=== PATIENT | male | born 1970 | race African-American/Black ===

== ENCOUNTER 2020-07-05 13:33 | Inpatient (IN) | payer OTHER ==
--- NOTE | 2020-07-05 13:57 | BHS.RME ---
Substance Use & Tx History - Substance Use History Alcohol Substance amount: 10 beers 24 oz + 1 pint liquor Frequency of use: Daily Substance route: Oral Date of Last Use: 07/04/20 (started age 16) Cocaine- Powder Substance amount: 3 grams Frequency of use: Less than 3 times per week Substance route: Inhalation (ex: sniffing or snorting), Smoking Date of Last Use: 07/04/20 (started age 18) Marijuana/Hashish Substance amount: 1 ounce Frequency of use: Daily Substance route: Smoking Date of Last Use: 07/05/20 (started age 14) Nicotine Substance amount: 1 pack Frequency of use: Daily Substance route: Smoking Date of Last Use: 07/05/20 (started age 16) Physical/Psych/Mental Status - Behavior General Behavior: Increased activity (restlessness, agitation) Eye Contact: Normal - Cooperativeness Cooperativeness: Cooperative - Thinking Thought Processes: Tight, Logical, Goal Directed - Physical Health Problems Is patient presently having any pain?: No Does patient presently have any injuries (include location): No Does patient currently have a fever: No Is patient : No CIWA Nausea/Vomitin-Int. Nausea w/Dry Heave Muscle Tremors: 2 Anxiety: 3 Agitation: 4-Moderately Restless Paroxysmal Sweats: 1-Minimal Palms Moist Orientation: 0-Oriented Tacttile Disturbances: 1-Very Mild Itch/Numbness Auditory Disturbances: 0-None Visual Disturbances: 0-None Headache: 0-None Present CIWA-Ar Total Score: 15
--- NOTE | 2020-07-05 15:39 | HP ---
CIWA Score Nausea/Vomitin-Int. Nausea w/Dry Heave Muscle Tremors: 2 Anxiety: 3 Agitation: 4-Moderately Restless Paroxysmal Sweats: 1-Minimal Palms Moist Orientation: 0-Oriented Tacttile Disturbances: 1-Very Mild Itch/Numbness Auditory Disturbances: 0-None Visual Disturbances: 0-None Headache: 0-None Present CIWA-Ar Total Score: 15 - Admission Criteria OASAS Guidelines: Admission for Medically Managed Detox: Requires at least one of the followin. CIWA greater than 12 2. Seizures within the past 24 hours 3. Delirium tremens within the past 24 hours 4. Hallucinations within the past 24 hours 5. Acute intervention needed for co occurring medical disorder 6. Acute intervention needed for co occurring psychiatric disorder 7. Severe withdrawal that cannot be handled at a lower level of care (continued vomiting, continued diarrhea, abnormal vital signs) requiring intravenous medication and/or fluids 8. Patient presents the following: CIWA greater than 12 Admission Criteria Met: Admission criteria met Admitting History and Physical - Admission Chief Complaint: 50 yo M presenting alcohol detox; "so I can get clean." History of Present Illness: 50 yo M presenting alcohol detox; "so I can get clean." Pt is new to [facility]. Pt reports going to detox in the [place] 2 weeks ago. Reports intermittent periods of sobriety. Pt reports certain interpersonal relationships and "talking about it all the time" triggers him to start using more. Pt reports blacking out 2.5 weeks ago. No seizures. Pt started to feel withdrawal symptoms. PMH - asthma (albuterol inhaler prn) PSH - none Pcyh - schizophrenia - depakot 500 mg bid (last taken 2 days ago), abilify consta shot (1/month) Soc/Dom - homeless - Substance Use History Alcohol Substance amount: 10 beers 24 oz + 1 pint liquor Frequency of use: Daily Substance route: Oral Date of Last Use: 07/04/20 (started age 16) Cocaine- Powder Substance amount: 3 grams Frequency of use: Less than 3 times per week Substance route: Inhalation (ex: sniffing or snorting), Smoking Date of Last Use: 07/04/20 (started age 18) Marijuana/Hashish Substance amount: 1 ounce Frequency of use: Daily Substance route: Smoking Date of Last Use: 07/05/20 (started age 14) Nicotine Substance amount: 1 pack Frequency of use: Daily Substance route: Smoking Date of Last Use: 07/05/20 (started age 16) History Source: Patient Limitations to Obtaining History: No Limitations Admission ROS [facility] - [facility] Allergies/Adverse Reactions: Allergies Allergy/AdvReac Type Severity Reaction Status Date / Time banana Allergy Intermediate Vomiting Verified 07/05/20 15:42 cantaloupe Allergy Intermediate Vomiting Verified 07/05/20 15:42 watermelon Allergy Intermediate Vomiting Verified 07/05/20 15:42 peanut butter Allergy Intermediate Vomiting Uncoded 07/05/20 15:42 - Ebola screening Have you traveled outside of the country in the last 21 days: No Have you been sick,other than usual withdrawal symptoms: No Do you have a fever: No - Review of Systems Constitutional: Chills, Diaphoresis (mild perspiration), Changes in sleep (insomnia) EENT: reports: No Symptoms Reported Respiratory: reports: No Symptoms reported Cardiac: reports: No Symptoms Reported GI: reports: Nausea, Abdominal cramping (mild) : reports: No Symptoms Reported Musculoskeletal: reports: No Symptoms Reported Integumentary: reports: Other (healing wound with scab on R elbow) Neuro: reports: Headache, Numbness (in hands and feet that has been going on for years, per pt), Tingling (in hands and feet that has been going on for years, per pt), Tremors (mild tremor - felt not seen) Endocrine: reports: No Symptoms Reported Hematology: reports: Anemia (hx of anemia) Psychiatric: reports: Mood/Affect Appropiate, Orientated x3, Agitated (moderately restless), Anxious (mildly anxious) Patient History - Smoking Cessation Smoking history: Current every day smoker Have you smoked in the past 12 months: Yes Aproximately how many cigarettes per day: 20 Hx Chewing Tobacco Use: Yes Initiated information on smoking cessation: Yes 'Breaking Loose' booklet given: 07/05/20 Admission Physical Exam [facility] Physical General Appearance: Yes: No Apparent Distress, Nourished, Appropriately Dressed HEENTM: Yes: EOMI, Hearing grossly Normal, Normocephalic, Normal Voice Respiratory: Yes: Lungs Clear, Normal Breath Sounds, No Respiratory Distress, No Accessory Muscle Use Neck: Yes: Supple, Trachea in good position Breast: Yes: Breast Exam Deferred Cardiology: Yes: Regular Rhythm, Regular Rate Abdominal: Yes: Normal Bowel Sounds, Non Tender (but will mild discomfort), Soft Genitourinary: Yes: Other (deferred) Musculoskeletal: Yes: full range of Motion, Gait Steady Extremities: Yes: Normal Inspection, Normal Range of Motion, Non-Tender, Tremors (mild, felt not seen) Neurological: Yes: Fully Oriented, Alert, Motor Strength 5/5 Integumentary: Yes: Normal Color, Dry, Warm - Diagnostic (1) Schizophrenia Current Visit: No Status: Chronic Qualifiers: Schizophrenia type: unspecified Qualified Code(s): F20.9 - Schizophrenia, unspecified (2) Asthma Current Visit: No Status: Chronic Qualifiers: Asthma severity: mild Asthma persistence: intermittent Asthma complication type: uncomplicated Qualified Code(s): J45.20 - Mild intermittent asthma, uncomplicated (3) Alcohol dependence Current Visit: Yes Status: Acute Qualifiers: Substance use status: in withdrawal Complication of substance-induced condition: uncomplicated Qualified Code(s): F10.230 - Alcohol dependence with withdrawal, uncomplicated (4) Cocaine dependence Current Visit: Yes Status: Acute Qualifiers: Substance use status: uncomplicated Qualified Code(s): F14.20 - Cocaine dependence, uncomplicated (5) Marijuana dependence Current Visit: Yes Status: Acute (6) Nicotine dependence Current Visit: Yes Status: Acute Qualifiers: Nicotine product type: cigarettes Substance use status: uncomplicated Qualified Code(s): F17.210 - Nicotine dependence, cigarettes, uncomplicated Cleared for Admission S - Detox or Rehab [facility] Level of Care: Medically Managed Detox Regimen/Protocol: Librium Breathalyzer - Breathalyzer Breathalyzer: 0 Urine Drug Screen - Control Is test valid?: Yes - Results Urine drug screen results: THC-Marijuana, LEONARD-Cocaine Inpatient Rehab Admission - Rehab Decision to Admit Inpatient rehab admission?: No
[2020-07-05] MEDS ORDERED: BISMUTH SUBSALICYLATE 524 MG/30 ML UD PO PRN (15:53)
[2020-07-05] MEDS ORDERED: MENTHOL/PHENOL 1 EACH UD MM PRN (15:53)
[2020-07-05] MEDS ORDERED: METHOCARBAMOL 500 MG TABLET PO PRN (15:53)
[2020-07-05] MEDS ORDERED: MAGNESIUM CITRATE 300 ML BOTTLE PO PRN (15:53)
[2020-07-05] MEDS ORDERED: NICOTINE POLACRILEX 2 MG GUM BUC PRN (15:53)
[2020-07-05] MEDS ORDERED: MAG HYDROX/AL HYDROX/SIMETH 30 ML UNIT-DOSE CUP PO PRN (15:53)
[2020-07-05] MEDS ORDERED: ONDANSETRON *ODT* 4 MG TABLET SL PRN (15:53)
[2020-07-05] MEDS ORDERED: chlordiazePOXIDE HCL 25 MG CAPSULE PO PRN (15:53)
[2020-07-05] MEDS ORDERED: IBUPROFEN 400 MG TABLET (FP) PO PRN (15:53)
[2020-07-05] MEDS ORDERED: ACETAMINOPHEN 325 MG TABLET (FP) PO PRN ×2 (15:53)
[2020-07-05] MEDS ORDERED: MAGNESIUM HYDROX 2400MG/30ML ORAL SUSPENSION 30 ML CUP PO PRN (15:53)
[2020-07-05 15:59] VITALS: BP 114/73; PULSE 59; TEMP 97.3; BMI 28.0
[2020-07-05] MEDS ORDERED: NICOTINE 21 MG/24 HOURS TOPICAL PATCH TD SCH (16:00)
[2020-07-05] MEDS ORDERED: ALBUTEROL SO4 HFA INHALER IH PRN (16:06)
--- NOTE | 2020-07-05 16:57 | PN ---
[facility] Progress Note Note: Patient presents w/ alcohol, cocaine and cannabis use disorder for admission to detox. States eye injury 3 weeks ago r/t fall. Patient admission EKG shows Bradycardia @42 w/ Marked voltage criteria for LVH, T-wave abnormality. Assess: Alert. Denies chest pain States intermittent SOB. (L) eye outer lateral sclera bright red. HR: 46, possible murmur heard. + Tremors. Intermittent retching. Plan: COVID test sent to lab earlier. Stat dose Ativan 2 mg PO for alcohol withdrawal. Send to [facility] ED for clearance via ambulance. Report given to Dr. Salcedo. Patient to return to [facility] when cleared.
[2020-07-05] MEDS ORDERED: LORazepam 2 MG TABLET PO STA (16:58)
--- OUTSIDE RECORDS SUMMARY | 2020-07-05 18:43 | XMS ---
:1970 Author Organization [facility] Care Team Providers Name Role Phone MD Vida Unavailable Unavailable MD KADI Unavailable Unavailable ED STAFF PHYSICIAN Unavailable Unavailable MD Rachna Unavailable Unavailable Premium, C Unavailable Unavailable Thomas, C Unavailable Unavailable Premium, C Unavailable Unavailable Premium C Unavailable Unavailable LUNA Charles Unavailable Unavailable MD Deondre Unavailable Unavailable Jas HURTADO Unavailable Unavailable [id number] Unavailable Unavailable MD Soniya Unavailable Unavailable WILLA DIXON Unavailable Unavailable MD BALDEMAR Unavailable Unavailable Joseph Unavailable Unavailable ED STAFF PHYSICIAN Unavailable Unavailable ED STAFF PHYSICIAN Unavailable Unavailable Re-disclosure Warning The records that you are about to access may contain information from federally- assisted alcohol or drug abuse programs. If such information is present, then the following federally mandated warning applies: This information has been disclosed to you from records protected by federal confidentiality rules (42 CFR part 2). The federal rules prohibit you from making any further disclosure of this information unless further disclosure is expressly permitted by the written consent of the person to whom it pertains or as otherwise permitted by 42 CFR part 2. A general authorization for the release of medical or other information is NOT sufficient for this purpose. The Federal rules restrict any use of the information to criminally investigate or prosecute any alcohol or drug abuse patient.The records that you are about to access may contain highly sensitive health information, the redisclosure of which is protected by Article 27-F of the [facility] Public Health law. If you continue you may haveaccess to information: Regarding HIV / AIDS; Provided by facilities licensed or operated by the [facility] Office of Mental Health; or Provided by the [facility] Office for People With Developmental Disabilities. If such information is present, then the following [facility] mandated warning applies: This information has been disclosed to you from confidential records which are protected by state law. State law prohibits you from making any further disclosure of this information without the specific written consent of the person to whom it pertains, or as otherwise permitted by law. Any unauthorized further disclosure in violation of state law may result in a fine or prison sentence or both. A general authorization for the release of medical or other information is NOT sufficient authorization for further disclosure. 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 Encounters Encounter Providers Location Date Indications Data Source(s ) Emergency Attender: Harsh 06/02/2020 POST FALL, ARM PAIN W shalini Ruiz 07:27:00 AM [facility] EDT - 06/02/2020 08:51:00 AM EDT POST FALL, ARM PAIN [facility] Patient discharged. Emergency Attender: ED STAFF H 05/22/2020 08:49:00 AM [facility] PHYSICIANAttender: CAIO ED EDT - 05/22/2020 [facility] STAFF PHYSICIANAttender: STAFF 05:46:00 PM EDT ED STAFF PHYSICIANAdmitter: ED STAFF PHYSICIAN Patient discharged. Inpatient Attender: ROMIE HARVEY 02/14/2020 [facility] PM EDT - 02/20/2020 [facility] 10:07:00 PM EDT Patient discharged. Outpatient ST 02/14/2020 04:11:00 PM EDT - [address] [place] [address] 10:36:00 PM EDT Patient discharged. Inpatient Attender: NAN H-HAL6 02/09/2020 04:21:00 [facility] ANGELESCLARISAGuillermo ADHAttender: PM EDT - 02/14/20 Medical Center STAFF ED STAFF 04:51:00 PM EDT PHYSICIANAdmitter: NAN DUONGHReferrer: NAN REYNOSONICK DESTINY Patient discharged. Emergency Attender: Maritzaent 12/15/2019 04:01:00 FLU LIKE SYMPTOMS-[place] Desha Battiato AM EDT - 12/15/2019 [facility] 11:10:00 AM EDT FLU LIKE SYMPTOMS-[place]I Patient discharged. Unlisted evaluation 11/23/2019 10:00:00 NETSMART (The and management PM EST Guidance C enter of service [place]) Unlisted evaluation 11/09/2019 02:00:00 NETSMART (The and management PM EST Guidance C enter of [facility]) Inpatient Attender: ROMIE STEARNS-1D 10/17/2019 05:03:00 [facility] ANDREWANYANAdmi PM EST - 10/25/2019 Hospital tter: Kacey 10:29:00 PM EST Premium Patient discharged. Attender: 10/17/2019 [facility] [id number] 05:03:00 PM [id number] 10/17/2019 [facility] 02:13:00 PM EST - Hospita l 10/17/2019 05:16:00 PM EST Patient discharged. Attender: 10/17/2019 [facility] [id number] 02:13:00 PM [facility]_[id number] Unlisted 10/11/2019 NETSMART (Ment al evaluation and 08:00:00 PM EST Healt h management - 10/20/2019 Association of service 04:00:00 PM EST [facility] er) Emergency H 07/22/2019 [facility] 11:50:00 PM EDT Medical C enter - 07/23/2019 01:40:00 AM EDT Patient discharged. Emergency Attender: Sean Mendosa 06/05/2019 05:06:00 MED EVAL Desha MDConsultant: Sean AM EDT - 06/05/2019 [facility] Deondre LUCIANO 06:56:00 AM EDT MED EVAL WALK Patient discharged. Emergency Attender: Piper 06/04/2019 10:40:00 STOMACH PAIN ([place]) Melinda Byrnes MD PM EDT - 06/05/2019 [facility] 02:33:00 AM EDT STOMACH PAIN ([place]) Patient discharged. Emergency Attender: Niles Mcpherson 05/29/2019 02:18:00 FINGER INJURY Melinda Sharma MD AM EDT - 05/29/2019 [place] [facility] 07:35:00 AM EDT FINGER INJURY [place] Patient discharged. Unlisted 05/03/2019 NETSMART (Ment al evaluation and 07:10:00 PM EDT [facility] management service 05/12/2019 of [facility]) 06:30:00 PM EDT Unlisted 04/26/2019 NETSMART (Ment al evaluation and 04:50:00 PM EDT [facility] management service 05/02/2019 of [facility]) 02:30:00 PM EDT Unlisted 04/04/2019 NETSMART (Ment al evaluation and 12:45:00 PM EDT [facility] management service 04/05/2019 of [facility]) 02:50:00 PM EDT Emergency Attender: 04/03/2019 COUGHING UP Melinda Briscoe 11:21:00 PM EDT - BLOOD W/I [facility] 04/04/2019 06:07:00 AM EDT COUGHING UP BLOOD W/I Unlisted evaluation 03/27/2019 01:00:00 NETSMART (The and management PM EDT Guidance C jacquelyn [facility]) Attender: 08/10/2005 09:00:00 [facility] [id number] PM EST [facility]pi [facility] [id number] Attender: 08/10/2005 11:00:00 [facility] [id number] AM EST [facility] [id number] Outpatient Attender: RYAN STEARNS 08/10/2005 10:00:00 [facility] MCQUEENdmitter: AM EST Hospit al RYAN WALLIS Attender: 08/10/2005 10:00:00 [facility] [id number] AM EST [facility]pi sherly [id number] Attender: 08/10/2005 10:00:00 [facility] [id number] AM EST [facility]pi [facility] [id number] Medications Medication Brand Start Product Dose Route Administrative Pharmacy [facility] Indications Reaction Description Data Name Date Form Instructions Instructions Source(s) 2 ML Abilif 05/06/ 400.0 Intram active NETSMA RT aripiprazol y 2020 [place] uscula (The e 200 MG/ML Mainte 04:00: gram r Guid ance Prefilled na 00 AM Center of Syringe Dual-C EDT [place] [Abilify] hamber r) ed Syring e 24 HR Depako 2.0 Oral active NETSMART Divalproex te ER 2020 Table (The Sodium 500 04:00: t Guidanc e MG Extended 00 AM Center of Release EDT [place] Oral Tablet r) [Depakote] 2 ML Abilif 03/01/ INTRAM active NETSMAR T aripiprazol y 2020 [facility]ULA (The e 200 MG/ML Mainte 04:00: R Guid ance Prefilled na 00 AM Center of Syringe Dual-C EDT [place] [Abilify] hamber r) ed Syring e 400 MG Intram uscula r Powder for Suspen nura, Extend ed Releas e 24 HR Depako 03/01/ 2.0 Oral active NETSMART Divalproex te ER 2020 Table (The Sodium 500 04:00: t Guidanc e MG Extended 00 AM Center of Release EDT [place] Oral Tablet r) [Depakote] 24 HR Depako 03/01/ ORAL active NETSMART Divalproex te ER 2020 (The Sodium 500 500 MG 04:00: Yo nce MG Extended Oral 00 AM Center of Release Tablet EDT [place] Oral Tablet , r) [Depakote] Extend ed Releas e 2 ML Abilif 03/01/ 400.0 Intram active NETSMA RT aripiprazol y 2020 [place] us[facility]a (The e 200 MG/ML Mainte 04:00: gram r Guid ance Prefilled na 00 AM [facility] ed Syring e 2 ML Abilif 01/31/ INTRAM active NETSMAR T aripiprazol y 2020 [facility]ULA (The e 200 MG/ML Mainte 04:00: R Guid ance Prefilled na 00 AM [facility] hamber r) ed [place] e 400 MG Intram uscula r Powder for Suspen nura, Extend ed Releas e 24 HR Depako 01/31/ ORAL active NETSMART Divalproex te ER 2020 (The Sodium 500 500 MG 04:00: Yo nce MG Extended Oral 00 AM Center [facility] Release Tablet EDT [facility] , r) [Depakote] Extend ed Releas e 24 HR Depako 12/20/ ORAL active NETSMART Divalproex te ER 2020 (The Sodium 500 500 MG 04:00: Yo nce MG Extended Oral 00 AM Center of Release Tablet EDT [place] Oral Tablet , r) [Depakote] Extend ed Releas e 2 ML Abilif 12/20/ INTRAM active NETSMAR T aripiprazol y 2020 [facility] (The e 200 MG/ML Mainte 04:00: R Guid ance Prefilled na 00 AM Center of Syringe Dual-C EDT [facility] [Abilify] dukeer r) ed [place]ring e 400 MG Intram uscula r Powder for Suspen nura, Extend ed Releas e Prednisone Predni 12/14/ TABLET 40 mg ORAL complet [facility] 20 MG Oral sone 2019 ed [place] Tablet 09:58: Hospital 00 AM EDT 200 ACTUAT [place] 12/14/ AEROSOL, 2 ORAL complet [place] Albuterol rol 2020 SPRAY ed [place] 0.09 Sulfat 09:58: Hospital MG/ACTUAT e Hfa 00 AM Metered 90MCG/ EDT Dose Inh* Inhaler [ProAir] Albuterol Sulfate Hfa 90MCG/Inh* 200 ACTUAT [place] 12/14/ AEROSOL, 2 ORAL active [place] Albuterol rol 2019 SPRAY [place] 0.09 Sulfat 09:58: Hospital MG/ACTUAT e Hfa 00 AM Metered 90MCG/ EDT Dose Inh* Inhaler [ProAir] Albuterol Sulfate Hfa 90MCG/Inh* Azithromyci Azithr 12/14/ TABLET 250 ORAL complet [place] n 250 MG omycin 2020 mg ed [place] Oral Tablet 09:58: Hospit al [Zithromax] 00 AM EDT Azithromyci Azithr 12/14/ TABLET 250 ORAL active [place] n 250 MG omycin 2020 mg [place] Oral Tablet 09:58: Hospit al [Zithromax] 00 AM EDT Prednisone Predni 12/14/ TABLET 40 mg ORAL active [place] 20 MG Oral sone 2020 [place] Tablet 09:58: Hospital 00 AM EDT aripiprazol Abilif 10/25/ INTRAM complet [facility] e 400 MG y 2020 [facility] Injection Mainte 12:00: R Hospit al [Abilify] na 00 AM Vial - EST 400 MG/1 Vial INTRAM [facility]ULA R Powder for Suspen nura, Extend ed Releas e 2 ML Abilif 09/08/ INTRAM active NETSMAR T aripiprazol y 2019 [facility]ULA (The e 200 MG/ML Mainte 05:00: R Guid ance Prefilled na 00 AM Center of Syringe Dual-C EST [place] [Abilify] connie r) ed [place] e 400 MG Intram uscula r Powder for Suspen nura, Extend ed Releas e 24 HR Depako 09/08/ ORAL active NETSMART Divalproex te ER 2019 (The Sodium 500 500 MG 05:00: Yo nce MG Extended Oral 00 AM Center of Release Tablet EST [place] Oral Tablet , r) [Depakote] Extend ed Releas e 24 HR [place]ako 08/13/ ORAL active NETSMART Divalproex te ER 2019 (The Sodium 500 500 MG 05:00: Yo nce MG Extended Oral 00 AM Center of Release Tablet EST [place] Oral Tablet , r) [Depakote] Extend ed Releas e 2 ML Abilif 08/13/ INTRAM active NETSMAR T aripiprazol y 2019 [facility]A (The e 200 MG/ML Mainte 05:00: R Guid ance Prefilled na 00 AM Center of Syringe Dual-C EST [place] [Abilify] dukeer r) ed [place] e 400 MG Intram uscula r Powder for Suspen nura, Extend ed Releas e 24 HR Depako 06/29/ ORAL complet NETSMAR T Divalproex te ER 2019 ed (The Sodium 500 500 MG 04:00: Yo nce MG Extended Oral 00 AM Center of Release Tablet EDT [place] Oral Tablet , r) [Depakote] Extend ed Releas e 2 ML Abilif 06/22/ INTRAM complet NETSMA RT aripiprazol y 2019 [facility]ULA ed (The e 200 MG/ML Mainte 04:00: R Guid ance Prefilled na 00 AM Center of Syringe Dual-C EDT [place] [Abilify] connie r) ed [place] e 400 MG Intram uscula r Powder for Suspen nura, Extend ed Releas e 24 HR Depako 06/06/ ORAL complet NETSMAR T Divalproex te ER 2019 ed (The Sodium 500 500 MG 04:00: Yo nce MG Extended Oral 00 AM Center of Release Tablet EDT [place] Oral Tablet , r) [Depakote] Extend ed Releas e Famotidine Famoti 06/05/ TABLET 20 mg ORAL active [facility] 20 MG Oral dine 2019 [place] Tablet 06:10: Hospital [Pepcid] 00 AM EDT Famotidine Famoti 06/05/ TABLET 20 mg ORAL active [place] 20 MG Oral dine 2019 [place] Tablet 06:10: Hospital [Pepcid] 00 AM EDT Famotidine Famoti 06/05/ TABLET 20 mg ORAL complet [place] 20 MG Oral dine 2019 ed [place] Tablet 06:10: Hospital [Pepcid] 00 AM EDT Ondansetron Ondans 06/05/ TABLET 4 mg ORAL active [place] 4 MG etron 2019 [place] Disintegrat Hcl 12:09: Hospit al ing Oral 00 AM Tablet EDT Ondansetron Hcl Ondansetron Ondans 06/05/ TABLET 4 mg ORAL complet [place] 4 MG etron 2018 ed [place] Disintegrat Hcl 12:09: Hospit al ing Oral 00 AM Tablet EDT Ondansetron Hcl Ondansetron Ondans 06/05/ TABLET 4 mg ORAL complet [place] 4 MG etron 2018 ed [place] Disintegrat Hcl 12:09: Hospit al ing Oral 00 AM Tablet EDT Ondansetron Hcl Ondansetron Ondans 06/05/ TABLET 4 mg ORAL complet [facility] 4 MG etron 2019 ed [place] Disintegrat Hcl 12:09: Hospit al ing Oral 00 AM Tablet EDT Ondansetron Hcl 24 HR Depako 05/29/ ORAL complet NETSMAR T Divalproex te ER 2019 ed (The Sodium 500 500 MG 04:00: Yo nce MG Extended Oral 00 AM Center of Release Tablet EDT [place] Oral Tablet , r) [Depakote] Extend ed Releas e Prednisone Predni 07/02/ TABLET 2 ORAL complet [place] sone 2018 {Caps ed [place] 05:10: ule} Hospital 00 AM EDT Prednisone Predni 07/02/ TABLET 2 ORAL active W shalini 10 MG Oral sone 2018 {Caps [place] Tablet 05:10: ule} Hospital 00 AM EDT Amoxicillin Amoxic 07/02/ TABLET 1 ORAL active [facility] 875 MG / illin/ 2018 {Caps [place] Clavulanate Clavun 05:10: ule} Hosp ital 125 MG Oral ate 00 AM Tablet 875-12 EDT [Augmentin] 5 Amoxicillin Tablet /Clavunate * 875-125 Tablet* Albuterol 07/02/ AEROSOL, 2 RESPIR complet [facility] 2019 SPRAY ATORY ed [place] 05:10: (INHAL Hospital 00 AM ATION) EDT Prednisone Predni 07/02/ TABLET 2 ORAL complet [place] sone 2018 {Caps ed [place] 05:10: ule} Hospital 00 AM EDT Amoxicillin Amoxic 07/02/ TABLET 1 ORAL complet [facility] 875 MG / illin/ 2018 {Caps ed [place] Clavulanate Clavun 05:10: ule} Hosp ital 125 MG Oral ate 00 AM Tablet 875-12 EDT [Augmentin] 5 Amoxicillin Tablet /Clavunate * 875-125 Tablet* Albuterol 07/02/ AEROSOL, 2 RESPIR active [facility] 2019 SPRAY ATORY [place] 05:10: (INHAL Hospital 00 AM ATION) EDT Albuterol 07/02/ AEROSOL, 2 RESPIR active [facility] 2019 SPRAY ATORY [place] 05:10: ([facility] Hospital 00 AM ATION) EDT Prednisone Predni 07/02/ TABLET 2 ORAL complet [place] sone 2018 {Caps ed [place] 05:10: ule} Hospital 00 AM EDT Amoxicillin Amoxic 07/02/ TABLET 1 ORAL complet [place] 875 MG / illin/ 2018 {Caps ed [place] Clavulanate Clavun 05:10: ule} Hosp ital 125 MG Oral ate 00 AM Tablet 875-12 EDT [Augmentin] 5 Amoxicillin Tablet /Clavunate * 875-125 Tablet* Amoxicillin Amoxic 07/02/ TABLET 1 ORAL complet [place] 875 MG / illin/ 2018 {Caps ed [place] Clavulanate Clavun 05:10: ule} Hosp ital 125 MG Oral ate 00 AM Tablet 875-12 EDT [Augmentin] 5 Amoxicillin Tablet /Clavunate * 875-125 Tablet* Albuterol 07/02/ AEROSOL, 2 RESPIR complet [facility] 2019 SPRAY ATORY ed [place] 05:10: ([facility] Hospital 00 AM ATION) EDT Albuterol 07/02/ AEROSOL, 2 RESPIR complet [place] 2019 SPRAY ATORY ed [place] 05:10: ([facility] Hospital 00 AM ATION) EDT Amoxicillin Amoxic 07/02/ TABLET 1 ORAL complet [place] 875 MG / illin2018 {[facility] ed [place] Clavulanate Clavun 05:10: ule} Hosp ital 125 MG Oral ate 00 AM Tablet 5-12 EDT [Augmentin] 5 Amoxicillin Tablet /Clavunate * 875-125 Tablet* Prednisone Predni 07/02/ TABLET 2 ORAL complet [place] 10 MG Oral sone 2019 {[facility] ed [place] Tablet 05:10: ule} Hospital 00 AM EDT Prednisone Predni TABLET 2 ORAL complet Wh ite sone {[facility] ed [place] ule} Hospital 24 HR Divalp TABLET active [place] Divalproex roex 24 HR [place] Sodium 500 Sodium [facility] MG Extended D Release RELEASE Oral Tablet Amoxicillin Amoxic TABLET 1 ORAL complet W shalini 875 MG / illin/ {Caps ed [place] Clavulanate Clavun ule} Hospit al 125 MG Oral ate Tablet 5-12 [Augmentin] 5 Amoxicillin Tablet /Clavunate * 875-125 Tablet* Albuterol [place] AEROSOL, 2 RESPIR complet [place] rol SPRAY ATORY ed [place] ([facility] Hospital ATION) Thiamine thiami 1 complet [facility] 100 MG Oral ne ed [place] Tablet [facility] thiamine trate Center mononitrate (vit (vit B1) B1) 100 mg 100 mg TabletDirec Tablet tions: 1 Direct tablet oral ions: daily 1 tablet oral daily Folic Acid foLIC 1 complet [facility] 1 MG Oral Acid 1 ed [place] Tablet mg Medical foLIC Acid Tablet Center 1 mg Direct TabletDirec ions: tions: 1 1 tablet oral tablet twice a day oral twice a day 24 HR divalp 2 complet Depakote ER Sa int Divalproex roex ed [place] Sodium 500 ([facility] Medical MG Extended ote Center Release ER) Oral Tablet 500 mg [Depakote] Tablet divalproex Extend (Depakote ed ER) 500 mg Releas Tablet e 24 Extended hrDire Release 24 ctions hrDirection : 2 s: 2 tablet tablet oral daily oral at bedtime daily at bedtim e 2 ML Aripip active [place] aripiprazol razole [place] e 200 MG/ML Hospital Prefilled Syringe [Abilify] Aripiprazol e complet No data [facility] ed available Health - for this [facility] Azithromyci AZITHr 1 complet Rg nt n 250 MG omycin ed [place] Oral Tablet 250 mg Medica l AZITHromyci Tablet Center n 250 mg , Tablet, Ordere Ordered By: d By: Paulie Heard, MDDirection MDDire s: 1 tablet ctions oral daily : 1 tablet oral daily Thiamine thiami 1 complet [facility] 100 MG Oral ne ed [place] Tablet [facility] thiamine trate Center mononitrate (vit (vit B1) B1) 100 mg 100 mg Tablet, Tablet Ordered By: Nate d By: MDDirection Nate s: 1 tablet [place] oral daily , MDDire ctions : 1 tablet oral daily Folic Acid foLIC 1 complet [facility] 1 MG Oral Acid 1 ed [place] Tablet mg Medical foLIC Acid Tablet Center 1 mg , Tablet, Ordere Ordered By: d By: Addie Goodman MDDirection , s: 1 tablet MDDire oral twice ctions a day : 1 tablet oral twice a day 24 HR divalp 2 complet Depakote ER Sa int Divalproex roex ed [place] Sodium 500 ([facility]ak Medical MG Extended ote Center Release ER) Oral Tablet 500 mg [Depakote] Tablet divalproex Extend (Depakote ed ER) 500 mg Releas Tablet e 24 Extended hr, Release 24 Ordere hr, Ordered d By: By: Addie Goodman MDDirection , s: 2 tablet MDDire oral daily ctions at bedtime : 2 tablet oral daily at bedtim e Insurance Providers Payer name Policy type Policy ID Covered Covered democrat's Policy P solitario / Coverage democrat ID relationship to [employer] Inf ormation type roberts LUCIA [id number] SP [id number] HEALTH NON CAP BETTER [id number] PT [id number] HEALTH/FIDELI S LUCIA CARE W [id number] 01 [id number] MT W [id number] SELF PAY [id number] Self [id number] MEDICAID INP [id number] Self [id number] U REHAB [id number] 01 [id number] LUCIA CARE W [id number] 01 [id number] [place] S[place] 0 Self 0 MEDICAID INP [id number] Self [id number] U REHAB [facility] LUCIA [id number] Self [id number] CARE MEDICAID OP [id number] Self [id number] BETTER [id number] PT [id number] HEALTH/FIDELI S MEDICAID [id number] PT [id number] EMERGENCY [id number] PT [id number] MCAID Medicaid [id number] Regular Clinic Visit Problems, Conditions, and Diagnoses Code Display Name Description Problem Type Effective Data Sour ce(s) Dates Complaint 11/09/2019 NETSMART (The 05:00:00 AM Guidance [facility] ) [id number] Schizoaffective Schizoaffective Complaint 10/12/2019 NETS MART disorder, bipolar disorder, bipolar 02:40:00 PM (Mental Health type type EST [facility]) [id number] Schizoaffective Schizoaffective Complaint 01/11/2019 NETS MART (The schizophrenia schizophrenia 01:00:00 PM [facility] [place] EDT [facility] ) [id number] Chronic paranoid Chronic paranoid Complaint 02/14/2000 [facility] 12:00:00 PM [facility]ospita [facility] (disorder) EDT [id number] Cocaine dependence Cocaine dependence Complaint 0 [facility] (disorder) 12:00:00 PM Hospital EDT [id number] Chronic paranoid Chronic paranoid Complaint 02/14/2000 [facility] schizophrenia schizophrenia 12:00:00 PM Hospita l (disorder) EDT 20827710 Cocaine dependence Cocaine dependence Complaint 0 [facility] (disorder) 12:00:00 PM Hospital EDT Y99.9 Unspecified Y99.9 Diagnosis 06/02/2020 [facility] external cause 07:45:00 AM Hospital status EDT Y92.[address] Y92.9 Diagnosis 06/02/2020 [place] or not applicable 07:45:00 AM Hospit al EDT Y93.9 Activity, Y93.9 Diagnosis 06/02/2020 [facility] unspecified 07:45:00 AM Hospital EDT W19.XXXA Unspecified fall, W19.XXXA Diagnosis 06/02/2020 [place] initial encounter 07:45:00 AM Hospit al EDT F17.200 Nicotine F17.200 Diagnosis 06/02/2020 [facility] dependence, 07:45:00 AM Hospital unspecified, EDT uncomplicated J45.909 Unspecified J45.909 Diagnosis 06/02/2020 [facility] asthma, 07:45:00 AM Hospital uncomplicated EDT S40.811A Abrasion of right S40.811A Diagnosis 06/02/2020 [place] upper arm, initial 07:45:00 AM Hospi sherly encounter EDT R55 Syncope and R55 Diagnosis 06/02/2020 [facility] collapse 07:45:00 AM Hospital EDT F17.210 Nicotine NICOTINE Diagnosis 05/22/2020 [facility] dependence, DEPENDENCE, 08:49:[address] cigarettes, CIGARETTES, EDT uncomplicated UNCOMPLICATED I10 Essential ESSENTIAL Diagnosis 05/22/2020 [facility] (primary) (PRIMARY) 08:49:00 AM Medical Cente r hypertension HYPERTENSION EDT J40 Bronchitis, not BRONCHITIS, NOT Diagnosis 05/22/2020 [facility] specified as acute SPECIFIED ACUTE 08:49:00 AM Medical Center or chronic OR CHRONIC EDT R68.89 Other general OTHER GENERAL Diagnosis 05/22/2020 [facility] sephs symptoms and signs SYMPTOMS AND SIGNS 08:49:00 AM Medical Center EDT G43.909 Migraine, MIGRAINE, UNSP, Diagnosis 02/14/2020 [facility] ephs unspecified, not NOT INTRACTABLE, 04:51:00 PM edical Center intractable, WITHOUT STATUS EDT without status MIGRAINOSUS migrainosus Y90.0 Blood alcohol BLOOD ALCOHOL Diagnosis 02/14/2020 [facility]phs level of less than LEVEL OF LESS THAN 04:51:00 PM Medical Center 20 mg/100 ml 20 MG/100 ML EDT F14.10 Cocaine abuse, COCAINE ABUSE, Diagnosis 02/14/2020 [facility] uncomplicated UNCOMPLICATED 04:51:00 PM Medical Center EDT J18.9 Pneumonia, PNEUMONIA, Diagnosis 02/14/2020 [facility] unspecified UNSPECIFIED 04:51:[address] organism ORGANISM EDT F10.239 Alcohol dependence ALCOHOL DEPENDENCE Diagnosis 0 [facility] with withdrawal, WITH WITHDRAWAL, 04:51:00 PM edical Center unspecified UNSPECIFIED EDT Z59.0 Homelessness HOMELESSNESS Diagnosis 02/14/2020 [facility] phs 04:51:00 PM Medical Cente r EDT F10.20 Alcohol ALCOHOL Diagnosis 02/09/2020 [facility] dependence, DEPENDENCE, 04:21:[address] uncomplicated UNCOMPLICATED EDT L03.011 Cellulitis of CELLULITIS OF Diagnosis 07/22/2019 [facility] [place] right finger RIGHT FINGER 11:50:00 PM Medical C enter EDT M79.646 Pain in PAIN IN Diagnosis 07/22/2019 [facility] unspecified UNSPECIFIED 11:50:[address] finger(s) FINGER(S) EDT F14.10 Cocaine abuse, F14.10 Diagnosis 06/05/2019 [place] uncomplicated 05:31:00 AM Hospital EDT F12.10 Cannabis abuse, F12.10 Diagnosis 06/05/2019 [place] uncomplicated 05:31:00 AM Hospital EDT R10.9 Unspecified R10.9 Diagnosis 06/05/2019 [facility] abdominal pain 05:31:00 AM Hospital EDT R00.1 Bradycardia, R00.1 Diagnosis 06/04/2019 [place] unspecified 11:04:00 PM Hospital EDT J43.9 Emphysema, J43.9 Diagnosis 06/04/2019 [facility] unspecified 11:04:00 PM Hospital EDT J84.89 Other specified J84.89 Diagnosis 06/04/2019 [place] [facility] interstitial 11:04:00 PM Hospital pulmonary diseases EDT R11.2 Nausea with R11.2 Diagnosis 06/04/2019 [facility] vomiting, 11:04:00 PM Hospital unspecified EDT R10.84 Generalized R10.84 Diagnosis 06/04/2019 [facility] abdominal pain 11:04:00 PM Hospital EDT X58.XXXA Exposure to other X58.XXXA Diagnosis 05/29/2019 [place] specified factors, 03:04:00 AM Hospi sherly initial encounter EDT S69.92XA Unspecified injury S69.92XA Diagnosis 05/29/2019 [facility] of left wrist, 03:04:00 AM Hospital hand and EDT finger(s), initial encounter J40 Bronchitis, not J40 Diagnosis 04/03/2019 [place] [facility] specified as acute 11:59:00 PM Hospi sherly or chronic EDT D64.9 Anemia, Anemia, Diagnosis 12/06/2018 [facility] (M[facility] t unspecified unspecified 06:36:32 PM [facility]) 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 08/24/2005 [facility] SCHIZOPHRENIA SCHIZO-UNSPEC 12:00:00 AM Hospita l UNSPECIFIED STATE EST Surgeries/Procedures Procedure Description Date Indications Data Source(s) XR elbow right 06/02/2020 [facility] 12:00:00 AM Hospital EDT Electrocardiographic procedure 06/02/2020 [facility] (procedure) 12:00:00 AM Hospital EDT Computed tomography of chest 12/15/2019 [facility] without contrast 12:00:00 AM Hospital EDT Electrocardiographic procedure 12/15/2019 [facility] (procedure) 12:00:00 AM Hospital EDT Plain chest X-ray (procedure) 12/15/2019 [facility] 12:00:00 AM Hospital EDT Computed tomography of abdomen 06/05/2019 [facility] and pelvis without contrast 12:00:00 AM Hospital EDT Computed tomography of abdomen 06/05/2019 [facility] and pelvis without contrast 12:00:00 AM Hospital EDT Electrocardiographic procedure 06/04/2019 [facility] (procedure) 12:00:00 AM Hospital EDT Electrocardiographic procedure 06/04/2019 [facility] (procedure) 12:00:00 AM Hospital EDT Emergency dept visit 05/29/2019 [place] 12:00:00 AM Hospital EDT Emergency dept visit 05/29/2019 [place] 12:00:00 AM Hospital EDT Results ID Date Data Source [id number] 06/02/2020 07:55:00 AM EDT [facility] Durability Engineer:TAM MORAN Name Value Range Interpretation Description Data Sup porting Code Source(s) Document(s ) Glucose 79 mg/dL [facility] [Mass/volume] [facility] in Capillary blood by Glucometer ID Date Data Source Microbiology.[id number] 05/22/2020 01:53:00 PM EDT [facility] 400 Name Value Range Interpretation Code Description Data Liya rce(s) Supporting Document(s ) UNK <item><content [facility] styleCode="Bold"> Medical [facility] er Culture Report </content>
<t able><tbody><tr>< td>Specimen Number:</td><td>[id number]</td></tr ><tr><td>Sample Collection Date/Time: </td><td> 0 1:53 PM</td></tr><tr>< td>Specimen Source:</td><td>B LOOD</td></tr><tr ><td>Blood Culture:</td><td> Collection Plate Date: 05/22/2020 13:57 </td></tr><tr><td >Culture Status:</td><td>P reliminary </td></tr><tr><td >Culture Report:</td><td>C ulture in progress </td></tr></tbody ></table></item> UNK <item><content [facility] styleCode="Bold"> Medical [facility] er Culture Status </content>
<t able><tbody><tr>< td>Specimen Number:</td><td>[id number]</td></tr ><tr><td>Sample Collection Date/Time: </td><td> 0 1:53 PM</td></tr><tr>< td>Specimen Source:</td><td>B LOOD</td></tr><tr ><td>Blood Culture:</td><td> Collection Plate Date: 05/22/2020 13:57 </td></tr><tr><td >Culture Report:</td><td>C ulture in progress </td></tr><tr><td >Culture Status:</td><td>P reliminary </td></tr></tbody ></table></item> ID Date Data Source [facility].[id number] 05/22/2020 01:53:00 PM EDT [facility] -0400 Name Value Range Interpretation Description Data Sup porting Code Source(s) Document(s ) Valproate 50-120 Below low normal <content [facility] [Mass/volume] styleCode="Bold Seth in Serum or ">Valproic Acid Medical Plasma </content>< Center 10.0 UG/ML L<content styleCode="Ital ics"> (50-120 UG/ML)</content > ID Date Data Source MROUTINECC.[id number] 05/22/2020 01:36:00 PM EDT [facility] -0400 Name Value Range Interpretation Description Data Sup porting Code Source(s) Document(s ) Lactate 0.7-2.0 Below low normal <content [facility] [Mass/volum styleCode="Bold Medical e] in Serum ">Lactic Acid Center or Plasma </content>0.6 MMOLL L<content styleCode="Ital ics"> (0.7-2.0 MMOLL)</content > ID Date Data Source Microbiology.[id number] 05/22/2020 01:30:00 PM EDT [facility] 400 Name Value Range Interpretation Code Description Data Liya rce(s) Supporting Document(s ) UNK <item><content [facility] styleCode="Bold"> Medical Cent er Culture Status </content>
<t able><tbody><tr>< td>Specimen Number:</td><td>[id number]</td></tr ><tr><td>Sample Collection Date/Time: </td><td>8/19/202 0 1:30 PM</td></tr><tr>< td>Specimen Source:</td><td>B LOOD</td></tr><tr ><td>Culture Report:</td><td>C ulture in progress </td></tr><tr><td >Culture Status:</td><td>P reliminary </td></tr><tr><td >Blood Culture:</td><td> Collection Plate Date: 05/22/2020 13:45 </td></tr></tbody ></table></item> UNK <item><content [facility] styleCode="Bold"> Medical [facility] Culture Report </content>
<t able><tbody><tr>< td>Specimen Number:</td><td>[id number]</td></tr ><tr><td>Sample Collection Date/Time: </td><td> 0 1:30 PM</td></tr><tr>< td>Specimen Source:</td><td>B LOOD</td></tr><tr ><td>Blood Culture:</td><td> Collection Plate Date: 05/22/2020 13:45 </td></tr><tr><td >Culture Status:</td><td>P reliminary </td></tr><tr><td >Culture Report:</td><td>C ulture in progress </td></tr></tbody ></table></item> ID Date Data Source Liver 05/22/2020 01:30:00 PM EDT [facility] Profile.[id number] Name Value Range Interpretation Description Data Sup porting Code Source(s) Document(s ) Aspartate 17-59 <content [facility] aminotransferase styleCode="Bold"> [facility] [Enzymatic Aspartate Medical activity/volume] Aminotransferase Center in Serum or Plasma (AST) </content>41 IU/L<content styleCode="Italic s"> (17-59 IU/L)</content> Alkaline 38-126 <content [facility] phosphatase styleCode="Bold"> [facility] [Enzymatic Alkaline Medical activity/volume] Phosphatase (ALP) Cente r in Serum or Plasma </content>90 IU/L<content styleCode="Italic s"> (38-126 IU/L)</content> Alanine 7-50 <content [facility] aminotransferase styleCode="Bold"> [facility] [Enzymatic Alanine Medical activity/volume] Aminotransferase Center in Serum or Plasma (ALT) </content>23 IU/L<content styleCode="Italic s"> (7-50 IU/L)</content> Bilirubin.total 0.2-1.3 <content [facility] [Mass/volume] in styleCode="Bold"> [facility] Serum or Plasma Bilirubin Total Medical </content>0.4 Center MG/DL<content styleCode="Italic s"> (0.2-1.3 MG/DL)</content> Albumin 3.5-5.0 <content [facility] [Mass/volume] in styleCode="Bold"> [facility] Serum or Plasma Albumin Medical </content>4.0 Center G/DL<content styleCode="Italic s"> (3.5-5.0 G/DL)</content> ID Date Data Source HematologySpeci.[id number] 05/22/2020 01:30:00 PM EDT [facility] 0-0400 Name Value Range Interpretation Description Data Sup porting Code Source(s) Document(s ) C reactive < 3.0 Above high normal <content [facility] hs protein styleCode="Bold Medical [Mass/volume ">C-Reactive Center ] in Serum Protein or Plasma </content>3.18 MG/L H<content styleCode="Ital ics"> (< 3.0 MG/L)</content> ID Date Data Source HematologyRou.[id number] 05/22/2020 01:30:00 PM EDT [facility] 0400 Name Value Range Interpretation Description Data Sup porting Code Source(s) Document(s ) Leukocytes 4.4-11.0 <content [facility] [#/volume] in styleCode="Bold Seth Blood by ">White Blood Medical Automated count Cell Count Center </content>7.45 KCUMM<content styleCode="Ital ics"> (4.4-11.0 KCUMM)</content > Hemoglobin 13.5-17. Below low normal <content [facility] [Mass/volume] in 5 styleCode="Bold Seth Blood ">Hemoglobin Medical </content>12.5 Center G/DL L<content styleCode="Ital ics"> (13.5-17.5 G/DL)</content> Erythrocytes 4.4-5.9 <content [facility] [#/volume] in styleCode="Bold Seth Blood by ">Red Blood Medical Automated count Cell Count Center </content>5.45 MCUMM<content styleCode="Ital ics"> (4.4-5.9 MCUMM)</content > Hematocrit 41.0-53. <content [facility] [Volume 0 styleCode="Bold Seth Fraction] of ">Hematocrit Medical Blood by </content>41.2 Center Automated count %<content styleCode="Ital ics"> (41.0-53.0 %)</content> Erythrocyte mean 80.0-100 <content [facility] corpuscular .0 styleCode="Bold Seth volume [Entitic ">Mean Medical volume] by Corpuscular Center Automated count Volume </content>75.6 FL<content styleCode="Ital ics"> (80.0-100.0 FL)</content> Erythrocyte mean 26.0-34. Below low normal <content [facility] corpuscular 0 styleCode="Bold Seth hemoglobin ">Mean Medical [Entitic mass] Corposcular Center by Automated Hemoglobin count </content>22.9 PG L<content styleCode="Ital ics"> (26.0-34.0 PG)</content> Erythrocyte mean 32.0-37. Below low normal <content [facility] corpuscular 0 styleCode="Bold Seth hemoglobin ">Mean Corpus. Medical concentration Hgb Center [Mass/volume] by Concentration Automated count (MCHC) </content>30.3 G/DL L<content styleCode="Ital ics"> (32.0-37.0 G/DL)</content> Erythrocyte 11.5-14. Above high <content [facility] distribution 5 normal styleCode="Bold Seth width [Ratio] by ">Red Cell Medical Automated count Distribution Center Width </content>16.3 % H<content styleCode="Ital ics"> (11.5-14.5 %)</content> Platelets 130-400 <content [facility] [#/volume] in styleCode="Bold Seth Blood by ">Platelet Medical Automated count Count Center </content>322 KCUMM<content styleCode="Ital ics"> (130-400 KCUMM)</content > Platelet mean 8.0-11.0 <content [facility] volume [Entitic styleCode="Bold Seth volume] in Blood ">Mean Platelet Medical by Automated Volume Center count </content>9.3 FL<content styleCode="Ital ics"> (8.0-11.0 FL)</content> UNK 1.6-7.3 <content [facility] styleCode="Bold Seth ">Neutrophil Medical Count Center </content>4.05 KCUMM<content styleCode="Ital ics"> (1.6-7.3 KCUMM)</content > Neutrophils 36-66 <content [facility] [#/volume] in styleCode="Bold Seth Blood by ">Neutrophil Medical Automated count </content>54.4 Center %<content styleCode="Ital ics"> (36-66 %)</content> UNK 1.0-4.8 <content [facility] styleCode="Bold Seth ">Lymphocyte Medical Count Center </content>2.20 KCUMM<content styleCode="Ital ics"> (1.0-4.8 KCUMM)</content > Monocytes 3.0-10.0 <content [facility] [#/volume] in styleCode="Bold Seth Blood by ">Monocyte Medical Automated count </content>8.1 Center %<content styleCode="Ital ics"> (3.0-10.0 %)</content> UNK 0.2-0.9 <content [facility] styleCode="Bold Seth ">Monocyte Medical Count Center </content>0.60 KCUMM<content styleCode="Ital ics"> (0.2-0.9 KCUMM)</content > Lymphocytes 24.0-44. <content [facility] [#/volume] in 0 styleCode="Bold Seth Blood by ">Lymphocyte Medical Automated count </content>29.5 Center %<content styleCode="Ital ics"> (24.0-44.0 %)</content> UNK 0.0-0.3 <content [facility] styleCode="Bold Seth ">Basophil Medical Count Center </content>0.06 KCUMM<content styleCode="Ital ics"> (0.0-0.3 KCUMM)</content > UNK 0.0-0.6 <content [facility] styleCode="Bold Seth ">Eosinophil Medical Count Center </content>0.51 KCUMM<content styleCode="Ital ics"> (0.0-0.6 KCUMM)</content > Eosinophils 0-5.0 Above high <content [facility] [#/volume] in normal styleCode="Bold Seth Blood by ">Eosinophil Medical Automated count </content>6.8 % Center H<content styleCode="Ital ics"> (0-5.0 %)</content> Basophils 0.0-1.0 <content [facility] [#/volume] in styleCode="Bold Seth Blood by ">Basophil Medical Automated count </content>0.8 Center %<content styleCode="Ital ics"> (0.0-1.0 %)</content> UNK < 1 <content [facility] styleCode="Bold Seth ">Immature Medical Granulocyte Center Ratio </content>0.4 %<content styleCode="Ital ics"> (< 1 %)</content> UNK 0-0.1 <content [facility] styleCode="Bold Seth ">Immature Medical Granulocyte Center Count </content>0.03 KCUMM<content styleCode="Ital ics"> (0-0.1 KCUMM)</content > UNK 0 <content [facility] styleCode="Bold Seth ">Nucleated Red Medical Blood Cell Center </content>0.0 /100<content styleCode="Ital ics"> (0 /100)</content> UNK 0.0 <content styleCode="Bold Seth ">Nucleated Red Medical Blood Cell Center Count </content>0.00 KCUMM<content styleCode="Ital ics"> (0.0 KCUMM)</content > ID Date Data Source GFR(Creatinine).[id number] 05/22/2020 01:30:00 PM EDT [facility]g nt [facility] 0-0400 Name Value Range Interpretation Code Description Data Liya rce(s) Supporting Document(s ) UNK > 60 <content [facility] styleCode="Bold"> Medical Cent er EGFR </content>76 GFR<content styleCode="Italic s"> (> 60 GFR)</content> ID Date Data Source Coagulation 05/22/2020 01:30:00 PM [facility] Rout.[id number] EDT Name Value Range Interpretation Description Data Sup porting Code Source(s) Document(s ) UNK < 500 <content styleCode="Bold" Seth >D-Dimer Medical </content>400 Center ngFEU<content styleCode="Itali cs"> (< 500 ngFEU)</content> INR in 0.80-1.2 <content [facility] Platelet poor 0 styleCode="Bold" Seth plasma by >INR Medical Coagulation </content>1.01 Center assay #<content styleCode="Itali cs"> (0.80-1.20 #)</content> UNK 9.0-13.0 <content styleCode="Bold" Seth >Protime Medical </content>11.2 Center SEC<content styleCode="Itali cs"> (9.0-13.0 SEC)</content> aPTT in 25.1-36. <content [facility] Platelet poor 5 styleCode="Bold" Seth plasma by >Partial Medical Coagulation Thromboplastin Center assay Time </content>28.9 SEC<content styleCode="Itali cs"> (25.1-36.5 SEC)</content> ID Date Data Source CHMROUTINECCDA.[id number] 05/22/2020 01:30:00 PM EDT [facility] -0400 Name Value Range Interpretation Description Data Sup porting Code Source(s) Document(s ) UNK >= 1.0 <content [facility] styleCode="[facility] d">AG Ratio Medical </content>1.2 Center <content styleCode="Cynthia lics"> (>= 1.0 )</content> Ferritin 18-464 <content [facility] [Mass/volume] styleCode="Brian Seth in Serum or d">Ferritin Medical Plasma </content>26.1 Center NG/ML<content styleCode="Cynthia lics"> (18-464 NG/ML)</conten t> Magnesium 1.6-2.3 <content [facility] [Mass/volume] styleCode="Brian Seth in Serum or d">Magnesium Medical Plasma </content>2.2 Center MG/DL<content styleCode="Cynthia lics"> (1.6-2.3 MG/DL)</conten t> Protein 6.3-8.2 <content [facility] [Mass/volume] styleCode="Brian Seth in Serum or d">Total Medical Plasma Protein Center </content>7.4 G/DL<content styleCode="Cynthia lics"> (6.3-8.2 G/DL)</content > UNK 2.3-3.5 <content [facility] styleCode="Brian Seth d">Globulin Medical </content>3.4 Center G/DL<content styleCode="Cynthia lics"> (2.3-3.5 G/DL)</content > ID Date Data Source [employer].[id number] 05/22/2020 01:30:00 PM EDT [facility] -0400 Name Value Range Interpretation Description Data Sup porting Code Source(s) Document(s ) Troponin < 0.034 <content [facility] I.cardiac styleCode="Bold Seth [Mass/volume ">Troponin I Medical ] in Serum </content>< Center or Plasma 0.012 NG/ML<content styleCode="Ital ics"> (< 0.034 NG/ML)</content > ID Date Data Source [facility].[id number] 05/22/2020 01:30:00 PM EDT [facility] Name Value Range Interpretation Description Data Sup porting Code Source(s) Document(s ) Potassium 3.5-5.3 <content [facility] [Moles/volume] in styleCode="Bold"> [place] phs Serum or Plasma Potassium Medical </content>4.6 Center MEQ/L<content styleCode="Italic s"> (3.5-5.3 MEQ/L)</content> Sodium 137-145 <content [facility] [Moles/volume] in styleCode="Bold"> [facility] Serum or Plasma Sodium Medical </content>141 Center MEQ/L<content styleCode="Italic s"> (137-145 MEQ/L)</content> Chloride 98-107 Above high <content [facility] [Moles/volume] in normal styleCode="Bold"> [facility] Serum or Plasma Chloride Medical </content>109 Center MEQ/L H<content styleCode="Italic s"> (98-107 MEQ/L)</content> Carbon dioxide, 22-30 <content [facility] total styleCode="Bold"> Seth [Moles/volume] in Carbon Dioxide Medical Serum or Plasma </content>26 Center MEQ/L<content styleCode="Italic s"> (22-30 MEQ/L)</content> Creatinine 0.5-1.3 <content [facility] [Mass/volume] in styleCode="Bold"> [facility] hs Serum or Plasma Creatinine Medical </content>1.3 Center MG/DL<content styleCode="Italic s"> (0.5-1.3 MG/DL)</content> UNK 9-20 Above high <content [facility] normal styleCode="Bold"> Seth BUN </content>37 Medical MG/DL H<content Center styleCode="Italic s"> (9-20 MG/DL)</content> UNK > 60 <content [facility] styleCode="Bold"> Seth EGFR </content>76 Medical GFR<content Center styleCode="Italic s"> (> 60 GFR)</content> Aspartate 17-59 <content [facility] aminotransferase styleCode="Bold"> [facility] hs [Enzymatic Aspartate Medical activity/volume] Aminotransferase Center in Serum or Plasma (AST) </content>41 IU/L<content styleCode="Italic s"> (17-59 IU/L)</content> Calcium 8.4-10. <content [facility] [Mass/volume] in 2 styleCode="Bold"> [facility] hs Serum or Plasma Calcium Medical </content>9.7 Center MG/DL<content styleCode="Italic s"> (8.4-10.2 MG/DL)</content> Glucose 74-106 <content [facility] [Mass/volume] in styleCode="Bold"> [facility] Serum or Plasma Glucose Medical </content>91 Center MG/DL<content styleCode="Italic s"> (74-106 MG/DL)</content> Albumin 3.5-5.0 <content [facility] [Mass/volume] in styleCode="Bold"> [facility] hs Serum or Plasma Albumin Medical </content>4.0 Center G/DL<content styleCode="Italic s"> (3.5-5.0 G/DL)</content> Alanine 7-50 <content [facility] aminotransferase styleCode="Bold"> [facility] [Enzymatic Alanine Medical activity/volume] Aminotransferase Center in Serum or Plasma (ALT) </content>23 IU/L<content styleCode="Italic s"> (7-50 IU/L)</content> Alkaline 38-126 <content [facility] phosphatase styleCode="Bold"> Seth [Enzymatic Alkaline Medical activity/volume] Phosphatase (ALP) Cente r in Serum or Plasma </content>90 IU/L<content styleCode="Italic s"> (38-126 IU/L)</content> Bilirubin.total 0.2-1.3 <content [facility] [Mass/volume] in styleCode="Bold"> [facility] hs Serum or Plasma Bilirubin Total Medical </content>0.4 Center MG/DL<content styleCode="Italic s"> (0.2-1.3 MG/DL)</content> ID Date Data Source [id number] 05/22/2020 12:00:00 AM EDT [facility] Name Value Range Interpretation Code Description Data Liya rce(s) Supporting Document(s ) 2019-nCoV [facility] RNA XXX ZANA+probe- Imp This lab was ordered by [facility] and reported by [email or web address] NTD. ID Date Data Source HematologyRou.[id number] 02/14/2020 05:30:00 AM EDT [facility] 0400 Name Value Range Interpretation Description Data Sup porting Code Source(s) Document(s ) Leukocytes 4.4-11.0 <content [facility] [#/volume] in styleCode="Bold Seth Blood by ">White Blood Medical Automated count Cell Count Center </content>4.78 KCUMM<content styleCode="Ital ics"> (4.4-11.0 KCUMM)</content > Hemoglobin 13.5-17. Below low normal <content [facility] [Mass/volume] in 5 styleCode="Bold Seth Blood ">Hemoglobin Medical </content>12.2 Center G/DL L<content styleCode="Ital ics"> (13.5-17.5 G/DL)</content> Erythrocytes 4.4-5.9 <content [facility] [#/volume] in styleCode="Bold Seth Blood by ">Red Blood Medical Automated count Cell Count Center </content>5.42 MCUMM<content styleCode="Ital ics"> (4.4-5.9 MCUMM)</content > Erythrocyte mean 32.0-37. Below low normal <content [facility] corpuscular 0 styleCode="Bold Seth hemoglobin ">Mean Corpus. Medical concentration Hgb Center [Mass/volume] by Concentration Automated count (MCHC) </content>30.3 G/DL L<content styleCode="Ital ics"> (32.0-37.0 G/DL)</content> Erythrocyte mean 26.0-34. Below low normal <content [facility] corpuscular 0 styleCode="Bold Seth hemoglobin ">Mean Medical [Entitic mass] Corposcular Center by Automated Hemoglobin count </content>22.5 PG L<content styleCode="Ital ics"> (26.0-34.0 PG)</content> Hematocrit 41.0-53. Below low normal <content [facility] [Volume 0 styleCode="Bold Seth Fraction] of ">Hematocrit Medical Blood by </content>40.3 Center Automated count % L<content styleCode="Ital ics"> (41.0-53.0 %)</content> Erythrocyte mean 80.0-100 <content [facility] corpuscular .0 styleCode="Bold Seth volume [Entitic ">Mean Medical volume] by Corpuscular Center Automated count Volume </content>74.4 FL<content styleCode="Ital ics"> (80.0-100.0 FL)</content> Platelets 130-400 <content [facility] [#/volume] in styleCode="Bold Seth Blood by ">Platelet Medical Automated count Count Center </content>303 KCUMM<content styleCode="Ital ics"> (130-400 KCUMM)</content > Platelet mean 8.0-11.0 <content [facility] volume [Entitic styleCode="Bold Seth volume] in Blood ">Mean Platelet Medical by Automated Volume Center count </content>9.5 FL<content styleCode="Ital ics"> (8.0-11.0 FL)</content> Erythrocyte 11.5-14. Above high <content [facility] distribution 5 normal styleCode="Bold Seth width [Ratio] by ">Red Cell Medical Automated count Distribution Center Width </content>16.3 % H<content styleCode="Ital ics"> (11.5-14.5 %)</content> UNK 0 <content [facility] styleCode="Bold Seth ">Nucleated Red Medical Blood Cell Center </content>0.0 /100<content styleCode="Ital ics"> (0 /100)</content> UNK 0.0 <content [facility] styleCode="Bold Seth ">Nucleated Red Medical Blood Cell Center Count </content>0.00 KCUMM<content styleCode="Ital ics"> (0.0 KCUMM)</content > ID Date Data Source GFR(Creatinine).[id number] 02/14/2020 05:30:00 AM EDT [facility] 0-0400 Name Value Range Interpretation Code Description Data Liya rce(s) Supporting Document(s ) UNK > 60 <content [facility] styleCode="Bold"> Medical Cent er EGFR </content>83 GFR<content styleCode="Italic s"> (> 60 GFR)</content> ID Date Data Source [facility].[id number] 02/14/2020 05:30:00 AM EDT [facility] Name Value Range Interpretation Description Data Sup porting Code Source(s) Document(s ) Sodium 137-145 <content [facility] [Moles/volume] styleCode="Brian Seth in Serum or d">Sodium Medical Plasma </content>139 Center MEQ/L<content styleCode="Cynthia lics"> (137-145 MEQ/L)</conten t> Chloride 98-107 <content [facility] [Moles/volume] styleCode="Brian Seth in Serum or d">Chloride Medical Plasma </content>104 Center MEQ/L<content styleCode="Cynthia lics"> (98-107 MEQ/L)</conten t> Carbon 22-30 Above high normal <content [facility] dioxide, total styleCode="Brian Seth [Moles/volume] d">Carbon Medical in Serum or Dioxide Center Plasma </content>31 MEQ/L H<content styleCode="Cynthia lics"> (22-30 MEQ/L)</conten t> Creatinine 0.5-1.3 <content [facility] [Mass/volume] styleCode="Brian Seth in Serum or d">Creatinine Medical Plasma </content>1.2 Center MG/DL<content styleCode="Cynthia lics"> (0.5-1.3 MG/DL)</conten t> Potassium 3.5-5.3 <content [facility] [Moles/volume] styleCode="Brian Seth in Serum or d">Potassium Medical Plasma </content>4.5 Center MEQ/L<content styleCode="Cynthia lics"> (3.5-5.3 MEQ/L)</conten t> UNK 9-20 <content [facility] styleCode="Brian Seth d">BUN Medical </content>18 Center MG/DL<content styleCode="Cynthia lics"> (9-20 MG/DL)</conten t> Glucose 74-106 <content [facility] [Mass/volume] styleCode="Brian Ann in Serum or d">Glucose Medical Plasma </content>88 Center MG/DL<content styleCode="Cynthia lics"> (74-106 MG/DL)</conten t> UNK > 60 <content [facility] styleCode="Brian Johnsons d">EGFR Medical </content>83 Center GFR<content styleCode="Cynthia lics"> (> 60 GFR)</content> Calcium 8.4-10.2 <content Saint [Mass/volume] styleCode="Brian Ann in Serum or d">Calcium Medical Plasma </content>9.2 Center MG/DL<content styleCode="Cynthia lics"> (8.4-10.2 MG/DL)</conten t> ID Date Data Source Liver 02/13/2020 06:30:00 AM EDT [facility] Profile.[id number] Name Value Range Interpretation Description Data Sup porting Code Source(s) Document(s ) Aspartate 17-59 <content aminotransferase styleCode="Bold"> [facility] [Enzymatic Aspartate Medical activity/volume] Aminotransferase Center in Serum or Plasma (AST) </content>22 IU/L<content styleCode="Italic s"> (17-59 IU/L)</content> Alkaline 38-126 <content phosphatase styleCode="Bold"> [facility] [Enzymatic Alkaline Medical activity/volume] Phosphatase (ALP) Cente r in Serum or Plasma </content>59 IU/L<content styleCode="Italic s"> (38-126 IU/L)</content> Alanine 7-50 <content aminotransferase styleCode="Bold"> [facility] [Enzymatic Alanine Medical activity/volume] Aminotransferase Center in Serum or Plasma (ALT) </content>11 IU/L<content styleCode="Italic s"> (7-50 IU/L)</content> Albumin 3.5-5.0 Below low <content [facility] [Mass/volume] in normal styleCode="Bold"> [facility] Serum or Plasma Albumin Medical </content>3.2 Center G/DL L<content styleCode="Italic s"> (3.5-5.0 G/DL)</content> Bilirubin.total 0.2-1.3 Below low <content [facility] [Mass/volume] in normal styleCode="Bold"> [facility] Serum or Plasma Bilirubin Total Medical </content>< 0.2 Center MG/DL L<content styleCode="Italic s"> (0.2-1.3 MG/DL)</content> ID Date Data Source HematologyRou.[id number] 02/13/2020 06:30:00 AM EDT [facility] 0400 Name Value Range Interpretation Description Data Sup porting Code Source(s) Document(s ) Leukocytes 4.4-11.0 <content [facility] [#/volume] in styleCode="Bold Seth Blood by ">White Blood Medical Automated count Cell Count Center </content>5.25 KCUMM<content styleCode="Ital ics"> (4.4-11.0 KCUMM)</content > Erythrocytes 4.4-5.9 <content [facility] [#/volume] in styleCode="Bold Seth Blood by ">Red Blood Medical Automated count Cell Count Center </content>5.20 MCUMM<content styleCode="Ital ics"> (4.4-5.9 MCUMM)</content > Hematocrit 41.0-53. Below low normal <content [facility] [Volume 0 styleCode="Bold Seth Fraction] of ">Hematocrit Medical Blood by </content>38.8 Center Automated count % L<content styleCode="Ital ics"> (41.0-53.0 %)</content> Hemoglobin 13.5-17. Below low normal <content [facility] [Mass/volume] in 5 styleCode="Bold Seth Blood ">Hemoglobin Medical </content>11.7 Center G/DL L<content styleCode="Ital ics"> (13.5-17.5 G/DL)</content> Erythrocyte mean 80.0-100 <content [facility] corpuscular .0 styleCode="Bold Seth volume [Entitic ">Mean Medical volume] by Corpuscular Center Automated count Volume </content>74.6 FL<content styleCode="Ital ics"> (80.0-100.0 FL)</content> Erythrocyte mean 26.0-34. Below low normal <content [facility] corpuscular 0 styleCode="Bold Seth hemoglobin ">Mean Medical [Entitic mass] Corposcular Center by Automated Hemoglobin count </content>22.5 PG L<content styleCode="Ital ics"> (26.0-34.0 PG)</content> Platelet mean 8.0-11.0 <content [facility] volume [Entitic styleCode="Bold Seth volume] in Blood ">Mean Platelet Medical by Automated Volume Center count </content>9.6 FL<content styleCode="Ital ics"> (8.0-11.0 FL)</content> Erythrocyte mean 32.0-37. Below low normal <content [facility] corpuscular 0 styleCode="Bold Seth hemoglobin ">Mean Corpus. Medical concentration Hgb Center [Mass/volume] by Concentration Automated count (MCHC) </content>30.2 G/DL L<content styleCode="Ital ics"> (32.0-37.0 G/DL)</content> Erythrocyte 11.5-14. Above high <content [facility] distribution 5 normal styleCode="Bold Seth width [Ratio] by ">Red Cell Medical Automated count Distribution Center Width </content>16.2 % H<content styleCode="Ital ics"> (11.5-14.5 %)</content> Platelets 130-400 <content [facility] [#/volume] in styleCode="Bold Seth Blood by ">Platelet Medical Automated count Count Center </content>320 KCUMM<content styleCode="Ital ics"> (130-400 KCUMM)</content > UNK 0.0 <content [facility] styleCode="Bold Seth ">Nucleated Red Medical Blood Cell Center Count </content>0.00 KCUMM<content styleCode="Ital ics"> (0.0 KCUMM)</content > UNK 0 <content [facility] styleCode="Bold Seth ">Nucleated Red Medical Blood Cell Center </content>0.0 /100<content styleCode="Ital ics"> (0 /100)</content> ID Date Data Source GFR(Creatinine).[id number] 02/13/2020 06:30:00 AM EDT [facility] 0-0400 Name Value Range Interpretation Code Description Data Liya rce(s) Supporting Document(s ) UNK > 60 <content [facility] styleCode="Bold"> Medical Cent er EGFR </content>83 GFR<content styleCode="Italic s"> (> 60 GFR)</content> ID Date Data Source CHMROUTINECCDA.[id number] 02/13/2020 06:30:00 AM EDT [facility] -0400 Name Value Range Interpretation Description Data Sup porting Code Source(s) Document(s ) UNK >= 1.0 <content [facility] styleCode="Bold Medical ">AG Ratio Center </content>1.0 <content styleCode="Ital ics"> (>= 1.0 )</content> Protein 6.3-8.2 <content [facility] [Mass/volum styleCode="Bold Medical e] in Serum ">Total Protein Center or Plasma </content>6.5 G/DL<content styleCode="Ital ics"> (6.3-8.2 G/DL)</content> UNK 2.3-3.5 <content [facility] styleCode="Bold Medical ">Globulin Center </content>3.3 G/DL<content styleCode="Ital ics"> (2.3-3.5 G/DL)</content> ID Date Data Source [facility].[id number] 02/13/2020 06:30:00 AM EDT [facility] Name Value Range Interpretation Description Data Sup porting Code Source(s) Document(s ) Chloride 98-107 <content [facility] [Moles/volume] in styleCode="Bold"> [facility] Serum or Plasma Chloride Medical </content>105 Center MEQ/L<content styleCode="Italic s"> (98-107 MEQ/L)</content> Sodium 137-145 <content [facility] [Moles/volume] in styleCode="Bold"> [facility] Serum or Plasma Sodium Medical </content>140 Center MEQ/L<content styleCode="Italic s"> (137-145 MEQ/L)</content> Carbon dioxide, 22-30 <content [facility] total styleCode="Bold"> [facility] [Moles/volume] in Carbon Dioxide Medical Serum or Plasma </content>30 Center MEQ/L<content styleCode="Italic s"> (22-30 MEQ/L)</content> Potassium 3.5-5.3 <content [facility] [Moles/volume] in styleCode="Bold"> [facility] Serum or Plasma Potassium Medical </content>4.2 Center MEQ/L<content styleCode="Italic s"> (3.5-5.3 MEQ/L)</content> Calcium 8.4-10. <content [facility] [Mass/volume] in 2 styleCode="Bold"> [facility] Serum or Plasma Calcium Medical </content>9.2 Center MG/DL<content styleCode="Italic s"> (8.4-10.2 MG/DL)</content> Glucose 74-106 <content [facility] [Mass/volume] in styleCode="Bold"> [facility] Serum or Plasma Glucose Medical </content>92 Center MG/DL<content styleCode="Italic s"> (74-106 MG/DL)</content> Creatinine 0.5-1.3 <content [facility] [Mass/volume] in styleCode="Bold"> [facility] Serum or Plasma Creatinine Medical </content>1.2 Center MG/DL<content styleCode="Italic s"> (0.5-1.3 MG/DL)</content> UNK > 60 <content [facility] styleCode="Bold"> [facility] EGFR </content>83 Medical GFR<content Center styleCode="Italic s"> (> 60 GFR)</content> UNK 9-20 Above high <content [facility] normal styleCode="Bold"> [facility] BUN </content>22 Medical MG/DL H<content Center styleCode="Italic s"> (9-20 MG/DL)</content> Bilirubin.total 0.2-1.3 Below low <content [facility] [Mass/volume] in normal styleCode="Bold"> [facility] Serum or Plasma Bilirubin Total Medical </content>< 0.2 Center MG/DL L<content styleCode="Italic s"> (0.2-1.3 MG/DL)</content> Alkaline 38-126 <content [facility] phosphatase styleCode="Bold"> [facility] [Enzymatic Alkaline Medical activity/volume] Phosphatase (ALP) Cente r in Serum or Plasma </content>59 IU/L<content styleCode="Italic s"> (38-126 IU/L)</content> Aspartate 17-59 <content [facility] aminotransferase styleCode="Bold"> [facility] [Enzymatic Aspartate Medical activity/volume] Aminotransferase Center in Serum or Plasma (AST) </content>22 IU/L<content styleCode="Italic s"> (17-59 IU/L)</content> Alanine 7-50 <content [facility] aminotransferase styleCode="Bold"> [facility] [Enzymatic Alanine Medical activity/volume] Aminotransferase Center in Serum or Plasma (ALT) </content>11 IU/L<content styleCode="Italic s"> (7-50 IU/L)</content> Albumin 3.5-5.0 Below low <content [facility] [Mass/volume] in normal styleCode="Bold"> [facility] Serum or Plasma Albumin Medical </content>3.2 Center G/DL L<content styleCode="Italic s"> (3.5-5.0 G/DL)</content> ID Date Data Source [id number] 02/12/2020 10:35:00 AM EDT [facility] Name Value Range Interpretation Code Description Data Liya rce(s) Supporting Document(s ) COV2 [facility] This lab [facility] and reported by [facility] Angelina. ID Date Data Source [id number] 02/12/2020 10:35:00 AM EDT [facility] Name Value Range Interpretation Description Data Sup porting Code Source(s) Document(s ) UNK Not Detected <content [facility] styleCode="Bold Medical ">SARS-COV-2 Center RNA </content>Not Detected <content styleCode="Ital ics"> (Not Detected )</content> ID Date Data Source Liver 02/11/2020 05:20:00 AM EDT [facility] Profile.[id number] Name Value Range Interpretation Description Data Sup porting Code Source(s) Document(s ) Aspartate 17-59 <content [facility] aminotransferase styleCode="Bold"> [facility] [Enzymatic Aspartate Medical activity/volume] Aminotransferase Center in Serum or Plasma (AST) </content>22 IU/L<content styleCode="Italic s"> (17-59 IU/L)</content> Alanine 7-50 <content [facility] aminotransferase styleCode="Bold"> [facility] [Enzymatic Alanine Medical activity/volume] Aminotransferase Center in Serum or Plasma (ALT) </content>10 IU/L<content styleCode="Italic s"> (7-50 IU/L)</content> Bilirubin.total 0.2-1.3 Below low <content [facility] [Mass/volume] in normal styleCode="Bold"> [facility] Serum or Plasma Bilirubin Total Medical </content>< 0.2 Center MG/DL L<content styleCode="Italic s"> (0.2-1.3 MG/DL)</content> Alkaline 38-126 <content [facility] phosphatase styleCode="Bold"> [facility] [Enzymatic Alkaline Medical activity/volume] Phosphatase (ALP) Cente r in Serum or Plasma </content>68 IU/L<content styleCode="Italic s"> (38-126 IU/L)</content> Albumin 3.5-5.0 Below low <content [facility] [Mass/volume] in normal styleCode="Bold"> [facility] Serum or Plasma Albumin Medical </content>3.3 Center G/DL L<content styleCode="Italic s"> (3.5-5.0 G/DL)</content> ID Date Data Source HematologyRou.[id number] 02/11/2020 05:20:00 AM EDT [facility] 0400 Name Value Range Interpretation Description Data Sup porting Code Source(s) Document(s ) Leukocytes 4.4-11.0 <content [facility] [#/volume] in styleCode="Bold Seth Blood by ">White Blood Medical Automated count Cell Count Center </content>4.64 KCUMM<content styleCode="Ital ics"> (4.4-11.0 KCUMM)</content > Erythrocytes 4.4-5.9 <content [facility] [#/volume] in styleCode="Bold Seth Blood by ">Red Blood Medical Automated count Cell Count Center </content>5.44 MCUMM<content styleCode="Ital ics"> (4.4-5.9 MCUMM)</content > Hematocrit 41.0-53. Below low normal <content [facility] [Volume 0 styleCode="Bold Seth Fraction] of ">Hematocrit Medical Blood by </content>40.3 Center Automated count % L<content styleCode="Ital ics"> (41.0-53.0 %)</content> Hemoglobin 13.5-17. Below low normal <content [facility] [Mass/volume] in 5 styleCode="Bold Seth Blood ">Hemoglobin Medical </content>12.0 Center G/DL L<content styleCode="Ital ics"> (13.5-17.5 G/DL)</content> Erythrocyte mean 80.0-100 <content [facility] corpuscular .0 styleCode="Bold Seth volume [Entitic ">Mean Medical volume] by Corpuscular Center Automated count Volume </content>74.1 FL<content styleCode="Ital ics"> (80.0-100.0 FL)</content> Platelets 130-400 <content [facility] [#/volume] in styleCode="Bold Seth Blood by ">Platelet Medical Automated count Count Center </content>328 KCUMM<content styleCode="Ital ics"> (130-400 KCUMM)</content > Erythrocyte 11.5-14. Above high <content [facility] distribution 5 normal styleCode="Bold Seth width [Ratio] by ">Red Cell Medical Automated count Distribution Center Width </content>16.9 % H<content styleCode="Ital ics"> (11.5-14.5 %)</content> Erythrocyte mean 32.0-37. Below low normal <content [facility] corpuscular 0 styleCode="Bold Seth hemoglobin ">Mean Corpus. Medical concentration Hgb Center [Mass/volume] by Concentration Automated count (MCHC) </content>29.8 G/DL L<content styleCode="Ital ics"> (32.0-37.0 G/DL)</content> Erythrocyte mean 26.0-34. Below low normal <content [facility] corpuscular 0 styleCode="Bold Seth hemoglobin ">Mean Medical [Entitic mass] Corposcular Center by Automated Hemoglobin count </content>22.1 PG L<content styleCode="Ital ics"> (26.0-34.0 PG)</content> Platelet mean 8.0-11.0 <content [facility] volume [Entitic styleCode="Bold Seth volume] in Blood ">Mean Platelet Medical by Automated Volume Center count </content>9.8 FL<content styleCode="Ital ics"> (8.0-11.0 FL)</content> UNK 0.0 <content [facility] styleCode="Bold Seth ">Nucleated Red Medical Blood Cell Center Count </content>0.00 KCUMM<content styleCode="Ital ics"> (0.0 KCUMM)</content > UNK 0 <content [facility] styleCode="Bold Seth ">Nucleated Red Medical Blood Cell Center </content>0.0 /100<content styleCode="Ital ics"> (0 /100)</content> ID Date Data Source GFR(Creatinine).[id number] 02/11/2020 05:20:00 AM EDT [facility] 0-0400 Name Value Range Interpretation Code Description Data Liya rce(s) Supporting Document(s ) UNK > 60 <content [facility] styleCode="Bold"> Medical Cent er EGFR </content>76 GFR<content styleCode="Italic s"> (> 60 GFR)</content> ID Date Data Source CHMROUTINECCDA.[id number] 02/11/2020 05:20:00 AM EDT [facility] -0400 Name Value Range Interpretation Description Data Sup porting Code Source(s) Document(s ) UNK 2.3-3.5 <content [facility] styleCode="Brian Seth d">Globulin Medical </content>3.3 Center G/DL<content styleCode="Cynthia lics"> (2.3-3.5 G/DL)</content > UNK >= 1.0 <content [facility] styleCode="Brian Seth d">AG Ratio Medical </content>1.0 Center <content styleCode="Cynthia lics"> (>= 1.0 )</content> Protein 6.3-8.2 <content [facility] [Mass/volume] styleCode="Brian Seth in Serum or d">Total Medical Plasma Protein Center </content>6.6 G/DL<content styleCode="Cynthia lics"> (6.3-8.2 G/DL)</content > Magnesium 1.6-2.3 <content [facility] [Mass/volume] styleCode="Brian Seth in Serum or d">Magnesium Medical Plasma </content>2.1 Center MG/DL<content styleCode="Cynthia lics"> (1.6-2.3 MG/DL)</conten t> ID Date Data Source [facility].[id number] 02/11/2020 05:20:00 AM EDT [facility] Name Value Range Interpretation Description Data Sup porting Code Source(s) Document(s ) Potassium 3.5-5.3 <content [facility] [Moles/volume] in styleCode="Bold"> [facility] Serum or Plasma Potassium Medical </content>4.1 Center MEQ/L<content styleCode="Italic s"> (3.5-5.3 MEQ/L)</content> Sodium 137-145 <content [facility] [Moles/volume] in styleCode="Bold"> [facility] Serum or Plasma Sodium Medical </content>138 Center MEQ/L<content styleCode="Italic s"> (137-145 MEQ/L)</content> Chloride 98-107 <content [facility] [Moles/volume] in styleCode="Bold"> [facility] Serum or Plasma Chloride Medical </content>103 Center MEQ/L<content styleCode="Italic s"> (98-107 MEQ/L)</content> Glucose 74-106 <content [facility] [Mass/volume] in styleCode="Bold"> [facility] Serum or Plasma Glucose Medical </content>92 Center MG/DL<content styleCode="Italic s"> (74-106 MG/DL)</content> Carbon dioxide, 22-30 Above high <content [facility] total normal styleCode="Bold"> [facility] [Moles/volume] in Carbon Dioxide Medical Serum or Plasma </content>31 Center MEQ/L H<content styleCode="Italic s"> (22-30 MEQ/L)</content> UNK 9-20 <content [facility] styleCode="Bold"> [facility] BUN </content>18 Medical MG/DL<content Center styleCode="Italic s"> (9-20 MG/DL)</content> Calcium 8.4-10. <content [facility] [Mass/volume] in 2 styleCode="Bold"> [facility] Serum or Plasma Calcium Medical </content>9.3 Center MG/DL<content styleCode="Italic s"> (8.4-10.2 MG/DL)</content> Creatinine 0.5-1.3 <content [facility] [Mass/volume] in styleCode="Bold"> [facility] Serum or Plasma Creatinine Medical </content>1.3 Center MG/DL<content styleCode="Italic s"> (0.5-1.3 MG/DL)</content> Bilirubin.total 0.2-1.3 Below low <content [facility] [Mass/volume] in normal styleCode="Bold"> [facility] Serum or Plasma Bilirubin Total Medical </content>< 0.2 Center MG/DL L<content styleCode="Italic s"> (0.2-1.3 MG/DL)</content> UNK > 60 <content [facility] styleCode="Bold"> [facility] EGFR </content>76 Medical GFR<content Center styleCode="Italic s"> (> 60 GFR)</content> Aspartate 17-59 <content [facility] aminotransferase styleCode="Bold"> [facility] [Enzymatic Aspartate Medical activity/volume] Aminotransferase Center in Serum or Plasma (AST) </content>22 IU/L<content styleCode="Italic s"> (17-59 IU/L)</content> Alkaline 38-126 <content [facility] phosphatase styleCode="Bold"> [facility] [Enzymatic Alkaline Medical activity/volume] Phosphatase (ALP) Cente r in Serum or Plasma </content>68 IU/L<content styleCode="Italic s"> (38-126 IU/L)</content> Alanine 7-50 <content [facility] aminotransferase styleCode="Bold"> [facility] [Enzymatic Alanine Medical activity/volume] Aminotransferase Center in Serum or Plasma (ALT) </content>10 IU/L<content styleCode="Italic s"> (7-50 IU/L)</content> Albumin 3.5-5.0 Below low <content [facility] [Mass/volume] in normal styleCode="Bold"> [facility] Serum or Plasma Albumin Medical </content>3.3 Center G/DL L<content styleCode="Italic s"> (3.5-5.0 G/DL)</content> ID Date Data Source Liver 02/09/2020 09:46:00 PM EDT [facility] Profile.[id number] Name Value Range Interpretation Description Data Sup porting Code Source(s) Document(s ) Alanine 7-50 <content [facility] aminotransferase styleCode="Bold"> [facility] [Enzymatic Alanine Medical activity/volume] Aminotransferase Center in Serum or Plasma (ALT) </content>15 IU/L<content styleCode="Italic s"> (7-50 IU/L)</content> Aspartate 17-59 <content [facility] aminotransferase styleCode="Bold"> [facility] [Enzymatic Aspartate Medical activity/volume] Aminotransferase Center in Serum or Plasma (AST) </content>57 IU/L<content styleCode="Italic s"> (17-59 IU/L)</content> Bilirubin.total 0.2-1.3 Above high <content [facility] [Mass/volume] in normal styleCode="Bold"> [facility] Serum or Plasma Bilirubin Total Medical </content>1.5 Center MG/DL H<content styleCode="Italic s"> (0.2-1.3 MG/DL)</content> Albumin 3.5-5.0 <content [facility] [Mass/volume] in styleCode="Bold"> [facility] Serum or Plasma Albumin Medical </content>3.8 Center G/DL<content styleCode="Italic s"> (3.5-5.0 G/DL)</content> Alkaline 38-126 <content [facility] phosphatase styleCode="Bold"> [facility] [Enzymatic Alkaline Medical activity/volume] Phosphatase (ALP) Cente r in Serum or Plasma </content>60 IU/L<content styleCode="Italic s"> (38-126 IU/L)</content> ID Date Data Source HematologyRou.[id number] 02/09/2020 09:46:00 PM EDT [facility] 0400 Name Value Range Interpretation Description Data Sup porting Code Source(s) Document(s ) Erythrocytes 4.4-5.9 <content [facility] [#/volume] in styleCode="Bold Seth Blood by ">Red Blood Medical Automated count Cell Count Center </content>4.85 MCUMM<content styleCode="Ital ics"> (4.4-5.9 MCUMM)</content > Hemoglobin 13.5-17. Below low normal <content [facility] [Mass/volume] in 5 styleCode="Bold Seth Blood ">Hemoglobin Medical </content>10.9 Center G/DL L<content styleCode="Ital ics"> (13.5-17.5 G/DL)</content> Hematocrit 41.0-53. Below low normal <content [facility] [Volume 0 styleCode="Bold Seth Fraction] of ">Hematocrit Medical Blood by </content>36.0 Center Automated count % L<content styleCode="Ital ics"> (41.0-53.0 %)</content> Leukocytes 4.4-11.0 <content [facility] [#/volume] in styleCode="Bold Seth Blood by ">White Blood Medical Automated count Cell Count Center </content>4.89 KCUMM<content styleCode="Ital ics"> (4.4-11.0 KCUMM)</content > Erythrocyte mean 26.0-34. Below low normal <content [facility] corpuscular 0 styleCode="Bold Seth hemoglobin ">Mean Medical [Entitic mass] Corposcular Center by Automated Hemoglobin count </content>22.5 PG L<content styleCode="Ital ics"> (26.0-34.0 PG)</content> Erythrocyte mean 80.0-100 <content [facility] corpuscular .0 styleCode="Bold Seth volume [Entitic ">Mean Medical volume] by Corpuscular Center Automated count Volume </content>74.2 FL<content styleCode="Ital ics"> (80.0-100.0 FL)</content> Erythrocyte mean 32.0-37. Below low normal <content [facility] corpuscular 0 styleCode="Bold Seth hemoglobin ">Mean Corpus. Medical concentration Hgb Center [Mass/volume] by Concentration Automated count (MCHC) </content>30.3 G/DL L<content styleCode="Ital ics"> (32.0-37.0 G/DL)</content> Erythrocyte 11.5-14. Above high <content [facility] distribution 5 normal styleCode="Bold Seth width [Ratio] by ">Red Cell Medical Automated count Distribution Center Width </content>16.5 % H<content styleCode="Ital ics"> (11.5-14.5 %)</content> UNK 0.0 <content [facility] styleCode="Bold Seth ">Nucleated Red Medical Blood Cell Center Count </content>0.00 KCUMM<content styleCode="Ital ics"> (0.0 KCUMM)</content > UNK 0 <content [facility] styleCode="Bold Seth ">Nucleated Red Medical Blood Cell Center </content>0.0 /100<content styleCode="Ital ics"> (0 /100)</content> Platelets 130-400 <content [facility] [#/volume] in styleCode="Bold Seth Blood by ">Platelet Medical Automated count Count Center </content>310 KCUMM<content styleCode="Ital ics"> (130-400 KCUMM)</content > Platelet mean 8.0-11.0 <content [facility] volume [Entitic styleCode="Bold Seth volume] in Blood ">Mean Platelet Medical by Automated Volume Center count </content>9.2 FL<content styleCode="Ital ics"> (8.0-11.0 FL)</content> ID Date Data Source GFR(Creatinine).[id number] 02/09/2020 09:46:00 PM EDT [facility] 0-0400 Name Value Range Interpretation Code Description Data Liya rce(s) Supporting Document(s ) UNK > 60 <content [facility] styleCode="Bold"> Medical Cent er EGFR </content>116 GFR<content styleCode="Italic s"> (> 60 GFR)</content> ID Date Data Source CHMROUTINECCDA.[id number] 02/09/2020 09:46:00 PM EDT [facility] -0400 Name Value Range Interpretation Description Data Sup porting Code Source(s) Document(s ) UNK 2.3-3.5 Above high normal <content [facility] styleCode="Brian Seth d">Globulin Medical </content>3.6 Center G/DL H<content styleCode="Cynthia lics"> (2.3-3.5 G/DL)</content > UNK >= 1.0 <content [facility] styleCode="Brian Seth d">AG Ratio Medical </content>1.1 Center <content styleCode="Cynthia lics"> (>= 1.0 )</content> Magnesium 1.6-2.3 <content [facility] [Mass/volume] styleCode="Brian Seth in Serum or d">Magnesium Medical Plasma </content>2.2 Center MG/DL<content styleCode="Cynthia lics"> (1.6-2.3 MG/DL)</conten t> Protein 6.3-8.2 <content [facility] [Mass/volume] styleCode="Brian Seth in Serum or d">Total Medical Plasma Protein Center </content>7.4 G/DL<content styleCode="Cynthia lics"> (6.3-8.2 G/DL)</content > ID Date Data Source [facility].[id number] 02/09/2020 09:46:00 PM EDT [facility] Name Value Range Interpretation Description Data Sup porting Code Source(s) Document(s ) Sodium 137-145 Below low <content [facility] [Moles/volume] in normal styleCode="Bold"> [facility] Serum or Plasma Sodium Medical </content>136 Center MEQ/L L<content styleCode="Italic s"> (137-145 MEQ/L)</content> Potassium <content [facility] [Moles/volume] in styleCode="Bold"> [facility] Serum or Plasma Potassium Medical </content>Test Center not performed. MEQ/L (Reference Range: not available)
Creatinine 0.5-1.3 <content [facility] [Mass/volume] in styleCode="Bold"> [facility] Serum or Plasma Creatinine Medical </content>0.9 Center MG/DL<content styleCode="Italic s"> (0.5-1.3 MG/DL)</content> Chloride 98-107 <content [facility] [Moles/volume] in styleCode="Bold"> [facility] [facility] Serum or Plasma Chloride Medical </content>105 Center MEQ/L<content styleCode="Italic s"> (98-107 MEQ/L)</content> Carbon dioxide, 22-30 <content [facility] total styleCode="Bold"> Seth [Moles/volume] in Carbon Dioxide Medical Serum or Plasma </content>28 Center MEQ/L<content styleCode="Italic s"> (22-30 MEQ/L)</content> UNK 9-20 Above high <content [facility] normal styleCode="Bold"> Seth BUN </content>21 Medical MG/DL H<content Center styleCode="Italic s"> (9-20 MG/DL)</content> Alanine 7-50 <content [facility] aminotransferase styleCode="Bold"> [facility] [Enzymatic Alanine Medical activity/volume] Aminotransferase Center in Serum or Plasma (ALT) </content>15 IU/L<content styleCode="Italic s"> (7-50 IU/L)</content> Aspartate 17-59 <content [facility] aminotransferase styleCode="Bold"> [facility] hs [Enzymatic Aspartate Medical activity/volume] Aminotransferase Center in Serum or Plasma (AST) </content>57 IU/L<content styleCode="Italic s"> (17-59 IU/L)</content> UNK > 60 <content [facility] styleCode="Bold"> Seth EGFR Medical </content>116 Center GFR<content styleCode="Italic s"> (> 60 GFR)</content> Glucose 74-106 <content [facility] [Mass/volume] in styleCode="Bold"> [facility] Serum or Plasma Glucose Medical </content>89 Center MG/DL<content styleCode="Italic s"> (74-106 MG/DL)</content> Calcium 8.4-10. <content [facility] [Mass/volume] in 2 styleCode="Bold"> [facility] Serum or Plasma Calcium Medical </content>8.6 Center MG/DL<content styleCode="Italic s"> (8.4-10.2 MG/DL)</content> Albumin 3.5-5.0 <content [facility] [Mass/volume] in styleCode="Bold"> [facility] hs Serum or Plasma Albumin Medical </content>3.8 Center G/DL<content styleCode="Italic s"> (3.5-5.0 G/DL)</content> Alkaline 38-126 <content [facility] phosphatase styleCode="Bold"> Seth [Enzymatic Alkaline Medical activity/volume] Phosphatase (ALP) Cente r in Serum or Plasma </content>60 IU/L<content styleCode="Italic s"> (38-126 IU/L)</content> Bilirubin.total 0.2-1.3 Above high <content [facility] [Mass/volume] in normal styleCode="Bold"> [facility] hs Serum or Plasma Bilirubin Total Medical </content>1.5 Center MG/DL H<content styleCode="Italic s"> (0.2-1.3 MG/DL)</content> ID Date Data Source [id number] 02/09/2020 05:25:00 PM EDT [facility] 0 Name Value Range Interpretation Description Data Sup porting Code Source(s) Document(s ) Color of Urine YELLOW <content Saint styleCode="Brian Johnsons d">Color, Medical Urine Center </content>YELL OW <content styleCode="Cynthia lics"> (YELLOW )</content> UNK CLEAR <content Saint styleCode="Brian Johnsons d">Urine Medical Clarity Center </content>YUSRA R <content styleCode="Cynthia lics"> (CLEAR )</content> Glucose NEGATIVE <content [facility] [Mass/volume] styleCode="Brian Ann in Urine by d">Urine Medical Test strip Glucose Center </content>NEGA TIVE MG/DL<content styleCode="Cynthia lics"> (NEGATIVE MG/DL)</conten t> UNK NEGATIVE <content Saint styleCode="Brian Johnsons d">Urine Medical Bilirubin Center </content>NEGA TIVE <content styleCode="Cynthia lics"> (NEGATIVE )</content> Specific 1.015-1.02 <content [facility] gravity of 5 styleCode="Brian Ann Urine by Test d">Urine Medical strip Specific Center Basom </content>1.02 5 <content styleCode="Cynthia lics"> (1.015-1.025 )</content> Ketones NEGATIVE <content [facility] [Mass/volume] styleCode="Brian Ann in Urine by d">Urine Medical Test strip Ketone Center </content>NEGA TIVE MG/DL<content styleCode="Cynthia lics"> (NEGATIVE MG/DL)</conten t> Hemoglobin NEGATIVE <content [facility] [Presence] in styleCode="Brian Ann Urine by Test d">Urine Blood Medical strip </content>NEGA Center TIVE <content styleCode="Cynthia lics"> (NEGATIVE )</content> pH of Urine by 4.5-8.0 <content [facility] Test strip styleCode="Brian Johnsons d">Urine pH Medical </content>6.0 Center <content styleCode="Cynthia lics"> (4.5-8.0 )</content> Protein NEGATIVE <content [facility] [Mass/volume] styleCode="Brian Seth in Urine by d">Urine Medical Test strip Protein Center </content>NEGA TIVE MG/DL<content styleCode="Cynthia lics"> (NEGATIVE MG/DL)</conten t> Urobilinogen 0.2-1.0 <content [facility] [Units/volume] styleCode="Brian Seth in Urine by d">Urine Medical Test strip Urobilinogen Center </content>0.2 MG/DL<content styleCode="Cynthia lics"> (0.2-1.0 MG/DL)</conten t> Leukocyte NEGATIVE <content [facility] esterase styleCode="Brian Seth [Presence] in d">Urine Medical Urine by Test Leukocyte Center strip </content>NEGA TIVE <content styleCode="Cynthia lics"> (NEGATIVE )</content> Nitrite NEGATIVE <content [facility] [Presence] in styleCode="Brian Seht Urine by Test d">Urine Medical strip Nitrite Center </content>NEGA TIVE <content styleCode="Cynthia lics"> (NEGATIVE )</content> ID Date Data Source MROUTINECCDA.[id number] 02/09/2020 05:25:00 PM EDT [facility] -0400 Name Value Range Interpretation Description Data Sup porting Code Source(s) Document(s ) Cannabinoids <content [facility] [Presence] in styleCode="Brian Johnsons Urine by Screen d">Cannabinoid Medical method >50 ng/mL s Center </content>NEGA TIVE NG/ML (Reference Range: not available)<br/ > ID Date Data Source Liver 02/09/2020 05:22:00 PM EDT [facility] Profile.[id number] Name Value Range Interpretation Description Data Sup porting Code Source(s) Document(s ) Aspartate 17-59 <content [facility] aminotransferase styleCode="Bold"> [facility] hs [Enzymatic Aspartate Medical activity/volume] Aminotransferase Center in Serum or Plasma (AST) </content>31 IU/L<content styleCode="Italic s"> (17-59 IU/L)</content> Alanine 7-50 <content [facility] aminotransferase styleCode="Bold"> [facility] hs [Enzymatic Alanine Medical activity/volume] Aminotransferase Center in Serum or Plasma (ALT) </content>14 IU/L<content styleCode="Italic s"> (7-50 IU/L)</content> UNK 0.0-0.3 <content [facility] styleCode="Bold"> Seth Bilirubin, Direct Medical </content>< 0.2 Center MG/DL<content styleCode="Italic s"> (0.0-0.3 MG/DL)</content> Bilirubin.total 0.2-1.3 <content [facility] [Mass/volume] in styleCode="Bold"> [facility] hs Serum or Plasma Bilirubin Total Medical </content>0.3 Center MG/DL<content styleCode="Italic s"> (0.2-1.3 MG/DL)</content> Alkaline 38-126 <content [facility] phosphatase styleCode="Bold"> Seth [Enzymatic Alkaline Medical activity/volume] Phosphatase (ALP) Cente r in Serum or Plasma </content>90 IU/L<content styleCode="Italic s"> (38-126 IU/L)</content> Albumin 3.5-5.0 <content [facility] [Mass/volume] in styleCode="Bold"> [facility] hs Serum or Plasma Albumin Medical </content>4.0 Center G/DL<content styleCode="Italic s"> (3.5-5.0 G/DL)</content> ID Date Data Source LIPID.[id number] 02/09/2020 05:22:00 PM EDT [facility] Center Name Value Range Interpretation Description Data Sup porting Code Source(s) Document(s ) Triglyceride < 150 <content [facility] [Mass/volume] in styleCode="Brian Seth Serum or Plasma d">Triglycerid Medical es Center </content>91 MG/DL<content styleCode="Cynthia lics"> (< 150 MG/DL)</conten t> UNK > 60 <content Saint styleCode="Brian Seth d">HDL- Medical Cholesterol Center </content>70 MG/DL<content styleCode="Cynthia lics"> (> 60 MG/DL)</conten t> Cholesterol -<200 <content [facility] [Mass/volume] in styleCode="[facility] Serum or Plasma d">Cholesterol Medical </content>153 Center MG/DL<content styleCode="Cynthia lics"> (-<200 MG/DL)</conten t> UNK < 100 <content Saint styleCode="[facility] d">LDL-Cholest Medical lidia Center </content>65 MG/DL<content styleCode="Cynthia lics"> (< 100 MG/DL)</conten t> ID Date Data Source HematologyRou.[id number] 02/09/2020 05:22:00 PM EDT [facility] 0400 Name Value Range Interpretation Description Data Sup porting Code Source(s) Document(s ) Hemoglobin 13.5-17. Below low normal <content Saint [Mass/volume] in 5 styleCode="Bold Seth Blood ">Hemoglobin Medical </content>11.7 Center G/DL L<content styleCode="Ital ics"> (13.5-17.5 G/DL)</content> Erythrocytes 4.4-5.9 <content Saint [#/volume] in styleCode="Bold Seth Blood by ">Red Blood Medical Automated count Cell Count Center </content>5.26 MCUMM<content styleCode="Ital ics"> (4.4-5.9 MCUMM)</content > Leukocytes 4.4-11.0 <content Saint [#/volume] in styleCode="Bold Seth Blood by ">White Blood Medical Automated count Cell Count Center </content>5.20 KCUMM<content styleCode="Ital ics"> (4.4-11.0 KCUMM)</content > Erythrocyte mean 80.0-100 <content Saint corpuscular .0 styleCode="Bold [facility] volume [Entitic ">Mean Medical volume] by Corpuscular Center Automated count Volume </content>75.1 FL<content styleCode="Ital ics"> (80.0-100.0 FL)</content> Erythrocyte mean 26.0-34. Below low normal <content [facility] corpuscular 0 styleCode="Bold Seth hemoglobin ">Mean Medical [Entitic mass] Corposcular Center by Automated Hemoglobin count </content>22.2 PG L<content styleCode="Ital ics"> (26.0-34.0 PG)</content> Hematocrit 41.0-53. Below low normal <content Saint [Volume 0 styleCode="Bold Seth Fraction] of ">Hematocrit Medical Blood by </content>39.5 Center Automated count % L<content styleCode="Ital ics"> (41.0-53.0 %)</content> Platelets 130-400 <content Saint [#/volume] in styleCode="Bold Seth Blood by ">Platelet Medical Automated count Count Center </content>331 KCUMM<content styleCode="Ital ics"> (130-400 KCUMM)</content > Erythrocyte 11.5-14. Above high <content [facility] distribution 5 normal styleCode="Bold Seth width [Ratio] by ">Red Cell Medical Automated count Distribution Center Width </content>16.7 % H<content styleCode="Ital ics"> (11.5-14.5 %)</content> Erythrocyte mean 32.0-37. Below low normal <content [facility] corpuscular 0 styleCode="Bold Seth hemoglobin ">Mean Corpus. Medical concentration Hgb Center [Mass/volume] by Concentration Automated count (MCHC) </content>29.6 G/DL L<content styleCode="Ital ics"> (32.0-37.0 G/DL)</content> Platelet mean 8.0-11.0 <content [facility] volume [Entitic styleCode="Bold Seth volume] in Blood ">Mean Platelet Medical by Automated Volume Center count </content>9.3 FL<content styleCode="Ital ics"> (8.0-11.0 FL)</content> UNK 0 <content Saint styleCode="Bold Seth ">Nucleated Red Medical Blood Cell Center </content>0.0 /100<content styleCode="Ital ics"> (0 /100)</content> UNK 0.0 <content Saint styleCode="Bold Seth ">Nucleated Red Medical Blood Cell Center Count </content>0.00 KCUMM<content styleCode="Ital ics"> (0.0 KCUMM)</content > ID Date Data Source GFR(Creatinine).[id number] 02/09/2020 05:22:00 PM EDT [facility] 0-0400 Name Value Range Interpretation Code Description Data Liya rce(s) Supporting Document(s ) UNK > 60 <content [facility] styleCode="Bold"> Medical Cent er EGFR </content>103 GFR<content styleCode="Italic s"> (> 60 GFR)</content> ID Date Data Source MROUTINECCDA.[id number] 02/09/2020 05:22:00 PM EDT [facility] -0400 Name Value Range Interpretation Code Description Data Liya rce(s) Supporting Document(s ) UNK 4.2-5.8 Above high normal <content [facility] styleCode="Bold" Medical Cente r >Hemoglobin A1C </content>5.9 % H<content styleCode="Itali cs"> (4.2-5.8 %)</content> ID Date Data Source [id number] 02/09/2020 05:22:00 PM EDT [facility] Name Value Range Interpretation Description Data Sup porting Code Source(s) Document(s ) Sodium 137-145 <content Saint [Moles/volume] in styleCode="Bold"> [facility] Serum or Plasma Sodium Medical </content>140 Center MEQ/L<content styleCode="Italic s"> (137-145 MEQ/L)</content> Chloride 98-107 <content [facility] [Moles/volume] in styleCode="Bold"> [facility] Serum or Plasma Chloride Medical </content>101 Center MEQ/L<content styleCode="Italic s"> (98-107 MEQ/L)</content> Potassium 3.5-5.3 <content [facility] [Moles/volume] in styleCode="Bold"> [facility] Serum or Plasma Potassium Medical </content>4.0 Center MEQ/L<content styleCode="Italic s"> (3.5-5.3 MEQ/L)</content> Carbon dioxide, 22-30 <content [facility] total styleCode="Bold"> Seth [Moles/volume] in Carbon Dioxide Medical Serum or Plasma </content>30 Center MEQ/L<content styleCode="Italic s"> (22-30 MEQ/L)</content> Creatinine 0.5-1.3 <content [facility] [Mass/volume] in styleCode="Bold"> [facility] hs Serum or Plasma Creatinine Medical </content>1.0 Center MG/DL<content styleCode="Italic s"> (0.5-1.3 MG/DL)</content> UNK 9-20 Above high <content [facility] normal styleCode="Bold"> Seth BUN </content>24 Medical MG/DL H<content Center styleCode="Italic s"> (9-20 MG/DL)</content> Calcium 8.4-10. <content [facility] [Mass/volume] in 2 styleCode="Bold"> [facility] hs Serum or Plasma Calcium Medical </content>9.6 Center MG/DL<content styleCode="Italic s"> (8.4-10.2 MG/DL)</content> Glucose 74-106 Above high <content [facility] [Mass/volume] in normal styleCode="Bold"> [facility] hs Serum or Plasma Glucose Medical </content>109 Center MG/DL H<content styleCode="Italic s"> (74-106 MG/DL)</content> UNK > 60 <content [facility] styleCode="Bold"> Seth EGFR Medical </content>103 Center GFR<content styleCode="Italic s"> (> 60 GFR)</content> Alanine 7-50 <content [facility] aminotransferase styleCode="Bold"> [facility] hs [Enzymatic Alanine Medical activity/volume] Aminotransferase Center in Serum or Plasma (ALT) </content>14 IU/L<content styleCode="Italic s"> (7-50 IU/L)</content> Aspartate 17-59 <content [facility] aminotransferase styleCode="Bold"> [facility] hs [Enzymatic Aspartate Medical activity/volume] Aminotransferase Center in Serum or Plasma (AST) </content>31 IU/L<content styleCode="Italic s"> (17-59 IU/L)</content> Albumin 3.5-5.0 <content [facility] [Mass/volume] in styleCode="Bold"> [facility] hs Serum or Plasma Albumin Medical </content>4.0 Center G/DL<content styleCode="Italic s"> (3.5-5.0 G/DL)</content> Alkaline 38-126 <content [facility] phosphatase styleCode="Bold"> Seth [Enzymatic Alkaline Medical activity/volume] Phosphatase (ALP) Cente r in Serum or Plasma </content>90 IU/L<content styleCode="Italic s"> (38-126 IU/L)</content> Bilirubin.total 0.2-1.3 <content [facility] [Mass/volume] in styleCode="Bold"> [facility] hs Serum or Plasma Bilirubin Total Medical </content>0.3 Center MG/DL<content styleCode="Italic s"> (0.2-1.3 MG/DL)</content> ID Date Data Source [id number] 12/15/2019 08:42:00 AM EDT [facility] CUT-OFF >= 25 NG/ML.THE FINDINGS OF THE URINE DRUG SCREEN ARE USED SOLELY FOR PATIENT MANAGEMENT AND GUIDANCE. THE RESULTS JASON ULD NOT BE USED FOR FORENSIC PURPOSE. ANY CLINICALLY UNSUSPECTED POSITIVE DRUG SCR EEN CAN BE CONFIRMED BY CALLING THE LABORATORY 3 DAYS WITHIN RECEIPT OF REPO RT. Name Value Range Interpretation Code Description Data Liya rce(s) Supporting Document(s ) PCP (UR) NEGATIVE [facility] ID Date Data Source [id number] 12/15/2019 08:42:00 AM EDT [facility] CUT-OFF >= 50 NG/ML. Name Value Range Interpretation Code Description Data Liya rce(s) Supporting Document(s ) THC (UR) NEGATIVE [facility] ID Date Data Source [id number] 12/15/2019 08:42:00 AM EDT [facility] CUT-OFF >= 300 NG/ML. Name Value Range Interpretation Description Data Sup porting Code Source(s) Document(s ) OPIATES (UR) NEGATIVE [facility] ID Date Data Source [id number] 12/15/2019 08:42:00 AM EDT [facility] CUT-OFF >= 300 NG/ML. Name Value Range Interpretation Description Data Sup porting Code Source(s) Document(s ) COCAINE (UR) POSITIVE [facility] ID Date Data Source [id number] 12/15/2019 08:42:00 AM EDT [facility] CUT-OFF >= 200 NG/ML. Name Value Range Interpretation Description Data Sup porting Code Source(s) Document(s ) BENZODIAZEPINES NEGATIVE [place] (UR) [place] ID Date Data Source [id number] 12/15/2019 08:42:00 AM EDT [facility] CUT-OFF >= 200 NG/ML. Name Value Range Interpretation Description Data Sup porting Code Source(s) Document(s ) BARBITURATES NEGATIVE [facility] (UR) Hospital ID Date Data Source [id number] [facility] 1000 NG/ML. Name Value Range Interpretation Description Data Sup porting Code Source(s) Document(s ) AMPHETAMINES NEGATIVE [facility] (UR) Hospital ID Date Data Source [id number] 12/15/2019 08:42:00 AM EDT [facility] Name Value Range Interpretation Description Data Sup porting Code Source(s) Document(s ) Erythrocytes 0-3 [facility] [#/area] in /[HPF] Hospital Urine sediment by Automated count ID Date Data Source [id number] 12/15/2019 08:42:00 AM EDT [facility] Name Value Range Interpretation Description Data Sup porting Code Source(s) Document(s ) Leukocytes 0-3 [facility] [#/area] in /[HPF] Hospital Urine sediment by Automated count ID Date Data Source [id number] 12/15/2019 08:42:[address] [facility] Value Range Interpretation Description Data Sup porting Code Source(s) Document(s ) Leukocyte NEGATIVE [facility] esterase Hospital [Presence] in Urine by Test strip ID Date Data Source [id number] 12/15/2019 08:42:[address] [facility] Value Range Interpretation Description Data Sup porting Code Source(s) Document(s ) URINE NEGATIVE [facility]RIT[facility] ID Date Data Source [id number] 12/15/2019 08:42:[address] [facility] Value Range Interpretation Description Data Sup porting Code Source(s) Document(s ) Erythrocytes NEGATIVE [facility] [#/volume] in Hospital Urine by Test strip ID Date Data Source [id number] 12/15/2019 08:42:[address] [facility] Value Range Interpretation Code Description Data Liya rce(s) Supporting Document(s ) Bilirubin. NEGATIVE [facility] total Hospital [Presence] in Urine by Test strip ID Date Data Source [id number] 12/15[facility] Range Interpretation Description Data Sup porting Code Source(s) Document(s ) Urobilinogen 1.0 [facility] [Units/volume] mg/dL Hospital in Urine by Test strip ID Date Data Source [id number] 12/15/2019 08:42:[address] [facility] Value Range Interpretation Code Description Data Liya rce(s) Supporting Document(s ) Ketones TRACE [facility] [Mass/volume Hospital ] in Urine by Test strip ID Date Data Source [id number] 12/15/2019 08:42:00 AM EDT [facility] Name Value Range Interpretation Description Data Sup porting Code Source(s) Document(s ) Glucose NEGATIVE [facility] [Mass/volume Hospital ] in Urine by Test strip ID Date Data Source [id number] 12/15/2019 08:42:00 AM EDT [facility] Name Value Range Interpretation Code Description Data Liya rce(s) Supporting Document(s ) Protein TRACE [facility] [Presence] Hospital in Urine by Test strip ID Date Data Source [id number] 12/15/2019 08:42[facility] Value Range Interpretation Code Description Data Liya rce(s) Supporting Document(s ) pH of Urine 6.0 [facility] by Test Hospital strip ID Date Data Source [id number] 12/15/2019 [facility] Name Value Range Interpretation Code Description Data Supporting Source(s) Document(s ) Specific 1.021 [facility] gravity of Hospital Urine by Test strip ID Date Data Source [id number] 12/15/2019 08:42[facility] Name Value Range Interpretation Description Data Sup porting Code Source(s) Document(s ) Clarity in Urine CLEAR [facility] by Refractometry [facility] automated ID Date Data Source [id number] 12/15/2019 08:42[facility] Value Range Interpretation Code Description Data Liya rce(s) Supporting Document(s ) Color of YELLOW [facility] Urine Hospital ID Date Data Source [id number] 12/15/2019 05:18:00 AM [facility] REFERENCE RANGES: NONE DETECTED <20 MG/DL NONE TO MILD EUPHORIA 20-49 MG/DL MILD EUPHORIA 50-99 MG/DL MODERATE EUPHORIA 100-149 MG/DL INTOXICATION 150-300 MG/DL Name Value Range Interpretation Description Data Sup porting Code Source(s) Document(s ) Ethanol < 20 [facility] [Mass/volume mg/dL Hospital ] in Serum or Plasma ID Date Data Source [id number] 12/15/2019 05:18:00 AM EDT [facility] Name Value Range Interpretation Description Data Sup porting Code Source(s) Document(s ) Natriuretic 14.1 [facility] peptide B pg/mL Hospital [Mass/volume] in Serum or Plasma ID Date Data Source [id number] 12/15/2019 05:18:00 AM [facility] TEST PERFORMED BY SI[facility] ULTRA SENSITIVE CENTAUR CHEMILUMINESCENCE METHOD. Name Value Range Interpretation Description Data Sup porting Code Source(s) Document(s ) Troponin 0.02 [facility] I.cardiac ng/mL Hospital [Mass/volume ] in Serum or Plasma ID Date Data Source [id number] 12/15/2019 05:18:00 AM EDT [facility] Name Value Range Interpretation Description Data Sup porting Code Source(s) Document(s ) Aspartate 24 U/L White aminotransferase [place] [Enzymatic Hospital activity/volume] in Serum or Plasma ID Date Data Source [id number] 12/15/2019 05:18:[facility] Name Value Range Interpretation Description Data Sup porting Code Source(s) Document(s ) Alanine 16 U/L White aminotransferase [place] [Enzymatic Hospital activity/volume] in Serum or Plasma ID Date Data Source [id number] 12/15/2019 05:18:[facility] Name Value Range Interpretation Description Data Sup porting Code Source(s) Document(s ) Alkaline 78 U/L [facility] phosphatase Hospital [Enzymatic activity/volume ] in Serum or Plasma ID Date Data Source [id number] 12/15/2019 05:18:00 AM EDT [facility] Name Value Range Interpretation Description Data Sup porting Code Source(s) Document(s ) Bilirubin.t 0.5 mg/dL [facility] [Mass/volum e] in Serum or Plasma ID Date Data Source [id number] 12/15/2019 05:18:00 AM EDT [facility] Name Value Range Interpretation Code Description Data Liya rce(s) Supporting Document(s ) [facility] in Serum or Plasma ID Date Data Source [id number] 12/15/2019 05:18:[address] [facility] Value Range Interpretation Description Data Sup porting Code Source(s) Document(s ) Albumin 4.0 g/dL [facility] [Mass/volume Hospital ] in Serum or Plasma ID Date Data Source [id number] 12/15/2019 05:18:00 AM EDT [facility] Name Value Range Interpretation Description Data Sup porting Code Source(s) Document(s ) Protein 6.7 g/dL [facility] [Mass/volume Hospital ] in Serum or Plasma ID Date Data Source [id number] 12/15/2019 05:18:00 AM EDT [facility] Name Value Range Interpretation Description Data Sup porting Code Source(s) Document(s ) Calcium 9.1 mg/dL [facility] [Mass/volume Hospital ] in Serum or Plasma ID Date Data Source [id number] 12/15/2019 05:18:[address] [facility] Value Range Interpretation Code Description Data Liya rce(s) Supporting Document(s ) Urea 17.5 [facility] nitrogen/Cre Hospital atinine [Mass Ratio] in Serum or Plasma ID Date Data Source [id number] 12/15/2019 05:18:00 AM EDT [facility] Name Value Range Interpretation Description Data Sup porting Code Source(s) Document(s ) Creatinine 1.2 mg/dL [facility] [Mass/volume] Hospital in Serum or Plasma ID Date Data Source [id number] 12/15/2019 05:18:[address] [facility] Value Range Interpretation Description Data Sup porting Code Source(s) Document(s ) Urea 21 mg/dL [facility] [Mass/volume ] in Serum or Plasma ID Date Data Source [id number] 12/15/2019 05:18:[address] [facility] Value Range Interpretation Code Description Data Liya rce(s) Supporting Document(s ) Anion gap in 12 [facility] Serum or Hospital Plasma ID Date Data Source [id number] 12/15/2019 05:18:[address] [facility] Value Range Interpretation Description Data Sup porting Code Source(s) Document(s ) Carbon 30 mmol/L [facility] dioxide, Hospital total [Moles/volu me] in Serum or Plasma ID Date Data Source [id number] 12/15/2019 05:18:00 AM EDT [facility] Name Value Range Interpretation Description Data Sup porting Code Source(s) Document(s ) Chloride 105 [facility] [Moles/volum mmol/L Hospital e] in Serum or Plasma ID Date Data Source [id number] 12/15/2019 05:18:[address] [facility] Value Range Interpretation Description Data Sup porting Code Source(s) Document(s ) Potassium 4.0 [facility] [Moles/volume mmol/L Hospital ] in Serum or Plasma ID Date Data Source [id number] 12/15/2019 05:18:00 AM [facility] Name Value Range Interpretation Description Data Sup porting Code Source(s) Document(s ) Sodium 143 mmol/L [facility]] in Serum or Plasma ID Date Data Source [id number] 12/15/2019 05:18:00 AM [facility] Name Value Range Interpretation Description Data Sup porting Code Source(s) Document(s ) Glucose 84 mg/dL [facility] [[facility]/volume [facility] ] in Serum or Plasma ID Date Data Source [id number] 12/15/2019 05:18:00 AM [facility] THERAPEUTIC RANGES:UNFRACTIONATED HEPARI N THERAPY: 60-90 SECONDSARGATROBAN THERAPY: 49-99 SECONDS Name Value Range Interpretation Description Data Sup porting Code Source(s) Document(s ) aPTT in 27.4 s [facility] Platelet poor [facility] plasma by Coagulation assay ID Date Data Source [id number] 12/15/2019 05:18:00 AM [facility] THERAPEUTIC RANGE FOR STANDARD ORALANTIC OAGULANT THERAPY: 2.0-3.0THERAPEUTIC RANGE FOR HIGH DOSE ORALANTICOAGULANT THERAPY (MECHANICAL HEARTVALVE REPLACEMENT): 2.5-3.5 Name Value Range Interpretation Description Data Sup porting Code Source(s) Document(s ) INR in Platelet 1.1 [facility] poor plasma by [facility] Coagulation assay ID Date Data Source [id number] 12/15/2019 05:18:00 AM [facility] Name Value Range Interpretation Description Data Sup porting Code Source(s) Document(s ) PT panel - 12.1 s [facility] Platelet poor [facility] plasma by Coagulation assay ID Date Data Source [id number] 12/15/2019 05:18:00 AM EDT [facility] Name Value Range Interpretation Description Data Sup porting Code Source(s) Document(s ) Differential AUTOMATED [facility] cell count Hospital method - Blood ID Date Data Source [id number] 12/15/2019 05:18:[address] [facility] Value Range Interpretation Description Data Sup porting Code Source(s) Document(s ) Immature 0.01 [facility] granulocytes 10*3/uL Hospital [#/volume] in Blood by Automated count ID Date Data Source [id number] 12/15/2019 05:18:[address] [facility] Value Range Interpretation Description Data Sup porting Code Source(s) Document(s ) Basophils 0.04 [facility] [#/volume] in 10*3/uL [facility] Blood by Automated count ID Date Data Source [id number] 12/15/2019 05:18:[address] [facility] Value Range Interpretation Description Data Sup porting Code Source(s) Document(s ) Eosinophils 0.18 [facility] [#/volume] in 10*3/uL Hospital Blood by Automated count ID Date Data Source [id number] 12/15/2019 05:18:[address] [facility] Value Range Interpretation Description Data Sup porting Code Source(s) Document(s ) Monocytes 0.38 [facility] [#/volume] in 10*3/uL Hospital Blood by Automated count ID Date Data Source [id number] 12/15/2019 05:18:00 AM EDT [facility] Name Value Range Interpretation Description Data Sup porting Code Source(s) Document(s ) Lymphocytes 1.96 [facility] [#/volume] in 10*3/uL [facility] Blood by Automated count ID Date Data Source [id number] 12/15/2019 05:18:[address] [facility] Value Range Interpretation Description Data Sup porting Code Source(s) Document(s ) Neutrophils 2.81 [facility] [#/volume] in 10*3/uL Hospital Blood by Automated count ID Date Data Source [id number] 12/15/2019 05:18:[address] [facility] Value Range Interpretation Description Data Sup porting Code Source(s) Document(s ) Nucleated 0.0 % [facility] erythrocytes/10 Hospital 0 leukocytes [Ratio] in Blood by Automated count ID Date Data Source [id number] 12/15/2019 05:18:[address] [facility] Value Range Interpretation Description Data Sup porting Code Source(s) Document(s ) Immature 0.2 % [facility] granulocytes/10 Hospital 0 leukocytes in Blood by Automated count ID Date Data Source [id number] 12/15/2019 05:18:[address] [facility] Value Range Interpretation Description Data Sup porting Code Source(s) Document(s ) Basophils/100 0.7 % [facility] leukocytes in Hospital Blood by Automated count ID Date Data Source [id number] 12/15/2019 05:18:[address] [facility] Value Range Interpretation Description Data Sup porting Code Source(s) Document(s ) Eosinophils/100 3.3 % [facility] leukocytes in Hospital Blood by Automated count ID Date Data Source [id number] 12/15/2019 05:18:[address] [facility] Value Range Interpretation Description Data Sup porting Code Source(s) Document(s ) Monocytes/100 7.1 % [facility] leukocytes in Hospital Blood by Automated count ID Date Data Source [id number] 12/15/2019 05:18:[address] [facility] Value Range Interpretation Description Data Sup porting Code Source(s) Document(s ) Lymphocytes/10 36.4 % [facility] 0 leukocytes Hospital in Blood by Automated count ID Date Data Source [id number] 12/15/2019 05:18:[address] [facility] Value Range Interpretation Description Data Sup porting Code Source(s) Document(s ) Neutrophils/10 52.3 % [facility] 0 leukocytes Hospital in Blood by Automated count ID Date Data Source [id number] 12/15/2019 05:18:[address] [facility] Value Range Interpretation Description Data Sup porting Code Source(s) Document(s ) Platelet mean 10.0 fL [facility] volume Hospital [Entitic volume] in Blood by Automated count ID Date Data Source [id number] 12/15/2019 05:18:[address] [facility] Value Range Interpretation Description Data Sup porting Code Source(s) Document(s ) Platelets 277 [facility] [#/volume] in 10*3/uL Hospital Blood by Automated count ID Date Data Source [id number] 12/15/2019 05:18:00 AM [facility] Value Range Interpretation Description Data Sup porting Code Source(s) Document(s ) Erythrocyte 16.5 % [facility] distribution Hospital width [Ratio] by Automated count ID Date Data Source [id number] 12/15/2019 05:18:00 AM [facility] Value Range Interpretation Description Data Sup porting Code Source(s) Document(s ) Erythrocyte mean 31.5 [facility] corpuscular g/dL Hospital hemoglobin concentration [Mass/volume] by Automated count ID Date Data Source [id number] 12/15[facility] Interpretation Description Data Sup porting Code Source(s) Document(s ) Erythrocyte 21.9 pg [facility] mean Hospital corpuscular hemoglobin [Entitic mass] by Automated count ID Date Data Source [id number] 12/[facility] Interpretation Description Data Sup porting Code Source(s) Document(s ) Erythrocyte 69.5 fL [facility] mean Hospital corpuscular volume [Entitic volume] by Automated count ID Date Data Source [id number] 12/15/2019 05:18:00 AM EDT [facility] Name Value Range Interpretation Description Data Sup porting Code Source(s) Document(s ) Hematocrit 34.9 % [facility] [Volume Hospital Fraction] of Blood by Automated count ID Date Data Source [id number] 12/15/2019 05:18:00 AM [facility] Value Range Interpretation Description Data Sup porting Code Source(s) Document(s ) Hemoglobin 11.0 g/dL [facility] [Mass/volume] Hospital in Blood ID Date Data Source [id number] 12/15/2019 05:18:00 AM [facility] Name Value Range Interpretation Description Data Sup porting Code Source(s) Document(s ) Erythrocytes 5.02 [facility] [#/volume] in 10*6/uL Hospital Blood by Automated count ID Date Data Source [id number] 12/15/2019 05:18:00 AM [facility] Name Value Range Interpretation Description Data Sup porting Code Source(s) Document(s ) Leukocytes 5.4 [facility] [#/volume] in 10*3/uL Hospital Blood by Automated count ID Date Data Source [id number] 06/05/2019 05:30:00 AM [facility] CUT-OFF >= 25 NG/ML.THE FINDINGS OF THE URINE DRUG SCREEN ARE USED SOLELY FOR PATIENT MANAGEMENT AND GUIDANCE. THE RESULTS JASON ULD NOT BE USED FOR FORENSIC PURPOSE. ANY CLINICALLY UNSUSPECTED POSITIVE DRUG SCR EEN CAN BE CONFIRMED BY CALLING THE LABORATORY 3 DAYS WITHIN RECEIPT OF REPO RT. Name Value Range Interpretation Code Description Data Liya rce(s) Supporting Document(s ) PCP (UR) NEGATIVE [facility] ID Date Data Source [id number] 06/05/2019 05:30:00 AM EDT [facility] CUT-OFF >= 50 NG/ML. Name Value Range Interpretation Code Description Data Liya rce(s) Supporting Document(s ) THC (UR) POSITIVE [facility] ID Date Data Source [id number] 06/05/2019 05:30:00 AM EDT [facility] CUT-OFF >= 300 NG/ML. Name Value Range Interpretation Description Data Sup porting Code Source(s) Document(s ) OPIATES (UR) NEGATIVE [facility] ID Date Data Source [id number] 06/05/2019 05:30:00 AM EDT [facility] CUT-OFF >= 300 NG/ML. Name Value Range Interpretation Description Data Sup porting Code Source(s) Document(s ) COCAINE (UR) POSITIVE [facility] ID Date Data Source [id number] 06/05/2019 05:30:00 AM EDT [facility] CUT-OFF >= 200 NG/ML. Name Value Range Interpretation Description Data Sup porting Code Source(s) Document(s ) BENZODIAZEPINES NEGATIVE [place] (UR) [place] ID Date Data Source [id number] 06/05/2019 05:30:00 AM EDT [facility] CUT-OFF >= 200 NG/ML. Name Value Range Interpretation Description Data Sup porting Code Source(s) Document(s ) BARBITURATES NEGATIVE [facility] (UR) Hospital ID Date Data Source [id number] 06/05/2019 05:30:00 AM EDT [facility] CUT-OFF >= 1000 NG/ML. Name Value Range Interpretation Description Data Sup porting Code Source(s) Document(s ) AMPHETAMINES NEGATIVE [facility] (UR) Hospital ID Date Data Source [id number] 06/05/2019 05:30:00 AM EDT [facility] Name Value Range Interpretation Description Data Sup porting Code Source(s) Document(s ) Mucus PRESENT [facility] [Presence] in Hospital Urine sediment by Light microscopy ID Date Data Source [id number] 06/05/2019 [facility] Value Range Interpretation Description Data Sup porting Code Source(s) Document(s ) Erythrocytes 0-3 [facility] [#/area] in /[HPF] Hospital Urine sediment by Microscopy high power field ID Date Data Source [id number] 06/05/2019 05:30:00 AM [facility] Name Value Range Interpretation Description Data Sup porting Code Source(s) Document(s ) Leukocytes 0-3 [facility] [#/area] in /[HPF] Hospital Urine sediment by Microscopy high power field ID Date Data Source [id number] 06/05/2019 05:30:00 AM [facility] Value Range Interpretation Code Description Data Supporting Source(s) Document(s ) Leukocyte TRACE [facility] esterase Hospital [Presence] in Urine by Test strip ID Date Data Source [id number] 06/05/2019 05:30:00 AM [facility] Name Value Range Interpretation Description Data Sup porting Code Source(s) Document(s ) URINE NEGATIVE [facility] NITRITES Hospital ID Date Data Source [id number] 06/05/2019 05:30:00 AM [facility] Name Value Range Interpretation Description Data Sup porting Code Source(s) Document(s ) Erythrocytes NEGATIVE [facility] [#/volume] in Hospital Urine by Test strip ID Date Data Source [id number] 06/05/2019 05:30:00 AM EDT [facility] Name Value Range Interpretation Code Description Data Liya rce(s) Supporting Document(s ) Bilirubin. NEGATIVE [facility] total Hospital [Presence] in Urine by Test strip ID Date Data Source [id number] 06/05/2019 05:30:00 AM EDT [facility] Name Value Range Interpretation Description Data Sup porting Code Source(s) Document(s ) Urobilinogen 1.0 [facility] [Units/volume] mg/dL Hospital in Urine by Test strip ID Date Data Source [id number] 06/05/2019 05:30:00 AM EDT [facility] Name Value Range Interpretation Description Data Sup porting Code Source(s) Document(s ) Ketones NEGATIVE [facility] [Mass/volume Hospital ] in Urine by Test strip ID Date Data Source [id number] 06/05/2019 05:30:00 AM EDT [facility] Name Value Range Interpretation Description Data Sup porting Code Source(s) Document(s ) Glucose NEGATIVE [facility] [Mass/volume Hospital ] in Urine by Test strip ID Date Data Source [id number] 06/05/2019 05:30:00 AM EDT [facility] Name Value Range Interpretation Code Description Data Liya rce(s) Supporting Document(s ) Protein 1+ [facility] [Presence] Hospital in Urine by Test strip ID Date Data Source [id number] 06/05/2019 05:30:00 AM EDT [facility] Name Value Range Interpretation Code Description Data Liya rce(s) Supporting Document(s ) pH of Urine 7.5 [facility] by Test Hospital strip ID Date Data Source [id number] 06/05/2019 05:30:00 AM [facility] Name Value Range Interpretation Code Description Data Supporting Source(s) Document(s ) Specific 1.031 [facility] gravity of Hospital Urine by Test strip ID Date Data Source [id number] 06/05/2019 05:30:00 AM [facility] Name Value Range Interpretation Description Data Sup porting Code Source(s) Document(s ) Clarity in Urine CLEAR [facility] by Refractometry Hospital automated ID Date Data Source [id number] 06/05/2019 05:30:00 AM [facility] Value Range Interpretation Code Description Data Liya rce(s) Supporting Document(s ) Color of YELLOW [facility] Urine Hospital ID Date Data Source [id number] 06/05/2019 05:26:00 AM [facility] REFERENCE RANGES: NONE DETECTED <20 MG/DL NONE TO MILD EUPHORIA 20-49 MG/DL MILD EUPHORIA 50-99 MG/DL MODERATE EUPHORIA 100-149 MG/DL INTOXICATION 150-300 MG/DL Name Value Range Interpretation Description Data Sup porting Code Source(s) Document(s ) Ethanol < 20 [facility] [Mass/volume mg/dL Hospital ] in Serum or Plasma ID Date Data Source [id number] 06/05/2019 05:26:00 AM [facility] Name Value Range Interpretation Description Data Sup porting Code Source(s) Document(s ) Lactate 0.8 [facility] [Moles/volum mmol/L Hospital e] in Serum or Plasma ID Date Data Source [id number] 06/05/2019 05:26:00 AM [facility] Name Value Range Interpretation Code Description Data Liya rce(s) Supporting Document(s ) Lipase 31 U/L [facility] [Enzymatic Hospital activity/vo lume] in Serum or Plasma ID Date Data Source [id number] 06/05/2019 [facility] Value Range Interpretation Description Data Sup porting Code Source(s) Document(s ) Aspartate 22 U/L White aminotransferase [place] [Enzymatic Hospital activity/volume] in Serum or Plasma ID Date Data Source [id number] 06/05/2019 05:26:00 AM [facility] Value Range Interpretation Description Data Sup porting Code Source(s) Document(s ) Alanine 13 U/L White aminotransferase [place] [Enzymatic Hospital activity/volume] in Serum or Plasma ID Date Data Source [id number] 06/05/2019 05:26:00 AM [facility] Value Range Interpretation Description Data Sup porting Code Source(s) Document(s ) Alkaline 83 U/L [facility] phosphatase Hospital [Enzymatic activity/volume ] in Serum or Plasma ID Date Data Source [id number] 06/05/2019 05:26:00 AM [facility] Value Range Interpretation Description Data Sup porting Code Source(s) Document(s ) Bilirubin.t 0.5 mg/dL [facility] [Mass/volum e] in Serum or Plasma ID Date Data Source [id number] 06/05/2019 05:26:00 AM [facility] Value Range Interpretation Code Description Data Liya rce(s) Supporting Document(s ) [facility] in Serum or Plasma ID Date Data Source [id number] 06/05/2019 05:26:00 AM [facility] Value Range Interpretation Description Data Sup porting Code Source(s) Document(s ) Albumin 4.1 g/dL [facility] [Mass/volume Hospital ] in Serum or Plasma ID Date Data Source [id number] 06/05/2019 05:26:00 AM EDT [facility] Name Value Range Interpretation Description Data Sup porting Code Source(s) Document(s ) Protein 7.2 g/dL [facility] [Mass/volume Hospital ] in Serum or Plasma ID Date Data Source [id number] 06/05/2019 05:26:00 AM EDT [facility] Name Value Range Interpretation Description Data Sup porting Code Source(s) Document(s ) Calcium 9.2 mg/dL [facility] [Mass/volume Hospital ] in Serum or Plasma ID Date Data Source [id number] 06/05/2019 05:26:00 AM EDT [facility] Name Value Range Interpretation Code Description Data Liya rce(s) Supporting Document(s ) Urea 12.5 [facility] nitrogen/Cre Hospital atinine [Mass Ratio] in Serum or Plasma ID Date Data Source [id number] 06/05/2019 05:26:00 AM EDT [facility] Name Value Range Interpretation Description Data Sup porting Code Source(s) Document(s ) Creatinine 1.2 mg/dL [facility] [Mass/volume] Hospital in Serum or Plasma ID Date Data Source [id number] 06/05/2019 05:26:00 AM EDT [facility] Name Value Range Interpretation Description Data Sup porting Code Source(s) Document(s ) Urea 15 mg/dL [facility] nitrogen [facility] [Mass/volume ] in Serum or Plasma ID Date Data Source [id number] 06/05/2019 05:26:00 AM EDT [facility] Name Value Range Interpretation Code Description Data Liya rce(s) Supporting Document(s ) Anion gap in 10 [facility] Serum or [facility] Plasma ID Date Data Source [id number] 06/05/2019 05:26:00 AM EDT [facility] Name Value Range Interpretation Description Data Sup porting Code Source(s) Document(s ) Carbon 31 mmol/L [facility] dioxide, Hospital total [Moles/volu me] in Serum or Plasma ID Date Data Source [id number] 06/05/2019 05:26:00 AM EDT [facility] Name Value Range Interpretation Description Data Sup porting Code Source(s) Document(s ) Chloride 103 [facility] [Moles/volum mmol/L Hospital e] in Serum or Plasma ID Date Data Source [id number] 06/05/2019 05:26:00 AM EDT [facility] Name Value Range Interpretation Description Data Sup porting Code Source(s) Document(s ) Potassium 4.4 [facility] [Moles/volume mmol/L Hospital ] in Serum or Plasma ID Date Data Source [id number] 06/05/2019 05:26:00 AM EDT [facility] Name Value Range Interpretation Description Data Sup porting Code Source(s) Document(s ) Sodium 140 mmol/L [facility] [Moles/volu Hospital me] in Serum or Plasma ID Date Data Source [id number] 06/05/2019 05:26:00 AM EDT [facility] Name Value Range Interpretation Description Data Sup porting Code Source(s) Document(s ) Glucose 106 mg/dL [facility] [Mass/volume Hospital ] in Serum or Plasma ID Date Data Source [id number] 06/05/2019 05:26:00 AM EDT [facility] Name Value Range Interpretation Code Description Data Supporting Source(s) Document(s ) NUCLEATED RBCS 0.0 % [facility] (AUTO Hospital DIFF%)DIS ID Date Data Source [id number] 06/05/2019 05:26:[address] [facility] Value Range Interpretation Description Data Sup porting Code Source(s) Document(s ) Differential AUTOMATED [facility] cell count Hospital method - Blood ID Date Data Source [id number] 06/05/2019 05:26:[address] [facility] Value Range Interpretation Description Data Sup porting Code Source(s) Document(s ) Immature 0.01 [facility] granulocytes 10*3/ Hospital [#/volume] in Blood by Automated count ID Date Data Source [id number] 06/05/2019 05:26:[address] [facility] Value Range Interpretation Description Data Sup porting Code Source(s) Document(s ) Basophils 0.01 [facility] [#/volume] in 10*3[facility] Blood by Automated count ID Date Data Source [id number] 06/05/2019 05:26:[address] [facility] Value Range Interpretation Description Data Sup porting Code Source(s) Document(s ) Eosinophils 0.09 [facility] [#/volume] in 10*3/uL [facility] Blood by Automated count ID Date Data Source [id number] 06/05/2019 [facility] Interpretation Description Data Sup porting Code Source(s) Document(s ) Monocytes 0.39 [facility] [#/volume] in 10*3/[facility] Blood by Automated count ID Date Data Source [id number] 06/05/2019 05:26:[address] [facility] Value Range Interpretation Description Data Sup porting Code Source(s) Document(s ) Lymphocytes 1.52 [facility] [#/volume] in 10*3/uL [facility] Blood by Automated count ID Date Data Source [id number] 06/05/2019 05:26:[address] [facility] Value Range Interpretation Description Data Sup porting Code Source(s) Document(s ) Neutrophils 3.40 [facility] [#/volume] in 10*3/uL Hospital Blood by Automated count ID Date Data Source [id number] 06/05/2019 05:26:[address] [facility] Value Range Interpretation Description Data Sup porting Code Source(s) Document(s ) Nucleated 0.0 % [facility] erythrocytes/10 Hospital 0 leukocytes [Ratio] in Blood by Automated count ID Date Data Source [id number] 06/05/2019 05:26:[address] [facility] Value Range Interpretation Description Data Sup porting Code Source(s) Document(s ) Immature 0.2 % [facility] granulocytes/10 [facility] 0 leukocytes in Blood by Automated count ID Date Data Source [id number] 06/05/2019 05:26:[address] [facility] Value Range Interpretation Description Data Sup porting Code Source(s) Document(s ) Basophils/100 0.2 % [facility] leukocytes in [facility] Blood by Automated count ID Date Data Source [id number] 06/05/2019 05:26:[address] [facility] Value Range Interpretation Description Data Sup porting Code Source(s) Document(s ) Eosinophils/100 1.7 % [facility] leukocytes in [facility] Blood by Automated count ID Date Data Source [id number] 06/05/2019 05:26:[address] [facility] Value Range Interpretation Description Data Sup porting Code Source(s) Document(s ) Monocytes/100 7.2 % [facility] leukocytes in Hospital Blood by Automated count ID Date Data Source [id number] 06/05/2019 05:26:[address] [facility] Value Range Interpretation Description Data Sup porting Code Source(s) Document(s ) Lymphocytes/10 28.0 % [facility] 0 leukocytes Hospital in Blood by Automated count ID Date Data Source [id number] 06/05/2019 05:26:00 AM [facility] Value Range Interpretation Description Data Sup porting Code Source(s) Document(s ) Neutrophils/10 62.7 % [facility] 0 leukocytes Hospital in Blood by Automated count ID Date Data Source [id number] 06/05/2019 05:26:[address] [facility] Value Range Interpretation Description Data Sup porting Code Source(s) Document(s ) Platelet mean 9.1 fL [facility] volume [facility] [Entitic volume] in Blood by Automated count ID Date Data Source [id number] 06/05/2019 05:26:00 AM [facility] Value Range Interpretation Description Data Sup porting Code Source(s) Document(s ) Platelets 294 [facility] [#/volume] in 10*3/uL Hospital Blood by Automated count ID Date Data Source [id number] 06/05/2019 05:26:00 AM [facility] Value Range Interpretation Description Data Sup porting Code Source(s) Document(s ) Erythrocyte 18.4 % [facility] width [Ratio] by Automated count ID Date Data Source [id number] 06/05/2019 05:26:00 AM [facility] Value Range Interpretation Description Data Sup porting Code Source(s) Document(s ) Erythrocyte mean 31.0 [facility] corpuscular g/dL Hospital hemoglobin concentration [Mass/volume] by Automated count ID Date Data Source [id number] 06/05/2019 05:26:00 AM [facility] Value Range Interpretation Description Data Sup porting Code Source(s) Document(s ) Erythrocyte 22.3 pg [facility] corpuscular hemoglobin [Entitic mass] by Automated count ID Date Data Source [id number] 06/05/2019 [facility] Range Interpretation Description Data Sup porting Code Source(s) Document(s ) Erythrocyte 72.[address] [facility] Hospital corpuscular volume [Entitic volume] by Automated count ID Date Data Source [id number] 06/05/2019 05:26:00 AM EDT [facility] Name Value Range Interpretation Description Data Sup porting Code Source(s) Document(s ) Hematocrit 40.6 % [facility] [Volume Hospital Fraction] of Blood by Automated count ID Date Data Source [id number] 06/05/2019 05:26:00 AM [facility] Name Value Range Interpretation Description Data Sup porting Code Source(s) Document(s ) Hemoglobin 12.6 g/dL [facility] [Mass/volume] Hospital in Blood ID Date Data Source [id number] 06/05/2019 [facility] Value Range Interpretation Description Data Sup porting Code Source(s) Document(s ) Erythrocytes 5.64 [facility] [#/volume] in 10*6/uL Hospital Blood by Automated count ID Date Data Source [id number] 06/05/2019 05[facility] Value Range Interpretation Description Data Sup porting Code Source(s) Document(s ) Leukocytes 5.4 [facility] [#/volume] in 10*3/uL Hospital Blood by Automated count ID Date Data Source [id number] 06/04/2019 11:45:[facility] Name Value Range Interpretation Code Description Data Liya rce(s) Supporting Document(s ) [facility] Date Data Source [id number] 06/04/2019 11:45:00 PM EDT [facility] Name Value Range Interpretation Description Data Sup porting Code Source(s) Document(s ) URINE OCCASIONAL [facility] EPITHELIAL [facility] CELLS ID Date Data Source [id number] 06/04/2019 11:45:00 PM EDT [facility] Name Value Range Interpretation Description Data Sup porting Code Source(s) Document(s ) Erythrocytes 0-3 [facility] [#/area] in /[HPF] Hospital Urine sediment by Automated count ID Date Data Source [id number] 06/04/2019 11:45:[address] [facility] Value Range Interpretation Description Data Sup porting Code Source(s) Document(s ) Leukocytes 0-3 [facility] [#/area] in /[HPF] Hospital Urine sediment by Automated count ID Date Data Source [id number] 06/04/2019 [facility] Interpretation Code Description Data Liya rce(s) Supporting Document(s ) URINE 0-5 [facility] CASTS ID Date Data Source [id number] 06/04/2019 [facility]:45[facility] Range Interpretation Description Data Sup porting Code Source(s) Document(s ) URINE OCCASIONAL [facility] EPITHELIAL Hospital CELLS ID Date Data Source [id number] 06/04/2019 [facility]:45[facility] Value Range Interpretation Description Data Sup porting Code Source(s) Document(s ) Erythrocytes 0-3 [facility] [#/area] in /[HPF] Hospital Urine sediment by Automated count ID Date Data Source [id number] 06/04/2019 11:45:[address] [facility] Value Range Interpretation Description Data Sup porting Code Source(s) Document(s ) Leukocytes 0-3 [facility] [#/area] in /[HPF] Hospital Urine sediment by Automated count ID Date Data Source [id number] 06/04/2019 11:45:00 PM EDT [facility] Name Value Range Interpretation Description Data Sup porting Code Source(s) Document(s ) Leukocyte NEGATIVE [facility] esterase Hospital [Presence] in Urine by Test strip ID Date Data Source [id number] 06/04/2019 11:45:00 PM EDT [facility] Name Value Range Interpretation Description Data Sup porting Code Source(s) Document(s ) URINE NEGATIVE [facility] NITRITES Hospital ID Date Data Source [id number] 06/04/2019 11:45:00 PM EDT [facility] Name Value Range Interpretation Description Data Sup porting Code Source(s) Document(s ) Erythrocytes NEGATIVE [facility] [#/volume] in Hospital Urine by Test strip ID Date Data Source [id number] 06/04/2019 [facility]45[facility] Value Range Interpretation Code Description Data Liya rce(s) Supporting Document(s ) Bilirubin. NEGATIVE [facility] total Hospital [Presence] in Urine by Test strip ID Date Data Source [id number] 06/04/2019 [facility]:45[facility] Range Interpretation Description Data Sup porting Code Source(s) Document(s ) Urobilinogen 1.0 [facility] [Units/volume] mg/dL Hospital in Urine by Test strip ID Date Data Source [id number] 06/04/2019 11:45:00 PM EDT [facility] Name Value Range Interpretation Description Data Sup porting Code Source(s) Document(s ) Ketones NEGATIVE [facility] [Mass/volume Hospital ] in Urine by Test strip ID Date Data Source [id number] 06/04/2019 11:45:00 PM EDT [facility] Name Value Range Interpretation Description Data Sup porting Code Source(s) Document(s ) Glucose NEGATIVE [facility] [Mass/volume Hospital ] in Urine by Test strip ID Date Data Source [id number] 06/04/2019 11:45:00 PM EDT [facility] Name Value Range Interpretation Code Description Data Liya rce(s) Supporting Document(s ) Protein 1+ [facility] [Presence] Hospital in Urine by Test strip ID Date Data Source [id number] 06/04/2019 11:45:00 PM EDT [facility] Name Value Range Interpretation Code Description Data Liya rce(s) Supporting Document(s ) pH of Urine 7.0 [facility] by Test Hospital strip ID Date Data Source [id number] 06/04/2019 11:45:[address] [facility] Value Range Interpretation Code Description Data Supporting Source(s) Document(s ) Specific 1.031 [facility] gravity of Hospital Urine by Test strip ID Date Data Source [id number] 06/04/2019 11:45:00 PM EDT [facility] Name Value Range Interpretation Description Data Sup porting Code Source(s) Document(s ) Clarity in Urine CLEAR [facility] by Refractometry Hospital automated ID Date Data Source [id number] 06/04/2019 11:45:00 PM EDT [facility] Name Value Range Interpretation Code Description Data Liya rce(s) Supporting Document(s ) Color of YELLOW [facility] Urine Hospital ID Date Data Source [id number] 06/04/2019 11:16:00 PM EDT [facility] Name Value Range Interpretation Description Data Sup porting Code Source(s) Document(s ) Lactate 0.9 [facility] [Moles/volum mmol/L Hospital e] in Serum or Plasma ID Date Data Source [id number] 06/04/2019 11:16:[address] [facility] Value Range Interpretation Code Description Data Liya rce(s) Supporting Document(s ) Lipase 47 U/L [facility] [Enzymatic Hospital activity/vo lume] in Serum or Plasma ID Date Data Source [id number] 06/04/2019 11:16:[address] [facility] Value Range Interpretation Description Data Sup porting Code Source(s) Document(s ) Aspartate 23 U/L White aminotransferase [place] [Enzymatic Hospital activity/volume] in Serum or Plasma ID Date Data Source [id number] 06/04/2019 [facility]:16[facility] Range Interpretation Description Data Sup porting Code Source(s) Document(s ) Alanine 13 U/L White aminotransferase [place] [Enzymatic Hospital activity/volume] in Serum or Plasma ID Date Data Source [id number] 06/04/2019 11:16[facility] Range Interpretation Description Data Sup porting Code Source(s) Document(s ) Alkaline 84 U/L [facility] phosphatase Hospital [Enzymatic activity/volume ] in Serum or Plasma ID Date Data Source [id number] 06/04/2019 11:16[facility] Range Interpretation Description Data Sup porting Code Source(s) Document(s ) Bilirubin.t 0.4 mg/dL [facility] [Mass/volum e] in Serum or Plasma ID Date Data Source [id number] 06/04/2019 11:16[facility] Value Range Interpretation Code Description Data Liya rce(s) Supporting Document(s ) Albumin/Glob 1.5 [facility] ulin [Mass Hospital Ratio] in Serum or Plasma ID Date Data Source [id number] 06/04/2019 11:16:00 PM EDT [facility] Name Value Range Interpretation Description Data Sup porting Code Source(s) Document(s ) Albumin 4.4 g/dL [facility] [Mass/volume Hospital ] in Serum or Plasma ID Date Data Source [id number] 06/04/2019 11:16:00 PM EDT [facility] Name Value Range Interpretation Description Data Sup porting Code Source(s) Document(s ) Protein 7.4 g/dL [facility] [Mass/volume Hospital ] in Serum or Plasma ID Date Data Source [id number] 06/04/2019 11:16:00 PM EDT [facility] Name Value Range Interpretation Description Data Sup porting Code Source(s) Document(s ) Calcium 9.5 mg/dL [facility] [Mass/volume Hospital ] in Serum or Plasma ID Date Data Source [id number] 06/04/2019 11:16:00 PM EDT [facility] Name Value Range Interpretation Code Description Data Liya rce(s) Supporting Document(s ) Urea 15.0 [facility] nitrogen/Cre Hospital atinine [Mass Ratio] in Serum or Plasma ID Date Data Source [id number] 06/04/2019 11:16:00 PM EDT [facility] Name Value Range Interpretation Description Data Sup porting Code Source(s) Document(s ) Creatinine 1.2 mg/dL [facility] [Mass/volume] Hospital in Serum or Plasma ID Date Data Source [id number] 06/04/2019 11:16:00 PM EDT [facility] Name Value Range Interpretation Description Data Sup porting Code Source(s) Document(s ) Urea 18 mg/dL [facility] nitrogen Hospital [Mass/volume ] in Serum or Plasma ID Date Data Source [id number] 06/04/2019 11:16:00 PM EDT [facility] Name Value Range Interpretation Code Description Data Liya rce(s) Supporting Document(s ) Anion gap in 12 [facility] Serum or [facility] Plasma ID Date Data Source [id number] 06/04/2019 11:16:00 PM EDT [facility] Name Value Range Interpretation Description Data Sup porting Code Source(s) Document(s ) Carbon 34 mmol/L [facility] dioxide, Hospital total [Moles/volu me] in Serum or Plasma ID Date Data Source [id number] 06/04/2019 11:16:00 PM EDT [facility] Name Value Range Interpretation Description Data Sup porting Code Source(s) Document(s ) Chloride 102 [facility] [Moles/volum mmol/L Hospital e] in Serum or Plasma ID Date Data Source [id number] 06/04/2019 11:16:00 PM EDT [facility] Name Value Range Interpretation Description Data Sup porting Code Source(s) Document(s ) Potassium 4.6 [facility] [Moles/volume mmol/L Hospital ] in Serum or Plasma ID Date Data Source [id number] 06/04/2019 11:16:00 PM EDT [facility] Name Value Range Interpretation Description Data Sup porting Code Source(s) Document(s ) Sodium 143 mmol/L [facility] [Moles/volu Hospital me] in Serum or Plasma ID Date Data Source [id number] 06/04/2019 11:16:00 PM EDT [facility] Name Value Range Interpretation Description Data Sup porting Code Source(s) Document(s ) Glucose 108 mg/dL [facility] [Mass/volume Hospital ] in Serum or Plasma ID Date Data Source [id number] 06/04/2019 11:16:00 PM [facility] Name Value Range Interpretation Code Description Data Supporting Source(s) Document(s ) NUCLEATED RBCS 0.0 % [facility] (AUTO Hospital DIFF%)DIS ID Date Data Source [id number] 06/04/2019 [facility] Value Range Interpretation Description Data Sup porting Code Source(s) Document(s ) Differential AUTOMATED [facility] cell count Hospital method - Blood ID Date Data Source [id number] 06/04/2019 11:16:00 PM [facility] Name Value Range Interpretation Description Data Sup porting Code Source(s) Document(s ) Immature 0.02 [facility] granulocytes 10*3/uL Hospital [#/volume] in Blood by Automated count ID Date Data Source [id number] 06/04/2019 11:16:00 PM [facility] Name Value Range Interpretation Description Data Sup porting Code Source(s) Document(s ) Basophils 0.04 [facility] [#/volume] in 10*3/uL Hospital Blood by Automated count ID Date Data Source [id number] 06/04/2019 11:16[facility] Value Range Interpretation Description Data Sup porting Code Source(s) Document(s ) Eosinophils 0.13 [facility] [#/volume] in 10*3/uL Hospital Blood by Automated count ID Date Data Source [id number] 06/04/2019 11:16:[facility] Value Range Interpretation Description Data Sup porting Code Source(s) Document(s ) Monocytes 0.41 [facility] [#/volume] in 10*3/uL Hospital Blood by Automated count ID Date Data Source [id number] 06/04/2019 11:16:[facility] Value Range Interpretation Description Data Sup porting Code Source(s) Document(s ) Lymphocytes 1.52 [facility] [#/volume] in 10*3/uL Hospital Blood by Automated count ID Date Data Source [id number] 06/04/2019 11:16:[address] [facility] Value Range Interpretation Description Data Sup porting Code Source(s) Document(s ) Neutrophils 3.47 [facility] [#/volume] in 10*3/uL Hospital Blood by Automated count ID Date Data Source [id number] 06/04/2019 11:16:[address] [facility] Value Range Interpretation Description Data Sup porting Code Source(s) Document(s ) Nucleated 0.0 % [facility] erythrocytes/10 Hospital 0 leukocytes [Ratio] in Blood by Automated count ID Date Data Source [id number] 06/04/2019 11:16:[address] [facility] Value Range Interpretation Description Data Sup porting Code Source(s) Document(s ) Immature 0.4 % [facility] granulocytes/10 Hospital 0 leukocytes in Blood by Automated count ID Date Data Source [id number] 06/04/2019 11:16:[address] [facility] Value Range Interpretation Description Data Sup porting Code Source(s) Document(s ) Basophils/100 0.7 % [facility] leukocytes in Hospital Blood by Automated count ID Date Data Source [id number] 06/04/2019 11:16:[address] [facility] Value Range Interpretation Description Data Sup porting Code Source(s) Document(s ) Eosinophils/100 2.3 % [facility] leukocytes in Hospital Blood by Automated count ID Date Data Source [id number] 06/04/2019 11:16:[address] [facility] Value Range Interpretation Description Data Sup porting Code Source(s) Document(s ) Monocytes/100 7.3 % [facility] leukocytes in Hospital Blood by Automated count ID Date Data Source [id number] 06/04/2019 11:16:00 PM EDT [facility] Name Value Range Interpretation Description Data Sup porting Code Source(s) Document(s ) Lymphocytes/10 27.2 % [facility] 0 leukocytes Hospital in Blood by Automated count ID Date Data Source [id number] 06/04/2019 11:16:00 PM EDT [facility] Name Value Range Interpretation Description Data Sup porting Code Source(s) Document(s ) Neutrophils/10 62.1 % [facility] 0 leukocytes Hospital in Blood by Automated count ID Date Data Source [id number] 06/04/2019 11:16:[address] [facility] Value Range Interpretation Description Data Sup porting Code Source(s) Document(s ) Platelet mean 9.4 fL [facility] volume Hospital [Entitic volume] in Blood by Automated count ID Date Data Source [id number] 06/04/2019 11:16:[address] [facility] Value Range Interpretation Description Data Sup porting Code Source(s) Document(s ) Platelets 315 [facility] [#/volume] in 10*3/uL Hospital Blood by Automated count ID Date Data Source [id number] 06/04/2019 11:16:[address] [facility] Value Range Interpretation Description Data Sup porting Code Source(s) Document(s ) Erythrocyte 18.8 % [facility] distribution Hospital width [Ratio] by Automated count ID Date Data Source [id number] 06/04/2019 11:16:[address] [facility] Value Range Interpretation Description Data Sup porting Code Source(s) Document(s ) Erythrocyte mean 31.3 [facility] corpuscular g/dL Hospital hemoglobin concentration [Mass/volume] by Automated count ID Date Data Source [id number] 06/04/2019 11:16:00 PM EDT [facility] Name Value Range Interpretation Description Data Sup porting Code Source(s) Document(s ) Erythrocyte 22.4 pg [facility] corpuscular hemoglobin [Entitic mass] by Automated count ID Date Data Source [id number] 06/04/2019 11:16:[address] [facility] Value Range Interpretation Description Data Sup porting Code Source(s) Document(s ) Erythrocyte 71.3 fL [facility] mean Hospital corpuscular volume [Entitic volume] by Automated count ID Date Data Source [id number] 06/04/2019 11:16:[address] [facility] Value Range Interpretation Description Data Sup porting Code Source(s) Document(s ) Hematocrit 41.8 % [facility] [Volume Hospital Fraction] of Blood by Automated count ID Date Data Source [id number] 06/04/2019 11:16:[address] [facility] Value Range Interpretation Description Data Sup porting Code Source(s) Document(s ) Hemoglobin 13.1 g/dL [facility] [Mass/volume] Hospital in Blood ID Date Data Source [id number] 06/04/2019 11:16:[address] [facility] Value Range Interpretation Description Data Sup porting Code Source(s) Document(s ) Erythrocytes 5.86 [facility] [#/volume] in 10*6/uL Hospital Blood by Automated count ID Date Data Source [id number] 06/04/2019 [facility]:16[facility] Value Range Interpretation Description Data Sup porting Code Source(s) Document(s ) Leukocytes 5.6 [facility] [#/volume] in 10*3/uL Hospital Blood by Automated count Procedure Social History Code Duration Value Status Description Data Source(s ) Smoking 05/22/2020 Daily Smoker completed Daily Smoker [facility] 01:06:00 PM EDT [facility] enter Smoking 05/22/2020 Daily Smoker completed Daily Smoker [facility] 09:21:00 AM EDT Medical C enter Smoking 05/22/2020 Daily Smoker completed Daily Smoker [facility] 08:53:00 AM EDT Medical C enter Smoking 02/09/2020 Daily Smoker completed Daily Smoker [facility] 09:59:00 PM EDT Medical C enter Smoking 02/09/2020 Daily Smoker completed Daily Smoker [facility] 04:57:00 PM EDT Medical C enter Smoking 02/09/2020 Daily Smoker completed Daily Smoker [facility] 04:44:00 PM EDT Medical C enter Smoking 02/09/2020 Daily Smoker completed Daily Smoker [facility] 04:37:00 PM EDT Medical C enter Smoking 07/23/2019 Daily Smoker completed Daily Smoker [facility] 12:36:00 AM EDT Medical C enter Smoking 07/23/2019 Daily Smoker completed Daily Smoker [facility] 12:05:00 AM EDT Medical C enter Smoking 07/22/2019 Daily Smoker completed Daily Smoker [facility] 11:52:00 PM EDT Medical C enter Smoking Unknown if ever completed Unknown if ever [facility] [place] smoked smoked Hospital Smoking Unknown if ever completed Unknown if ever [facility] [place] smoked smoked Hospital Smoking Unknown if ever completed Unknown if ever [facility] [place] smoked smoked Hospital Smoking Unknown if ever completed Unknown if ever [facility] [place] smoked smoked Hospital Smoking Unknown if ever completed Unknown if ever [facility] [place] smoked smoked Hospital Smoking Unknown if ever completed Unknown if ever [facility] [place] smoked smoked Hospital Vital Signs ID Date Data Source UNK Name Value Range Interpretation Code Description Data Source(s) Diastolic blood 78 mm[Hg] 78 mm[Hg] [facility] pressure Hospital Systolic blood 114 mm[Hg] 114 mm[Hg] [facility] ns pressure Hospital Respiratory rate 18 /min 18 /min [facility] Heart rate 56 /min 56 /min [facility] Body temperature 36.87630 Brenda 36.62159 Brenda [facility] Body temperature 97.9 [degF] 97.9 [degF] [facility] Body mass index 25.0 kg/m2 25.0 kg/m2 [facility] (BMI) [Ratio] Hospital Body weight 175.38 [lb_av] 175.38 [lb_av] [facility] Body temperature [id number] Brenda 36.113272 Brenda [facility] Respiratory rate 18 /min 18 /min [facility] Oxygen 98 % 98 % [facility] saturation in Medical Arterial blood Center by Pulse oximetry Heart rate 75 /min 75 /min [facility] Diastolic blood 80 mm[Hg] 80 mm[Hg] [facility] pressure Medical Center Systolic blood 146 mm[Hg] 146 mm[Hg] [facility] Body temperature 36.028240 Brenda 36.280459 Brenda [facility] Respiratory rate 18 /min 18 /min [facility] Oxygen 98 % 98 % [facility] saturation in Medical Arterial blood Center by Pulse oximetry Heart rate 74 /min 74 /min [facility] Diastolic blood 75 mm[Hg] 75 mm[Hg] [facility] pressure Medical Center Systolic blood 140 mm[Hg] 140 mm[Hg] [facility] Body weight 85.254553 kg 85.573853 kg [facility] Medical Center Body temperature 36.580031 Brenda 36.476350 Brenda [facility] Respiratory rate 18 /min 18 /min [facility] Oxygen 98 % 98 % [facility] saturation in Medical Arterial blood Center by Pulse oximetry Heart rate 54 /min 54 /min [facility] Body height 175.454098 cm 175.037103 cm [facility] Diastolic blood 67 mm[Hg] 67 mm[Hg] [facility] pressure Medical Center Systolic blood 130 mm[Hg] 130 mm[Hg] [facility] Body mass index 27.6 kg/m2 27.6 kg/m2 [facility] (BMI) [Ratio] Medical Center Diastolic blood 66 mmHg 66 mmHg [facility] Systolic blood 101 mmHg 101 mmHg [facility] Respiratory rate 18 bpm 18 bpm [facility] Heart rate 67 bpm 67 bpm [facility] Body temperature 97.0 [facility] 66 mmHg 66 mmHg [facility] Systolic blood 96 mmHg 96 mmHg [facility] Respiratory rate 18 bpm 18 bpm [facility] Heart rate 75 bpm 75 bpm [facility] Body temperature 97.2 Fahrenheit 97.2 Fahrenhei t [facility] Body temperature 97.0 Fahrenheit 97.0 Fahrenhei t [facility] Diastolic blood 62 mmHg 62 mmHg [facility] Systolic blood 88 mmHg 88 mmHg [facility] Respiratory rate 18 bpm 18 bpm [facility] Heart rate 63 bpm 63 bpm [facility] Body temperature 96.5 Fahrenheit 96.5 Fahrenhei t [facility] Diastolic blood 65 mmHg 65 mmHg [facility] Systolic blood 100 mmHg 100 mmHg [facility] Respiratory rate 18 bpm 18 bpm [facility] Heart rate 63 bpm 63 bpm [facility] Body temperature 96.3 Fahrenheit 96.3 Fahrenhei t [facility] Body temperature 97.2 Fahrenheit 97.2 Fahrenh t [facility] Body temperature 36.412093 Brenda 36.878379 Brenda [facility] Respiratory rate 20 /min 20 /min [facility] Heart rate 55 /min 55 /min [facility] Diastolic blood 59 mm[Hg] 59 mm[Hg] [facility] [place] Systolic blood 120 mm[Hg] 120 mm[Hg] [facility] Body temperature 36.861966 Brenda 36.226655 Brenda [facility] Respiratory rate 18 /min 18 /min [facility] Heart rate 57 /min 57 /min [facility] Diastolic blood 66 mm[Hg] 66 mm[Hg] [facility] [place] Systolic blood 103 mm[Hg] 103 mm[Hg] [facility] [place] Body temperature 36.130236 Brenda 36.657134 Brenda [facility] Respiratory rate 20 /min 20 /min [facility] Heart rate 55 /min 55 /min [facility] Diastolic blood 61 mm[Hg] 61 mm[Hg] [facility] [place] Systolic blood 108 mm[Hg] 108 mm[Hg] [facility] [place] Oxygen 98 % 98 % [facility] saturation in Medical Arterial blood Center by Pulse oximetry Body temperature 36.277015 Brenda 36.685623 Brenda [facility] Respiratory rate 20 /min 20 /min [facility] Heart rate 58 /min 58 /min [facility] Diastolic blood 61 mm[Hg] 61 mm[Hg] [facility] Systolic blood 92 mm[Hg] 92 mm[Hg] [facility] Body temperature 36.122262 Brenda 36.423042 Brenda [facility] Respiratory rate 18 /min 18 /min [facility] Heart rate 64 /min 64 /min [facility] Diastolic blood 68 mm[Hg] 68 mm[Hg] [facility] pressure Medical Center Systolic blood 111 mm[Hg] 111 mm[Hg] [facility] Oxygen 99 % 99 % [facility] saturation in Medical Arterial blood Center by Pulse oximetry Oxygen 98 % 98 % [facility] saturation in Medical Arterial blood Center by Pulse oximetry Body temperature 36.769205 Brenda 36.697078 Brenda [facility] Respiratory rate 20 /min 20 /min [facility] Heart rate 52 /min 52 /min [facility] Diastolic blood 62 mm[Hg] 62 mm[Hg] [facility] Systolic blood 100 mm[Hg] 100 mm[Hg] [facility] Oxygen 99 % 99 % [facility] saturation in Medical Arterial blood Center by Pulse oximetry Body temperature 36.996672 Brenda 36.318502 Brenda [facility] Respiratory rate 20 /min 20 /min [facility] Heart rate 62 /min 62 /min [facility] Diastolic blood 56 mm[Hg] 56 mm[Hg] [facility] Systolic blood 97 mm[Hg] 97 mm[Hg] [facility] Body weight 75.073482 kg 75.210748 kg [facility] Measured [facility] [place] Body height 175.566456 cm 175.640552 cm [facility] Body mass index 24.65 kg/m2 24.65 kg/m2 [facility] (BMI) [Ratio] Medical Center Body temperature 36.692909 Brenda 36.437708 Brenda [facility] Respiratory rate 20 /min 20 /min [facility] Heart rate 53 /min 53 /min [facility] Diastolic blood 59 mm[Hg] 59 mm[Hg] [facility] pressure Medical Center Systolic blood 107 mm[Hg] 107 mm[Hg] [facility] Body temperature 36.803749 Brenda 36.561618 Brenda [facility] Respiratory rate 20 /min 20 /min [facility] Heart rate 65 /min 65 /min [facility] Diastolic blood 63 mm[Hg] 63 mm[Hg] [facility] Systolic blood 99 mm[Hg] 99 mm[Hg] [facility] Body weight 75.387766 kg 75.335778 kg [facility] Measured Medical Center Body height 175.616508 cm 175.019829 cm [facility] Body mass index 24.65 kg/m2 24.65 kg/m2 [facility] (BMI) [Ratio] Medical Center Body temperature 36.597451 Brenda 36.627173 Brenda [facility] Respiratory rate 16 /min 16 /min [facility] Heart rate 60 /min 60 /min [facility] Diastolic blood 72 mm[Hg] 72 mm[Hg] [facility] Systolic blood 95 mm[Hg] 95 mm[Hg] [facility] Oxygen 96 % 96 % [facility] saturation in Medical Arterial blood Center by Pulse oximetry Oxygen 97 % 97 % [facility] saturation in Medical Arterial blood Center by Pulse oximetry Body weight 75.056246 kg 75.891426 kg [facility] Measured Medical Center Body height 170.792653 cm 170.446206 cm [facility] Oxygen 99 % 99 % [facility] saturation in Medical Arterial blood Center by Pulse oximetry Body mass index 25.8 kg/m2 25.8 kg/m2 [facility] (BMI) [Ratio] Medical Center Diastolic blood 77 mm[Hg] 77 mm[Hg] [facility] Systolic blood 120 mm[Hg] 120 mm[Hg] [facility] Respiratory rate 22 /min 22 /min [facility] Heart rate 80 /min 80 /min [facility] Body temperature 35.37364 Brenda 35.27296 Brenda [facility] Body temperature 96.7 [degF] 96.7 [degF] [facility] Body mass index 27.0 kg/m2 27.0 kg/m2 [facility] (BMI) [Ratio] Hospital Body weight 198.42 [lb_av] 198.42 [lb_av] [facility] Systolic blood 115 mmHg 115 mmHg [facility] Respiratory rate 18 bpm 18 bpm [facility] Heart rate 82 bpm 82 bpm [facility] Diastolic blood 64 mmHg 64 mmHg [facility] Diastolic blood 66 mmHg 66 mmHg [facility] Systolic blood 106 mmHg 106 mmHg [facility] Respiratory rate 16 bpm 16 bpm [facility] Heart rate 61 bpm 61 bpm [facility] Body temperature 96.9 Fahrenheit 96.9 Fahrenh t [facility] Body weight 174 lbs 174 lbs [facility] Diastolic blood 72 mmHg 72 mmHg [facility] Systolic blood 102 mmHg 102 mmHg [facility] Respiratory rate 18 bpm 18 bpm [facility] Heart rate 72 bpm 72 bpm [facility] Diastolic blood 65 mmHg 65 mmHg [facility] Systolic blood 101 mmHg 101 mmHg [facility] Respiratory rate 18 bpm 18 bpm [facility] Heart rate 65 bpm 65 bpm [facility] Body temperature 97.4 [facility]heit 97.4 [facility] Body temperature 36.207945 Brenda 36.553266 Brenda [facility] Respiratory rate 17 /min 17 /min [facility] Oxygen 97 % 97 % [facility] saturation in Medical Arterial blood Center by Pulse oximetry Heart rate 115 /min 115 /min [facility] Diastolic blood 109 mm[Hg] 109 mm[Hg] [facility] Systolic blood 153 mm[Hg] 153 mm[Hg] [facility] [place] Diastolic blood 88 mm[Hg] 88 mm[Hg] [facility] Systolic blood 150 mm[Hg] 150 mm[Hg] [facility] Respiratory rate 20 /min 20 /min [facility] Heart rate 53 /min 53 /min [facility] Body temperature 36.10306 Brenda 36.38728 Brenda [facility] Body temperature 98.5 [degF] 98.5 [degF] [facility] Body mass index 23.0 kg/m2 23.0 kg/m2 [facility] (BMI) [Ratio] Hospital Body weight 154.32 [lb_av] 154.32 [lb_av] [facility] Diastolic blood 53 mm[Hg] 53 mm[Hg] [facility] Systolic blood 143 mm[Hg] 143 mm[Hg] [facility] pressure Hospital Respiratory rate 20 /min 20 /min [facility] Heart rate 51 /min 51 /min [facility] Body temperature 36.83721 Brenda 36.13638 Brenda [facility] Body temperature 98.3 [degF] 98.3 [degF] [facility] Body mass index 23.0 kg/m2 23.0 kg/m2 [facility] (BMI) [Ratio] Hospital Body weight 157.32 [lb_av] 157.32 [lb_av] [facility] Diastolic blood 84 mm[Hg] 84 mm[Hg] [facility] pressure Hospital Systolic blood 124 mm[Hg] 124 mm[Hg] [facility] pressure Hospital Respiratory rate 18 /min 18 /min [facility] Heart rate 51 /min 51 /min [facility] Body temperature 36.13842 Brenda 36.73616 Brenda [facility] Body temperature 97.6 [degF] 97.6 [degF] [facility] Body mass index 23.0 kg/m2 23.0 kg/m2 [facility] (BMI) [Ratio] Hospital Body weight 158.34 [lb_av] 158.34 [lb_av] [facility] Diastolic blood 75 mm[Hg] 75 mm[Hg] [facility] pressure Hospital Systolic blood 115 mm[Hg] 115 mm[Hg] [facility] pressure Hospital Respiratory rate 18 /min 18 /min [facility] Heart rate 56 /min 56 /min [facility] Body temperature 36.11138 Brenda 36.92394 Brenda [facility] Body temperature 98.0 [degF] 98.0 [degF] [facility] Body mass index 25.0 kg/m2 25.0 kg/m2 [facility] (BMI) [Ratio] Hospital Body weight 174.36 [lb_av] 174.36 [lb_av] [facility] ID Date Data Source [id number] 02/20/2020 10:07:23 PM T [facility] Name Value Range Interpretation Code Description Data Source(s) Body weight Measured 174 lb 174 lb [facility] ID Date Data Source [id number] 02/14/2020 10:37:07 PM [facility] Name Value Range Interpretation Code Description Data Source(s) Body weight Measured 174 lb 174 lb [facility] ID Date Data Source [id number] 10/25/2019 10:29:42 PM EST [facility] Name Value Range Interpretation Code Description Data Source(s) Body weight Measured 174 lb 174 lb [facility] Patient Treatment Plan of Care Planned Activity Planned Date Details Description Data Source (s) No data available for this N [facility] Azithromycin 250 MG Oral Rg [facility] Thiamine 100 MG Oral Tablet [facility] Folic Acid 1 MG Oral Tablet [facility] 24 HR Divalproex Sodium 500 [facility] Medical MG Extended Release Oral Fouzia ter Tablet [Depakote] 24 HR Divalproex Sodium 500 [facility] Medical MG Extended Release Oral Fouzia ter Tablet [Depakote] Folic Acid 1 MG Oral Tablet [facility] Thiamine 100 MG Oral Tablet [facility]
--- OUTSIDE RECORDS SUMMARY | 2020-07-05 19:27 | XMS ---
:1970 Author Organization [facility] Care Team Providers Name Role Phone MD Vida Unavailable Unavailable MD KADI Unavailable Unavailable ED STAFF PHYSICIAN Unavailable Unavailable MD Rachna Unavailable Unavailable [place], C Unavailable Unavailable Thomas, C Unavailable Unavailable Thomas, C Unavailable Unavailable Thomas C Unavailable Unavailable LUNA Charles Unavailable Unavailable MD Deondre Unavailable Unavailable Jas HURTADO Unavailable Unavailable [id number] Unavailable Unavailable MD Soniya Unavailable Unavailable WILLA [...] is protected by Article 27-F of the [facility] Public Health law. If you continue you may haveaccess to information: Regarding HIV / AIDS; Provided by facilities licensed or operated by the [facility] Office of Mental Health; or Provided by the [facility] Office for People With Developmental Disabilities. If such information is present, then the following [facility] mandated warning applies: This information has been [...] law may result in a fine or correction sentence or both. A general authorization for the release of medical or other information is NOT sufficient authorization for further disclosure. Advance Directives Directive Description Corporate Strategy Associate Core Paster Status Observation Data S ource(s) Description Advance No completed [facility] Hospital Advance No completed [facility] directive Hospital Advance No completed [facility] Hospital Allergies and Adverse Reactions Type Description Substance Reaction Status Data Source(s ) Drug allergy haloperidol haloperidol NOT LISTED [facility] Food allergy Fruit, Fresh Fruit, Fresh VOMITING [facility] Encounters Encounter Providers Location Date Indications Data Source(s ) Emergency Attender: Harsh 06/02/2020 POST FALL, ARM PAIN W shalini Ruiz 07:27:00 AM [facility] EDT - 06/02/2020 08:51:00 AM EDT POST FALL, ARM PAIN [facility] Patient discharged. Emergency Attender: ED STAFF H 05/22/2020 08:49:00 AM [facility] PHYSICIANAttender: CAIO ED EDT - 05/22/2020 [facility] STAFF PHYSICIANAttender: STAFF 05:46:00 PM EDT ED STAFF PHYSICIANAdmitter: ED STAFF PHYSICIAN Patient discharged. Inpatient Attender: ROMIE HARVEY 02/14/2020 [facility]24[facility] PM EDT - 02/20/2020 [facility] 10:07:00 PM EDT Patient discharged. Outpatient ST 02/14/2020 04:11:00 PM EDT - [address] [place] [address] 10:36:00 PM EDT Patient discharged. Inpatient Attender: NAN H-HAL6 02/09/2020 04:21:00 [facility] CHADJESÚSLAURA ADHAttender: PM EDT - 02/14/20 Medical Center STAFF ED STAFF 04:51:00 PM EDT PHYSICIANAdmitter: NAN DUONGHReferrer: NAN REYNOSONICK DESTINY Patient discharged. Emergency Attender: Dilshad 12/15/2019 04:01:00 FLU LIKE SYMPTOMS-WI [place] Batti[place] AM EDT - 12/15/2019 [facility] 11:10:00 AM EDT FLU LIKE SYMPTOMS-WI Patient discharged. Unlisted evaluation 11/23/2019 10:00:00 NETSMART (The and management PM EST Guidance C enter of [facility]) Unlisted evaluation 11/09/2019 02:00:00 NETSMART (The and management PM EST Guidance C [facility]) Inpatient Attender: ROMIE STEARNS-1D 10/17/2019 05:03:00 [facility] ANDREWANYANAdmi EST - 10/25/2019 Hospital tter: Kacey 10:29:00 PM EST [place] Patient discharged. Attender: 10/17/2019 [facility] [id number] 05:03:00 PM [id number] 10/17/2019 [facility] 02:13:00 PM EST - Hospita l 10/17/2019 05:16:00 PM EST Patient discharged. Attender: 10/17/2019 [facility] [id number] 02:13:00 PM [id number] Unlisted 10/11/2019 NETSMART (Ment al evaluation and 08:00:00 PM EST Healt h management - 10/20/2019 [facility] of service 04:00:00 PM EST [facility] er) Emergency H 07/22/2019 [facility] 11:50:00 PM EDT Medical C enter - 07/23/2019 01:40:00 AM EDT Patient discharged. Emergency Attender: Sean Mendosa 06/05/2019 05:06:00 MED EVAL Melinda Sharma MDConsultant: Sean AM EDT - 06/05/2019 [facility] Deondre LUCIANO 06:56:00 AM EDT MED [...] (Ment al evaluation and 07:10:00 PM EDT [facility] management service 05/12/2019 of [facility]) 06:30:00 PM EDT Unlisted 04/26/2019 NETSMART (Ment al evaluation and 04:50:00 PM EDT [facility] management service 05/02/2019 of [facility]) 02:30:00 PM EDT Unlisted 04/04/2019 NETSMART (Ment al evaluation and 12:45:00 PM EDT [facility] management service 04/05/2019 of [facility]) 02:50:00 PM EDT Emergency Attender: 04/03/2019 COUGHING UP Melinda Briscoe 11:21:00 PM EDT - BLOOD W/I [facility] 04/04/2019 06:07:00 AM EDT COUGHING UP BLOOD W/I Unlisted evaluation 03/27/2019 01:00:00 NETSMART (The and management PM EDT Guidance C jacquelyn [facility]) Attender: 08/10/2005 09:00:00 [facility] [id number] PM EST Hospi sherly [id number] Attender: 08/10/2005 11:00:00 [facility] [id number] AM EST Hospi sherly [id number] Outpatient Attender: RYAN STEARNS 08/10/2005 10:00:00 [facility] JAMATAdmitter: AM EST Hospit al RYAN WALLIS Attender: 08/10/2005 10:00:00 [facility] [id number] AM EST Hospi sherly [id number] Attender: 08/10/2005 10:00:00 [facility] [id number] AM EST Hospi sherly [id number] Medications Medication Brand Start Product Dose Route Administrative Pharmacy [facility] Indications Reaction Description Data Name Date Form Instructions Instructions Source(s) 2 ML Abilif 400.0 Intram active NETSMA RT aripiprazol y [...] 00 AM Center [facility] hamber r) ed Syring e 2 ML Abilif 01/31/ INTRAM active NETSMAR T aripiprazol y 2020 USCULA (The e 200 MG/ML Mainte 04:00: R Guid ance Prefilled na 00 AM Center [facility] hamber r) ed Syring e 400 MG Intram uscula r Powder for Suspen nura, Extend ed Releas e 24 HR Depako 01/31/ ORAL active NETSMART Divalproex te ER 2020 (The Sodium 500 500 MG 04:00: Yo nce MG Extended Oral 00 AM Center of Release Tablet EDT [facility] Tablet , r) [Depakote] Extend [...] 00 AM Center of Syringe Dual-C EDT [facility] [Abilify] dukeer r) ed Syring e 400 MG Intram uscula r Powder for Suspen nura, Extend ed Releas e Prednisone Predni 12/14/ TABLET 40 mg ORAL complet [facility] 20 MG Oral sone 2019 [facility] [place] Tablet 09:58: Hospital 00 AM EDT 200 ACTUAT [place] 12/14/ AEROSOL, 2 ORAL complet [facility] Albuterol rol 2020 SPRAY ed [place] 0.09 Sulfat 09:58: Hospital MG/ACTUAT e Hfa 00 AM Metered 90MCG/ EDT Dose Inh* Inhaler [ProAir] Albuterol Sulfate Hfa 90MCG/Inh* 200 ACTUAT [place] 12/14/ AEROSOL, 2 ORAL active [facility] Albuterol rol 2019 SPRAY [place] 0.09 Sulfat 09:58: Hospital MG/ACTUAT e Hfa 00 AM Metered 90MCG/ EDT Dose Inh* Inhaler [ProAir] Albuterol Sulfate Hfa 90MCG/Inh* Azithromyci Azithr 12/14/ TABLET 250 ORAL complet White n 250 MG omycin 2020 mg ed [place] Oral Tablet 09:58: Hospit al [Zithromax] 00 AM EDT Azithromyci Azithr 12/14/ TABLET 250 ORAL active White n 250 MG omycin 2020 mg [place] Oral Tablet 09:58: Hospit al [Zithromax] 00 AM EDT Prednisone Predni 12/14/ TABLET 40 mg ORAL active [facility] 20 MG Oral sone 2020 [place] Tablet 09:58: Hospital 00 AM EDT aripiprazol [...] Center of Syringe Dual-C EDT [facility] [Abilify] dukeer r) ed Syring e [...] active White 20 MG Oral dine 2019 [place] Tablet 06:10: Hospital [Pepcid] 00 AM EDT Famotidine Famoti 06/05/ TABLET 20 mg ORAL active [facility] 20 MG Oral dine 2019 [place] Tablet 06:10: Hospital [Pepcid] 00 AM EDT Famotidine Famoti 06/05/ TABLET 20 mg ORAL complet [facility] 20 MG Oral dine 2019 ed [place] Tablet 06:10: Hospital [Pepcid] 00 AM EDT Ondansetron Ondans 06/05/ TABLET 4 mg ORAL active [facility] 4 MG etron 2019 [place] Disintegrat Hcl 12:09: Hospit al ing Oral 00 AM Tablet EDT Ondansetron Hcl Ondansetron Ondans 06/05/ TABLET 4 mg ORAL complet [facility] 4 MG etron 2019 ed [place] Disintegrat Hcl 12:09: Hospit al ing Oral 00 AM Tablet EDT Ondansetron Hcl Ondansetron Ondans 06/05/ TABLET 4 mg ORAL complet [facility] 4 MG etron 2018 ed [place] Disintegrat Hcl 12:09: Hospit al ing Oral 00 AM Tablet EDT Ondansetron Hcl Ondansetron Ondans 06/05/ TABLET 4 mg ORAL complet [facility] 4 MG etron 2019 ed [place] Disintegrat Hcl 12:09: Hospit al ing Oral [...] ORAL complet [facility] sone 2018 {Caps ed [place] 05:10: ule} Hospital 00 AM EDT Prednisone Predni 07/02/ TABLET 2 ORAL active W shalini 10 MG Oral sone 2018 {Caps [place] Tablet 05:10: ule} Hospital 00 AM EDT Amoxicillin Amoxic 07/02/ TABLET 1 ORAL active [facility] 875 MG / illin/ 2018 {Caps [place] Clavulanate Clavun 05:10: ule} Hosp ital 125 MG Oral ate 00 AM Tablet 875-12 EDT [Augmentin] 5 Amoxicillin Tablet /Clavunate * 875-125 Tablet* Albuterol 07/02/ AEROSOL, 2 RESPIR complet [facility] 2019 SPRAY ATORY ed [place] 05:10: (INHAL Hospital 00 AM ATION) EDT Prednisone Predni 07/02/ TABLET 2 ORAL complet [facility] sone 2018 {Caps ed [place] 05:10: ule} Hospital 00 AM EDT Amoxicillin Amoxic 07/02/ TABLET 1 ORAL complet [facility] 875 MG / illin/ 2018 {Caps ed [place] Clavulanate Clavun 05:10: ule} Hosp ital 125 MG Oral ate 00 AM Tablet 875-12 EDT [Augmentin] 5 Amoxicillin Tablet /Clavunate * 875-125 Tablet* Albuterol 07/02/ AEROSOL, 2 RESPIR active [facility] 2019 SPRAY ATORY [place] 05:10: (INHAL Hospital 00 AM ATION) EDT Albuterol 07/02/ AEROSOL, 2 RESPIR active [facility] 2019 SPRAY ATORY [place] 05:10: (INHAL Hospital 00 AM ATION) EDT Prednisone Predni 07/02/ TABLET 2 ORAL complet [facility] sone 2018 {Caps ed [place] 05:10: ule} Hospital 00 AM EDT Amoxicillin Amoxic 07/02/ TABLET 1 ORAL complet [facility] 875 MG / illin/ 2018 {Caps ed [place] Clavulanate Clavun 05:10: ule} Hosp ital 125 MG Oral ate 00 AM Tablet 875-12 EDT [Augmentin] 5 Amoxicillin Tablet /Clavunate * 875-125 Tablet* Amoxicillin Amoxic 07/02/ TABLET 1 ORAL complet [facility] 875 MG / illin/ 2018 {Caps ed [place] Clavulanate Clavun 05:10: ule} Hosp ital 125 MG Oral ate 00 AM Tablet 875-12 EDT [Augmentin] 5 Amoxicillin Tablet /Clavunate * 875-125 Tablet* Albuterol 07/02/ AEROSOL, 2 RESPIR complet [facility] 2019 SPRAY ATORY ed [place] 05:10: (INHAL Hospital 00 AM ATION) EDT Albuterol 07/02/ AEROSOL, 2 RESPIR complet [facility] 2019 SPRAY ATORY ed [place] 05:10: (INHAL Hospital 00 AM ATION) EDT Amoxicillin Amoxic 07/02/ TABLET 1 ORAL complet [facility] 875 MG / illin2018 {[facility] ed [place] Clavulanate Clavun 05:10: ule} Hosp ital 125 MG Oral ate 00 AM Tablet 875-12 EDT [Augmentin] 5 Amoxicillin Tablet /Clavunate * 875-125 Tablet* Prednisone Predni 07/02/ TABLET 2 ORAL complet [facility] 10 MG Oral sone 2019 {[facility] ed [place] Tablet 05:10: ule} Hospital 00 AM EDT Prednisone Predni TABLET 2 ORAL complet Wh ite sone {[facility] ed [place] ule} Hospital 24 HR Divalp TABLET active [facility] Divalproex roex 24 HR [place] Sodium 500 Sodium [facility] Hos [facility] MG Extended D Release RELEASE Oral Tablet Amoxicillin Amoxic TABLET 1 ORAL complet W shalini 875 MG / illin/ {Caps ed [place] Clavulanate Clavun ule} Hospit al 125 MG Oral ate Tablet 5-12 [Augmentin] 5 Amoxicillin Tablet /Clavunate * 875-125 Tablet* Albuterol [place] AEROSOL, 2 RESPIR complet [facility] rol SPRAY ATORY ed [place] (INHAL Hospital ATION) Thiamine thiami 1 complet [...] 2 ML Aripip active [facility] aripiprazol razole [place] e 200 MG/ML Hospital Prefilled Syringe [Abilify] Aripiprazol e complet No data [facility] ed available Health - for this [facility] Azithromyci AZITHr 1 complet Rg nt [...] Tablet, Tablet Ordered By: Nate d By: MDDsera Sullivan s: 1 tablet Ouseph oral daily , [...] name Policy type Policy ID Covered Covered alliance party's Policy P solitario / Coverage alliance party ID relationship to [facility] ormation type roberts LUCIA [id number] SP [id number] HEALTH NON CAP BETTER [id number] PT [id number] HEALTH/FIDELI S LUCIA CARE W [id number] 01 [id number] [place] W [id number] SELF PAY [id number] Self [id number] MEDICAID INP [id number] Self [id number] U REHAB [id number] 01 [id number] LUCIA CARE W [id number] 01 [id number] [place] S[place] 0 Self 0 MEDICAID INP [id number] Self [id number] U REHAB [facility] LUCIA [id number] Self [id number] CARE MEDICAID OP [id number] Self [id number] BETTER [id number] PT [id number] HEALTH/FIDELI S MEDICAID [id number] PT [id number] EMERGENCY [id number] PT [id number] MCAID Medicaid [id number] S [id number] Regular Clinic Visit Problems, Conditions, and Diagnoses Code Display Name Description Problem Type Effective Data Sour ce(s) Dates Complaint 11/09/2019 NETSMART (The 05:00:00 AM Guidance [facility] ) [id number] Schizoaffective Schizoaffective Complaint 10/12/2019 NETS MART disorder, bipolar disorder, bipolar 02:40:00 PM (Mental Health type type EST [facility]) [id number] Schizoaffective Schizoaffective Complaint 01/11/2019 NETS MART (The schizophrenia schizophrenia 01:00:00 PM [facility] [place] EDT [facility] ) [id number] Chronic paranoid Chronic paranoid Complaint [facility] schizophrenia 12:00:00 PM Hospita l (disorder) EDT [id number] Cocaine dependence Cocaine dependence Complaint [facility] (disorder) 12:00:00 PM Hospital EDT [id number] Chronic paranoid Chronic paranoid Complaint 02/14/2000 [facility] schizophrenia schizophrenia 12:00:00 PM Hospita l (disorder) EDT [id number] Cocaine dependence Cocaine dependence Complaint 0 [facility] (disorder) 12:00:00 PM Hospital EDT Y99.9 Unspecified Y99.9 Diagnosis 06/02/2020 [place] external cause 07:45:00 AM Hospital status EDT Y92.[address] Y92.9 Diagnosis 06/02/2020 [place] or not applicable 07:45:00 AM Hospit al EDT Y93.9 Activity, Y93.9 Diagnosis 06/02/2020 [place] unspecified 07:45:00 AM Hospital EDT W19.XXXA Unspecified fall, W19.XXXA Diagnosis 06/02/2020 [place] initial encounter 07:45:00 AM Hospit al EDT F17.200 Nicotine F17.200 Diagnosis 06/02/2020 [place] dependence, 07:45:00 AM Hospital unspecified, EDT uncomplicated J45.909 Unspecified J45.909 Diagnosis 06/02/2020 [place] asthma, 07:45:00 AM Hospital uncomplicated EDT S40.811A Abrasion of right S40.811A Diagnosis 06/02/2020 [place] upper arm, initial 07:45:00 AM Hospi sher[facility] encounter EDT R55 Syncope and R55 Diagnosis 06/02/2020 [place] collapse 07:45:00 AM Hospital EDT F17.210 Nicotine [...] alcohol BLOOD ALCOHOL Diagnosis 02/14/2020 [facility] [place] [place] level of less than LEVEL OF LESS [...] Hospital EDT R10.9 Unspecified R10.9 Diagnosis 06/05/2019 [place] abdominal pain 05:31:00 AM Hospital EDT R00.1 Bradycardia, R00.1 Diagnosis 06/04/2019 [place] unspecified 11:04:00 PM Hospital EDT J43.9 Emphysema, J43.9 Diagnosis 06/04/2019 [place] unspecified 11:04:00 PM Hospital EDT J84.89 Other specified J84.89 Diagnosis 06/04/2019 [place] interstitial 11:04:00 PM Hospital pulmonary diseases EDT R11.2 Nausea with R11.2 Diagnosis 06/04/2019 [place] vomiting, 11:04:00 PM Hospital unspecified EDT R10.84 Generalized R10.84 Diagnosis 06/04/2019 [place] abdominal pain 11:04:00 PM Hospital EDT X58.XXXA Exposure to other X58.XXXA Diagnosis 05/29/2019 [place] specified factors, 03:04:00 AM [facility]pi [facility] initial encounter EDT S69.92XA Unspecified injury S69.92XA Diagnosis 05/29/2019 [place] of left wrist, 03:04:00 AM Hospital hand and EDT finger(s), initial encounter J40 Bronchitis, not J40 Diagnosis 04/03/2019 [place] specified as acute 11:59:00 PM [facility]pi [facility] or chronic EDT D64.9 Anemia, Anemia, Diagnosis 12/06/2018 [place] (Moun t unspecified unspecified 06:36:32 PM [facility]) 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 [facility] SCHIZOPHRENIA SCHIZO-UNSPEC 12:00:00 AM Hospita l UNSPECIFIED STATE EST Surgeries/Procedures Procedure Description Date Indications Data Source(s) XR elbow right 06/02/2020 [place] 12:00:00 AM Hospital EDT Electrocardiographic procedure 06/02/2020 [place] (procedure) 12:00:00 AM Hospital EDT Computed tomography of chest 12/15/2019 [place] without contrast 12:00:00 AM Hospital EDT Electrocardiographic procedure 12/15/2019 [place] (procedure) 12:00:00 AM Hospital EDT Plain chest X-ray (procedure) 12/15/2019 [place] 12:00:00 AM Hospital EDT Computed tomography of abdomen 06/05/2019 [place] and pelvis without contrast 12:00:00 AM Hospital EDT Computed tomography of abdomen 06/05/2019 [place] and pelvis without contrast 12:00:00 AM Hospital EDT Electrocardiographic procedure 06/04/2019 [place] (procedure) 12:00:00 AM Hospital EDT Electrocardiographic procedure 06/04/2019 [place] (procedure) 12:00:00 AM Hospital EDT Emergency dept visit 05/29/2019 [place] 12:00:00 AM Hospital EDT Emergency dept visit 05/29/2019 [place] 12:00:00 AM Hospital EDT Results ID Date Data Source [id number] 06/02/2020 07:55:00 AM EDT [facility] Housing Case Manager:TAM MORAN Name Value Range Interpretation Description Data Sup porting Code Source(s) Document(s ) Glucose 79 mg/dL [place] [Mass/volume] [facility] in Capillary blood by Glucometer ID Date Data Source Microbiology.[id number] 05/22/2020 01:53:00 PM [facility] Name Value Range Interpretation Code Description Data Liya rce(s) Supporting Document(s ) UNK <item><content [facility] styleCode="Bold"> Medical [facility] er Culture Report </content>
<t able><tbody><tr>< td>Specimen Number:</td><td>[id number]</td></tr ><tr><td>Sample Collection Date/Time: </td><td> 0 1:53 PM</td></tr><tr>< td>Specimen Source:</td><td>B LOOD</td></tr><tr ><td>Blood Culture:</td><td> Collection Plate Date: 05/22/2020 13:57 </td></tr><tr><td >Culture Status:</td><td>P reliminary </td></tr><tr><td >Culture Report:</td><td>C ulture in progress </td></tr></tbody ></table></item> UNK <item><content [facility] styleCode="Bold"> Medical [facility] er Culture Status </content>
<t able><tbody><tr>< td>Specimen Number:</td><td>[id number]</td></tr ><tr><td>Sample Collection Date/Time: </td><td> 0 1:53 PM</td></tr><tr>< td>Specimen Source:</td><td>B LOOD</td></tr><tr ><td>Blood Culture:</td><td> Collection Plate Date: 05/22/2020 13:57 </td></tr><tr><td >Culture Report:</td><td>C ulture in progress </td></tr><tr><td >Culture Status:</td><td>P reliminary </td></tr></tbody ></table></item> ID Date Data Source [facility].[id number] 05/22/2020 01:53:00 PM EDT [facility] -0400 Name Value Range Interpretation Description Data Sup porting Code Source(s) Document(s ) Valproate 50-120 Below low normal <content [facility] [Mass/volume] styleCode="Bold [facility] in Serum or ">Valproic Acid Medical Plasma </content>< Center 10.0 UG/ML L<content styleCode="Ital ics"> (50-120 UG/ML)</content > ID Date Data [facility][id number] 05/22/2020 01:36:00 PM EDT [facility] -0400 Name Value Range Interpretation Description Data Sup porting Code Source(s) Document(s ) Lactate 0.7-2.0 Below low normal <content [facility] [Mass/volum styleCode="Bold Medical e] in Serum ">Lactic Acid Center or Plasma </content>0.6 MMOLL L<content styleCode="Ital ics"> (0.7-2.0 MMOLL)</content > ID Date Data Source Microbiology.[id number] 05/22/2020 01:30:00 PM EDT [facility] 400 Name Value Range Interpretation Code Description Data Liya rce(s) Supporting Document(s ) UNK <item><content [facility] styleCode="Bold"> Medical Cent er Culture Status </content>
<t able><tbody><tr>< td>Specimen Number:</td><td>[id number]</td></tr ><tr><td>Sample Collection Date/Time: </td><td> 0 1:30 PM</td></tr><tr>< td>Specimen Source:</td><td>B LOOD</td></tr><tr ><td>Culture Report:</td><td>C ulture in progress </td></tr><tr><td >Culture Status:</td><td>P reliminary </td></tr><tr><td >Blood Culture:</td><td> Collection Plate Date: 05/22/2020 13:45 </td></tr></tbody ></table></item> UNK <item><content [facility] styleCode="Bold"> Medical [facility] Culture Report </content>
<t able><tbody><tr>< td>Specimen Number:</td><td>[id number]</td></tr ><tr><td>Sample Collection Date/Time: </td><td> 0 1:30 PM</td></tr><tr>< td>Specimen Source:</td><td>B LOOD</td></tr><tr ><td>Blood Culture:</td><td> Collection Plate Date: 05/22/2020 13:45 </td></tr><tr><td >Culture Status:</td><td>P reliminary </td></tr><tr><td >Culture Report:</td><td>C ulture in progress </td></tr></tbody ></table></item> ID Date Data Source Liver 05/22/2020 01:30:00 PM EDT [facility] Profile.[id number] Name Value Range Interpretation Description Data Sup [...] s"> (3.5-5.0 G/DL)</content> ID Date Data Source HematologySpeci.[id number] 05/22/2020 01:30:00 PM EDT [facility] 0-0400 Name Value Range Interpretation Description Data Sup porting Code Source(s) Document(s ) C reactive < 3.0 Above high normal <content [facility] hs protein styleCode="Bold Medical [Mass/volume ">C-Reactive Center ] in Serum Protein or Plasma </content>3.18 MG/L H<content styleCode="Ital ics"> (< 3.0 MG/L)</content> ID Date Data Source HematologyRou.[id number] 05/22/2020 01:30:00 PM EDT [facility] 0400 Name Value Range Interpretation Description Data [...] (0.0 KCUMM)</content > ID Date Data Source GFR(Creatinine).[id number] 05/22/2020 01:30:00 PM EDT Rg nt [facility] 0-0400 Name Value Range Interpretation Code Description Data Liya rce(s) Supporting Document(s ) UNK > 60 <content [facility] styleCode="Bold"> Medical Cent er EGFR </content>76 GFR<content styleCode="Italic s"> (> 60 GFR)</content> ID Date Data Source Coagulation 05/22/2020 01:30:00 PM [facility] ical Center Rout.[id number] EDT Name Value Range Interpretation Description Data [...] cs"> (25.1-36.5 SEC)</content> ID Date Data Source AMANDA.[id number] 05/22/2020 01:30:00 PM EDT [facility] -0400 Name Value Range Interpretation Description Data [...] (2.3-3.5 G/DL)</content > ID Date Data Source CardiacMarkers.[id number] 05/22/2020 01:30:00 PM EDT [facility] -0400 Name Value Range Interpretation Description Data Sup porting Code Source(s) Document(s ) Troponin < 0.034 <content [facility] I.cardiac styleCode="Bold [facility] [Mass/volume ">Troponin I Medical ] in Serum </content>< Center or Plasma 0.012 NG/ML<content styleCode="Ital ics"> (< 0.034 NG/ML)</content > ID Date Data Source [facility].[id number] 05/22/2020 01:30:00 PM EDT [facility] Name Value Range Interpretation Description Data Sup porting Code Source(s) Document(s ) Potassium 3.5-5.3 <content [facility] [Moles/volume] in styleCode="Bold"> [facility] Serum or Plasma Potassium Medical </content>4.6 Center MEQ/L<content styleCode="Italic s"> (3.5-5.3 MEQ/L)</content> Sodium 137-145 <content [facility] [Moles/volume] in styleCode="Bold"> [facility] hospital Serum or Plasma Sodium Medical </content>141 Center MEQ/L<content styleCode="Italic s"> (137-145 MEQ/L)</content> Chloride 98-107 Above high <content Saint [Moles/volume] in normal styleCode="Bold"> [facility] Serum or Plasma Chloride Medical </content>109 Center [...] s"> (0.2-1.3 MG/DL)</content> ID Date Data Source [id number] 05/22/2020 12:00:00 AM EDT [facility] Name Value Range Interpretation Code Description Data Liya rce(s) Supporting Document(s ) 2019-nCoV [facility] RNA XXX ZANA+probe- Imp This lab was ordered by [facility] and reported by [facility]. ID Date Data Source HematologyRou.[id number] 02/14/2020 05:30:00 AM EDT [facility] Name Value Range Interpretation Description Data [...] (0.0 [facility])</content > ID Date Data Source GFR(Creatinine).[id number] 02/14/2020 05:30:00 AM EDT [facility] 0-0400 Name Value Range Interpretation Code Description Data Liya rce(s) Supporting Document(s ) UNK > 60 <content [facility] styleCode="Bold"> Medical Cent er EGFR </content>83 GFR<content styleCode="Italic s"> (> 60 GFR)</content> ID Date Data Source [facility].[id number] 02/14/2020 05:30:00 AM EDT [facility] Name Value Range Interpretation Description Data [...] Data Source Liver 02/13/2020 06:30:00 AM EDT [facility] Profile.[id number] Name Value Range Interpretation Description Data Sup [...] s"> (0.2-1.3 MG/DL)</content> ID Date Data Source HematologyRou.[id number] 02/13/2020 06:30:00 AM EDT [facility] Name Value Range Interpretation Description Data [...] ics"> (0 /100)</content> ID Date Data Source GFR(Creatinine).[id number] 02/13/2020 06:30:00 AM EDT [facility] 0-0400 Name Value Range Interpretation Code Description Data Liya rce(s) Supporting Document(s ) UNK > 60 <content [facility] styleCode="Bold"> Medical Cent er EGFR </content>83 GFR<content styleCode="Italic s"> (> 60 GFR)</content> ID Date Data Source CHMROUTINECCDA.[id number] 02/13/2020 06:30:00 AM EDT [facility] -0400 Name Value Range Interpretation Description Data Sup porting Code Source(s) Document(s ) UNK >= 1.0 <content [facility] styleCode="Bold Medical ">AG Ratio Center </content>1.0 <content styleCode="Ital ics"> (>= 1.0 )</content> Protein 6.3-8.2 <content [facility] [Mass/volum styleCode="Bold Medical e] in Serum ">Total Protein Center or Plasma </content>6.5 G/DL<content styleCode="Ital ics"> (6.3-8.2 G/DL)</content> UNK 2.3-3.5 <content [facility] styleCode="Bold Medical ">Globulin Center </content>3.3 G/DL<content styleCode="Ital ics"> (2.3-3.5 G/DL)</content> ID Date Data Source [facility].[id number] 02/13/2020 06:30:00 AM EDT [facility] Name Value Range Interpretation Description Data [...] MG/DL)</content> Alkaline 38-126 <content [facility] phosphatase styleCode="Bold"> [facility] [Enzymatic Alkaline Medical activity/volume] Phosphatase (ALP) Cente [...] s"> (3.5-5.0 G/DL)</content> ID Date Data Source [id number] 02/12/2020 10:35:00 AM EDT [facility] Name Value Range Interpretation Code Description Data Liya rce(s) Supporting Document(s ) COV2 [facility] This lab [facility] and reported by [facility] [place]. ID Date Data Source [id number] 02/12/2020 10:35:00 AM EDT [facility] Name Value Range Interpretation Description Data Sup porting Code Source(s) Document(s ) UNK Not Detected <content [facility] styleCode="Bold Medical ">SARS-COV-2 Center RNA </content>Not Detected <content styleCode="Ital ics"> (Not Detected )</content> ID Date Data Source Liver 02/11/2020 05:20:00 AM EDT [facility] Profile.[id number] Name Value Range Interpretation Description Data Sup [...] s"> (3.5-5.0 G/DL)</content> ID Date Data Source HematologyRou.[id number] 02/11/2020 05:20:00 AM EDT [facility] Name Value Range Interpretation Description Data [...] ics"> (0 /100)</content> ID Date Data Source GFR(Creatinine).[id number] 02/11/2020 05:20:00 AM EDT [facility] 0-0400 Name Value Range Interpretation Code Description Data Liya rce(s) Supporting Document(s ) UNK > 60 <content [facility] styleCode="Bold"> Medical Cent er EGFR </content>76 GFR<content styleCode="Italic s"> (> 60 GFR)</content> ID Date Data Source CHMROUTINECCDA.[id number] 02/11/2020 05:20:00 AM EDT [facility] -0400 Name Value Range Interpretation Description Data [...] (1.6-2.3 MG/DL)</conten t> ID Date Data Source [id number] 02/11/2020 05:20:00 AM EDT [facility] Name Value Range Interpretation Description Data Sup porting Code Source(s) Document(s ) Potassium 3.5-5.3 <content [facility] [Moles/volume] in styleCode="Bold"> [facility] Serum or Plasma Potassium Medical </content>4.1 Center MEQ/L<content styleCode="Italic s"> (3.5-5.3 MEQ/L)</content> Sodium 137-145 <content [facility] [Moles/volume] in styleCode="Bold"> [facility] Serum or Plasma Sodium Medical </content>138 Center [...] Data Source Liver 02/09/2020 09:46:00 PM EDT [facility] Profile.[id number] Name Value Range Interpretation Description Data Sup [...] s"> (38-126 IU/L)</content> ID Date Data Source HematologyRou.[id number] 02/09/2020 09:46:00 PM EDT [facility] Name Value Range Interpretation Description Data Sup porting Code Source(s) Document(s ) Erythrocytes 4.4-5.9 <content [facility] [#/volume] in styleCode="Bold [facility] Blood by ">Red Blood Medical Automated count [...] ics"> (8.0-11.0 FL)</content> ID Date Data Source GFR(Creatinine).[id number] 02/09/2020 09:46:00 PM EDT [facility] 0-0400 Name Value Range Interpretation Code Description Data Liya rce(s) Supporting Document(s ) UNK > 60 <content [facility] styleCode="Bold"> Medical Cent er EGFR </content>116 GFR<content styleCode="Italic s"> (> 60 GFR)</content> ID Date Data Source CHMROUTINECCDA.[id number] 02/09/2020 09:46:00 PM EDT [facility] -0400 Name Value Range Interpretation Description Data [...] (6.3-8.2 G/DL)</content > ID Date Data Source [facility].[id number] 02/09/2020 09:46:00 PM EDT [facility] Name Value Range Interpretation Description Data Sup porting Code Source(s) Document(s ) Sodium 137-145 Below low <content [facility] [Moles/volume] in normal styleCode="Bold"> [facility] Serum or Plasma Sodium Medical </content>136 Center MEQ/L L<content styleCode="Italic s"> (137-145 MEQ/L)</content> Potassium <content [facility] [Moles/volume] in styleCode="Bold"> [facility] Serum or Plasma Potassium Medical </content>Test Center not performed. MEQ/L (Reference Range: not available)
Creatinine 0.5-1.3 <content [facility] [Mass/volume] in styleCode="Bold"> [facility] Serum or Plasma Creatinine Medical </content>0.9 Center MG/DL<content styleCode="Italic s"> (0.5-1.3 MG/DL)</content> Chloride 98-107 <content [facility] [Moles/volume] in styleCode="Bold"> [facility] Serum or Plasma Chloride Medical </content>105 Center [...] s"> (0.2-1.3 MG/DL)</content> ID Date Data Source Urinalysis.[id number] 02/09/2020 05:25:00 PM EDT [facility] 0 Name Value Range Interpretation Description Data [...] by Test d">Urine Medical strip Specific Center [facility] </content>1.02 5 <content styleCode="Cynthia lics"> (1.015-1.025 )</content> [...] Nitrite NEGATIVE <content [facility] [Presence] in styleCode="[facility] Urine by Test d">Urine Medical strip Nitrite Center </content>NEGA TIVE <content styleCode="Cynthia lics"> (NEGATIVE )</content> ID Date Data Source ADRIANAMRDAVIDDA.[id number] 02/09/2020 05:25:00 PM EDT [facility] -0400 Name Value Range Interpretation Description Data Sup porting Code Source(s) Document(s ) Cannabinoids <content [facility] [Presence] in styleCode="[facility] Urine by Screen d">Cannabinoid Medical method >50 ng/mL s Center </content>NEGA TIVE NG/ML (Reference Range: not available)<br/ > ID Date Data Source Liver 02/09/2020 05:22:00 PM EDT [facility] Profile.[id number] Name Value Range Interpretation Description Data Sup [...] s"> (3.5-5.0 G/DL)</content> ID Date Data Source LIPID.[id number] 02/09/2020 05:22:00 PM EDT [facility] Name Value Range Interpretation Description Data Sup porting Code Source(s) Document(s ) Triglyceride < 150 <content [facility] [Mass/volume] in styleCode="[facility] Serum or Plasma d">Triglycerid Medical es Center </content>91 MG/DL<content styleCode="Cynthia lics"> (< 150 MG/DL)</conten t> UNK > 60 <content [facility] styleCode="[facility] d">HDL- Medical Cholesterol Center </content>70 MG/DL<content styleCode="Cynthia lics"> (> 60 MG/DL)</conten t> Cholesterol -<200 <content [facility] [Mass/volume] in styleCode="[facility] Serum or Plasma d">Cholesterol Medical </content>153 Center MG/DL<content styleCode="Cynthia lics"> (-<200 MG/DL)</conten t> UNK < 100 <content Saint styleCode="[facility] d">LDL-Cholest Medical lidia Center </content>65 MG/DL<content styleCode="Cynthia lics"> (< 100 MG/DL)</conten t> ID Date Data Source HematologyRou.[id number] 02/09/2020 05:22:00 PM EDT [facility] Name Value Range Interpretation Description Data [...] (0.0 KC[facility])</content > ID Date Data Source GFR(Creatinine).[id number] 02/09/2020 05:22:00 PM EDT [facility] 0-0400 Name Value Range Interpretation Code Description Data Liya rce(s) Supporting Document(s ) UNK > 60 <content [facility] styleCode="Bold"> Medical Cent er EGFR </content>103 GFR<content styleCode="Italic s"> (> 60 GFR)</content> ID Date Data Source MROUTINECCDA.[id number] 02/09/2020 05:22:00 PM EDT [facility] -0400 Name Value Range Interpretation Code Description Data Liya rce(s) Supporting Document(s ) UNK 4.2-5.8 Above high normal <content [facility] styleCode="Bold" Medical Cente r >Hemoglobin A1C </content>5.9 % H<content styleCode="Itali cs"> (4.2-5.8 %)</content> ID Date Data Source [facility].[id number] 02/09/2020 05:22:00 PM EDT [facility] Name Value Range Interpretation Description Data Sup porting Code Source(s) Document(s ) Sodium 137-145 <content [facility] [Moles/volume] in styleCode="Bold"> [facility] Serum or Plasma Sodium Medical </content>140 Center MEQ/L<content styleCode="Italic s"> (137-145 MEQ/L)</content> Chloride 98-107 <content [facility] [Moles/volume] in styleCode="Bold"> [facility] Serum or Plasma Chloride Medical </content>101 Center MEQ/L<content styleCode="Italic s"> (98-107 MEQ/L)</content> Potassium 3.5-5.3 <content [facility] [Moles/volume] in styleCode="Bold"> [facility] Serum or Plasma Potassium Medical </content>4.0 Center [...] s"> (0.2-1.3 MG/DL)</content> ID Date Data Source [id number] 12/15/2019 08:42:00 AM EDT [facility] CUT-OFF >= 25 NG/ML.THE FINDINGS OF THE [...] rce(s) Supporting Document(s ) PCP (UR) NEGATIVE [facility] ID Date Data Source [id number] 12/15/2019 08:42:00 AM EDT [facility] CUT-OFF >= 50 NG/ML. Name Value Range Interpretation Code Description Data Liya rce(s) Supporting Document(s ) THC (UR) NEGATIVE [facility] ID Date Data Source [id number] 12/15/2019 08:42:00 AM EDT [facility] CUT-OFF >= 300 NG/ML. Name Value Range Interpretation Description Data Sup porting Code Source(s) Document(s ) OPIATES (UR) NEGATIVE [facility] ID Date Data Source [id number] 12/15/2019 08:42:00 AM EDT [facility] CUT-OFF >= 300 NG/ML. Name Value Range Interpretation Description Data Sup porting Code Source(s) Document(s ) COCAINE (UR) POSITIVE [facility] ID Date Data Source [id number] 12/15/2019 08:42:00 AM EDT [facility] CUT-OFF >= 200 NG/ML. Name Value Range Interpretation Description Data Sup porting Code Source(s) Document(s ) BENZODIAZEPINES NEGATIVE [place] (UR) [facility] ID Date Data Source [id number] 12/15/2019 08:42:00 AM EDT [facility] CUT-OFF >= 200 NG/ML. Name Value Range Interpretation Description Data Sup porting Code Source(s) Document(s ) BARBITURATES NEGATIVE [place] (UR) Hospital ID Date Data Source [id number] [facility] NG/ML. Name Value Range Interpretation Description Data Sup porting Code Source(s) Document(s ) AMPHETAMINES NEGATIVE [place] (UR) Hospital ID Date Data Source [id number] 12/15/2019 08:42:00 AM EDT [facility] Name Value Range Interpretation Description Data Sup porting Code Source(s) Document(s ) Erythrocytes 0-3 [place] [#/area] in /[HPF] Hospital Urine sediment by Automated count ID Date Data Source [id number] 12/15/2019 08:42:00 AM EDT [facility] Name Value Range Interpretation Description Data Sup porting Code Source(s) Document(s ) Leukocytes 0-3 [place] [#/area] in /[HPF] Hospital Urine sediment by Automated count ID Date Data Source [id number] 12/15/2019 08:42:00 AM EDT [facility] Name Value Range Interpretation Description Data Sup porting Code Source(s) Document(s ) Leukocyte NEGATIVE [place] esterase Hospital [Presence] in Urine by Test strip ID Date Data Source [id number] 12/15/2019 08:42:00 AM EDT [facility] Value Range Interpretation Description Data Sup porting Code Source(s) Document(s ) URINE NEGATIVE [place] NITRITES Hospital ID Date Data Source [id number] 12/15/2019 08:42:00 AM EDT [facility] Name Value Range Interpretation Description Data Sup porting Code Source(s) Document(s ) Erythrocytes NEGATIVE [place] [#/volume] in Hospital Urine by Test strip ID Date Data Source [id number] 12/15/2019 08:42:00 AM EDT [facility] Value Range Interpretation Code Description Data Liya rce(s) Supporting Document(s ) Bilirubin. NEGATIVE [place] total Hospital [Presence] in Urine by Test strip ID Date Data Source [id number] 12/15/2019 [facility] Interpretation Description Data Sup porting Code Source(s) Document(s ) Urobilinogen 1.0 [place] [Units/volume] mg/dL Hospital in Urine by Test strip ID Date Data Source [id number] 12/15/2019 08:42:00 AM EDT [facility] Value Range Interpretation Code Description Data Liya rce(s) Supporting Document(s ) Ketones TRACE [place] [Mass/volume Hospital ] in Urine by Test strip ID Date Data Source [id number] 12/15/2019 [facility]42[facility] Value Range Interpretation Description Data Sup porting Code Source(s) Document(s ) Glucose NEGATIVE [place] [Mass/volume Hospital ] in Urine by Test strip ID Date Data Source [id number] 12/15/2019 08:42:00 AM EDT [facility] Name Value Range Interpretation Code Description Data Liya rce(s) Supporting Document(s ) Protein TRACE [place] [Presence] Hospital in Urine by Test strip ID Date Data Source [id number] 12/15/2019 08[facility]42[facility] Interpretation Code Description Data Liya rce(s) Supporting Document(s ) pH of Urine 6.0 [place] by Test Hospital strip ID Date Data Source [id number] 12/15/2019 08:42:[facility] Name Value Range Interpretation Code Description Data Supporting Source(s) Document(s ) Specific 1.021 [place] gravity of Hospital Urine by Test strip ID Date Data Source [id number] 12/15/2019 08:42:[facility] Name Value Range Interpretation Description Data Sup porting Code Source(s) Document(s ) Clarity in Urine CLEAR [place] by Refractometry Hospital automated ID Date Data Source [id number] 12/15/2019 08:42[facility] Range Interpretation Code Description Data Liya rce(s) Supporting Document(s ) Color of YELLOW [place] Urine Hospital ID Date Data Source [id number] 12/15/2019 05:18:00 AM [facility] REFERENCE RANGES: NONE DETECTED <20 MG/DL NONE TO MILD EUPHORIA 20-49 MG/DL MILD EUPHORIA 50-99 MG/DL MODERATE EUPHORIA 100-149 MG/DL INTOXICATION 150-300 MG/DL Name Value Range Interpretation Description Data Sup porting Code Source(s) Document(s ) Ethanol < 20 [place] [Mass/volume mg/dL Hospital ] in Serum or Plasma ID Date Data Source [id number] 12/15/2019 05:18:00 AM EDT [facility] Name Value Range Interpretation Description Data Sup porting Code Source(s) Document(s ) Natriuretic 14.1 [place] peptide B pg/mL Hospital [Mass/volume] in Serum or Plasma ID Date Data Source [id number] 12/15/2019 05:18:00 AM [facility] TEST PERFORMED BY [facility] ULTRA SENSITIVE CENTAUR CHEMILUMINESCENCE METHOD. Name Value Range Interpretation Description Data Sup porting Code Source(s) Document(s ) Troponin 0.02 [place] I.cardiac ng/mL Hospital [Mass/volume ] in Serum or Plasma ID Date Data Source [id number] 12/15/2019 05:18:00 AM EDT [facility] Name Value Range Interpretation Description Data Sup porting Code Source(s) Document(s ) Aspartate 24 U/L White aminotransferase [facility] [Enzymatic Hospital activity/volume] in Serum or Plasma ID Date Data Source [id number] 12/15/2019 05:18:00 AM EDT [facility] Name Value Range Interpretation Description Data Sup porting Code Source(s) Document(s ) Alanine 16 U/L White aminotransferase [facility] [Enzymatic Hospital activity/volume] in Serum or Plasma ID Date Data Source [id number] 12/15/2019 05:18:[facility] Name Value Range Interpretation Description Data Sup porting Code Source(s) Document(s ) Alkaline 78 U/L [place] phosphatase Hospital [Enzymatic activity/volume ] in Serum or Plasma ID Date Data Source [id number] 12/15/2019 05:18:00 AM EDT [facility] Name Value Range Interpretation Description Data Sup porting Code Source(s) Document(s ) Bilirubin.t 0.5 mg/dL [facility] [Mass/volum e] in Serum or Plasma ID Date Data Source [id number] 12/15/2019 05:18:00 AM EDT [facility] Name Value Range Interpretation Code Description Data Liya rce(s) Supporting Document(s ) Albumin/Glob 1.5 [place] ulin [Mass Hospital Ratio] in Serum or Plasma ID Date Data Source [id number] 12/15/2019 05:18:00 AM EDT [facility] Value Range Interpretation Description Data Sup porting Code Source(s) Document(s ) Albumin 4.0 g/dL [place] [Mass/volume Hospital ] in Serum or Plasma ID Date Data Source [id number] 12/15/2019 05:18:00 AM EDT [facility] Name Value Range Interpretation Description Data Sup porting Code Source(s) Document(s ) Protein 6.7 g/dL [place] [Mass/volume Hospital ] in Serum or Plasma ID Date Data Source [id number] 12/15/2019 05:18:00 AM EDT [facility] Name Value Range Interpretation Description Data Sup porting Code Source(s) Document(s ) Calcium 9.1 mg/dL [place] [Mass/volume Hospital ] in Serum or Plasma ID Date Data Source [id number] 12/15/2019 05:18:00 AM EDT [facility] Value Range Interpretation Code Description Data Liya rce(s) Supporting Document(s ) Urea 17.5 [place] nitrogen/Cre Hospital atinine [Mass Ratio] in Serum or Plasma ID Date Data Source [id number] 12/15/2019 05:18:00 AM EDT [facility] Name Value Range Interpretation Description Data Sup porting Code Source(s) Document(s ) Creatinine 1.2 mg/dL [place] [Mass/volume] Hospital in Serum or Plasma ID Date Data Source [id number] 12/15/2019 05:18:00 AM EDT [facility] Value Range Interpretation Description Data Sup porting Code Source(s) Document(s ) Urea 21 mg/dL [place] nitrogen Hospital [Mass/volume ] in Serum or Plasma ID Date Data Source [id number] 12/15/2019 05:18:00 AM EDT [facility] Value Range Interpretation Code Description Data Liya rce(s) Supporting Document(s ) Anion gap in 12 [place] Serum or Hospital Plasma ID Date Data Source [id number] 12/15/2019 05:18:00 AM EDT [facility] Value Range Interpretation Description Data Sup porting Code Source(s) Document(s ) Carbon 30 mmol/L [place] dioxide, Hospital total [Moles/volu me] in Serum or Plasma ID Date Data Source [id number] 12/15/2019 05:18:00 AM EDT [facility] Name Value Range Interpretation Description Data Sup porting Code Source(s) Document(s ) Chloride 105 [place] [Moles/volum mmol/L Hospital e] in Serum or Plasma ID Date Data Source [id number] 12/15/2019 05:18:00 AM EDT [facility] Value Range Interpretation Description Data Sup porting Code Source(s) Document(s ) Potassium 4.0 [place] [Moles/volume mmol/L Hospital ] in Serum or Plasma ID Date Data Source [id number] 12/15/2019 05:18:00 AM [facility] Name Value Range Interpretation Description Data Sup porting Code Source(s) Document(s ) Sodium 143 mmol/L [place] [[facility]] in Serum or Plasma ID Date Data Source [id number] 12/15/2019 05:18:00 AM [facility] Name Value Range Interpretation Description Data Sup porting Code Source(s) Document(s ) Glucose 84 mg/dL [place] [[facility] ] in Serum or Plasma ID Date Data Source [id number] 12/15/2019 05:18:00 AM [facility] THERAPEUTIC RANGES:UNFRACTIONATED HEPARI N THERAPY: 60-90 SECONDSARGATROBAN THERAPY: 49-99 SECONDS Name Value Range Interpretation Description Data Sup porting Code Source(s) Document(s ) aPTT in 27.4 s [place] Platelet poor [facility] plasma by Coagulation assay ID Date Data Source [id number] 12/15/2019 05:18:00 AM [facility] [facility] THERAPEUTIC RANGE FOR STANDARD ORALANTIC OAGULANT THERAPY: 2.0-3.0THERAPEUTIC RANGE FOR HIGH DOSE ORALANTICOAGULANT THERAPY (MECHANICAL HEARTVALVE REPLACEMENT): 2.5-3.5 Name Value Range Interpretation Description Data Sup porting Code Source(s) Document(s ) INR in Platelet 1.1 [place] poor plasma by [facility] Coagulation assay ID Date Data Source [id number] 12/15/2019 05:18:00 AM [facility] Name Value Range Interpretation Description Data Sup porting Code Source(s) Document(s ) PT panel - 12.1 s [place] Platelet poor [facility] plasma by Coagulation assay ID Date Data Source [id number] 12/15/2019 05:18:00 AM [facility] Name Value Range Interpretation Description Data Sup porting Code Source(s) Document(s ) Differential AUTOMATED [place] cell count Hospital method - Blood ID Date Data Source [id number] 12/15/2019 05:18:00 AM EDT [facility] Value Range Interpretation Description Data Sup porting Code Source(s) Document(s ) Immature 0.01 [place] granulocytes 10*3/uL Hospital [#/volume] in Blood by Automated count ID Date Data Source [id number] 12/15/2019 05:18:00 AM EDT [facility] Value Range Interpretation Description Data Sup porting Code Source(s) Document(s ) Basophils 0.04 [place] [#/volume] in 10*3/uL [facility] Blood by Automated count ID Date Data Source [id number] 12/15/2019 05:18:00 AM EDT [facility] Value Range Interpretation Description Data Sup porting Code Source(s) Document(s ) Eosinophils 0.18 [place] [#/volume] in 10*3/uL Hospital Blood by Automated count ID Date Data Source [id number] 12/15/2019 05:18:00 AM EDT [facility] Value Range Interpretation Description Data Sup porting Code Source(s) Document(s ) Monocytes 0.38 [place] [#/volume] in 10*3/uL Hospital Blood by Automated count ID Date Data Source [id number] 12/15/2019 05:18:00 AM EDT [facility] Name Value Range Interpretation Description Data Sup porting Code Source(s) Document(s ) Lymphocytes 1.96 [place] [#/volume] in 10*3/uL [facility] Blood by Automated count ID Date Data Source [id number] 12/15/2019 05:18:00 AM EDT [place] [facility] Name Value Range Interpretation Description Data Sup porting Code Source(s) Document(s ) Neutrophils 2.81 [place] [#/volume] in 10*3/uL Hospital Blood by Automated count ID Date Data Source [id number] 12/15/2019 05:18:00 AM EDT [facility] Value Range Interpretation Description Data Sup porting Code Source(s) Document(s ) Nucleated 0.0 % [place] erythrocytes/10 Hospital 0 leukocytes [Ratio] in Blood by Automated count ID Date Data Source [id number] 12/15/2019 05:18:00 AM EDT [facility] Value Range Interpretation Description Data Sup porting Code Source(s) Document(s ) Immature 0.2 % [place] granulocytes/10 Hospital 0 leukocytes in Blood by Automated count ID Date Data Source [id number] 12/15/2019 05:18:00 AM EDT [facility] Value Range Interpretation Description Data Sup porting Code Source(s) Document(s ) Basophils/100 0.7 % [place] leukocytes in Hospital Blood by Automated count ID Date Data Source [id number] 12/15/2019 05:18:00 AM EDT [facility] Value Range Interpretation Description Data Sup porting Code Source(s) Document(s ) Eosinophils/100 3.3 % [place] leukocytes in Hospital Blood by Automated count ID Date Data Source [id number] 12/15/2019 05:18:00 AM EDT [facility] Value Range Interpretation Description Data Sup porting Code Source(s) Document(s ) Monocytes/100 7.1 % [place] leukocytes in Hospital Blood by Automated count ID Date Data Source [id number] 12/15/2019 05:18:00 AM EDT [facility] Value Range Interpretation Description Data Sup porting Code Source(s) Document(s ) Lymphocytes/10 36.4 % [place] 0 leukocytes Hospital in Blood by Automated count ID Date Data Source [id number] 12/15/2019 05:18:00 AM EDT [facility] Value Range Interpretation Description Data Sup porting Code Source(s) Document(s ) Neutrophils/10 52.3 % [place] 0 leukocytes Hospital in Blood by Automated count ID Date Data Source [id number] 12/15/2019 05:18:00 AM EDT [facility] Value Range Interpretation Description Data Sup porting Code Source(s) Document(s ) Platelet mean 10.0 fL [place] volume Hospital [Entitic volume] in Blood by Automated count ID Date Data Source [id number] 12/15/2019 05:18:00 AM EDT [facility] Value Range Interpretation Description Data Sup porting Code Source(s) Document(s ) Platelets 277 [place] [#/volume] in 10*3/uL Hospital Blood by Automated count ID Date Data Source [id number] 12/15/2019 05:18:00 AM [facility] Value Range Interpretation Description Data Sup porting Code Source(s) Document(s ) Erythrocyte 16.5 % [place] distribution Hospital width [Ratio] by Automated count ID Date Data Source [id number] 12/15/2019 05:18:00 AM [facility] Value Range Interpretation Description Data Sup porting Code Source(s) Document(s ) Erythrocyte mean 31.5 [place] corpuscular g/dL Hospital hemoglobin concentration [Mass/volume] by Automated count ID Date Data Source [id number] 12/15/2019 [facility] Interpret[facility] Description Data Sup porting Code Source(s) Document(s ) Erythrocyte 21.9 pg [place] mean Hospital corpuscular hemoglobin [Entitic mass] by Automated count ID Date Data Source [id number] 12/15/2019 05:18:00 AM EDT [facility] Name Value Range Interpretation Description Data Sup porting Code Source(s) Document(s ) Erythrocyte 69.5 fL [place] mean Hospital corpuscular volume [Entitic volume] by Automated count ID Date Data Source [id number] 12/15/2019 05:18:00 AM EDT [facility] Name Value Range Interpretation Description Data Sup porting Code Source(s) Document(s ) Hematocrit 34.9 % [place] [Volume Hospital Fraction] of Blood by Automated count ID Date Data Source [id number] 12/15/2019 05:18:00 AM [facility] Value Range Interpretation Description Data Sup porting Code Source(s) Document(s ) Hemoglobin 11.0 g/dL [place] [Mass/volume] Hospital in Blood ID Date Data Source [id number] 12/15/2019 05:18:00 AM EDT [facility] Name Value Range Interpretation Description Data Sup porting Code Source(s) Document(s ) Erythrocytes 5.02 [place] [#/volume] in 10*6/uL Hospital Blood by Automated count ID Date Data Source [id number] 12/15/2019 [facility] Range Interpretation Description Data Sup porting Code Source(s) Document(s ) Leukocytes 5.4 [place] [#/volume] in 10*3/uL Hospital Blood by Automated count ID Date Data Source [id number] 06/05/2019 05:30:00 AM [facility] CUT-OFF >= 25 NG/ML.THE FINDINGS OF THE [...] rce(s) Supporting Document(s ) PCP (UR) NEGATIVE [facility] ID Date Data Source [id number] 06/05/2019 05:30:00 AM EDT [facility] CUT-OFF >= 50 NG/ML. Name Value Range Interpretation Code Description Data Liya rce(s) Supporting Document(s ) THC (UR) POSITIVE [facility] ID Date Data Source [id number] 06/05/2019 05:30:00 AM EDT [facility] CUT-OFF >= 300 NG/ML. Name Value Range Interpretation Description Data Sup porting Code Source(s) Document(s ) OPIATES (UR) NEGATIVE [facility] ID Date Data Source [id number] 06/05/2019 05:30:00 AM EDT [facility] CUT-OFF >= 300 NG/ML. Name Value Range Interpretation Description Data Sup porting Code Source(s) Document(s ) COCAINE (UR) POSITIVE [place] [facility] ID Date Data Source [id number] 06/05/2019 05:30:00 AM EDT [facility] CUT-OFF >= 200 NG/ML. Name Value Range Interpretation Description Data Sup porting Code Source(s) Document(s ) BENZODIAZEPINES NEGATIVE [place] (UR) [facility] ID Date Data Source [id number] 06/05/2019 05:30:00 AM EDT [facility] CUT-OFF >= 200 NG/ML. Name Value Range Interpretation Description Data Sup porting Code Source(s) Document(s ) BARBITURATES NEGATIVE [place] (UR) Hospital ID Date Data Source [id number] 06/05/2019 05:30:00 AM EDT [facility] CUT-OFF >= 1000 NG/ML. Name Value Range Interpretation Description Data Sup porting Code Source(s) Document(s ) AMPHETAMINES NEGATIVE [place] (UR) Hospital ID Date Data Source [id number] 06/05/2019 05:30:00 AM EDT [facility] Name Value Range Interpretation Description Data Sup porting Code Source(s) Document(s ) Mucus PRESENT [place] [Presence] in Hospital Urine sediment by Light microscopy ID Date Data Source [id number] 06/05/2019 05:30:00 AM EDT [facility] Name Value Range Interpretation Description Data Sup porting Code Source(s) Document(s ) Erythrocytes 0-3 [place] [#/area] in /[HPF] Hospital Urine sediment by Microscopy high power field ID Date Data Source [id number] 06/05/2019 [facility] Value Range Interpretation Description Data Sup porting Code Source(s) Document(s ) Leukocytes 0-3 [place] [#/area] in /[HPF] Hospital Urine sediment by Microscopy high power field ID Date Data Source [id number] 06/05/2019 05:30:00 AM EDT [facility] Value Range Interpretation Code Description Data Supporting Source(s) Document(s ) Leukocyte TRACE [place] esterase Hospital [Presence] in Urine by Test strip ID Date Data Source [id number] 06/05/2019 05:30:00 AM [facility] Name Value Range Interpretation Description Data Sup porting Code Source(s) Document(s ) URINE NEGATIVE [place] NITRITES Hospital ID Date Data Source [id number] 06/05/2019 05:30:00 AM [facility] Name Value Range Interpretation Description Data Sup porting Code Source(s) Document(s ) Erythrocytes NEGATIVE [place] [#/volume] in Hospital Urine by Test strip ID Date Data Source [id number] 06/05/2019 05:30:00 AM EDT [facility] Name Value Range Interpretation Code Description Data Liya rce(s) Supporting Document(s ) Bilirubin. NEGATIVE [place] total Hospital [Presence] in Urine by Test strip ID Date Data Source [id number] 06/05/2019 05:30:00 AM EDT [facility] Name Value Range Interpretation Description Data Sup porting Code Source(s) Document(s ) Urobilinogen 1.0 [place] [Units/volume] mg/dL Hospital in Urine by Test strip ID Date Data Source [id number] 06/05/2019 05:30:00 AM EDT [facility] Name Value Range Interpretation Description Data Sup porting Code Source(s) Document(s ) Ketones NEGATIVE [place] [Mass/volume Hospital ] in Urine by Test strip ID Date Data Source [id number] 06/05/2019 05:30:00 AM EDT [facility] Name Value Range Interpretation Description Data Sup porting Code Source(s) Document(s ) Glucose NEGATIVE [place] [Mass/volume Hospital ] in Urine by Test strip ID Date Data Source [id number] 06/05/2019 05:30:00 AM EDT [facility] Name Value Range Interpretation Code Description Data Liya rce(s) Supporting Document(s ) Protein 1+ [place] [Presence] Hospital in Urine by Test strip ID Date Data Source [id number] 06/05/2019 05:30:00 AM EDT [facility] Name Value Range Interpretation Code Description Data Liya rce(s) Supporting Document(s ) pH of Urine 7.5 [place] by Test Hospital strip ID Date Data Source [id number] 06/05/2019 05:30:00 AM [facility] Name Value Range Interpretation Code Description Data Supporting Source(s) Document(s ) Specific 1.031 [place] gravity of Hospital Urine by Test strip ID Date Data Source [id number] 06/05/2019 05:30:00 AM [facility] Name Value Range Interpretation Description Data Sup porting Code Source(s) Document(s ) Clarity in Urine CLEAR [place] by Refractometry Hospital automated ID Date Data Source [id number] 06/05/2019 05:30:00 AM [facility] Value Range Interpretation Code Description Data Liya rce(s) Supporting Document(s ) Color of YELLOW [place] Urine Hospital ID Date Data Source [id number] 06/05/2019 05:26:00 AM [facility] REFERENCE RANGES: NONE DETECTED <20 MG/DL NONE TO MILD EUPHORIA 20-49 MG/DL MILD EUPHORIA 50-99 MG/DL MODERATE EUPHORIA 100-149 MG/DL INTOXICATION 150-300 MG/DL Name Value Range Interpretation Description Data Sup porting Code Source(s) Document(s ) Ethanol < 20 [place] [Mass/volume mg/dL Hospital ] in Serum or Plasma ID Date Data Source [id number] 06/05/2019 05:26:00 AM [facility] Name Value Range Interpretation Description Data Sup porting Code Source(s) Document(s ) Lactate 0.8 [place] [Moles/volum mmol/L Hospital e] in Serum or Plasma ID Date Data Source [id number] 06/05/2019 05:26:00 AM [facility] Name Value Range Interpretation Code Description Data Liya rce(s) Supporting Document(s ) Lipase 31 U/L [place] [Enzymatic Hospital activity/vo lume] in Serum or Plasma ID Date Data Source [id number] 06/05/2019 05:26:00 AM [facility] Name Value Range Interpretation Description Data Sup porting Code Source(s) Document(s ) Aspartate 22 U/L [place] aminotransferase [facility] [Enzymatic Hospital activity/volume] in Serum or Plasma ID Date Data Source [id number] 06/05/2019 05:26:00 AM [facility] Name Value Range Interpretation Description Data Sup porting Code Source(s) Document(s ) Alanine 13 U/L [place] aminotransferase [facility] [Enzymatic Hospital activity/volume] in Serum or Plasma ID Date Data Source [id number] 06/05/2019 05:26:00 AM [facility] Value Range Interpretation Description Data Sup porting Code Source(s) Document(s ) Alkaline 83 U/L [place] phosphatase Hospital [Enzymatic activity/volume ] in Serum or Plasma ID Date Data Source [id number] 06/05/2019 05:26:00 AM [facility] Name Value Range Interpretation Description Data Sup porting Code Source(s) Document(s ) Bilirubin.t 0.5 mg/dL [facility] [Mass/volum e] in Serum or Plasma ID Date Data Source [id number] 06/05/2019 05:26:00 AM [facility] Value Range Interpretation Code Description Data Liya rce(s) Supporting Document(s ) Albumin/Glob 1.3 [place] ulin [Mass Hospital Ratio] in Serum or Plasma ID Date Data Source [id number] 06/05/2019 05:26:00 AM [facility] Name Value Range Interpretation Description Data Sup porting Code Source(s) Document(s ) Albumin 4.1 g/dL [place] [Mass/volume Hospital ] in Serum or Plasma ID Date Data Source [id number] 06/05/2019 05:26:00 AM [facility] Name Value Range Interpretation Description Data Sup porting Code Source(s) Document(s ) Protein 7.2 g/dL [place] [Mass/volume Hospital ] in Serum or Plasma ID Date Data Source [id number] 06/05/2019 05:26:00 AM EDT [facility] Name Value Range Interpretation Description Data Sup porting Code Source(s) Document(s ) Calcium 9.2 mg/dL [place] [Mass/volume Hospital ] in Serum or Plasma ID Date Data Source [id number] 06/05/2019 05:26:00 AM EDT [facility] Name Value Range Interpretation Code Description Data Liya rce(s) Supporting Document(s ) Urea 12.5 [place] nitrogen/Cre Hospital atinine [Mass Ratio] in Serum or Plasma ID Date Data Source [id number] 06/05/2019 05:26:00 AM EDT [facility] Name Value Range Interpretation Description Data Sup porting Code Source(s) Document(s ) Creatinine 1.2 mg/dL [place] [Mass/volume] Hospital in Serum or Plasma ID Date Data Source [id number] 06/05/2019 05:26:00 AM EDT [facility] Name Value Range Interpretation Description Data Sup porting Code Source(s) Document(s ) Urea 15 mg/dL [place] nitrogen Hospital [Mass/volume ] in Serum or Plasma ID Date Data Source [id number] 06/05/2019 05:26:00 AM EDT [facility] Name Value Range Interpretation Code Description Data Liya rce(s) Supporting Document(s ) Anion gap in 10 [place] Serum or Hospital Plasma ID Date Data Source [id number] 06/05/2019 05:26:00 AM EDT [facility] Name Value Range Interpretation Description Data Sup porting Code Source(s) Document(s ) Carbon 31 mmol/L [place] dioxide, Hospital total [Moles/volu me] in Serum or Plasma ID Date Data Source [id number] 06/05/2019 05:26:00 AM EDT [facility] Name Value Range Interpretation Description Data Sup porting Code Source(s) Document(s ) Chloride 103 [place] [Moles/volum mmol/L Hospital e] in Serum or Plasma ID Date Data Source [id number] 06/05/2019 05:26:00 AM EDT [facility] Name Value Range Interpretation Description Data Sup porting Code Source(s) Document(s ) Potassium 4.4 [place] [Moles/volume mmol/L Hospital ] in Serum or Plasma ID Date Data Source [id number] 06/05/2019 05:26:00 AM EDT [facility] Name Value Range Interpretation Description Data Sup porting Code Source(s) Document(s ) Sodium 140 mmol/L [place] [Moles/volu Hospital me] in Serum or Plasma ID Date Data Source [id number] 06/05/2019 05:26:00 AM EDT [facility] Name Value Range Interpretation Description Data Sup porting Code Source(s) Document(s ) Glucose 106 mg/dL [place] [Mass/volume Hospital ] in Serum or Plasma ID Date Data Source [id number] 06/05/2019 05:26:00 AM EDT [place] [facility] Name Value Range Interpretation Code Description Data Supporting Source(s) Document(s ) NUCLEATED RBCS 0.0 % [place] (AUTO Hospital DIFF%)DIS ID Date Data Source [id number] 06/05/2019 05:26:00 AM EDT [facility] Name Value Range Interpretation Description Data Sup porting Code Source(s) Document(s ) Differential AUTOMATED [place] cell count Hospital method - Blood ID Date Data Source [id number] 06/05/2019 05:26:00 AM EDT [facility] Value Range Interpretation Description Data Sup porting Code Source(s) Document(s ) Immature 0.01 [place] granulocytes 10*3/uL Hospital [#/volume] in Blood by Automated count ID Date Data Source [id number] 06/05/2019 05:26:00 AM EDT [facility] Value Range Interpretation Description Data Sup porting Code Source(s) Document(s ) Basophils 0.01 [place] [#/volume] in 10*3/uL [facility] Blood by Automated count ID Date Data Source [id number] 06/05/2019 [facility] Description Data Sup porting Code Source(s) Document(s ) Eosinophils 0.09 [place] [#/volume] in 10*3/uL [facility] Blood by Automated count ID Date Data Source [id number] 06/05/2019 05:26:00 AM [facility] Value Range Interpretation Description Data Sup porting Code Source(s) Document(s ) Monocytes 0.39 [place] [#/volume] in 10*3/uL [facility] Blood by Automated count ID Date Data Source [id number] 06/05/2019 05:26:00 AM EDT [facility] Value Range Interpretation Description Data Sup porting Code Source(s) Document(s ) Lymphocytes 1.52 [place] [#/volume] in 10*3/uL Hospital Blood by Automated count ID Date Data Source [id number] 06/05/2019 05:26:00 AM EDT [facility] Value Range Interpretation Description Data Sup porting Code Source(s) Document(s ) Neutrophils 3.40 [place] [#/volume] in 10*3/uL Hospital Blood by Automated count ID Date Data Source [id number] 06/05/2019 05:26:00 AM EDT [facility] Value Range Interpretation Description Data Sup porting Code Source(s) Document(s ) Nucleated 0.0 % [place] erythrocytes/10 Hospital 0 leukocytes [Ratio] in Blood by Automated count ID Date Data Source [id number] 06/05/2019 05:26:00 AM EDT [facility] Value Range Interpretation Description Data Sup porting Code Source(s) Document(s ) Immature 0.2 % [place] granulocytes/10 Hospital 0 leukocytes in Blood by Automated count ID Date Data Source [id number] 06/05/2019 05:26:00 AM EDT [facility] Value Range Interpretation Description Data Sup porting Code Source(s) Document(s ) Basophils/100 0.2 % [place] leukocytes in [facility] Blood by Automated count ID Date Data Source [id number] 06/05/2019 05:26:00 AM EDT [facility] Value Range Interpretation Description Data Sup porting Code Source(s) Document(s ) Eosinophils/100 1.7 % [place] leukocytes in [facility] Blood by Automated count ID Date Data Source [id number] 06/05/2019 05:26:00 AM EDT [facility] Value Range Interpretation Description Data Sup porting Code Source(s) Document(s ) Monocytes/100 7.2 % [place] leukocytes in Hospital Blood by Automated count ID Date Data Source [id number] 06/05/2019 [facility] Interpretation Description Data Sup porting Code Source(s) Document(s ) Lymphocytes/10 28.0 % [place] 0 leukocytes Hospital in Blood by Automated count ID Date Data Source [id number] 06/05/2019 05:26:00 AM [facility] Value Range Interpretation Description Data Sup porting Code Source(s) Document(s ) Neutrophils/10 62.7 % [place] 0 leukocytes Hospital in Blood by Automated count ID Date Data Source [id number] 06/05/2019 05:26:00 AM T [facility] Value Range Interpretation Description Data Sup porting Code Source(s) Document(s ) Platelet mean 9.1 fL [place] volume Hospital [Entitic volume] in Blood by Automated count ID Date Data Source [id number] 06/05/2019 05:26:00 AM [facility] Value Range Interpretation Description Data Sup porting Code Source(s) Document(s ) Platelets 294 [place] [#/volume] in 10*3/uL Hospital Blood by Automated count ID Date Data Source [id number] 06/05/2019 05:26:00 AM [facility] Value Range Interpretation Description Data Sup porting Code Source(s) Document(s ) Erythrocyte 18.4 % [facility] width [Ratio] by Automated count ID Date Data Source [id number] 06/05/2019 05:26:00 AM [facility] Value Range Interpretation Description Data Sup porting Code Source(s) Document(s ) Erythrocyte mean 31.0 [place] corpuscular g/dL Hospital hemoglobin concentration [Mass/volume] by Automated count ID Date Data Source [id number] 06/05/2019 05:26:00 AM [facility] Value Range Interpretation Description Data Sup porting Code Source(s) Document(s ) Erythrocyte 22.[address] [facility] corpuscular hemoglobin [Entitic mass] by Automated count ID Date Data Source [id number] 06/05/2019 [facility] Range Interpretation Description Data Sup porting Code Source(s) Document(s ) Erythrocyte 72.0 fL [facility] Hospital corpuscular volume [Entitic volume] by Automated count ID Date Data Source [id number] 06/05/2019 05:26:00 AM EDT [facility] Name Value Range Interpretation Description Data Sup porting Code Source(s) Document(s ) Hematocrit 40.6 % [place] [Volume Hospital Fraction] of Blood by Automated count ID Date Data Source [id number] 06/05/2019 05:26:00 AM [facility] Value Range Interpretation Description Data Sup porting Code Source(s) Document(s ) Hemoglobin 12.6 g/dL [place] [Mass/volume] Hospital in Blood ID Date Data Source [id number] 06/05/2019 [facility]26[facility] Range Interpretation Description Data Sup porting Code Source(s) Document(s ) Erythrocytes 5.64 [place] [#/volume] in 10*6/uL Hospital Blood by Automated count ID Date Data Source [id number] 06/05/2019 05[facility]26[facility] Value Range Interpretation Description Data Sup porting Code Source(s) Document(s ) Leukocytes 5.4 [place] [#/volume] in 10*3/uL Hospital Blood by Automated count ID Date Data Source [id number] 06/04/2019 11:45:[facility] Value Range Interpretation Code Description Data Liya rce(s) Supporting Document(s ) URINE 0-5 [facility] CASTS ID Date Data Source [id number] 06/04/2019 11:45:00 PM EDT [facility] Name Value Range Interpretation Description Data Sup porting Code Source(s) Document(s ) URINE OCCASIONAL [place] EPITHELIAL [facility] CELLS ID Date Data Source [id number] 06/04/2019 11:45:00 PM EDT [facility] Name Value Range Interpretation Description Data Sup porting Code Source(s) Document(s ) Erythrocytes 0-3 [place] [#/area] in /[HPF] Hospital Urine sediment by Automated count ID Date Data Source [id number] 06/04/2019 11:45:00 PM EDT [facility] Value Range Interpretation Description Data Sup porting Code Source(s) Document(s ) Leukocytes 0-3 [place] [#/area] in /[HPF] Hospital Urine sediment by Automated count ID Date Data Source [id number] 06/04/2019 11:45:00 PM EDT [facility] Value Range Interpretation Code Description Data Liya rce(s) Supporting Document(s ) URINE 0-5 [facility] CASTS ID Date Data Source [id number] 06/04/2019 11:45:00 PM EDT [facility] Value Range Interpretation Description Data Sup porting Code Source(s) Document(s ) URINE OCCASIONAL [place] EPITHELIAL Hospital CELLS ID Date Data Source [id number] 06/04/2019 11:45:00 PM EDT [facility] Value Range Interpretation Description Data Sup porting Code Source(s) Document(s ) Erythrocytes 0-3 [place] [#/area] in /[HPF] Hospital Urine sediment by Automated count ID Date Data Source [id number] 06/04/2019 11:45:00 PM EDT [facility] Value Range Interpretation Description Data Sup porting Code Source(s) Document(s ) Leukocytes 0-3 [place] [#/area] in /[HPF] Hospital Urine sediment by Automated count ID Date Data Source [id number] 06/04/2019 11:45:00 PM EDT [facility] Name Value Range Interpretation Description Data Sup porting Code Source(s) Document(s ) Leukocyte NEGATIVE [place] esterase Hospital [Presence] in Urine by Test strip ID Date Data Source [id number] 06/04/2019 11:45:00 PM EDT [facility] Name Value Range Interpretation Description Data Sup porting Code Source(s) Document(s ) URINE NEGATIVE [place] NITRITES Hospital ID Date Data Source [id number] 06/04/2019 11:45:00 PM EDT [facility] Name Value Range Interpretation Description Data Sup porting Code Source(s) Document(s ) Erythrocytes NEGATIVE [place] [#/volume] in Hospital Urine by Test strip ID Date Data Source [id number] 06/04/2019 11:45:00 PM EDT [facility] Name Value Range Interpretation Code Description Data Liya rce(s) Supporting Document(s ) Bilirubin. NEGATIVE [place] total Hospital [Presence] in Urine by Test strip ID Date Data Source [id number] 06/04/2019 11:45:00 PM EDT [facility] Value Range Interpretation Description Data Sup porting Code Source(s) Document(s ) Urobilinogen 1.0 [place] [Units/volume] mg/dL Hospital in Urine by Test strip ID Date Data Source [id number] 06/04/2019 11:45:00 PM EDT [facility] Name Value Range Interpretation Description Data Sup porting Code Source(s) Document(s ) Ketones NEGATIVE [place] [Mass/volume Hospital ] in Urine by Test strip ID Date Data Source [id number] 06/04/2019 11:45:00 PM EDT [place] [facility] Name Value Range Interpretation Description Data Sup porting Code Source(s) Document(s ) Glucose NEGATIVE [place] [Mass/volume Hospital ] in Urine by Test strip ID Date Data Source [id number] 06/04/2019 11:45:00 PM EDT [facility] Name Value Range Interpretation Code Description Data Liya rce(s) Supporting Document(s ) Protein 1+ [place] [Presence] Hospital in Urine by Test strip ID Date Data Source [id number] 06/04/2019 11:45:00 PM EDT [facility] Name Value Range Interpretation Code Description Data Liya rce(s) Supporting Document(s ) pH of Urine 7.0 [place] by Test Hospital strip ID Date Data Source [id number] 06/04/2019 11:45:00 PM EDT [facility] Name Value Range Interpretation Code Description Data Supporting Source(s) Document(s ) Specific 1.031 [place] gravity of Hospital Urine by Test strip ID Date Data Source [id number] 06/04/2019 11:45:00 PM EDT [place] [facility] Name Value Range Interpretation Description Data Sup porting Code Source(s) Document(s ) Clarity in Urine CLEAR [place] by Refractometry Hospital automated ID Date Data Source [id number] 06/04/2019 11:45:00 PM EDT [facility] Name Value Range Interpretation Code Description Data Liya rce(s) Supporting Document(s ) Color of YELLOW [place] Urine Hospital ID Date Data Source [id number] 06/04/2019 11:16:00 PM EDT [facility] Name Value Range Interpretation Description Data Sup porting Code Source(s) Document(s ) Lactate 0.9 [place] [Moles/volum mmol/L Hospital e] in Serum or Plasma ID Date Data Source [id number] 06/04/2019 11:16:00 PM EDT [facility] Value Range Interpretation Code Description Data Liya rce(s) Supporting Document(s ) Lipase 47 U/L [place] [Enzymatic Hospital activity/vo lume] in Serum or Plasma ID Date Data Source [id number] 06/04/2019 11:16:00 PM EDT [facility] Value Range Interpretation Description Data Sup porting Code Source(s) Document(s ) Aspartate 23 U/L White aminotransferase [place] [Enzymatic Hospital activity/volume] in Serum or Plasma ID Date Data Source [id number] 06/04/2019 [facility] Interpret[facility] Description Data Sup porting Code Source(s) Document(s ) Alanine 13 U/L [place] amin[facility] [place] [Enzymatic Hospital activity/volume] in Serum or Plasma ID Date Data Source [id number] 06/04/2019 [facility] Interpretation Description Data Sup porting Code Source(s) Document(s ) Alkaline 84 U/L [place] phosphatase Hospital [Enzymatic activity/volume ] in Serum or Plasma ID Date Data Source [id number] 06/04/2019 [facility]16[facility] Value Range Interpretation Description Data Sup porting Code Source(s) Document(s ) Bilirubin.t 0.4 mg/dL [facility] [Mass/volum e] in Serum or Plasma ID Date Data Source [id number] 06/04/2019 11:16[facility] Interpretation Code Description Data Liya rce(s) Supporting Document(s ) Albumin/Glob 1.5 [place] ulin [Mass Hospital Ratio] in Serum or Plasma ID Date Data Source [id number] 06/04/2019 11:16:00 PM EDT [place] [facility] Name Value Range Interpretation Description Data Sup porting Code Source(s) Document(s ) Albumin 4.4 g/dL [place] [Mass/volume Hospital ] in Serum or Plasma ID Date Data Source [id number] 06/04/2019 11:16:00 PM EDT [place] [facility] Name Value Range Interpretation Description Data Sup porting Code Source(s) Document(s ) Protein 7.4 g/dL [place] [Mass/volume Hospital ] in Serum or Plasma ID Date Data Source [id number] 06/04/2019 11:16:00 PM EDT [facility] Name Value Range Interpretation Description Data Sup porting Code Source(s) Document(s ) Calcium 9.5 mg/dL [place] [Mass/volume Hospital ] in Serum or Plasma ID Date Data Source [id number] 06/04/2019 11:16:00 PM EDT [facility] Name Value Range Interpretation Code Description Data Liya rce(s) Supporting Document(s ) Urea 15.0 [place] nitrogen/Cre Hospital atinine [Mass Ratio] in Serum or Plasma ID Date Data Source [id number] 06/04/2019 11:16:00 PM EDT [place] [facility] Name Value Range Interpretation Description Data Sup porting Code Source(s) Document(s ) Creatinine 1.2 mg/dL [place] [Mass/volume] Hospital in Serum or Plasma ID Date Data Source [id number] 06/04/2019 11:16:00 PM EDT [facility] Name Value Range Interpretation Description Data Sup porting Code Source(s) Document(s ) Urea 18 mg/dL [place] nitrogen Hospital [Mass/volume ] in Serum or Plasma ID Date Data Source [id number] 06/04/2019 11:16:00 PM EDT [place] [facility] Name Value Range Interpretation Code Description Data Liya rce(s) Supporting Document(s ) Anion gap in 12 [place] Serum or Hospital Plasma ID Date Data Source [id number] 06/04/2019 11:16:00 PM EDT [place] [facility] Name Value Range Interpretation Description Data Sup porting Code Source(s) Document(s ) Carbon 34 mmol/L [place] dioxide, Hospital total [Moles/volu me] in Serum or Plasma ID Date Data Source [id number] 06/04/2019 11:16:00 PM EDT [facility] Name Value Range Interpretation Description Data Sup porting Code Source(s) Document(s ) Chloride 102 [place] [Moles/volum mmol/L Hospital e] in Serum or Plasma ID Date Data Source [id number] 06/04/2019 11:16:00 PM EDT [facility] Name Value Range Interpretation Description Data Sup porting Code Source(s) Document(s ) Potassium 4.6 [place] [Moles/volume mmol/L Hospital ] in Serum or Plasma ID Date Data Source [id number] 06/04/2019 11:16:00 PM EDT [place] [facility] Name Value Range Interpretation Description Data Sup porting Code Source(s) Document(s ) Sodium 143 mmol/L [place] [Moles/volu Hospital me] in Serum or Plasma ID Date Data Source [id number] 06/04/2019 11:16:00 PM EDT [facility] Name Value Range Interpretation Description Data Sup porting Code Source(s) Document(s ) Glucose 108 mg/dL [place] [Mass/volume Hospital ] in Serum or Plasma ID Date Data Source [id number] 06/04/2019 11:16:00 PM [facility] Name Value Range Interpretation Code Description Data Supporting Source(s) Document(s ) NUCLEATED RBCS 0.0 % [place] (AUTO Hospital DIFF%)DIS ID Date Data Source [id number] 06/04/2019 11:16:00 PM [facility] Name Value Range Interpretation Description Data Sup porting Code Source(s) Document(s ) Differential AUTOMATED [place] cell count [facility] method - Blood ID Date Data Source [id number] 06/04/2019 11:16:00 PM [facility] Value Range Interpretation Description Data Sup porting Code Source(s) Document(s ) Immature 0.02 [place] granulocytes 10*3/uL Hospital [#/volume] in Blood by Automated count ID Date Data Source [id number] 06/04/2019 11:16:00 PM [facility] Name Value Range Interpretation Description Data Sup porting Code Source(s) Document(s ) Basophils 0.04 [place] [#/volume] in 10*3/uL Hospital Blood by Automated count ID Date Data Source [id number] 06/04/2019 11:16:00 PM [facility] Name Value Range Interpretation Description Data Sup porting Code Source(s) Document(s ) Eosinophils 0.13 [place] [#/volume] in 10*3/uL Hospital Blood by Automated count ID Date Data Source [id number] 06/04/2019 11:16:00 PM [facility] Name Value Range Interpretation Description Data Sup porting Code Source(s) Document(s ) Monocytes 0.41 [place] [#/volume] in 10*3/uL Hospital Blood by Automated count ID Date Data Source [id number] 06/04/2019 [facility] Range Interpretation Description Data Sup porting Code Source(s) Document(s ) Lymphocytes 1.52 [place] [#/volume] in 10*3/uL Hospital Blood by Automated count ID Date Data Source [id number] 06/04/2019 11:16:00 PM EDT [facility] Value Range Interpretation Description Data Sup porting Code Source(s) Document(s ) Neutrophils 3.47 [place] [#/volume] in 10*3/uL Hospital Blood by Automated count ID Date Data Source [id number] 06/04/2019 11:16:00 PM EDT [facility] Value Range Interpretation Description Data Sup porting Code Source(s) Document(s ) Nucleated 0.0 % [place] erythrocytes/10 Hospital 0 leukocytes [Ratio] in Blood by Automated count ID Date Data Source [id number] 06/04/2019 11:16:00 PM EDT [facility] Value Range Interpretation Description Data Sup porting Code Source(s) Document(s ) Immature 0.4 % [place] granulocytes/10 Hospital 0 leukocytes in Blood by Automated count ID Date Data Source [id number] 06/04/2019 11:16:00 PM EDT [facility] Value Range Interpretation Description Data Sup porting Code Source(s) Document(s ) Basophils/100 0.7 % [place] leukocytes in Hospital Blood by Automated count ID Date Data Source [id number] 06/04/2019 11:16:00 PM EDT [facility] Value Range Interpretation Description Data Sup porting Code Source(s) Document(s ) Eosinophils/100 2.3 % [place] leukocytes in Hospital Blood by Automated count ID Date Data Source [id number] 06/04/2019 11:16:00 PM EDT [facility] Value Range Interpretation Description Data Sup porting Code Source(s) Document(s ) Monocytes/100 7.3 % [place] leukocytes in Hospital Blood by Automated count ID Date Data Source [id number] 06/04/2019 11:16:00 PM EDT [facility] Value Range Interpretation Description Data Sup porting Code Source(s) Document(s ) Lymphocytes/10 27.2 % [place] 0 leukocytes Hospital in Blood by Automated count ID Date Data Source [id number] 06/04/2019 11:16:00 PM EDT [facility] Name Value Range Interpretation Description Data Sup porting Code Source(s) Document(s ) Neutrophils/10 62.1 % [place] 0 leukocytes Hospital in Blood by Automated count ID Date Data Source [id number] 06/04/2019 11:16:00 PM EDT [facility] Value Range Interpretation Description Data Sup porting Code Source(s) Document(s ) Platelet mean 9.4 fL [place] volume Hospital [Entitic volume] in Blood by Automated count ID Date Data Source [id number] 06/04/2019 11:16:00 PM EDT [facility] Value Range Interpretation Description Data Sup porting Code Source(s) Document(s ) Platelets 315 [place] [#/volume] in 10*3/uL Hospital Blood by Automated count ID Date Data Source [id number] 06/04/2019 11:16:00 PM EDT [facility] Value Range Interpretation Description Data Sup porting Code Source(s) Document(s ) Erythrocyte 18.8 % [place] distribution Hospital width [Ratio] by Automated count ID Date Data Source [id number] 06/04/2019 11:16:00 PM EDT [facility] Value Range Interpretation Description Data Sup porting Code Source(s) Document(s ) Erythrocyte mean 31.3 [place] corpuscular g/dL Hospital hemoglobin concentration [Mass/volume] by Automated count ID Date Data Source [id number] 06/04/2019 11:16:00 PM EDT [facility] Name Value Range Interpretation Description Data Sup porting Code Source(s) Document(s ) Erythrocyte 22.4 pg [place] mean [facility] corpuscular hemoglobin [Entitic mass] by Automated count ID Date Data Source [id number] 06/04/2019 11:16:00 PM EDT [facility] Value Range Interpretation Description Data Sup porting Code Source(s) Document(s ) Erythrocyte 71.3 fL [place] mean Hospital corpuscular volume [Entitic volume] by Automated count ID Date Data Source [id number] 06/04/2019 11:16:00 PM EDT [facility] Value Range Interpretation Description Data Sup porting Code Source(s) Document(s ) Hematocrit 41.8 % [place] [Volume Hospital Fraction] of Blood by Automated count ID Date Data Source [id number] 06/04/2019 11:16:00 PM EDT [facility] Value Range Interpretation Description Data Sup porting Code Source(s) Document(s ) Hemoglobin 13.1 g/dL [place] [Mass/volume] Hospital in Blood ID Date Data Source [id number] 06/04/2019 11:16:00 PM EDT [facility] Value Range Interpretation Description Data Sup porting Code Source(s) Document(s ) Erythrocytes 5.86 [place] [#/volume] in 10*6/uL Hospital Blood by Automated count ID Date Data Source [id number] 06/04/2019 [facility] Interpretation Description Data Sup porting Code Source(s) Document(s ) Leukocytes 5.6 [place] [#/volume] in 10*3/uL Hospital Blood by Automated [...] ever completed Unknown if ever [facility] [place] smoked smoked Hospital Smoking Unknown if ever completed Unknown if ever [facility] [place] smoked smoked Hospital Smoking Unknown if ever completed Unknown if ever [facility] [place] smoked smoked Hospital Smoking Unknown if ever completed Unknown if ever [facility] [place] smoked smoked Hospital Smoking Unknown if ever completed Unknown if ever [facility] [place] smoked smoked Hospital Smoking Unknown if ever completed Unknown if ever [facility] [place] smoked smoked Hospital Vital Signs ID Date Data Source UNK Name Value Range Interpretation Code Description Data Source(s) Diastolic blood 78 mm[Hg] 78 mm[Hg] [facility] pressure Hospital Systolic blood 114 mm[Hg] 114 mm[Hg] [facility] ns pressure Hospital Respiratory rate 18 /min 18 /min [facility] Heart rate 56 /min 56 /min [facility] Body temperature 36.74122 Brenda 36.77036 Brenda [facility] Body temperature 97.9 [degF] 97.9 [degF] [facility] Body mass index 25.0 kg/m2 25.0 kg/m2 [facility] (BMI) [Ratio] Hospital Body weight 175.38 [lb_av] 175.38 [lb_av] [facility] Body temperature 36.196274 Brenda 36.052603 Brenda [facility] Respiratory rate 18 /min 18 /min [facility] Oxygen 98 % 98 % [facility] saturation in Medical Arterial blood Center by Pulse oximetry Heart rate 75 /min 75 /min [facility] Diastolic blood 80 mm[Hg] 80 mm[Hg] [facility] pressure Medical Center Systolic blood 146 mm[Hg] 146 mm[Hg] [facility] Body temperature 36.854275 Brenda 36.723870 Brenda [facility] Respiratory rate 18 /min 18 /min [facility] Oxygen 98 % 98 % [facility] saturation in Medical Arterial blood Center by Pulse oximetry Heart rate 74 /min 74 /min [facility] Diastolic blood 75 mm[Hg] 75 mm[Hg] [facility] pressure Medical Center Systolic blood 140 mm[Hg] 140 mm[Hg] [facility] Body weight 85.291063 kg 85.194742 kg [facility] Body temperature 36.476393 Brenda 36.464425 Brenda [facility] Respiratory rate 18 /min 18 /min [facility] Oxygen 98 % 98 % [facility] saturation in Medical Arterial blood Center by Pulse oximetry Heart rate 54 /min 54 /min [facility] Body height 175.911391 cm 175.691636 cm [facility] Diastolic blood 67 mm[Hg] 67 mm[Hg] [facility] pressure Medical Center Systolic blood 130 mm[Hg] 130 mm[Hg] [facility] Body mass index 27.6 kg/m2 27.6 kg/m2 [facility] (BMI) [Ratio] Medical Center Diastolic blood 66 mmHg 66 mmHg [facility] Systolic blood 101 mmHg 101 mmHg [facility] Respiratory rate 18 bpm 18 bpm [facility] Heart rate 67 bpm 67 bpm [facility] Body temperature 97.0 [facility] 66 mmHg 66 mmHg [facility] Systolic blood 96 mmHg 96 mmHg [facility] Respiratory rate 18 bpm 18 bpm [facility] Heart rate 75 bpm 75 bpm [facility] Body temperature 97.2 Fahrenheit 97.2 Fahrenhei t [facility] Body temperature 97.0 Fahrenheit 97.0 Fahrenh t [facility] Diastolic blood 62 mmHg 62 mmHg [facility] Systolic blood 88 mmHg 88 mmHg [facility] Respiratory rate 18 bpm 18 bpm [facility] Heart rate 63 bpm 63 bpm [facility] Body temperature 96.5 Fahrenheit 96.5 Fahrenhei t [facility] Diastolic blood 65 mmHg 65 mmHg [facility] Systolic blood 100 mmHg 100 mmHg [facility] Respiratory rate 18 bpm 18 bpm [facility] Heart rate 63 bpm 63 bpm [facility] Body temperature 96.3 Fahrenheit 96.3 Fahrenhei t [facility] Body temperature 97.2 Fahrenheit 97.2 Fahrenh t [facility] Body temperature 36.569496 Brenda 36.673360 Brenda [facility] Respiratory rate 20 /min 20 /min [facility] Heart rate 55 /min 55 /min [facility] Diastolic blood 59 mm[Hg] 59 mm[Hg] [facility] Systolic blood 120 mm[Hg] 120 mm[Hg] [facility] Body temperature 36.364216 Brenda 36.073935 Brenda [facility] Respiratory rate 18 /min 18 /min [facility] Heart rate 57 /min 57 /min [facility] Diastolic blood 66 mm[Hg] 66 mm[Hg] [facility] [place] Systolic blood 103 mm[Hg] 103 mm[Hg] [facility] Body temperature 36.226247 Brenda 36.151941 Brenda [facility] Respiratory rate 20 /min 20 /min [facility] Heart rate 55 /min 55 /min [facility] Diastolic blood 61 mm[Hg] 61 mm[Hg] [facility] [place] Systolic blood 108 mm[Hg] 108 mm[Hg] [facility] Oxygen 98 % 98 % [facility] saturation in Medical Arterial blood Center by Pulse oximetry Body temperature 36.164502 Brenda 36.013473 Brenda [facility] Respiratory rate 20 /min 20 /min [facility] Heart rate 58 /min 58 /min [facility] Diastolic blood 61 mm[Hg] 61 mm[Hg] [facility] Systolic blood 92 mm[Hg] 92 mm[Hg] [facility] Body temperature 36.027521 Brenda 36.385223 Brenda [facility] Respiratory rate 18 /min 18 /min [facility] Heart rate 64 /min 64 /min [facility] Diastolic blood 68 mm[Hg] 68 mm[Hg] [facility] pressure Medical Center Systolic blood 111 mm[Hg] 111 mm[Hg] [facility] Oxygen 99 % 99 % [facility] saturation in Medical Arterial blood Center by Pulse oximetry Oxygen 98 % 98 % [facility] saturation in Medical Arterial blood Center by Pulse oximetry Body temperature 36.578329 Brenda 36.217963 Brenda [facility] Respiratory rate 20 /min 20 /min [facility] Heart rate 52 /min 52 /min [facility] Diastolic blood 62 mm[Hg] 62 mm[Hg] [facility] Systolic blood 100 mm[Hg] 100 mm[Hg] [facility] [place] Oxygen 99 % 99 % [facility] saturation in Medical Arterial blood Center by Pulse oximetry Body temperature 36.659499 Brenda 36.936219 Brenda [facility] Respiratory rate 20 /min 20 /min [facility] Heart rate 62 /min 62 /min [facility] Diastolic blood 56 mm[Hg] 56 mm[Hg] [facility] Systolic blood 97 mm[Hg] 97 mm[Hg] [facility] [place] Body weight 75.735726 kg 75.601342 kg [facility] Measured Medical [place] Body height 175.428000 cm 175.546847 cm [facility] Body mass index 24.65 kg/m2 24.65 kg/m2 [facility] (BMI) [Ratio] Medical Center Body temperature 36.509874 Brenda 36.571308 Brenda [facility] Respiratory rate 20 /min 20 /min [facility] Heart rate 53 /min 53 /min [facility] Diastolic blood 59 mm[Hg] 59 mm[Hg] [facility] pressure Medical Center Systolic blood 107 mm[Hg] 107 mm[Hg] [facility] Body temperature 36.434481 Brenda 36.369051 Brenda [facility] Respiratory rate 20 /min 20 /min [facility] Heart rate 65 /min 65 /min [facility] Diastolic blood 63 mm[Hg] 63 mm[Hg] [facility] Systolic blood 99 mm[Hg] 99 mm[Hg] [facility] Body weight 75.822940 kg 75.912542 kg [facility] Measured Medical Center Body height 175.876294 cm 175.267389 cm [facility] Body mass index 24.65 kg/m2 24.65 kg/m2 [facility] (BMI) [Ratio] Medical Center Body temperature 36.768496 Brenda 36.654500 Brenda [facility] Respiratory rate 16 /min 16 /min [facility] Heart rate 60 /min 60 /min [facility] Diastolic blood 72 mm[Hg] 72 mm[Hg] [facility] Systolic blood 95 mm[Hg] 95 mm[Hg] [facility] Oxygen 96 % 96 % [facility] saturation in Medical Arterial blood Center by Pulse oximetry Oxygen 97 % 97 % [facility] saturation in Medical Arterial blood Center by Pulse oximetry Body weight 75.197479 kg 75.311492 kg [facility] Measured [facility] Center Body height 170.770857 cm 170.319232 cm [facility] Oxygen 99 % 99 % [facility] saturation in Medical Arterial blood Center by Pulse oximetry Body mass index 25.8 kg/m2 25.8 kg/m2 [facility] (BMI) [Ratio] Medical Center Diastolic blood 77 mm[Hg] 77 mm[Hg] [facility] Systolic blood 120 mm[Hg] 120 mm[Hg] [facility] Hospital Respiratory rate 22 /min 22 /min [facility] Heart rate 80 /min 80 /min [facility] Body temperature 35.57448 Brenda 35.73900 Brenda [facility] Body temperature 96.7 [degF] 96.7 [degF] [facility] Body mass index 27.0 kg/m2 27.0 kg/m2 [facility] (BMI) [Ratio] Hospital Body weight 198.42 [lb_av] 198.42 [lb_av] [facility] Systolic blood 115 mmHg 115 mmHg [facility] Respiratory rate 18 bpm 18 bpm [facility] Heart rate 82 bpm 82 bpm [facility] Diastolic blood 64 mmHg 64 mmHg [facility] Diastolic blood 66 mmHg 66 mmHg [facility] Systolic blood 106 mmHg 106 mmHg [facility] Respiratory rate 16 bpm 16 bpm [facility] Heart rate 61 bpm 61 bpm [facility] Body temperature 96.9 [facility] Body weight 174 lbs 174 lbs [facility] Diastolic blood 72 mmHg 72 mmHg [facility] Systolic blood 102 mmHg 102 mmHg [facility] Respiratory rate 18 bpm 18 bpm [facility] Heart rate 72 bpm 72 bpm [facility] Diastolic blood 65 mmHg 65 mmHg [facility] Systolic blood 101 mmHg 101 mmHg [facility] Respiratory rate 18 bpm 18 bpm [facility] Heart rate 65 bpm 65 bpm [facility] Body temperature 97.4 [facility] Body temperature 36.786330 Brenda 36.279831 Brenda [facility] Respiratory rate 17 /min 17 /min [facility] Oxygen 97 % 97 % [facility] saturation in Medical Arterial blood Center by Pulse oximetry Heart rate 115 /min 115 /min [facility] Diastolic blood 109 mm[Hg] 109 mm[Hg] [facility] Systolic blood 153 mm[Hg] 153 mm[Hg] [facility] Diastolic blood 88 mm[Hg] 88 mm[Hg] [facility] Systolic blood 150 mm[Hg] 150 mm[Hg] [facility] Respiratory rate 20 /min 20 /min [facility] Heart rate 53 /min 53 /min [facility] Body temperature 36.89187 Brenda 36.47140 Brenda [facility] Body temperature 98.5 [degF] 98.5 [degF] [facility] Body mass index 23.0 kg/m2 23.0 kg/m2 [facility] (BMI) [Ratio] Hospital Body weight 154.32 [lb_av] 154.32 [lb_av] [facility] Diastolic blood 53 mm[Hg] 53 mm[Hg] [facility] Systolic blood 143 mm[Hg] 143 mm[Hg] [facility] ns pressure Hospital Respiratory rate 20 /min 20 /min [facility] Heart rate 51 /min 51 /min [facility] Body temperature 36.99122 Brenda 36.19546 Brenda [facility] Body temperature 98.3 [degF] 98.3 [degF] [facility] Body mass index 23.0 kg/m2 23.0 kg/m2 [facility] (BMI) [Ratio] Hospital Body weight 157.32 [lb_av] 157.32 [lb_av] [facility] Diastolic blood 84 mm[Hg] 84 mm[Hg] [facility] pressure Hospital Systolic blood 124 mm[Hg] 124 mm[Hg] [facility] pressure Hospital Respiratory rate 18 /min 18 /min [facility] Heart rate 51 /min 51 /min [facility] Body temperature 36.01213 Brenda 36.94243 Brenda [facility] Body temperature 97.6 [degF] 97.6 [degF] [facility] Body mass index 23.0 kg/m2 23.0 kg/m2 [facility] (BMI) [Ratio] Hospital Body weight 158.34 [lb_av] 158.34 [lb_av] [facility] Diastolic blood 75 mm[Hg] 75 mm[Hg] [facility] pressure Hospital Systolic blood 115 mm[Hg] 115 mm[Hg] [facility] pressure Hospital Respiratory rate 18 /min 18 /min [facility] Heart rate 56 /min 56 /min [facility] Body temperature 36.65421 Brenda 36.76457 Brenda [facility] Body temperature 98.0 [degF] 98.0 [degF] [facility] Body mass index 25.0 kg/m2 25.0 kg/m2 [facility] (BMI) [Ratio] Hospital Body weight 174.36 [lb_av] 174.36 [lb_av] [facility] ID Date Data Source [id number] 02/20/2020 10:07:23 PM [facility] Name Value Range Interpretation Code Description Data Source(s) Body weight Measured 174 lb 174 lb [facility] ID Date Data Source [id number] 02/14/2020 10:37:07 PM [facility] Name Value Range Interpretation Code Description Data Source(s) Body weight Measured 174 lb 174 lb [facility] ID Date Data Source [id number] 10/25/2019 10:29:42 PM EST [facility] Name Value Range Interpretation Code Description Data Source(s) Body weight Measured 174 lb 174 lb [facility] Patient Treatment Plan of Care Planned Activity Planned Date Details Description Data Source (s) No data available for this N [facility] Azithromycin 250 MG Oral Rg [facility] Thiamine 100 MG Oral Tablet [facility] Folic Acid 1 MG Oral Tablet [facility] 24 HR Divalproex Sodium 500 [facility] Medical MG Extended Release Oral Fouzia ter Tablet [Depakote] 24 HR Divalproex Sodium 500 [facility] Medical MG Extended Release Oral Fouzia ter Tablet [Depakote] Folic Acid 1 MG Oral Tablet [facility] Thiamine 100 MG Oral Tablet [facility]
[2020-07-05] MEDS ORDERED: MELATONIN 5 MG TABLETS PO SCH (22:00)
[2020-07-05] MEDS ORDERED: THIAMINE HCL 100 MG TABLET (FP) PO SCH (22:00)
[2020-07-05] MEDS: chlordiazePOXIDE HCL 25 MG CAPSULE PO SCH (23:28)
[2020-07-05] MEDS: hydrOXYzine PAMOATE 25 MG CAPSULE (FP) PO SCH (23:29)
[2020-07-06] MEDS: chlordiazePOXIDE HCL 25 MG CAPSULE PO SCH (00:07)
[2020-07-06] MEDS ORDERED: PRENATAL VITAMINS W/ FOLIC ACID TABLET (FP) PO SCH (10:00)
[2020-07-07] MEDS ORDERED: chlordiazePOXIDE HCL 25 MG CAPSULE PO SCH (05:00)
--- NOTE | 2020-07-07 21:42 | EKG ---
Test Reason : Blood Pressure : / mmHG Vent. Rate : 042 BPM Atrial Rate : 042 BPM P-R Int : 148 ms QRS Dur : 088 ms QT Int : 474 ms P-R-T Axes : 026 036 009 degrees QTc Int : 395 ms MARKED SINUS BRADYCARDIA MODERATE VOLTAGE CRITERIA FOR LVH, MAY BE NORMAL VARIANT T WAVE ABNORMALITY, CONSIDER ANTERIOR ISCHEMIA ABNORMAL ECG NO PREVIOUS ECGS AVAILABLE Confirmed by DIEGO GONGOAR MD ([id number]) on 07/07/2020 9:41:48 PM Referred By: Confirmed By:DIEGO GONGORA MD
[2020-07-08] MEDS ORDERED: chlordiazePOXIDE HCL 10 MG CAPSULE PO PRN
[2020-07-08] MEDS ORDERED: chlordiazePOXIDE HCL 10 MG CAPSULE PO SCH (05:00)
--- NOTE | 2020-07-08 08:27 | PN ---
Teaching Attending Note Name of Resident: Josh Krishnamurthy ATTENDING PHYSICIAN STATEMENT I saw and evaluated the patient. I reviewed the resident's note and discussed the case with the resident. I agree with the resident's findings and plan as documented. SUBJECTIVE: OBJECTIVE: ASSESSMENT AND PLAN: 1. Alcohol withdrawal Plan 1. Librium detox protocol 2. review of chart: pt transferred to [facility] for bradycardia
[2020-07-09] MEDS ORDERED: chlordiazePOXIDE HCL 10 MG CAPSULE PO SCH (05:00)
[2020-07-10] MEDS ORDERED: chlordiazePOXIDE HCL 10 MG CAPSULE PO ONE (05:00)
== END 2020-07-05 23:00 | disposition short-term general hospital (02) | DRG 774 ==
LOC: YASAS 13:33 → Y6N 15:53
PROVIDERS: ADMIT Allergy & Immunology; ATTEND Allergy & Immunology
PROC: HZ2ZZZZ Detoxification Services for Substance Abuse Treatment (ICD-10-PCS; principal; 2020-07-05)
DX: F10.230 Alcohol dependence with withdrawal, uncomplicated (principal); F14.20 Cocaine dependence, uncomplicated; F12.20 Cannabis dependence, uncomplicated; F17.210 Nicotine dependence, cigarettes, uncomplicated; F20.9 Schizophrenia, unspecified; J45.20 Mild intermittent asthma, uncomplicated; R00.1 Bradycardia, unspecified; R01.1 Cardiac murmur, unspecified; R20.0 Anesthesia of skin; Z91.018 Allergy to other foods
CPT/HCPCS: 93005; 93010; U0003

== ENCOUNTER 2020-07-05 17:56 | Inpatient (IN) | payer OTHER ==
--- NOTE | 2020-07-05 19:00 | PDOC ---
History of Present Illness - General Chief Complaint: Irregular Heart Beat Stated Complaint: ABNORMAL EKG Time Seen by Provider: 07/05/20 18:47 - History of Present Illness Initial Comments: HPI: 50yo M with PMH of schizophrenia, asthma, anemia, polysubstance abuse sent by [facility] for evaluation of bradycardia and abnormal EKG. Per the patient, he has never been evaluated by a product analyst before and has not seen a primary c are physician in over two years. He has had EKG's previously and has always been told that he was "low." Reports that he had 35 seconds of chest pain yesterday but no shortness of breath. Drugs of choice include marijuana, alcohol, and cocaine with last usage yesterday. Has had a cough productive of yellow sputum. Also notes leg swelling x 2 months which he attribute in part to being on his feet. Denies fevers, but endorses chills. ROS: Constitutional: no fever, +chills HEENT: no throat pain, no dysphagia Cardiovascular: +chest pain, no palpitations Respiratory: +cough, no shortness of breath Gastrointestinal: no abdominal pain, no nausea Genitourinary: no dysuria, no hematuria Musculoskeletal: no myalgia, no arthralgia Skin: no rash, no itching Neurologic: no headache, no weakness Psych: no agitation, no anxiety PE: General: Awake, alert, and fully oriented, in no acute distress Head: No signs of trauma Eyes: EOMI, sclera anicteric ENT: Moist mucus membranes Neck: Normal ROM, supple Lungs: Crackles present at both bases Cardio: Regular rhythm, S1 and S2 present Abdomen: Soft, nontender Extremities: Normal range of motion, Distal pulses present, 2+ pitting edema Skin: Warm, Dry, normal turgor Neurologic: Cranial nerves II through XII grossly intact. Normal speech ED Course/MDM: DDX including but not limited to ACS, electrolyte abnormality, anemia, cardiomyopathy, CHF Labs, EKG, CXR Admission for cardiac evaluation EKG: rate 52, Qtc 409, sinus, twi in lead III and V3, no prior EKG's for comparison 07/05/20 18:55 Patient signed out to Dr. Oshea and night team 07/05/20 19:08 Past History - Medical History Allergies/Adverse Reactions: Allergies Allergy/AdvReac Type Severity Reaction Status Date / Time banana Allergy Intermediate Vomiting Verified 07/05/20 18:08 cantaloupe Allergy Intermediate Vomiting Verified 07/05/20 18:08 watermelon Allergy Intermediate Vomiting Verified 07/05/20 18:08 peanut butter Allergy Intermediate Vomiting Uncoded 07/05/20 18:08 Home Medications: Ambulatory Orders Aripiprazole [Abilify Maintena] 400 mg IM MONTHLY 07/05/20 Divalproex [Depakote -] 500 mg PO BID 07/05/20 Asthma: Yes Cardiac Disorders: No COPD: No Diabetes: No GI Disorders: No Disorders: No HTN: No Kidney Stones: No Seizures: No - Surgical History Abdominal Surgery: No Appendectomy: No Cardiac Surgery: No Cholecystectomy: No Lung Surgery: No Neurologic Surgery: No Orthopedic Surgery: No - Reproductive History Testicular Surgery: No - Psycho-Social/Smoking History Smoking History: Current every day smoker Have you smoked in the past 12 months: Yes Number of Cigarettes Smoked Daily: 20 Information on smoking cessation initiated: No 'Breaking Loose' booklet given: 07/05/20 - Substance Abuse Hx (Audit-C & DAST Scrn) How often the patient has a drink containing alcohol: 4 0r more times/wk Number of drinks the patient has on a typical day: 7 to 9 How often the patient has six or more drinks on one occasion: Daily or almost daily Score: In Men: 4 or > Positive; In Women: 3 or > Positive: 11 Screen Result (Pos requires Nsg. Audit-10AR): Positive In the last yr the pt used illegal drug/Rx for NonMed reason: Yes Score: Yes response is considered Positive: 1 Screen Result (Positive result requires Nsg. DAST-10): Positive *Physical Exam - Vital Signs Last Vital Signs Temp Pulse Resp BP Pulse Ox 97.4 F L 59 L 18 111/78 100 07/05/20 17:58 07/05/20 17:58 07/05/20 17:58 07/05/20 17:58 07/05/20 17:58 ED Treatment Course - LABORATORY CBC & Chemistry Diagram: 07/06/20 05:35 07/06/20 05:35 - RADIOLOGY Radiology Studies Ordered: Category Date Time Status CHEST PA & LAT [RAD] Stat Radiology 07/05/20 18:41 Ordered Discharge - Discharge Information Problems reviewed: Yes Clinical Impression/Diagnosis: Bradycardia, Abnormal EKG Chest pain Qualifiers: Chest pain type: unspecified Qualified Code(s): R07.9 - Chest pain, unspecified Condition: Guarded - Admission Yes - Follow up/Referral - Patient Discharge Instructions - Post Discharge Activity
--- NOTE | 2020-07-05 19:05 | PDOC ---
Documentation entered by Gely Trimble SCRIBE, acting as scribe for Miesha Ni MD. Miesha Ni MD: This documentation has been prepared by the Nai pepper Xhesika, SCRIBE, under my direction and personally reviewed by me in its entirety. I confirm that the documentation accurately reflects all work, treatment, procedures, and medical decision making performed by me. Attending Attestation - Resident Resident Name: Мария Sales - ED Attending Attestation I have performed the following: I have examined & evaluated the patient, The case was reviewed & discussed with the resident, I agree w/resident's findings & plan - HPI HPI: 07/05/20 19:01 The patient is a 50y/o M with a PMH of schizophrenia, anemia, asthma, polysubstance abuse (alcohol, cocaine and marijuana) who presents [facility] the ED [facility] from [facility] for bradycardia and low EKG. Pt states he has had an abnormal EKG in the past but has never seen a tour production supervisor. Pt states he last used marijuana and cocaine yesterday and later endorsed 35 seconds of CP. Pt reports chills but denies fevers. Pt states his brother from a [place] at 48y/o. Denies fever, chest pain, SOB, palpitation, dizziness, weakness, N, V, D, abdominal pain, bladder and bowel problems, leg swelling, No sick contacts or travel. No new changes in medications. Allergies: Per Nursing Records Past Medical History: See HPI Social history: Lives with family. No tobacco, ETOH or drug use. Meds: as documented in EMR 07/05/20 19:39 - Physicial Exam PE: 07/05/20 19:02 Agree with the resident's HPI and PE as documented in the electronic medical record. NAD, awake and alert, EOMI, PERRL, MMM, nl conjunctiva, anicteric; neck supple. lungs clear, RRR, abdomen soft nontender. Back nontender. BELTRÁN x4, no focal neuro deficits. No peripheral edema. normal color for ethnicity, WWP. speech clear. 1+ pitting edema, trace and resolves <15 seconds. 07/05/20 19:40 - Medical Decision Making 07/05/20 19:03 Vital Signs Temp Pulse Resp BP Pulse Ox 97.4 F L 59 L 18 111/78 100 07/05/20 17:58 07/05/20 17:58 07/05/20 17:58 07/05/20 17:58 07/05/20 17:58 DDx chest pain: ACS, coronary vasospasm, NSTEMI, arrhythmia, unstable angina, PE, dissection, PUD, esophageal spasm, GERD, gastritis, costochondritis, pneumonia, pleurisy, pericarditis/myocarditis. dehydration, electrolyte/metabolic derangements. vitals reviewed wnl, normotensive, mild bradycardia sent in for abnormal EKG, sinus coby with TWI in precordial leads had cp yesterday EKG sinus bradycardia 53 bpm, no interval abnormalities, narrow QRS, ST and T wave segments and morphology normal. Nonspecific T wave abnormalities with T wave inversions in lead III and precordial leads V1, V2, V3. No prior EKGs noted 07/05/20 20:21 Interpreted by ED Physician: CXR (2 view): Bilateral infiltrative pattern bones appear intact and structures normal alignment, cardiac silhouette within normal limits. no free air under diaphragm, no pneumothorax. labs and lytes wnl, neg trop. subtherapeutic valproic acid EKG abnormal as documented CT chest with signs of pulmonary hypertension with dilated main pulmonary artery, there are some nonspecific mediastinal lymph nodes. Extensive bilateral upper and lower lung field chronic interstitial lung disease and associated bronchiectasis. Patient does not have any symptoms to suggest infection, defer antibiotics at this time. admission warranted for further workup, tele monitor, serial trops, echo, cards eval 07/05/20 21:14 07/05/20 22:21 Heart Score/ECG Review #1 ECG reviewed & interpreted by me at: 18:15 General ECG Interpretation: Sinus Rhythm Compared to previous ECG there are: Previous ECG unavail 07/05/20 19:05 EKG sinus bradycardia 53 bpm, no interval abnormalities, narrow QRS, ST and T wave segments and morphology normal. Nonspecific T wave abnormalities with T wave inversions in lead III and precordial leads V1, V2, V3. No prior EKGs noted Discharge - Discharge Information Problems reviewed: Yes Clinical Impression/Diagnosis: Bradycardia, Abnormal EKG Condition: Guarded - Admission Yes - Follow up/Referral - Patient Discharge Instructions - Post Discharge Activity
--- NOTE | 2020-07-05 19:06 | PDOC ---
*Physical Exam - Vital Signs Last Vital Signs Temp Pulse Resp BP Pulse Ox 97.4 F L 59 L 18 111/78 100 07/05/20 17:58 07/05/20 17:58 07/05/20 17:58 07/05/20 17:58 07/05/20 17:58 <Galo Oshea - Last Filed: 07/05/20 23:31> - Vital Signs Last Vital Signs Temp Pulse Resp BP Pulse Ox 97.4 F L 54 L 20 102/81 97 07/05/20 17:58 07/05/20 22:40 07/05/20 22:40 07/05/20 22:40 07/05/20 22:40 <Miesha Ni - Last Filed: 07/05/20 23:59> ED Treatment Course - LABORATORY CBC & Chemistry Diagram: 07/05/20 18:56 07/05/20 18:56 <Galo Oshea - Last Filed: 07/05/20 23:31> - LABORATORY CBC & Chemistry Diagram: 07/05/20 18:56 07/05/20 18:56 - ADDITIONAL ORDERS Additional order review: Laboratory Results 07/05/20 07/05/20 07/05/20 18:56 18:56 18:56 PT with INR INR Sodium 140 Potassium 4.4 Chloride 106 Carbon Dioxide 32 Anion Gap 3 L BUN 19.0 H Creatinine 1.3 Est GFR (CKD-EPI)AfAm 74.26 Est GFR (CKD-EPI)NonAf 64.07 Random Glucose 118 H Calcium 8.8 Phosphorus 2.7 Magnesium 2.2 Total Bilirubin 0.6 AST 23 ALT 18 Alkaline Phosphatase 96 Creatine Kinase 224 Creatine Kinase Index 1.8 CK-MB (CK-2) 4.2 H Troponin I < 0.02 B-Natriuretic Peptide 47.2 Total Protein 7.4 Albumin 3.0 L TSH 2.53 Valproic Acid < 3.0 L 07/05/20 18:56 PT with INR 12.00 INR 1.02 Sodium Potassium Chloride Carbon Dioxide Anion Gap BUN Creatinine Est GFR (CKD-EPI)AfAm Est GFR (CKD-EPI)NonAf Random Glucose Calcium Phosphorus Magnesium Total Bilirubin AST ALT Alkaline Phosphatase Creatine Kinase Creatine Kinase Index CK-MB (CK-2) Troponin I B-Natriuretic Peptide Total Protein Albumin TSH Valproic Acid 07/05/20 18:56 RBC 5.07 MCV 74.3 L MCHC 31.5 L RDW 15.8 MPV 8.1 Neutrophils % 51.6 Lymphocytes % 34.0 Monocytes % 8.4 Eosinophils % 5.4 H Basophils % 0.6 - RADIOLOGY Radiology Studies Ordered: Category Date Time Status CHEST CT WITHOUT CONTRAST [CT] Stat CT Scan 07/05/20 20:20 Completed - Medications Given in the ED: ED Medications Discontinued Medications Generic Name Dose Route Start Last Admin Trade Name Wichoq PRN Reason Stop Dose Admin Divalproex Sodium 500 mg 07/05/20 22:22 07/05/20 22:44 Depakote *Er* - PO 07/05/20 22:23 500 mg ONCE ONE Administration <Miesha Ni - Last Filed: 07/05/20 23:59> Medical Decision Making - Medical Decision Making 07/05/20 19:05 signed out from day team has occasional short lasting chest pain akiko after drug use sent from [facility] for bradycardia and abnormal EKG pending labs admit cardiac w/u 07/05/20 20:36 CXR reviewed - b/l patchy infiltrates. concern for covid? will obtain Chest CT 07/05/20 23:31 CT report reviewed labs were reviewed pt was endorsed and admitted to the hospitalists <Galo Oshea - Last Filed: 07/05/20 23:31> Discharge - Discharge Information Problems reviewed: Yes - Admission Yes <Galo Oshea - Last Filed: 07/05/20 23:31> - Admission Yes <Miesha Ni - Last Filed: 07/05/20 23:59> - Discharge Information Clinical Impression/Diagnosis: Bradycardia, Abnormal EKG, Chest pain Condition: Guarded
[2020-07-05 19:54] LABS: BASO % 0.6 % (0-2.0); EOS % 5.4 % (0-4.5); HEMATOCRIT 37.7 % (35.4-49); HEMOGLOBIN 11.9 GM/dL (11.7-16.9); MCH 23.4 pg (25.7-33.7); MCHC 31.5 g/dl (32.0-35.9); MEAN CELL VOLUME 74.3 fl (80-96); MEAN PLT VOLUME 8.1 fl (7.5-11.1); MONO % 8.4 % (3.8-10.2); NEUT % 51.6 % (42.8-82.8); PLATELET COUNT 253 K/MM3 (134-434); RBC 5.07 M/mm3 (4.00-5.60); RDW 15.8 % (11.9-15.9); WHITE BLOOD COUNT 5.6 K/mm3 (4.0-10.0)
[2020-07-05 19:59] LABS: INR 1.02 (0.83-1.09)
[2020-07-05 20:49] LABS: ALK PHOS 96 U/L (45-117); ANION GAP 3 MMOL/L (8-16); BILIRUBIN,TOTAL 0.6 mg/dL (0.2-1); CALCIUM 8.8 mg/dL (8.5-10.1); CHLORIDE 106 mmol/L (98-107); CO2 32 mmol/L (21-32); CREATININE 1.3 mg/dL (0.55-1.3); GLUCOSE,RANDOM 118 mg/dL (74-106); MAGNESIUM 2.2 mg/dL (1.8-2.4); PHOSPHOROUS 2.7 mg/dL (2.5-4.9); POTASSIUM 4.4 mmol/L (3.5-5.1); SGOT/AST 23 U/L (15-37); SGPT/ALT 18 U/L (13-61); SODIUM 140 mmol/L (136-145); TOT PROT 7.4 g/dl (6.4-8.2)
[2020-07-05] MEDS ORDERED: DIVALPROEX NA *ER* EXTEND REL 500 MG TABLET.SA (FP) PO ONE (22:22)
[2020-07-05] MEDS ORDERED: DIVALPROEX SODIUM 500 MG TABLET E.C. ONE (22:35)
--- OUTSIDE RECORDS SUMMARY | 2020-07-05 22:47 | XMS ---
:1970 Author Organization [facility] Care Team Providers Name Role Phone MD Vida Unavailable Unavailable MD KADI Unavailable Unavailable ED STAFF PHYSICIAN Unavailable Unavailable MD Rachna Unavailable Unavailable Florence, C Unavailable Unavailable Florence C Unavailable Unavailable Thomas, C Unavailable Unavailable Thomas, C Unavailable Unavailable LUNA Charles Unavailable Unavailable MD Deondre Unavailable Unavailable Jas HURTADO Unavailable Unavailable [id number] Unavailable Unavailable MD Soniya Unavailable Unavailable WILLA [...] is protected by Article 27-F of the [facility] Public Health law. If you continue you may haveaccess to information: Regarding HIV / AIDS; Provided by facilities licensed or operated by the [facility] Office of Mental Health; or Provided by the [facility] Office for People With Developmental Disabilities. If such information is present, then the following [facility] mandated warning applies: This information has been [...] law may result in a fine or senior living sentence or both. A general authorization for the release of medical or other information is NOT sufficient authorization for further disclosure. Advance Directives Directive Description Medical Data Analyst Pasting Machine Offbearer Status Observation Data S ource(s) Description Advance No completed [facility] Advance No completed [facility] Advance No completed [facility] Allergies and Adverse Reactions Type Description Substance Reaction Status Data Source(s ) Drug allergy haloperidol haloperidol NOT LISTED [facility] Food allergy Fruit, Fresh Fruit, Fresh VOMITING [facility] Encounters Encounter Providers Location Date Indications Data Source(s ) Emergency Attender: Harsh 06/02/2020 POST FALL, ARM PAIN W shalini Ruiz 07:27:00 AM [facility] EDT - 06/02/2020 08:51:00 AM EDT POST FALL, ARM PAIN [facility] Patient discharged. Emergency Attender: ED STAFF H 05/22/2020 08:49:00 AM [facility] PHYSICIANAttender: CAIO ED EDT - 05/22/2020 [facility] STAFF PHYSICIANAttender: STAFF 05:46:00 PM EDT ED STAFF PHYSICIANAdmitter: ED STAFF PHYSICIAN Patient discharged. Inpatient Attender: ROMIE HARVEY 02/14[facility]2020 [facility]T - 02/20/2020 [facility] 10:07:00 PM EDT Patient discharged. Outpatient JINNY 02/14/2020 04:11:00 PM EDT - [address] [place] [address] 10:36:00 PM EDT Patient discharged. Inpatient Attender: NAN H-HAL6 02/09/2020 04:21:00 [facility] WILLA DUONGSILVIAttender: PM EDT - 02/14/20 [facility] STAFF ED STAFF 04:51:00 PM EDT PHYSICIANAdmitter: NAN DUONGHReferrer: NAN DE LA TORRELAURA DESTINY Patient discharged. Emergency Attender: Dilshad 12/15/2019 04:01:00 FLU LIKE SYMPTOMS-WI [facility] Battiato AM EDT - 12/15/2019 [facility] 11:10:00 AM EDT FLU LIKE SYMPTOMS-WI Patient discharged. Unlisted evaluation 11/23/2019 10:00:00 NETSMART (The and management PM EST Guidance C enter of service [place]) Unlisted evaluation 11/09/2019 02:00:00 NETSMART (The and management PM EST Guidance C enter of [facility]) Inpatient Attender: ROMIE PRADHAN1D 10/17/2019 05:03:00 [facility] VARUNSHANYANAdmi EST - 10/25/2019 Hospital tter: Kacey 10:29:00 PM EST Florence Patient discharged. Attender: 10/17/2019 [facility] [id number] 05:03[facility]00 [id number] 10/17/2019 [facility] 02:13:00 PM EST - Hospita l 10/17/2019 05:16:00 PM EST Patient discharged. Attender: 10/17/2019 [facility] [id number] 02:13:00 PM [facility]_[id number] Unlisted 10/11/2019 NETSMART (Ment al evaluation and 08:00:00 PM EST Healt h management - 10/20/2019 [facility] of service 04:00:00 PM EST [facility] er) Emergency H 07/22/2019 [facility] 11:50:00 PM EDT Medical C enter - 07/23/2019 01:40:00 AM EDT Patient discharged. Emergency Attender: Sean Mendosa 06/05/2019 05:06:00 MED EVAL [facility] MDConsultant: Sean AM EDT - 06/05/2019 [facility] Deondre LUCIANO 06:56:00 AM EDT MED EVEVERARDO WALK Patient discharged. Emergency Attender: Piper 06/04/2019 [...] (Ment al evaluation and 07:10:00 PM EDT [facility] service 05/12/2019 of [facility]) 06:30:00 PM EDT Unlisted 04/26/2019 NETSMART (Ment al evaluation and 04:50:00 PM EDT [facility] service 05/02/2019 of [facility]) 02:30:00 PM EDT Unlisted 04/04/2019 NETSMART (Ment al evaluation and 12:45:00 PM EDT [facility] service 04/05/2019 of [facility]) 02:50:00 PM EDT Emergency Attender: 04/03/2019 COUGHING UP Melinda Briscoe 11:21:00 PM EDT - BLOOD W/I [facility] 04/04/2019 06:07:00 AM EDT COUGHING UP BLOOD W/I Unlisted evaluation 03/27/2019 01:00:00 NETSMART (The and management PM EDT Guidance C jacquelyn of [facility]) Attender: 08/10/2005 09:00:00 [facility] [id number] PM EST Hospi sherly [id number] Attender: 08/10/2005 11:00:00 [facility] [id number] AM EST Hospi sherly [id number] Outpatient Attender: RYAN STEARNS 08/10/2005 10:00:00 [facility] JAMATAdmitter: AM EST Hospit al RYAN WALLIS Attender: 08/10/2005 10:00:00 [facility] [id number] AM EST Hospi sherly [id number] Attender: 08/10/2005 10:00:00 [facility] [id number] AM EST Hospi sherly [id number] Medications Medication Brand Start Product Dose Route Administrative Pharm[facility] Indications Reaction Description Data Name Date Form Instructions Instructions Source(s) 2 ML Abilif 05/06/ 400.0 Intram active NETSMA RT aripiprazol y 2020 [place] uscula (The e 200 MG/ML Mainte 04:00: gram r Guid ance Prefilled na 00 AM Center of Syringe Dual-C EDT [place] [Abilify] hamber r) ed Syring e 24 HR Depako 05/06/ 2.0 Oral active NETSMART Divalproex te ER [...] 00 AM [facility] hamber [facility]) ed Syring e 2 ML Abilif 01/31/ INTRAM active NETSMAR T aripiprazol y 2020 [facility] (The e 200 MG/ML Mainte 04:00: R Guid ance Prefilled na 00 AM [facility] [Abilify] hamber r) ed Syring e 400 MG Intram uscula r Powder for Suspen nura, Extend ed Releas e 24 HR Depako 01/31/ ORAL active NETSMART Divalproex te ER 2020 (The Sodium 500 500 MG 04:00: Yo nce MG Extended Oral 00 AM Center of Release Tablet EDT [facility] Tablet , r) [Depakote] Extend ed Releas e 24 HR Depako 12/20/ ORAL active NETSMART Divalproex te ER 2020 (The Sodium 500 500 MG 04:00: Yo nce MG Extended Oral 00 AM Center [facility] Release Tablet EDT [facility] Tablet , r) [Depakote] Extend ed Releas e 2 ML Abilif 12/20/ INTRAM active NETSMAR T aripiprazol y 2020 [facility] (The e 200 MG/ML Mainte 04:00: R Guid ance Prefilled na 00 AM [facility] dukeer r) ed [place] e 400 MG Intram uscula r Powder for Suspen nura, Extend ed Releas e Prednisone Predni 12/14/ TABLET 40 mg ORAL complet [facility] 20 MG Oral sone 2019 ed [place] Tablet 09:58: Hospital 00 AM EDT 200 ACTUAT [place] 12/14/ AEROSOL, 2 ORAL complet [facility] Albuterol rol 2019 SPRAY ed [place] 0.09 Sulfat 09:58: Hospital MG/ACTUAT e Hfa 00 AM Metered 90MCG/ EDT Dose Inh* Inhaler [ProAir] Albuterol Sulfate Hfa 90MCG/Inh* 200 ACTUAT [place] 12/14/ AEROSOL, 2 ORAL active [facility] Albuterol rol 2020 SPRAY [place] 0.09 Sulfat 09:58: Hospital MG/ACTUAT e Hfa 00 AM Metered 90MCG/ EDT Dose Inh* Inhaler [ProAir] Albuterol Sulfate Hfa 90MCG/Inh* Azithromyci Azithr 12/14/ TABLET 250 ORAL complet White n 250 MG omycin 2020 mg ed [place] Oral Tablet 09:58: Hospit al [Zithromax] 00 AM EDT Azithromyci Azithr 12/14/ TABLET 250 ORAL active White n 250 MG omycin 2020 mg [place] Oral Tablet 09:58: Hospit al [Zithromax] 00 AM EDT Prednisone Predni 12/14/ TABLET 40 mg ORAL active [facility] 20 MG Oral sone 2020 [place] Tablet 09:58: Hospital 00 AM EDT aripiprazol [...] Center of Syringe Dual-C EST [place] [Abilify] hamber r) ed Syring e [...] Center of Syringe Dual-C EST [place] [Abilify] hamber r) ed Syring e [...] active White 20 MG Oral dine 2019 [place] Tablet 06:10: Hospital [Pepcid] 00 AM EDT Famotidine Famoti 06/05/ TABLET 20 mg ORAL active [facility] 20 MG Oral dine 2019 [place] Tablet 06:10: Hospital [Pepcid] 00 AM EDT Famotidine Famoti 06/05/ TABLET 20 mg ORAL complet [facility] 20 MG Oral dine 2019 ed [place] Tablet 06:10: Hospital [Pepcid] 00 AM EDT Ondansetron Ondans 06/05/ TABLET 4 mg ORAL active [facility] 4 MG etron 2019 [place] Disintegrat Hcl 12:09: Hospit al ing Oral 00 AM Tablet EDT Ondansetron Hcl Ondansetron Ondans 06/05/ TABLET 4 mg ORAL complet [facility] 4 MG etron 2019 ed [place] Disintegrat Hcl 12:09: Hospit al ing Oral 00 AM Tablet EDT Ondansetron Hcl Ondansetron Ondans 06/05/ TABLET 4 mg ORAL complet White 4 MG etron 2018 ed [place] Disintegrat Hcl 12:09: Hospit al ing Oral 00 AM Tablet EDT Ondansetron Hcl Ondansetron Ondans 06/05/ TABLET 4 mg ORAL complet [facility] 4 MG etron 2019 ed [place] Disintegrat Hcl 12:09: Hospit al ing Oral [...] ORAL complet [facility] sone 2018 {Caps ed [place] 05:10: ule} Hospital 00 AM EDT Prednisone Predni 07/02/ TABLET 2 ORAL active W shalini 10 MG Oral sone 2018 {Caps [place] Tablet 05:10: ule} Hospital 00 AM EDT Amoxicillin Amoxic 07/02/ TABLET 1 ORAL active [facility] 875 MG / illin/ 2018 {Caps [place] Clavulanate Clavun 05:10: ule} Hosp ital 125 MG Oral ate 00 AM Tablet 875-12 EDT [Augmentin] 5 Amoxicillin Tablet /Clavunate * 875-125 Tablet* Albuterol 07/02/ AEROSOL, 2 RESPIR complet [facility] 2019 SPRAY ATORY ed [place] 05:10: (INHAL Hospital 00 AM ATION) EDT Prednisone Predni 07/02/ TABLET 2 ORAL complet [facility] sone 2018 {Caps ed [place] 05:10: ule} Hospital 00 AM EDT Amoxicillin Amoxic 07/02/ TABLET 1 ORAL complet [facility] 875 MG / illin/ 2018 {Caps ed [place] Clavulanate Clavun 05:10: ule} Hosp ital 125 MG Oral ate 00 AM Tablet 875-12 EDT [Augmentin] 5 Amoxicillin Tablet /Clavunate * 875-125 Tablet* Albuterol 07/02/ AEROSOL, 2 RESPIR active White 2019 SPRAY ATORY [place] 05:10: (INHAL Hospital 00 AM ATION) EDT Albuterol 07/02/ AEROSOL, 2 RESPIR active White 2019 SPRAY ATORY [place] 05:10: (INHAL Hospital 00 AM ATION) EDT Prednisone Predni 07/02/ TABLET 2 ORAL complet White sone 2018 {Caps ed [place] 05:10: ule} Hospital 00 AM EDT Amoxicillin Amoxic 07/02/ TABLET 1 ORAL complet [facility] 875 MG / illin/ 2018 {Caps ed [place] Clavulanate Clavun 05:10: ule} Hosp ital 125 MG Oral ate 00 AM Tablet 875-12 EDT [Augmentin] 5 Amoxicillin Tablet /Clavunate * 875-125 Tablet* Amoxicillin Amoxic 07/02/ TABLET 1 ORAL complet [facility] 875 MG / illin/ 2018 {Caps ed [place] Clavulanate Clavun 05:10: ule} Hosp ital 125 MG Oral ate 00 AM Tablet 875-12 EDT [Augmentin] 5 Amoxicillin Tablet /Clavunate * 875-125 Tablet* Albuterol 07/02/ AEROSOL, 2 RESPIR complet White 2019 SPRAY ATORY ed [place] 05:10: (INHAL Hospital 00 AM ATION) EDT Albuterol 07/02/ AEROSOL, 2 RESPIR complet White 2019 SPRAY ATORY ed [place] 05:10: (INHAL Hospital 00 AM ATION) EDT Amoxicillin Amoxic 07/02/ TABLET 1 ORAL complet [facility] 875 MG / illin2018 {Caps ed [place] Clavulanate Clavun 05:10: ule} Hosp ital 125 MG Oral ate 00 AM Tablet 875-12 EDT [Augmentin] 5 Amoxicillin Tablet /Clavunate * 875-125 Tablet* Prednisone Predni 07/02/ TABLET 2 ORAL complet White 10 MG Oral sone 2018 {Caps ed [place] Tablet 05:10: ule} Hospital 00 AM EDT Prednisone Predni TABLET 2 ORAL complet Wh ite sone {[facility] ed [place] ule} Hospital 24 HR Divalp TABLET active White Divalproex roex 24 HR [place] Sodium 500 Sodium [facility] Hos pital MG Extended D Release RELEASE Oral Tablet Amoxicillin Amoxic TABLET 1 ORAL complet W shalini 875 MG / illin/ {Caps ed [place] Clavulanate Clavun ule} Hospit al 125 MG Oral ate Tablet 5-12 [Augmentin] 5 Amoxicillin Tablet /Clavunate * 875-125 Tablet* Albuterol [place] AEROSOL, 2 RESPIR complet [facility] rol SPRAY ATORY ed [place] (INHAL Hospital ATION) Thiamine thiami 1 complet [...] 2 ML Aripip active [facility] aripiprazol razole [place] e 200 MG/ML Hospital Prefilled Syringe [Abilify] Aripiprazol e complet No data [facility] ed available Health - for this [facility] Azithromyci AZITHr 1 complet Rg nt n [...] 24 Ordere hr, Ordered d By: By: Nate Nate Ouseph, Ouseph MDDirection , s: 2 tablet MDDire oral daily ctions at bedtime : 2 tablet oral daily at bedtim e Insurance Providers Payer name Policy type Policy ID Covered Covered constitution party's Policy P solitario / Coverage constitution party ID relationship to [employer] ormation type roberts LUCIA [id number] SP [id number] HEALTH NON CAP BETTER [id number] PT [id number] HEALTH/FIDELI S LUCIA CARE W [id number] 01 [id number] NM W [id number] SELF PAY [id number] Self [id number] MEDICAID INP [id number] Self [id number] U REHAB [id number] 01 [id number] LUCIA CARE [id number] 01 [id number] [place] SELF PAY 0 Self 0 MEDICAID INP [id number] Self [id number] U REHAB [facility] LUCIA [id number] Self [id number] CARE MEDICAID OP [id number] Self [id number] BETTER [id number] PT [id number] HEALTH/FIDELI S MEDICAID [id number] PT [id number] EMERGENCY [id number] PT [id number] MCAID Medicaid [id number] S [id number] Regular Clinic Visit Problems, Conditions, and Diagnoses Code Display Name Description Problem Type Effective Data Sour ce(s) Dates Complaint 11/09/2019 NETSMART (The 05:00:00 AM Guidance [facility] ) [id number] Schizoaffective Schizoaffective Complaint 10/12/2019 NETS MART disorder, bipolar disorder, bipolar 02:40:00 PM (Mental Health type type EST [facility]) [id number] Schizoaffective Schizoaffective Complaint 01/11/2019 NETS MART (The schizophrenia schizophrenia 01:00:00 PM [facility] [place] EDT [facility] ) [id number] Chronic paranoid Chronic paranoid Complaint 02/14/2000 [facility] schizophrenia 12:00:00 PM Hospita l (disorder) EDT [id number] Cocaine dependence Cocaine dependence Complaint 0 [facility] (disorder) 12:00:00 PM Hospital EDT [id number] Chronic paranoid Chronic paranoid Complaint 02/14/2000 [facility] schizophrenia schizophrenia 12:00:00 PM Hospita l (disorder) EDT 58645634 Cocaine dependence Cocaine dependence Complaint 0 [facility] (disorder) 12:00:00 PM Hospital EDT Y99.9 Unspecified Y99.9 Diagnosis 06/02/2020 [facility] external cause 07:45:00 AM Hospital status EDT Y92.[address] Y92.9 Diagnosis 06/02/2020 [facility] or not applicable 07:45:00 AM Hospit al EDT Y93.9 Activity, Y93.9 Diagnosis 06/02/2020 [facility] unspecified 07:45:00 AM Hospital EDT W19.XXXA Unspecified fall, W19.XXXA Diagnosis 06/02/2020 [facility] [place] [facility] initial encounter 07:45:00 AM Hospit al EDT F17.200 Nicotine F17.200 Diagnosis 06/02/2020 [facility] dependence, 07:45:00 AM Hospital unspecified, EDT uncomplicated J45.909 Unspecified J45.909 Diagnosis 06/02/2020 [facility] asthma, 07:45:00 AM Hospital uncomplicated EDT S40.811A Abrasion of right S40.811A Diagnosis 06/02/2020 [facility] upper arm, initial 07:45:00 AM Hospi sherly encounter EDT R55 Syncope and R55 Diagnosis 06/02/2020 [facility] collapse 07:45:00 AM Hospital EDT F17.210 Nicotine [...] Hospital EDT R10.9 Unspecified R10.9 Diagnosis 06/05/2019 [facility] abdominal pain 05:31:00 AM Hospital EDT R00.1 Bradycardia, R00.1 Diagnosis 06/04/2019 [facility] unspecified 11:04:00 PM Hospital EDT J43.9 Emphysema, J43.9 Diagnosis 06/04/2019 [facility] unspecified 11:04:00 PM Hospital EDT J84.89 Other specified J84.89 Diagnosis 06/04/2019 [facility] [place] ins interstitial 11:04:00 PM Hospital pulmonary diseases EDT R11.2 Nausea with R11.2 Diagnosis 06/04/2019 [facility] vomiting, 11:04:00 PM Hospital unspecified EDT R10.84 Generalized R10.84 Diagnosis 06/04/2019 [facility] abdominal pain 11:04:00 PM Hospital EDT X58.XXXA Exposure to other X58.XXXA Diagnosis 05/29/2019 [facility] [place] [facility] specified factors, 03:04:00 AM Hospi sherly initial encounter EDT S69.92XA Unspecified injury S69.92XA Diagnosis 05/29/2019 [facility] of left wrist, 03:04:00 AM Hospital hand and EDT finger(s), initial encounter J40 Bronchitis, not J40 Diagnosis 04/03/2019 [facility] [place] ins specified as acute 11:59:00 PM Hospi sherly or chronic EDT D64.9 Anemia, Anemia, Diagnosis 12/06/2018 DA (Moun t unspecified unspecified 06:36:32 PM [facility]) 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 08/24/2005 [facility] SCHIZOPHRENIA SCHIZO-UNSPEC 12:00:00 AM Hospita l UNSPECIFIED STATE EST Surgeries/Procedures Procedure Description Date Indications Data Source(s) XR elbow right 06/02/2020 [facility] 12:00:00 AM Hospital EDT Electrocardiographic procedure 06/02/2020 [facility] (procedure) 12:00:00 AM Hospital EDT Computed tomography of chest 12/15/2019 [facility] without contrast 12:00:00 AM Hospital EDT Electrocardiographic procedure 12/15/2019 [facility] (procedure) 12:00:00 AM Hospital EDT Plain chest X-ray (procedure) 12/15/2019 [facility] 12:00:00 AM Hospital EDT Computed tomography of abdomen 06/05/2019 [facility] and pelvis without contrast 12:00:00 AM Hospital EDT Computed tomography of abdomen 06/05/2019 [facility] and pelvis without contrast 12:00:00 AM Hospital EDT Electrocardiographic procedure 06/04/2019 [facility] (procedure) 12:00:00 AM Hospital EDT Electrocardiographic procedure 06/04/2019 [facility] (procedure) 12:00:00 AM Hospital EDT Emergency dept visit 05/29/2019 [facility] 12:00:00 AM Hospital EDT Emergency dept visit 05/29/2019 [facility] 12:00:00 AM Hospital EDT Results ID Date Data Source [id number] 06/02/2020 07:55:00 AM EDT [facility] Bag Hanger:TAM MORAN Name Value Range Interpretation Description Data Sup porting Code Source(s) Document(s ) Glucose 79 mg/dL [facility] [Mass/volume] [facility] in Capillary blood by Glucometer ID Date Data Source [id number].[id number] 05/22/2020 01:53:[address] [facility] 400 Name Value Range Interpretation Code Description Data Liya rce(s) Supporting Document(s ) UNK <item><content [facility] styleCode="Bold"> Medical [facility] er Culture Report </content>
<t able><tbody><tr>< td>Specimen Number:</td><td>[id number]</td></tr ><tr><td>Sample Collection Date/Time: </td><td> 0 1:53 PM</td></tr><tr>< td>Specimen Source:</td><td>B LOOD</td></tr><tr ><td>Blood Culture:</td><td> Collection Plate Date: 05/22/2020 13:57 </td></tr><tr><td >Culture Status:</td><td>P reliminary </td></tr><tr><td >Culture Report:</td><td>C ulture in progress </td></tr></tbody ></table></item> UNK <item><content [facility] styleCode="Bold"> Medical [facility] er Culture Status </content>
<t able><tbody><tr>< td>Specimen Number:</td><td>[id number]</td></tr ><tr><td>Sample Collection Date/Time: </td><td> 0 1:53 PM</td></tr><tr>< td>Specimen Source:</td><td>B LOOD</td></tr><tr ><td>Blood Culture:</td><td> Collection Plate Date: 05/22/2020 13:57 </td></tr><tr><td >Culture Report:</td><td>C ulture in progress </td></tr><tr><td >Culture Status:</td><td>P reliminary </td></tr></tbody ></table></item> ID Date Data Source [facility][id number] 05/22/2020 01:53:[address] [facility] -0400 Name Value Range Interpretation Description Data Sup porting Code Source(s) Document(s ) Valproate 50-120 Below low normal <content [facility] [Mass/volume] styleCode="Bold [facility] in Serum or ">Valproic Acid Medical Plasma </content>< Center 10.0 UG/ML L<content styleCode="Ital ics"> (50-120 UG/ML)</content > ID Date Data Source MROUTINECC.[id number] 05/22/2020 01:36:[address] [facility] -0400 Name Value Range Interpretation Description Data Sup porting Code Source(s) Document(s ) Lactate 0.7-2.0 Below low normal <content [facility] [Mass/volum styleCode="Bold Medical e] in Serum ">Lactic Acid Center or Plasma </content>0.6 MMOLL L<content styleCode="Ital ics"> (0.7-2.0 MMOLL)</content > ID Date Data Source Microbiology.[id number] 05/22/2020 01:30:[address] [facility] 400 Name Value Range Interpretation Code Description Data Liya rce(s) Supporting Document(s ) UNK <item><content [facility] styleCode="Bold"> Medical Cent er Culture Status </content>
<t able><tbody><tr>< td>Specimen Number:</td><td>[id number]</td></tr ><tr><td>Sample Collection Date/Time: </td><td> 0 1:30 PM</td></tr><tr>< td>Specimen Source:</td><td>B LOOD</td></tr><tr ><td>Culture Report:</td><td>C ulture in progress </td></tr><tr><td >Culture Status:</td><td>P reliminary </td></tr><tr><td >Blood Culture:</td><td> Collection Plate Date: 05/22/2020 13:45 </td></tr></tbody ></table></item> UNK <item><content [facility] styleCode="Bold"> Medical [facility] Culture Report </content>
<t able><tbody><tr>< td>Specimen Number:</td><td>[id number]</td></tr ><tr><td>Sample Collection Date/Time: </td><td> 0 1:30 PM</td></tr><tr>< td>Specimen Source:</td><td>B LOOD</td></tr><tr ><td>Blood Culture:</td><td> Collection Plate Date: 05/22/2020 13:45 </td></tr><tr><td >Culture Status:</td><td>P reliminary </td></tr><tr><td >Culture Report:</td><td>C ulture in progress </td></tr></tbody ></table></item> ID Date Data Source Liver 05/22/2020 01:30:00 PM EDT [facility] Profile.[id number] Name Value Range Interpretation Description Data Sup [...] s"> (3.5-5.0 G/DL)</content> ID Date Data Source HematologySpeci.[id number] 05/22/2020 01:30:[address] [facility] 0-0400 Name Value Range Interpretation Description Data Sup porting Code Source(s) Document(s ) C reactive < 3.0 Above high normal <content [facility] hs protein styleCode="Bold Medical [Mass/volume ">C-Reactive Center ] in Serum Protein or Plasma </content>3.18 MG/L H<content styleCode="Ital ics"> (< 3.0 MG/L)</content> ID Date Data Source HematologyRou.[id number] 05/22/2020 01:30:[address] [facility] 0400 Name Value Range Interpretation Description [...] (0.0 KCUMM)</content > ID Date Data Source GFR(Creatinine).[id number] 05/22/2020 01:30:00 PM EDT Rg nt [facility] 0-0400 Name Value Range Interpretation Code Description Data Liya rce(s) Supporting Document(s ) UNK > 60 <content [facility] styleCode="Bold"> Medical Cent er EGFR </content>76 GFR<content styleCode="Italic s"> (> 60 GFR)</content> ID Date Data Source Coagulation 05/22/2020 01:30:00 PM [facility] ical Center Rout.[id number] EDT Name Value Range Interpretation Description Data [...] cs"> (25.1-36.5 SEC)</content> ID Date Data Source PAULAOUTMARKDA.[id number] 05/22/2020 01:30:[address] [facility] -0400 Name Value Range Interpretation Description [...] (2.3-3.5 G/DL)</content > ID Date Data Source CardiacMarkers.[id number] 05/22/2020 01:30:[address] [facility] -0400 Name Value Range Interpretation Description Data Sup porting Code Source(s) Document(s ) Troponin < 0.034 <content [facility] I.cardiac styleCode="Bold [facility] [Mass/volume ">Troponin I Medical ] in Serum </content>< Center or Plasma 0.012 NG/ML<content styleCode="Ital ics"> (< 0.034 NG/ML)</content > ID Date Data Source [facility].[id number] 05/22/2020 01:30:00 PM EDT [facility] Name Value Range Interpretation Description Data Sup porting Code Source(s) Document(s ) Potassium 3.5-5.3 <content [facility] [Moles/volume] in styleCode="Bold"> [facility] ph[facility] Serum or Plasma Potassium Medical </content>4.6 Center MEQ/L<content styleCode="Italic s"> (3.5-5.3 MEQ/L)</content> Sodium 137-145 <content [facility] [Moles/volume] in styleCode="Bold"> [facility] Serum or Plasma Sodium Medical </content>141 Center MEQ/L<content styleCode="Italic s"> (137-145 MEQ/L)</content> Chloride 98-107 Above high <content [facility] [Moles/volume] in normal styleCode="Bold"> [facility] Serum or Plasma Chloride Medical </content>109 Center [...] s"> (0.2-1.3 MG/DL)</content> ID Date Data Source [id number] 05/22/2020 12:00:00 AM EDT [facility] Name Value Range Interpretation Code Description Data Liya rce(s) Supporting Document(s ) 2019-nCoV [facility] RNA XXX ZANA+probe- Imp This lab was ordered by [facility] and reported by [employer] [facility]. ID Date Data Source HematologyRou.[id number] 02/14/2020 05:30:00 AM EDT [facility] 0400 Name Value Range Interpretation Description [...] (0.0 KCUMM)</content > ID Date Data Source GFR(Creatinine).[id number] 02/14/2020 05:30:00 AM EDT [facility] 0-0400 Name Value Range Interpretation Code Description Data Liya rce(s) Supporting Document(s ) UNK > 60 <content [facility] styleCode="Bold"> Medical Cent er EGFR </content>83 GFR<content styleCode="Italic s"> (> 60 GFR)</content> ID Date Data Source [facility].[id number] 02/14/2020 05:30:00 AM EDT [facility] Name Value Range Interpretation Description Data Sup porting Code Source(s) Document(s ) Sodium 137-145 <content [facility] [Moles/volume] styleCode="Brian Johnsons in Serum or d">Sodium Medical Plasma </content>139 [...] MEQ/L)</conten t> UNK 9-20 <content [facility] styleCode="Brian Ann d">BUN Medical </content>18 Center MG/DL<content styleCode="Cynthia lics"> [...] Data Source Liver 02/13/2020 06:30:00 AM EDT [facility] Profile.[id number] Name Value Range Interpretation Description Data Sup [...] s"> (0.2-1.3 MG/DL)</content> ID Date Data Source HematologyRou.[id number] 02/13/2020 06:30:00 AM EDT [facility] 0400 Name Value Range Interpretation Description [...] low normal <content [facility] [Volume 0 styleCode="Bold [facility] Fraction] of ">Hematocrit Medical Blood by </content>38.8 [...] ics"> (0 /100)</content> ID Date Data Source GFR(Creatinine).[id number] 02/13/2020 06:30:[address] [facility] 0-0400 Name Value Range Interpretation Code Description Data Liya rce(s) Supporting Document(s ) UNK > 60 <content [facility] styleCode="Bold"> Medical Cent er EGFR </content>83 GFR<content styleCode="Italic s"> (> 60 GFR)</content> ID Date Data Source CHMROUTINECCDA.[id number] 02/13/2020 06:30:[address] [facility] -0400 Name Value Range Interpretation Description Data Sup porting Code Source(s) Document(s ) UNK >= 1.0 <content [facility] styleCode="Bold Medical ">AG Ratio Center </content>1.0 <content styleCode="Ital ics"> (>= 1.0 )</content> Protein 6.3-8.2 <content [facility] [Mass/volum styleCode="Bold Medical e] in Serum ">Total Protein Center or Plasma </content>6.5 G/DL<content styleCode="Ital ics"> (6.3-8.2 G/DL)</content> UNK 2.3-3.5 <content [facility] styleCode="Bold Medical ">Globulin Center </content>3.3 G/DL<content styleCode="Ital ics"> (2.3-3.5 G/DL)</content> ID Date Data Source [id number] 02/13/2020 06:30:00 AM EDT [facility] Name Value Range Interpretation Description Data [...] s"> (3.5-5.0 G/DL)</content> ID Date Data Source [id number] 02/12/2020 10:35:00 AM EDT [facility] Name Value Range Interpretation Code Description Data Liya rce(s) Supporting Document(s ) COV2 [facility] This lab was ordered by [facility] and reported by [facility]. ID Date Data Source [id number] 02/12/2020 10:35:00 AM EDT [facility] Name Value Range Interpretation Description Data Sup porting Code Source(s) Document(s ) UNK Not Detected <content [facility] styleCode="Bold Medical ">SARS-COV-2 Center RNA </content>Not Detected <content styleCode="Ital ics"> (Not Detected )</content> ID Date Data Source Liver 02/11/2020 05:20:00 AM EDT [facility] Profile.[id number] Name Value Range Interpretation Description Data Sup [...] s"> (3.5-5.0 G/DL)</content> ID Date Data Source HematologyRou.[id number] 02/11/2020 05:20:00 AM EDT [facility] 0400 Name Value Range Interpretation Description [...] high <content [facility] distribution 5 normal styleCode="Bold [facility] width [Ratio] by ">Red Cell Medical Automated [...] ics"> (0 /100)</content> ID Date Data Source GFR(Creatinine).[id number] 02/11/2020 05:20:00 AM EDT [facility] 0-0400 Name Value Range Interpretation Code Description Data Liya rce(s) Supporting Document(s ) UNK > 60 <content [facility] styleCode="Bold"> Medical Cent er EGFR </content>76 GFR<content styleCode="Italic s"> (> 60 GFR)</content> ID Date Data Source AMANDA.[id number] 02/11/2020 05:20:[address] [facility] -0400 Name Value Range Interpretation Description [...] (1.6-2.3 MG/DL)</conten t> ID Date Data Source [id number] 02/11/2020 05:20:00 AM EDT [facility] Name Value Range Interpretation Description Data Sup porting Code Source(s) Document(s ) Potassium 3.5-5.3 <content [facility] [Moles/volume] in styleCode="Bold"> [facility] Serum or Plasma Potassium Medical </content>4.1 Center MEQ/L<content styleCode="Italic s"> (3.5-5.3 MEQ/L)</content> Sodium 137-145 <content [facility] [Moles/volume] in styleCode="Bold"> [facility] Serum or Plasma Sodium Medical </content>138 Center [...] Data Source Liver 02/09/2020 09:46:00 PM EDT [facility] Profile.[id number] Name Value Range Interpretation Description Data Sup [...] s"> (38-126 IU/L)</content> ID Date Data Source HematologyRou.[id number] 02/09/2020 09:46:[address] [facility] 0400 Name Value Range Interpretation Description Data Sup porting Code Source(s) Document(s ) Erythrocytes 4.4-5.9 <content [facility] [#/volume] in styleCode="Bold [facility] Blood by ">Red Blood Medical Automated count Cell Count Center </content>4.85 MCUMM<content styleCode="Ital ics"> (4.4-5.9 MCUMM)</content > Hemoglobin 13.5-17. Below low normal <content [facility] [Mass/volume] in 5 styleCode="Bold Seth Blood ">Hemoglobin Medical </content>10.9 Center G/DL L<content styleCode="Ital ics"> (13.5-17.5 G/DL)</content> Hematocrit 41.0-53. Below low normal <content [facility] [Volume 0 styleCode="Bold [facility] Fraction] of ">Hematocrit Medical Blood by </content>36.0 [...] ics"> (8.0-11.0 FL)</content> ID Date Data Source GFR(Creatinine).[id number] 02/09/2020 09:46:[address] [facility] 0-0400 Name Value Range Interpretation Code Description Data Liya rce(s) Supporting Document(s ) UNK > 60 <content [facility] styleCode="Bold"> Medical Cent er EGFR </content>116 GFR<content styleCode="Italic s"> (> 60 GFR)</content> ID Date Data Source CHMROUTINECCDA.[id number] 02/09/2020 09:46:[address] [facility] -0400 Name Value Range Interpretation Description [...] (6.3-8.2 G/DL)</content > ID Date Data Source [facility].[id number] 02/09/2020 09:46:00 PM EDT [facility] Name Value Range Interpretation Description Data Sup porting Code Source(s) Document(s ) Sodium 137-145 Below low <content [facility] [Moles/volume] in normal styleCode="Bold"> [facility] Serum or Plasma Sodium Medical </content>136 Center MEQ/L L<content styleCode="Italic s"> (137-145 MEQ/L)</content> Potassium <content [facility] [Moles/volume] in styleCode="Bold"> [facility] Serum or Plasma Potassium Medical </content>Test Center not performed. MEQ/L (Reference Range: not available)
Creatinine 0.5-1.3 <content [facility] [Mass/volume] in styleCode="Bold"> [facility] Serum or Plasma Creatinine Medical </content>0.9 Center MG/DL<content styleCode="Italic s"> (0.5-1.3 MG/DL)</content> Chloride 98-107 <content [facility] [Moles/volume] in styleCode="Bold"> [facility] Serum or Plasma Chloride Medical </content>105 Center [...] IU/L)</content> Aspartate 17-59 <content [facility] aminotransferase styleCode="Bold"> [facility] [Enzymatic Aspartate Medical activity/volume] Aminotransferase Center [...] s"> (0.2-1.3 MG/DL)</content> ID Date Data Source Urinalysis.[id number] 02/09/2020 05:25:[address] [facility] 0 Name Value Range Interpretation Description Data Sup porting Code Source(s) Document(s ) Color of Urine YELLOW <content [facility] styleCode="Brian Ann d">Color, Medical Urine Center </content>YELL OW <content styleCode="Cynthia lics"> (YELLOW )</content> UNK CLEAR <content [facility] styleCode="Brian Johnsons d">Urine Medical Clarity Center </content>YURSA R <content styleCode="Cynthia lics"> (CLEAR )</content> Glucose [...] by Test d">Urine Medical strip Specific Center Emmet </content>1.02 5 <content styleCode="Cynthia lics"> (1.015-1.025 )</content> [...] lics"> (NEGATIVE )</content> ID Date Data Source MROUTNELYCCDA.[id number] 02/09/2020 05:25:[address] [facility] -0400 Name Value Range Interpretation Description Data Sup porting Code Source(s) Document(s ) Cannabinoids <content [facility] [Presence] in styleCode="Brian Seth Urine by Screen d">Cannabinoid Medical method >50 ng/mL s Center </content>NEGA TIVE NG/ML (Reference Range: not available)<br/ > ID Date Data Source Liver 02/09/2020 05:22:00 PM EDT [facility] Profile.[id number] Name Value Range Interpretation Description Data Sup [...] s"> (3.5-5.0 G/DL)</content> ID Date Data Source [id number] 02/09/2020 05:22:00 PM EDT [facility] Name Value Range Interpretation Description Data Sup porting Code Source(s) Document(s ) Triglyceride < 150 <content [facility] [Mass/volume] in styleCode="Brian Johnsons Serum or Plasma d">Triglycerid Medical Center </content>91 MG/DL<content styleCode="Cynthia lics"> (< 150 MG/DL)</conten t> UNK > 60 <content [facility] styleCode="Biran Seth d">HDL- Medical Cholesterol Center </content>70 MG/DL<content styleCode="Cynthia lics"> (> 60 MG/DL)</conten t> Cholesterol -<200 <content [facility] [Mass/volume] in styleCode="[facility] Serum or Plasma d">Cholesterol Medical </content>153 Center MG/DL<content styleCode="Cynthia lics"> (-<200 MG/DL)</conten t> UNK < 100 <content Saint styleCode="[facility] d">LDL-Cholest [facility] lidia Center </content>65 MG/DL<content styleCode="Cynthia lics"> (< 100 MG/DL)</conten t> ID Date Data Source HematologyRou.[id number] 02/09/2020 05:22:00 PM EDT [facility] 0400 Name Value Range Interpretation Description [...] mean 80.0-100 <content [facility] corpuscular .0 styleCode="Bold [facility] volume [Entitic ">Mean Medical volume] by Corpuscular [...] styleCode="Ital ics"> (0 /100)</content> UNK 0.0 <content [facility] styleCode="Bold Seth ">Nucleated Red Medical Blood Cell Center Count </content>0.00 KCUMM<content styleCode="Ital ics"> (0.0 KCUMM)</content > ID Date Data Source GFR(Creatinine).[id number] 02/09/2020 05:22:[address] [facility] 0-0400 Name Value Range Interpretation Code Description Data Liya rce(s) Supporting Document(s ) UNK > 60 <content [facility] styleCode="Bold"> Medical Cent er EGFR </content>103 GFR<content styleCode="Italic s"> (> 60 GFR)</content> ID Date Data Source CHMROUTINECCDA.[id number] 02/09/2020 05:22:[address] [facility] -0400 Name Value Range Interpretation Code Description Data Liya rce(s) Supporting Document(s ) UNK 4.2-5.8 Above high normal <content [facility] styleCode="Bold" Medical Cente r >Hemoglobin A1C </content>5.9 % H<content styleCode="Itali cs"> (4.2-5.8 %)</content> ID Date Data Source [id number] 02/09/2020 05:22:00 PM EDT [facility] Name Value Range Interpretation Description Data Sup porting Code Source(s) Document(s ) Sodium 137-145 <content [facility] [Moles/volume] in styleCode="Bold"> [facility] Serum or Plasma Sodium Medical </content>140 Center MEQ/L<content styleCode="Italic s"> (137-145 MEQ/L)</content> Chloride 98-107 <content [facility] [Moles/volume] in styleCode="Bold"> [facility] Serum or Plasma Chloride Medical </content>101 Center MEQ/L<content styleCode="Italic s"> (98-107 MEQ/L)</content> Potassium 3.5-5.3 <content [facility] [Moles/volume] in styleCode="Bold"> [facility] ph[facility] Serum or Plasma Potassium Medical </content>4.0 Center [...] s"> (0.2-1.3 MG/DL)</content> ID Date Data Source [id number] 12/15/2019 08:42:00 AM EDT [facility] CUT-OFF >= 25 NG/ML.THE FINDINGS OF THE [...] rce(s) Supporting Document(s ) PCP (UR) NEGATIVE [facility] ID Date Data Source [id number] 12/15/2019 08:42:00 AM EDT [facility] CUT-OFF >= 50 NG/ML. Name Value Range Interpretation Code Description Data Liya rce(s) Supporting Document(s ) THC (UR) NEGATIVE [facility] ID Date Data Source [id number] 12/15/2019 08:42:00 AM EDT [facility] CUT-OFF >= 300 NG/ML. Name Value Range Interpretation Description Data Sup porting Code Source(s) Document(s ) OPIATES (UR) NEGATIVE [facility] ID Date Data Source [id number] 12/15/2019 08:42:00 AM EDT [facility] CUT-OFF >= 300 NG/ML. Name Value Range Interpretation Description Data Sup porting Code Source(s) Document(s ) COCAINE (UR) POSITIVE [facility] ID Date Data Source [id number] 12/15/2019 08:42:00 AM EDT [facility] CUT-OFF >= 200 NG/ML. Name Value Range Interpretation Description Data Sup porting Code Source(s) Document(s ) BENZODIAZEPINES NEGATIVE [facility] (UR) [facility] ID Date Data Source [id number] 12/15/2019 08:42:00 AM EDT [facility] CUT-OFF >= 200 NG/ML. Name Value Range Interpretation Description Data Sup porting Code Source(s) Document(s ) BARBITURATES NEGATIVE [facility] ([facility]) [facility] ID Date Data Source [id number] 12/15/2019 08:42:00 AM EDT [facility] CUT-OFF >= 1000 NG/ML. Name Value Range Interpretation Description Data Sup porting Code Source(s) Document(s ) AMPHETAMINES NEGATIVE [facility] (UR) Hospital ID Date Data Source [id number] 12/15/2019 08:42:00 AM EDT [facility] Name Value Range Interpretation Description Data Sup porting Code Source(s) Document(s ) Erythrocytes 0-3 [facility] [#/area] in /[HPF] Hospital Urine sediment by Automated count ID Date Data Source [id number] 12/15/2019 08:42:00 AM EDT [facility] Name Value Range Interpretation Description Data Sup porting Code Source(s) Document(s ) Leukocytes 0-3 [facility] [#/area] in /[HPF] Hospital Urine sediment by Automated count ID Date Data Source [id number] 12/15/2019 08:42:00 AM EDT [facility] Name Value Range Interpretation Description Data Sup porting Code Source(s) Document(s ) Leukocyte NEGATIVE [facility] esterase [facility] [Presence] in Urine by Test strip ID Date Data Source [id number] 12/15/2019 08:42:00 AM EDT [facility] Value Range Interpretation Description Data Sup porting Code Source(s) Document(s ) URINE NEGATIVE [facility] NITRITES [facility] ID Date Data Source [id number] 12/15/2019 08:42:00 AM EDT [facility] Name Value Range Interpretation Description Data Sup porting Code Source(s) Document(s ) Erythrocytes NEGATIVE [facility] [#/volume] in Hospital Urine by Test strip ID Date Data Source [id number] 12/15/2019 08:42:00 AM EDT [facility] Value Range Interpretation Code Description Data Liya rce(s) Supporting Document(s ) Bilirubin. NEGATIVE [facility] total Hospital [Presence] in Urine by Test strip ID Date Data Source [id number] 12/15/2019 08:42:00 AM EDT [facility] Value Range Interpretation Description Data Sup porting Code Source(s) Document(s ) Urobilinogen 1.0 [facility] [Units/volume] mg/dL Hospital in Urine by Test strip ID Date Data Source [id number] 12/15/2019 08:42:00 AM EDT [facility] Value Range Interpretation Code Description Data Liya rce(s) Supporting Document(s ) Ketones TRACE [facility] [Mass/volume Hospital ] in Urine by Test strip ID Date Data Source [id number] 12/15/2019 08:42:00 AM EDT [facility] Name Value Range Interpretation Description Data Sup porting Code Source(s) Document(s ) Glucose NEGATIVE [facility] [Mass/volume Hospital ] in Urine by Test strip ID Date Data Source [id number] 12/15/2019 08:42:00 AM EDT [facility] Name Value Range Interpretation Code Description Data Liya rce(s) Supporting Document(s ) Protein TRACE [facility] [Presence] Hospital in Urine by Test strip ID Date Data Source [id number] [facility]ation Code Description Data Liya rce(s) Supporting Document(s ) pH of Urine 6.0 [facility] by Test Hospital strip ID Date Data Source [id number] [facility] Value Range Interpretation Code Description Data Supporting Source(s) Document(s ) Specific 1.021 [facility] gravity of Hospital Urine by Test strip ID Date Data Source [id number] 12/15/2019 08:42:00 AM EDT [facility] Name Value Range Interpretation Description Data Sup porting Code Source(s) Document(s ) Clarity in Urine CLEAR [facility] by Refractometry [facility] automated ID Date Data Source [id number] 12/15/2019 [facility] Name Value Range Interpretation Code Description Data Liya rce(s) Supporting Document(s ) Color of YELLOW [facility] Urine Hospital ID Date Data Source [id number] 12/15/2019 05:18:00 AM [facility] REFERENCE RANGES: NONE DETECTED <20 MG/DL NONE TO MILD EUPHORIA 20-49 MG/DL MILD EUPHORIA 50-99 MG/DL MODERATE EUPHORIA 100-149 MG/DL INTOXICATION 150-300 MG/DL Name Value Range Interpretation Description Data Sup porting Code Source(s) Document(s ) Ethanol < 20 [facility] [Mass/volume mg/dL Hospital ] in Serum or Plasma ID Date Data Source [id number] 12/15/2019 05:18:00 AM [facility] Name Value Range Interpretation Description Data Sup porting Code Source(s) Document(s ) Natriuretic 14.1 [facility] peptide B pg/mL Hospital [Mass/volume] in Serum or Plasma ID Date Data Source [id number] 12/15/2019 05:18:00 AM [facility] TEST PERFORMED BY [facility]ENS[facility] CHEMILUMINESCENCE METHOD. Name Value Range Interpretation Description Data Sup porting Code Source(s) Document(s ) Troponin 0.02 [facility] I.cardiac ng/mL Hospital [Mass/volume ] in Serum or Plasma ID Date Data Source [id number] 12/15/2019 05:18:00 AM [facility] Name Value Range Interpretation Description Data Sup porting Code Source(s) Document(s ) Aspartate 24 U/L [facility] aminotransferase [place] [Enzymatic Hospital activity/volume] in Serum or Plasma ID Date Data Source [id number] 12/15/2019 05:18:00 AM [facility] Name Value Range Interpretation Description Data Sup porting Code Source(s) Document(s ) Alanine 16 U/L [facility] aminotransferase [facility] [Enzymatic Hospital activity/volume] in Serum or Plasma ID Date Data Source [id number] 12/15/2019 05:18:00 AM [facility] Name Value Range Interpretation Description Data Sup porting Code Source(s) Document(s ) Alkaline 78 U/L [facility] phosphatase [facility] [Enzymatic activity/volume ] in Serum or Plasma ID Date Data Source [id number] 12/15/2019 05:18:00 AM EDT [facility] Name Value Range Interpretation Description Data Sup porting Code Source(s) Document(s ) Bilirubin.t 0.5 mg/dL [facility] [Mass/volum e] in Serum or Plasma ID Date Data Source [id number] 12/15/2019 05:18:00 AM EDT [facility] Name Value Range Interpretation Code Description Data Liya rce(s) Supporting Document(s ) [facility]] in Serum or Plasma ID Date Data Source [id number] 12/15/2019 05:18:00 AM EDT [facility] Name Value Range Interpretation Description Data Sup porting Code Source(s) Document(s ) Albumin 4.0 g/dL [facility] [Mass/volume Hospital ] in Serum or Plasma ID Date Data Source [id number] 12/15/2019 [facility] Value Range Interpretation Description Data Sup porting Code Source(s) Document(s ) Protein 6.7 g/dL [facility] [Mass/volume Hospital ] in Serum or Plasma ID Date Data Source [id number] 12/15/2019 05:18:00 AM EDT [facility] Name Value Range Interpretation Description Data Sup porting Code Source(s) Document(s ) Calcium 9.1 mg/dL [facility] [Mass/volume Hospital ] in Serum or Plasma ID Date Data Source [id number] 12/15/2019 05:18:00 AM EDT [facility] Value Range Interpretation Code Description Data Liya rce(s) Supporting Document(s ) Urea 17.5 [facility] nitrogen/Cre Hospital atinine [Mass Ratio] in Serum or Plasma ID Date Data Source [id number] 12/15/2019 05:18:00 AM EDT [facility] Name Value Range Interpretation Description Data Sup porting Code Source(s) Document(s ) Creatinine 1.2 mg/dL [facility] [Mass/volume] Hospital in Serum or Plasma ID Date Data Source [id number] 12/15/2019 05:18:00 AM EDT [facility] Value Range Interpretation Description Data Sup porting Code Source(s) Document(s ) Urea 21 mg/dL [facility] [Mass/volume ] in Serum or Plasma ID Date Data Source [id number] 12/15/2019 05:18:00 AM EDT [facility] Value Range Interpretation Code Description Data Liya rce(s) Supporting Document(s ) Anion gap in 12 [facility] Serum or Hospital Plasma ID Date Data Source [id number] 12/15/2019 05:18:00 AM EDT [facility] Value Range Interpretation Description Data Sup porting Code Source(s) Document(s ) Carbon 30 mmol/L [facility] dioxide, Hospital total [Moles/volu me] in Serum or Plasma ID Date Data Source [id number] 12/15/2019 05:18:00 AM EDT [facility] Value Range Interpretation Description Data Sup porting Code Source(s) Document(s ) Chloride 105 [facility] [Moles/volum mmol/L Hospital e] in Serum or Plasma ID Date Data Source [id number] 12/15/2019 05:18:00 AM EDT [facility] Value Range Interpretation Description Data Sup porting Code Source(s) Document(s ) Potassium 4.0 [facility] [Moles/volume mmol/L Hospital ] in Serum or Plasma ID Date Data Source [id number] 12/15/2019 05:18:00 AM [facility] Name Value Range Interpretation Description Data Sup porting Code Source(s) Document(s ) Sodium 143 mmol/L [facility] [[facility]] in Serum or Plasma ID Date Data Source [id number] 12/[facility] Value Range Interpretation Description Data Sup porting Code Source(s) Document(s ) Glucose 84 mg/dL [facility] [[facility] ] in Serum or Plasma ID Date Data Source [id number] 12/15/2019 05:18:00 AM [facility] THERAPEUTIC RANGES:UNFRACTIONATED HEPARI N THERAPY: 60-90 SECONDSARGATROBAN THERAPY: 49-99 SECONDS Name Value Range Interpretation Description Data Sup porting Code Source(s) Document(s ) aPTT in 27.4 s [facility] Platelet poor [facility] plasma by Coagulation assay ID Date Data Source [id number] 12/15/2019 05:18:00 AM [facility] THERAPEUTIC RANGE FOR STANDARD ORALANTIC OAGULANT THERAPY: 2.0-3.0THERAPEUTIC RANGE FOR HIGH DOSE ORALANTICOAGULANT THERAPY (MECHANICAL HEARTVALVE REPLACEMENT): 2.5-3.5 Name Value Range Interpretation Description Data Sup porting Code Source(s) Document(s ) INR in Platelet 1.1 [facility] poor plasma by Hospital Coagulation assay ID Date Data Source [id number] 12/15/2019 05:18:00 AM [facility] Name Value Range Interpretation Description Data Sup porting Code Source(s) Document(s ) PT panel - 12.1 s [facility] Platelet poor [facility] plasma by Coagulation assay ID Date Data Source [id number] 12/15/2019 05:18:00 AM EDT [facility] Name Value Range Interpretation Description Data Sup porting Code Source(s) Document(s ) Differential AUTOMATED [facility] cell count Hospital method - Blood ID Date Data Source [id number] 12/15/2019 05:18:00 AM EDT [facility] Name Value Range Interpretation Description Data Sup porting Code Source(s) Document(s ) Immature 0.01 [facility] granulocytes 10*3/uL Hospital [#/volume] in Blood by Automated count ID Date Data Source [id number] 12/15/2019 05:18:00 AM EDT [facility] Value Range Interpretation Description Data Sup porting Code Source(s) Document(s ) Basophils 0.04 [facility] [#/volume] in 10*3/uL [facility] Blood by Automated count ID Date Data Source [id number] 12/[facility] Interpretation Description Data Sup porting Code Source(s) Document(s ) Eosinophils 0.18 [facility] [#/volume] in 10*3/uL [facility] Blood by Automated count ID Date Data Source [id number] 12/15/2019 05:18:00 AM EDT [facility] Value Range Interpretation Description Data Sup porting Code Source(s) Document(s ) Monocytes 0.38 [facility] [#/volume] in 10*3/uL Hospital Blood by Automated count ID Date Data Source [id number] 12/15/2019 05:18:00 AM EDT [facility] Name Value Range Interpretation Description Data Sup porting Code Source(s) Document(s ) Lymphocytes 1.96 [facility] [#/volume] in 10*3/uL [facility] Blood by Automated count ID Date Data Source [id number] 12/15/2019 05:18:00 AM EDT [facility] Value Range Interpretation Description Data Sup porting Code Source(s) Document(s ) Neutrophils 2.81 [facility] [#/volume] in 10*3/uL Hospital Blood by Automated count ID Date Data Source [id number] 12/15/2019 05:18:00 AM EDT [facility] Value Range Interpretation Description Data Sup porting Code Source(s) Document(s ) Nucleated 0.0 % [facility] erythrocytes/10 Hospital 0 leukocytes [Ratio] in Blood by Automated count ID Date Data Source [id number] 12/15/2019 05:18:00 AM EDT [facility] Value Range Interpretation Description Data Sup porting Code Source(s) Document(s ) Immature 0.2 % [facility] granulocytes/10 Hospital 0 leukocytes in Blood by Automated count ID Date Data Source [id number] 12/15/2019 05:18:00 AM EDT [facility] Value Range Interpretation Description Data Sup porting Code Source(s) Document(s ) Basophils/100 0.7 % [facility] leukocytes in [facility] Blood by Automated count ID Date Data Source [id number] 12/15/2019 [facility] Range Interpretation Description Data Sup porting Code Source(s) Document(s ) Eosinophils/100 3.3 % [facility] leukocytes in Hospital Blood by Automated count ID Date Data Source [id number] 12/15/2019 [facility] Range Interpretation Description Data Sup porting Code Source(s) Document(s ) Monocytes/100 7.1 % [facility] leukocytes in Hospital Blood by Automated count ID Date Data Source [id number] 12/15/2019 05:18:00 AM EDT [facility] Value Range Interpretation Description Data Sup porting Code Source(s) Document(s ) Lymphocytes/10 36.4 % [facility] 0 leukocytes Hospital in Blood by Automated count ID Date Data Source [id number] 12/15/2019 05:18:00 AM EDT [facility] Name Value Range Interpretation Description Data Sup porting Code Source(s) Document(s ) Neutrophils/10 52.3 % [facility] 0 leukocytes Hospital in Blood by Automated count ID Date Data Source [id number] 12/15/2019 05:18:00 AM EDT [facility] Value Range Interpretation Description Data Sup porting Code Source(s) Document(s ) Platelet mean 10.0 fL [facility] volume Hospital [Entitic volume] in Blood by Automated count ID Date Data Source [id number] 12/15/2019 05:18:00 AM EDT [facility] Value Range Interpretation Description Data Sup porting Code Source(s) Document(s ) Platelets 277 [facility] [#/volume] in 10*3/uL Hospital Blood by Automated count ID Date Data Source [id number] 12/15/2019 05:18:00 AM EDT [facility] Value Range Interpretation Description Data Sup porting Code Source(s) Document(s ) Erythrocyte 16.5 % [facility] distribution Hospital width [Ratio] by Automated count ID Date Data Source [id number] 12/15/2019 05:18:00 AM EDT [facility] Name Value Range Interpretation Description Data Sup porting Code Source(s) Document(s ) Erythrocyte mean 31.5 [facility] corpuscular g/dL Hospital hemoglobin concentration [Mass/volume] by Automated count ID Date Data Source [id number] 12/15/2019 05:18:00 AM EDT [facility] Value Range Interpretation Description Data Sup porting Code Source(s) Document(s ) Erythrocyte 21.9 pg [facility] mean Hospital corpuscular hemoglobin [Entitic mass] by Automated count ID Date Data Source [id number] 12/15/2019 05:18:00 AM EDT [facility] Name Value Range Interpretation Description Data Sup porting Code Source(s) Document(s ) Erythrocyte 69.5 fL [facility] mean Hospital corpuscular volume [Entitic volume] by Automated count ID Date Data Source [id number] 12/15/2019 05:18:00 AM EDT [facility] Name Value Range Interpretation Description Data Sup porting Code Source(s) Document(s ) Hematocrit 34.9 % [facility] [Volume Hospital Fraction] of Blood by Automated count ID Date Data Source [id number] 12/15/2019 05:18:00 AM EDT [facility] Name Value Range Interpretation Description Data Sup porting Code Source(s) Document(s ) Hemoglobin 11.0 g/dL [facility] [Mass/volume] Hospital in Blood ID Date Data Source [id number] 12/[facility] Value Range Interpretation Description Data Sup porting Code Source(s) Document(s ) Erythrocytes 5.02 [facility] [#/volume] in 10*6/uL Hospital Blood by Automated count ID Date Data Source [id number] 12/15/2019 05:18:00 AM [facility] Name Value Range Interpretation Description Data Sup porting Code Source(s) Document(s ) Leukocytes 5.4 [facility] [#/volume] in 10*3/uL Hospital Blood by Automated count ID Date Data Source [id number] 06/05/2019 05:30:00 AM [facility] CUT-OFF >= 25 NG/ML.THE FINDINGS OF [...] rce(s) Supporting Document(s ) PCP (UR) NEGATIVE [facility] ID Date Data Source [id number] 06/05/2019 05:30:00 AM EDT [facility] CUT-OFF >= 50 NG/ML. Name Value Range Interpretation Code Description Data Liya rce(s) Supporting Document(s ) THC (UR) POSITIVE [facility] ID Date Data Source [id number] 06/05/2019 05:30:00 AM EDT [facility] CUT-OFF >= 300 NG/ML. Name Value Range Interpretation Description Data Sup porting Code Source(s) Document(s ) OPIATES (UR) NEGATIVE [facility] ID Date Data Source [id number] 06/05/2019 05:30:00 AM EDT [facility] CUT-OFF >= 300 NG/ML. Name Value Range Interpretation Description Data Sup porting Code Source(s) Document(s ) COCAINE (UR) POSITIVE [facility] ID Date Data Source [id number] 06/05/2019 05:30:00 AM EDT [facility] CUT-OFF >= 200 NG/ML. Name Value Range Interpretation Description Data Sup porting Code Source(s) Document(s ) BENZODIAZEPINES NEGATIVE [place] (UR) [facility] ID Date Data Source [id number] 06/05/2019 05:30:00 AM EDT [facility] CUT-OFF >= 200 NG/ML. Name Value Range Interpretation Description Data Sup porting Code Source(s) Document(s ) BARBITURATES NEGATIVE [facility] (UR) Hospital ID Date Data Source [id number] 06/05/2019 05:30:00 AM [facility] CUT-OFF >= 1000 NG/ML. Name Value Range Interpretation Description Data Sup porting Code Source(s) Document(s ) AMPHETAMINES NEGATIVE [facility] (UR) Hospital ID Date Data Source [id number] 06/05/2019 05:30:00 AM EDT [facility] Name Value Range Interpretation Description Data Sup porting Code Source(s) Document(s ) Mucus PRESENT [facility] [Presence] in Hospital Urine sediment by Light microscopy ID Date Data Source [id number] 06/05/2019 05:30:00 AM [facility] Name Value Range Interpretation Description Data Sup porting Code Source(s) Document(s ) Erythrocytes 0-3 [facility] [#/area] in /[HPF] Hospital Urine sediment by Microscopy high power field ID Date Data Source [id number] 06/05/2019 05:30:00 AM [facility] Name Value Range Interpretation Description Data Sup porting Code Source(s) Document(s ) Leukocytes 0-3 [facility] [#/area] in /[HPF] Hospital Urine sediment by Microscopy high power field ID Date Data Source [id number] 06/05/2019 05:30:00 AM [facility] Value Range Interpretation Code Description Data Supporting Source(s) Document(s ) Leukocyte TRACE [facility] esterase Hospital [Presence] in Urine by Test strip ID Date Data Source [id number] 06/05/2019 05:30:00 AM [facility] Name Value Range Interpretation Description Data Sup porting Code Source(s) Document(s ) URINE NEGATIVE [facility] NITRITES Hospital ID Date Data Source [id number] 06/05/2019 05:30:00 AM [facility] Name Value Range Interpretation Description Data Sup porting Code Source(s) Document(s ) Erythrocytes NEGATIVE [facility] [#/volume] in Hospital Urine by Test strip ID Date Data Source [id number] 06/05/2019 [facility] Range Interpretation Code Description Data Liya rce(s) Supporting Document(s ) Bilirubin. NEGATIVE [facility] total Hospital [Presence] in Urine by Test strip ID Date Data Source [id number] 06/05/2019 05:30:00 AM EDT [facility] Name Value Range Interpretation Description Data Sup porting Code Source(s) Document(s ) Urobilinogen 1.0 [facility] [Units/volume] mg/dL Hospital in Urine by Test strip ID Date Data Source [id number] 06/05/2019 05:30:00 AM [facility] Value Range Interpretation Description Data Sup porting Code Source(s) Document(s ) Ketones NEGATIVE [facility] [Mass/volume Hospital ] in Urine by Test strip ID Date Data Source [id number] 06/05/2019 05:30:00 AM EDT [facility] Name Value Range Interpretation Description Data Sup porting Code Source(s) Document(s ) Glucose NEGATIVE [facility] [Mass/volume Hospital ] in Urine by Test strip ID Date Data Source [id number] 06/05/2019 [facility] Value Range Interpretation Code Description Data Liya rce(s) Supporting Document(s ) Protein 1+ [facility] [Presence] Hospital in Urine by Test strip ID Date Data Source [id number] 06/05/2019 [facility] Value Range Interpretation Code Description Data Liya rce(s) Supporting Document(s ) pH of Urine 7.5 [facility] by Test Hospital strip ID Date Data Source [id number] 06/05/2019 05:30:00 AM [facility] Name Value Range Interpretation Code Description Data Supporting Source(s) Document(s ) Specific 1.031 [facility] gravity of Hospital Urine by Test strip ID Date Data Source [id number] 06/05/2019 05:30:00 AM [facility] Name Value Range Interpretation Description Data Sup porting Code Source(s) Document(s ) Clarity in Urine CLEAR [facility] by Refractometry Hospital automated ID Date Data Source [id number] 06/05/2019 05:30:00 AM [facility] Value Range Interpretation Code Description Data Liya rce(s) Supporting Document(s ) Color of YELLOW [facility] Urine Hospital ID Date Data Source [id number] 06/05/2019 05:26:00 AM [facility] REFERENCE RANGES: NONE DETECTED <20 MG/DL NONE TO MILD EUPHORIA 20-49 MG/DL MILD EUPHORIA 50-99 MG/DL MODERATE EUPHORIA 100-149 MG/DL INTOXICATION 150-300 MG/DL Name Value Range Interpretation Description Data Sup porting Code Source(s) Document(s ) Ethanol < 20 [facility] [Mass/volume mg/dL Hospital ] in Serum or Plasma ID Date Data Source [id number] 06/05/2019 05:26:00 AM [facility] Name Value Range Interpretation Description Data Sup porting Code Source(s) Document(s ) Lactate 0.8 [facility] [Moles/volum mmol/L Hospital e] in Serum or Plasma ID Date Data Source [id number] 06/05/2019 05:26:00 AM [facility] Name Value Range Interpretation Code Description Data Liya rce(s) Supporting Document(s ) Lipase 31 U/L [facility] [Enzymatic Hospital activity/vo lume] in Serum or Plasma ID Date Data Source [id number] 06/05/2019 [facility] Value Range Interpretation Description Data Sup porting Code Source(s) Document(s ) Aspartate 22 U/L White aminotransferase [place] [Enzymatic Hospital activity/volume] in Serum or Plasma ID Date Data Source [id number] 06/05/2019 [facility] Value Range Interpretation Description Data Sup porting Code Source(s) Document(s ) Alanine 13 U/L [facility] aminotransferase [place] [Enzymatic Hospital activity/volume] in Serum or Plasma ID Date Data Source [id number] 06/05/2019 05:26:00 AM [facility] Value Range Interpretation Description Data Sup porting Code Source(s) Document(s ) Alkaline 83 U/L [facility] phosphatase Hospital [Enzymatic activity/volume ] in Serum or Plasma ID Date Data Source [id number] 06/05/2019 05:26:00 AM [facility] Name Value Range Interpretation Description Data Sup porting Code Source(s) Document(s ) Bilirubin.t 0.5 mg/dL [facility] [Mass/volum e] in Serum or Plasma ID Date Data Source [id number] 06/05/2019 05:26:00 AM [facility] Name Value Range Interpretation Code Description Data Liya rce(s) Supporting Document(s ) [facility] in Serum or Plasma ID Date Data Source [id number] 06/05/2019 05:26:00 AM [facility] Value Range Interpretation Description Data Sup porting Code Source(s) Document(s ) Albumin 4.1 g/dL [facility] [Mass/volume Hospital ] in Serum or Plasma ID Date Data Source [id number] 06/05/2019 05:26:00 AM EDT [facility] Name Value Range Interpretation Description Data Sup porting Code Source(s) Document(s ) Protein 7.2 g/dL [facility] [Mass/volume Hospital ] in Serum or Plasma ID Date Data Source [id number] 06/05/2019 05:26:00 AM EDT [facility] Name Value Range Interpretation Description Data Sup porting Code Source(s) Document(s ) Calcium 9.2 mg/dL [facility] [Mass/volume Hospital ] in Serum or Plasma ID Date Data Source [id number] 06/05/2019 05:26:00 AM EDT [facility] Value Range Interpretation Code Description Data Liya rce(s) Supporting Document(s ) Urea 12.5 [facility] nitrogen/Cre Hospital atinine [Mass Ratio] in Serum or Plasma ID Date Data Source [id number] 06/05/2019 05:26:00 AM EDT [facility] Name Value Range Interpretation Description Data Sup porting Code Source(s) Document(s ) Creatinine 1.2 mg/dL [facility] [Mass/volume] Hospital in Serum or Plasma ID Date Data Source [id number] 06/05/2019 05:26:00 AM EDT [facility] Value Range Interpretation Description Data Sup porting Code Source(s) Document(s ) Urea 15 mg/dL [facility] nitrogen Hospital [Mass/volume ] in Serum or Plasma ID Date Data Source [id number] 06/05/2019 05:26:00 AM EDT [facility] Name Value Range Interpretation Code Description Data Liya rce(s) Supporting Document(s ) Anion gap in 10 [facility] Serum or [facility] Plasma ID Date Data Source [id number] 06/05/2019 05:26:00 AM EDT [facility] Name Value Range Interpretation Description Data Sup porting Code Source(s) Document(s ) Carbon 31 mmol/L [facility] dioxide, Hospital total [Moles/volu me] in Serum or Plasma ID Date Data Source [id number] 06/05/2019 05:26:00 AM EDT [facility] Name Value Range Interpretation Description Data Sup porting Code Source(s) Document(s ) Chloride 103 [facility] [Moles/volum mmol/L Hospital e] in Serum or Plasma ID Date Data Source [id number] 06/05/2019 05:26:00 AM EDT [facility] Name Value Range Interpretation Description Data Sup porting Code Source(s) Document(s ) Potassium 4.4 [facility] [Moles/volume mmol/L Hospital ] in Serum or Plasma ID Date Data Source [id number] 06/05/2019 05:26:00 AM EDT [facility] Name Value Range Interpretation Description Data Sup porting Code Source(s) Document(s ) Sodium 140 mmol/L [facility] [Moles/volu Hospital me] in Serum or Plasma ID Date Data Source [id number] 06/05/2019 05:26:00 AM EDT [facility] Name Value Range Interpretation Description Data Sup porting Code Source(s) Document(s ) Glucose 106 mg/dL [facility] [Mass/volume Hospital ] in Serum or Plasma ID Date Data Source [id number] 06/05/2019 05:26:00 AM EDT [facility] Name Value Range Interpretation Code Description Data Supporting Source(s) Document(s ) NUCLEATED RBCS 0.0 % [facility] (AUTO Hospital DIFF%)DIS ID Date Data Source [id number] 06/05/2019 05:26:00 AM EDT [facility] Name Value Range Interpretation Description Data Sup porting Code Source(s) Document(s ) Differential AUTOMATED [facility] cell count [facility] method - Blood ID Date Data Source [id number] 06/05/2019 05:26:00 AM EDT [facility] Name Value Range Interpretation Description Data Sup porting Code Source(s) Document(s ) Immature 0.01 [facility] granulocytes 10*3/uL Hospital [#/volume] in Blood by Automated count ID Date Data Source [id number] 06/05/2019 05:26:00 AM EDT [facility] Name Value Range Interpretation Description Data Sup porting Code Source(s) Document(s ) Basophils 0.01 [facility] [#/volume] in 10*3/uL [facility] Blood by Automated count ID Date Data Source [id number] 06/05/2019 05:26:00 AM EDT [facility] Value Range Interpretation Description Data Sup porting Code Source(s) Document(s ) Eosinophils 0.09 [facility] [#/volume] in 10*3/uL Hospital Blood by Automated count ID Date Data Source [id number] 06/05/2019 05:26:00 AM EDT [facility] Value Range Interpretation Description Data Sup porting Code Source(s) Document(s ) Monocytes 0.39 [facility] [#/volume] in 10*3/uL Hospital Blood by Automated count ID Date Data Source [id number] 06/05/2019 05:26:00 AM EDT [facility] Name Value Range Interpretation Description Data Sup porting Code Source(s) Document(s ) Lymphocytes 1.52 [facility] [#/volume] in 10*3/uL Hospital Blood by Automated count ID Date Data Source [id number] 06/05/2019 05:26:00 AM EDT [facility] Name Value Range Interpretation Description Data Sup porting Code Source(s) Document(s ) Neutrophils 3.40 [facility] [#/volume] in 10*3/uL [facility] Blood by Automated count ID Date Data Source [id number] 06/05/2019 05:26:00 AM EDT [facility] Value Range Interpretation Description Data Sup porting Code Source(s) Document(s ) Nucleated 0.0 % [facility] erythrocytes/10 Hospital 0 leukocytes [Ratio] in Blood by Automated count ID Date Data Source [id number] 06/05/2019 05:26:00 AM EDT [facility] Value Range Interpretation Description Data Sup porting Code Source(s) Document(s ) Immature 0.2 % [facility] granulocytes/10 Hospital 0 leukocytes in Blood by Automated count ID Date Data Source [id number] 06/05/2019 05:26:00 AM EDT [facility] Value Range Interpretation Description Data Sup porting Code Source(s) Document(s ) Basophils/100 0.2 % [facility] leukocytes in Hospital Blood by Automated count ID Date Data Source [id number] 06/05/2019 05:26:00 AM EDT [facility] Value Range Interpretation Description Data Sup porting Code Source(s) Document(s ) Eosinophils/100 1.7 % [facility] leukocytes in Hospital Blood by Automated count ID Date Data Source [id number] 06/05/2019 05:26:00 AM EDT [facility] Value Range Interpretation Description Data Sup porting Code Source(s) Document(s ) Monocytes/100 7.2 % [facility] leukocytes in Hospital Blood by Automated count ID Date Data Source [id number] 06/05/2019 05:26:00 AM EDT [facility] Value Range Interpretation Description Data Sup porting Code Source(s) Document(s ) Lymphocytes/10 28.0 % [facility] 0 leukocytes Hospital in Blood by Automated count ID Date Data Source [id number] 06/05/2019 05:26:00 AM [facility] Value Range Interpretation Description Data Sup porting Code Source(s) Document(s ) Neutrophils/10 62.7 % [facility] 0 leukocytes Hospital in Blood by Automated count ID Date Data Source [id number] 06/05/2019 05:26:00 AM EDT [facility] Value Range Interpretation Description Data Sup porting Code Source(s) Document(s ) Platelet mean 9.1 fL [facility] volume Hospital [Entitic volume] in Blood by Automated count ID Date Data Source [id number] 06/05/2019 05:26:00 AM [facility] Value Range Interpretation Description Data Sup porting Code Source(s) Document(s ) Platelets 294 [facility] [#/volume] in 10*3/uL Hospital Blood by Automated count ID Date Data Source [id number] 06/05/2019 05:26:00 AM [facility] Value Range Interpretation Description Data Sup porting Code Source(s) Document(s ) Erythrocyte 18.4 % [facility] Hospital width [Ratio] by Automated count ID Date Data Source [id number] 06/05/2019 05:26:00 AM [facility] Value Range Interpretation Description Data Sup porting Code Source(s) Document(s ) Erythrocyte mean 31.0 [facility] corpuscular g/dL Hospital hemoglobin concentration [Mass/volume] by Automated count ID Date Data Source [id number] 06/05/2019 05:26:00 AM [facility] Value Range Interpretation Description Data Sup porting Code Source(s) Document(s ) Erythrocyte 22.3 pg [facility] corpuscular hemoglobin [Entitic mass] by Automated count ID Date Data Source [id number] 06/05[facility] Interpretation Description Data Sup porting Code Source(s) Document(s ) Erythrocyte 72.0 fL [facility] corpuscular volume [Entitic volume] by Automated count ID Date Data Source [id number] 06/05/2019 05:26:00 AM EDT [facility] Name Value Range Interpretation Description Data Sup porting Code Source(s) Document(s ) Hematocrit 40.6 % [facility] [Volume Hospital Fraction] of Blood by Automated count ID Date Data Source [id number] 06/05/2019 05:26:00 AM [facility] Value Range Interpretation Description Data Sup porting Code Source(s) Document(s ) Hemoglobin 12.6 g/dL [facility] [Mass/volume] Hospital in Blood ID Date Data Source [id number] 06/05/2019 05:26:00 AM [facility] Name Value Range Interpretation Description Data Sup porting Code Source(s) Document(s ) Erythrocytes 5.64 [facility] [#/volume] in 10*6/uL Hospital Blood by Automated count ID Date Data Source [id number] 06/05/2019 05:26:00 AM [facility] Name Value Range Interpretation Description Data Sup porting Code Source(s) Document(s ) Leukocytes 5.4 [facility] [#/volume] in 10*3/uL Hospital Blood by Automated count ID Date Data Source [id number] 06/04/2019 11:45:00 PM [facility] Value Range Interpretation Code Description Data Liya rce(s) Supporting Document(s ) [facility] Date Data Source [id number] 06/04/2019 11:45:00 PM EDT [facility] Name Value Range Interpretation Description Data Sup porting Code Source(s) Document(s ) URINE OCCASIONAL [facility] EPITHELIAL [facility] CELLS ID Date Data Source [id number] 06/04/2019 11:45:00 PM EDT [facility] Name Value Range Interpretation Description Data Sup porting Code Source(s) Document(s ) Erythrocytes 0-3 [facility] [#/area] in /[HPF] Hospital Urine sediment by Automated count ID Date Data Source [id number] 06/04/2019 11:45:00 PM EDT [facility] Value Range Interpretation Description Data Sup porting Code Source(s) Document(s ) Leukocytes 0-3 [facility] [#/area] in /[HPF] Hospital Urine sediment by Automated count ID Date Data Source [id number] 06/04/2019 11:45:00 PM EDT [facility] Value Range Interpretation Code Description Data Liya rce(s) Supporting Document(s ) URINE 0-5 [facility] CASTS ID Date Data Source [id number] 06/04/2019 11:45:00 PM EDT [facility] Value Range Interpretation Description Data Sup porting Code Source(s) Document(s ) URINE OCCASIONAL [facility] EPITHELIAL Hospital CELLS ID Date Data Source [id number] 06/04/2019 11:45:00 PM EDT [facility] Name Value Range Interpretation Description Data Sup porting Code Source(s) Document(s ) Erythrocytes 0-3 [facility] [#/area] in /[HPF] Hospital Urine sediment by Automated count ID Date Data Source [id number] 06/04/2019 11:45:00 PM EDT [facility] Name Value Range Interpretation Description Data Sup porting Code Source(s) Document(s ) Leukocytes 0-3 [facility] [#/area] in /[HPF] Hospital Urine sediment by Automated count ID Date Data Source [id number] 06/04/2019 11:45:00 PM EDT [facility] Name Value Range Interpretation Description Data Sup porting Code Source(s) Document(s ) Leukocyte NEGATIVE [facility] esterase Hospital [Presence] in Urine by Test strip ID Date Data Source [id number] 06/04/2019 11:45:00 PM EDT [facility] Name Value Range Interpretation Description Data Sup porting Code Source(s) Document(s ) URINE NEGATIVE [facility] NITRITES Hospital ID Date Data Source [id number] 06/04/2019 11:45:00 PM EDT [facility] Value Range Interpretation Description Data Sup porting Code Source(s) Document(s ) Erythrocytes NEGATIVE [facility] [#/volume] in Hospital Urine by Test strip ID Date Data Source [id number] 06/04/2019 11:45:00 PM EDT [facility] Value Range Interpretation Code Description Data Liya rce(s) Supporting Document(s ) Bilirubin. NEGATIVE [facility] total Hospital [Presence] in Urine by Test strip ID Date Data Source [id number] 06/04[facility]2019 [facility] Interpretation Description Data Sup porting Code Source(s) Document(s ) Urobilinogen 1.0 [facility] [Units/volume] mg/dL Hospital in Urine by Test strip ID Date Data Source [id number] 06/04/2019 11:45:00 PM EDT [facility] Value Range Interpretation Description Data Sup porting Code Source(s) Document(s ) Ketones NEGATIVE [facility] [Mass/volume Hospital ] in Urine by Test strip ID Date Data Source [id number] 06/04/2019 11:45:00 PM EDT [facility] Name Value Range Interpretation Description Data Sup porting Code Source(s) Document(s ) Glucose NEGATIVE [facility] [Mass/volume Hospital ] in Urine by Test strip ID Date Data Source [id number] 06/04/2019 11:45:00 PM EDT [facility] Name Value Range Interpretation Code Description Data Liya rce(s) Supporting Document(s ) Protein 1+ [facility] [Presence] Hospital in Urine by Test strip ID Date Data Source [id number] 06/04/2019 11:45:00 PM EDT [facility] Name Value Range Interpretation Code Description Data Liya rce(s) Supporting Document(s ) pH of Urine 7.0 [facility] by Test Hospital strip ID Date Data Source [id number] 06/04/2019 11:45:00 PM EDT [facility] Name Value Range Interpretation Code Description Data Supporting Source(s) Document(s ) Specific 1.031 [facility] gravity of Hospital Urine by Test strip ID Date Data Source [id number] 06/04/2019 11:45:00 PM EDT [facility] Name Value Range Interpretation Description Data Sup porting Code Source(s) Document(s ) Clarity in Urine CLEAR [facility] by Refractometry Hospital automated ID Date Data Source [id number] 06/04/2019 11:45:00 PM EDT [facility] Name Value Range Interpretation Code Description Data Liya rce(s) Supporting Document(s ) Color of YELLOW [facility] Urine Hospital ID Date Data Source [id number] 06/04/2019 11:16:00 PM EDT [facility] Name Value Range Interpretation Description Data Sup porting Code Source(s) Document(s ) Lactate 0.9 [facility] [Moles/volum mmol/L Hospital e] in Serum or Plasma ID Date Data Source [id number] 06/04/2019 11:16:00 PM EDT [facility] Name Value Range Interpretation Code Description Data Liya rce(s) Supporting Document(s ) Lipase 47 U/L [facility] [Enzymatic Hospital activity/vo lume] in Serum or Plasma ID Date Data Source [id number] 06/04/2019 11:16:00 PM EDT [facility] Name Value Range Interpretation Description Data Sup porting Code Source(s) Document(s ) Aspartate 23 U/L White aminotransferase [place] [Enzymatic Hospital activity/volume] in Serum or Plasma ID Date Data Source [id number] 06/04/2019 11:16:00 PM EDT [facility] Name Value Range Interpretation Description Data Sup porting Code Source(s) Document(s ) Alanine 13 U/L White aminotransferase [place] [Enzymatic Hospital activity/volume] in Serum or Plasma ID Date Data Source [id number] 06/04/2019 11:16:00 PM EDT [facility] Name Value Range Interpretation Description Data Sup porting Code Source(s) Document(s ) Alkaline 84 U/L [facility] phosphatase Hospital [Enzymatic activity/volume ] in Serum or Plasma ID Date Data Source [id number] 06/04/2019 11:16:00 PM EDT [facility] Value Range Interpretation Description Data Sup porting Code Source(s) Document(s ) Bilirubin.t 0.4 mg/dL [facility] [Mass/volum e] in Serum or Plasma ID Date Data Source [id number] 06/04/2019 11:16:00 PM EDT [facility] Value Range Interpretation Code Description Data Liya rce(s) Supporting Document(s ) Albumin/Glob 1.5 [facility] ulin [Mass Hospital Ratio] in Serum or Plasma ID Date Data Source [id number] 06/04/2019 11:16:00 PM EDT [facility] Name Value Range Interpretation Description Data Sup porting Code Source(s) Document(s ) Albumin 4.4 g/dL [facility] [Mass/volume Hospital ] in Serum or Plasma ID Date Data Source [id number] 06/04/2019 11:16:00 PM EDT [facility] Name Value Range Interpretation Description Data Sup porting Code Source(s) Document(s ) Protein 7.4 g/dL [facility] [Mass/volume Hospital ] in Serum or Plasma ID Date Data Source [id number] 06/04/2019 11:16:00 PM EDT [facility] Name Value Range Interpretation Description Data Sup porting Code Source(s) Document(s ) Calcium 9.5 mg/dL [facility] [Mass/volume Hospital ] in Serum or Plasma ID Date Data Source [id number] 06/04/2019 11:16:00 PM EDT [facility] Name Value Range Interpretation Code Description Data Liya rce(s) Supporting Document(s ) Urea 15.0 [facility] nitrogen/Cre Hospital atinine [Mass Ratio] in Serum or Plasma ID Date Data Source [id number] 06/04/2019 11:16:00 PM EDT [facility] Name Value Range Interpretation Description Data Sup porting Code Source(s) Document(s ) Creatinine 1.2 mg/dL [facility] [Mass/volume] Hospital in Serum or Plasma ID Date Data Source [id number] 06/04/2019 11:16:00 PM EDT [facility] Name Value Range Interpretation Description Data Sup porting Code Source(s) Document(s ) Urea 18 mg/dL [facility] nitrogen Hospital [Mass/volume ] in Serum or Plasma ID Date Data Source [id number] 06/04/2019 11:16:00 PM EDT [facility] Name Value Range Interpretation Code Description Data Liya rce(s) Supporting Document(s ) Anion gap in 12 [facility] Serum or Hospital Plasma ID Date Data Source [id number] 06/04/2019 11:16:00 PM EDT [facility] Name Value Range Interpretation Description Data Sup porting Code Source(s) Document(s ) Carbon 34 mmol/L [facility] dioxide, Hospital total [Moles/volu me] in Serum or Plasma ID Date Data Source [id number] 06/04/2019 11:16:00 PM EDT [facility] Name Value Range Interpretation Description Data Sup porting Code Source(s) Document(s ) Chloride 102 [facility] [Moles/volum mmol/L Hospital e] in Serum or Plasma ID Date Data Source [id number] 06/04/2019 11:16:00 PM EDT [facility] Name Value Range Interpretation Description Data Sup porting Code Source(s) Document(s ) Potassium 4.6 [facility] [Moles/volume mmol/L Hospital ] in Serum or Plasma ID Date Data Source [id number] 06/04/2019 11:16:00 PM EDT [facility] Name Value Range Interpretation Description Data Sup porting Code Source(s) Document(s ) Sodium 143 mmol/L [facility] [Moles/volu Hospital me] in Serum or Plasma ID Date Data Source [id number] 06/04/2019 11:16:00 PM EDT [facility] Name Value Range Interpretation Description Data Sup porting Code Source(s) Document(s ) Glucose 108 mg/dL [facility] [Mass/volume Hospital ] in Serum or Plasma ID Date Data Source [id number] 06/04/2019 11:16:00 PM EDT [facility] Name Value Range Interpretation Code Description Data Supporting Source(s) Document(s ) NUCLEATED RBCS 0.0 % [facility] (AUTO Hospital DIFF%)DIS ID Date Data Source [id number] 06/04/2019 11:16:00 PM EDT [facility] Name Value Range Interpretation Description Data Sup porting Code Source(s) Document(s ) Differential AUTOMATED [facility] cell count Hospital method - Blood ID Date Data Source [id number] 06/04/2019 11:16:00 PM EDT [facility] Name Value Range Interpretation Description Data Sup porting Code Source(s) Document(s ) Immature 0.02 [facility] granulocytes 10*3/uL Hospital [#/volume] in Blood by Automated count ID Date Data Source [id number] 06/04/2019 11:16:00 PM EDT [facility] Name Value Range Interpretation Description Data Sup porting Code Source(s) Document(s ) Basophils 0.04 [facility] [#/volume] in 10*3/uL Hospital Blood by Automated count ID Date Data Source [id number] 06/04/2019 11:16:00 PM EDT [facility] Name Value Range Interpretation Description Data Sup porting Code Source(s) Document(s ) Eosinophils 0.13 [facility] [#/volume] in 10*3/uL Hospital Blood by Automated count ID Date Data Source [id number] 06/04/2019 11:16:00 PM EDT [facility] Name Value Range Interpretation Description Data Sup porting Code Source(s) Document(s ) Monocytes 0.41 [facility] [#/volume] in 10*3/uL Hospital Blood by Automated count ID Date Data Source [id number] 06/04/2019 11:16:00 PM EDT [facility] Name Value Range Interpretation Description Data Sup porting Code Source(s) Document(s ) Lymphocytes 1.52 [facility] [#/volume] in 10*3/uL Hospital Blood by Automated count ID Date Data Source [id number] 06/04/2019 11:16:00 PM EDT [facility] Value Range Interpretation Description Data Sup porting Code Source(s) Document(s ) Neutrophils 3.47 [facility] [#/volume] in 10*3/uL Hospital Blood by Automated count ID Date Data Source [id number] 06/04/2019 11:16:00 PM EDT [facility] Value Range Interpretation Description Data Sup porting Code Source(s) Document(s ) Nucleated 0.0 % [facility] erythrocytes/10 Hospital 0 leukocytes [Ratio] in Blood by Automated count ID Date Data Source [id number] 06/04/2019 11:16:00 PM EDT [facility] Value Range Interpretation Description Data Sup porting Code Source(s) Document(s ) Immature 0.4 % [facility] granulocytes/10 Hospital 0 leukocytes in Blood by Automated count ID Date Data Source [id number] 06/04/2019 11:16:00 PM EDT [facility] Value Range Interpretation Description Data Sup porting Code Source(s) Document(s ) Basophils/100 0.7 % [facility] leukocytes in Hospital Blood by Automated count ID Date Data Source [id number] 06/04/2019 11:16:00 PM EDT [facility] Value Range Interpretation Description Data Sup porting Code Source(s) Document(s ) Eosinophils/100 2.3 % [facility] leukocytes in Hospital Blood by Automated count ID Date Data Source [id number] 06/04/2019 11:16:00 PM EDT [facility] Value Range Interpretation Description Data Sup porting Code Source(s) Document(s ) Monocytes/100 7.3 % [facility] leukocytes in Hospital Blood by Automated count ID Date Data Source [id number] 06/04/2019 11:16:00 PM EDT [facility] Value Range Interpretation Description Data Sup porting Code Source(s) Document(s ) Lymphocytes/10 27.2 % [facility] 0 leukocytes Hospital in Blood by Automated count ID Date Data Source [id number] 06/04/2019 11:16:00 PM EDT [facility] Value Range Interpretation Description Data Sup porting Code Source(s) Document(s ) Neutrophils/10 62.1 % [facility] 0 leukocytes Hospital in Blood by Automated count ID Date Data Source [id number] 06/04/2019 11:16:00 PM EDT [facility] Value Range Interpretation Description Data Sup porting Code Source(s) Document(s ) Platelet mean 9.4 fL [facility] volume Hospital [Entitic volume] in Blood by Automated count ID Date Data Source [id number] 06/04/2019 11:16:00 PM EDT [facility] Value Range Interpretation Description Data Sup porting Code Source(s) Document(s ) Platelets 315 [facility] [#/volume] in 10*3/uL Hospital Blood by Automated count ID Date Data Source [id number] 06/04/2019 11:16:00 PM EDT [facility] Value Range Interpretation Description Data Sup porting Code Source(s) Document(s ) Erythrocyte 18.8 % [facility] distribution Hospital width [Ratio] by Automated count ID Date Data Source [id number] 06/04/2019 11:16:00 PM EDT [facility] Value Range Interpretation Description Data Sup porting Code Source(s) Document(s ) Erythrocyte mean 31.3 [facility] corpuscular g/dL Hospital hemoglobin concentration [Mass/volume] by Automated count ID Date Data Source [id number] 06/04/2019 11:16:00 PM EDT [facility] Value Range Interpretation Description Data Sup porting Code Source(s) Document(s ) Erythrocyte 22.4 pg [facility] corpuscular hemoglobin [Entitic mass] by Automated count ID Date Data Source [id number] 06/04/2019 11:16:00 PM EDT [facility] Value Range Interpretation Description Data Sup porting Code Source(s) Document(s ) Erythrocyte 71.3 fL [facility] mean Hospital corpuscular volume [Entitic volume] by Automated count ID Date Data Source [id number] 06/04/2019 11:16:00 PM [facility] Value Range Interpretation Description Data Sup porting Code Source(s) Document(s ) Hematocrit 41.8 % [facility] [Volume Hospital Fraction] of Blood by Automated count ID Date Data Source [id number] 06/04/2019 11:16:00 PM [facility] Value Range Interpretation Description Data Sup porting Code Source(s) Document(s ) Hemoglobin 13.1 g/dL [facility] [Mass/volume] Hospital in Blood ID Date Data Source [id number] 06/04/2019 11:16:00 PM EDT [facility] Value Range Interpretation Description Data Sup porting Code Source(s) Document(s ) Erythrocytes 5.86 [facility] [#/volume] in 10*6/uL Hospital Blood by Automated count ID Date Data Source [id number] 06/04[facility]2019 [facility] Description Data Sup porting Code Source(s) Document(s ) Leukocytes 5.6 [facility] [#/volume] in 10*3/uL Hospital Blood by Automated [...] ever completed Unknown if ever [facility] [place] smoked smoked Hospital Smoking Unknown if ever completed Unknown if ever [facility] [place] smoked smoked Hospital Smoking Unknown if ever completed Unknown if ever [facility] [place] smoked smoked Hospital Smoking Unknown if ever completed Unknown if ever [facility] [place] smoked smoked Hospital Smoking Unknown if ever completed Unknown if ever [facility] [place] smoked smoked Hospital Smoking Unknown if ever completed Unknown if ever [facility] [place] smoked smoked Hospital Vital Signs ID Date Data Source UNK Name Value Range Interpretation Code Description Data Source(s) Diastolic blood 78 mm[Hg] 78 mm[Hg] [facility] pressure Hospital Systolic blood 114 mm[Hg] 114 mm[Hg] [facility] ns pressure Hospital Respiratory rate 18 /min 18 /min [facility] Heart rate 56 /min 56 /min [facility] Body temperature 36.11652 Brenda 36.40212 Brenda [facility] Body temperature 97.9 [degF] 97.9 [degF] [facility] Body mass index 25.0 kg/m2 25.0 kg/m2 [facility] ins (BMI) [Ratio] Hospital Body weight 175.38 [lb_av] 175.38 [lb_av] [facility] Body temperature 36.608061 Brenda 36.040418 Brenda [facility] Respiratory rate 18 /min 18 /min [facility] Oxygen 98 % 98 % [facility] saturation in Medical Arterial blood Center by Pulse oximetry Heart rate 75 /min 75 /min [facility] Diastolic blood 80 mm[Hg] 80 mm[Hg] [facility] pressure Medical Center Systolic blood 146 mm[Hg] 146 mm[Hg] [facility] Body temperature 36.651075 Brenda 36.228959 Brenda [facility] Respiratory rate 18 /min 18 /min [facility] Oxygen 98 % 98 % [facility] saturation in Medical Arterial blood Center by Pulse oximetry Heart rate 74 /min 74 /min [facility] Diastolic blood 75 mm[Hg] 75 mm[Hg] [facility] pressure Medical Center Systolic blood 140 mm[Hg] 140 mm[Hg] [facility] pressure Medical Center Body weight 85.104938 kg 85.787022 kg [facility] Measured Medical Center Body temperature 36.318965 Brenda 36.600126 Brenda [facility] Respiratory rate 18 /min 18 /min [facility] Oxygen 98 % 98 % [facility] saturation in Medical Arterial blood Center by Pulse oximetry Heart rate 54 /min 54 /min [facility] Body height 175.081793 cm 175.778961 cm [facility] Diastolic blood 67 mm[Hg] 67 mm[Hg] [facility] pressure Medical Center Systolic blood 130 mm[Hg] 130 mm[Hg] [facility] pressure Medical Center Body mass index 27.6 kg/m2 27.6 kg/m2 [facility] (BMI) [Ratio] Medical Center Diastolic blood 66 mmHg 66 mmHg [facility] Systolic blood 101 mmHg 101 mmHg [facility] Respiratory rate 18 bpm 18 bpm [facility] Heart rate 67 bpm 67 bpm [facility] Body temperature 97.0 Fahrenheit 97.0 Fahrenhei t [facility] Diastolic blood 66 mmHg 66 mmHg [facility] Systolic blood 96 mmHg 96 mmHg [facility] Respiratory rate 18 bpm 18 bpm [facility] Heart rate 75 bpm 75 bpm [facility] Body temperature 97.2 Fahrenheit 97.2 Fahrenh t [facility] Body temperature 97.0 Fahrenheit 97.0 Fahrenh t [facility] Diastolic blood 62 mmHg 62 mmHg [facility] Systolic blood 88 mmHg 88 mmHg [facility] Respiratory rate 18 bpm 18 bpm [facility] Heart rate 63 bpm 63 bpm [facility] Body temperature 96.5 Fahrenheit 96.5 Fahrenh t [facility] Diastolic blood 65 mmHg 65 mmHg [facility] Systolic blood 100 mmHg 100 mmHg [facility] Respiratory rate 18 bpm 18 bpm [facility] Heart rate 63 bpm 63 bpm [facility] Body temperature 96.3 Fahrenheit 96.3 Fahrenh t [facility] Body temperature 97.2 Fahrenheit 97.2 hrenh t [facility] Body temperature 36.155139 Brenda 36.106734 Brenda [facility] Respiratory rate 20 /min 20 /min [facility] Heart rate 55 /min 55 /min [facility] Diastolic blood 59 mm[Hg] 59 mm[Hg] [facility] Systolic blood 120 mm[Hg] 120 mm[Hg] [facility] Body temperature 36.532023 Brenda 36.158991 Brenda [facility] Respiratory rate 18 /min 18 /min [facility] Heart rate 57 /min 57 /min [facility] Diastolic blood 66 mm[Hg] 66 mm[Hg] [facility] Systolic blood 103 mm[Hg] 103 mm[Hg] [facility] Body temperature 36.894775 Brenda 36.962203 Brenda [facility] Respiratory rate 20 /min 20 /min [facility] Heart rate 55 /min 55 /min [facility] Diastolic blood 61 mm[Hg] 61 mm[Hg] [facility] Systolic blood 108 mm[Hg] 108 mm[Hg] [facility] Oxygen 98 % 98 % [facility] saturation in Medical Arterial blood Center by Pulse oximetry Body temperature 36.625795 Brenda 36.939071 Brenda [facility] Respiratory rate 20 /min 20 /min [facility] Heart rate 58 /min 58 /min [facility] Diastolic blood 61 mm[Hg] 61 mm[Hg] [facility] Systolic blood 92 mm[Hg] 92 mm[Hg] [facility] Body temperature 36.004721 Brenda 36.233790 Brenda [facility] Respiratory rate 18 /min 18 /min [facility] Heart rate 64 /min 64 /min [facility] Diastolic blood 68 mm[Hg] 68 mm[Hg] [facility] pressure Medical Center Systolic blood 111 mm[Hg] 111 mm[Hg] [facility] Oxygen 99 % 99 % [facility] saturation in Medical Arterial blood Center by Pulse oximetry Oxygen 98 % 98 % [facility] saturation in Medical Arterial blood Center by Pulse oximetry Body temperature 36.630084 Brenda 36.432576 Brenda [facility] Respiratory rate 20 /min 20 /min [facility] Heart rate 52 /min 52 /min [facility] Diastolic blood 62 mm[Hg] 62 mm[Hg] [facility] Systolic blood 100 mm[Hg] 100 mm[Hg] [facility] [place] Oxygen 99 % 99 % [facility] saturation in Medical Arterial blood Center by Pulse oximetry Body temperature 36.645686 Brenda 36.513782 Brenda [facility] Respiratory rate 20 /min 20 /min [facility] Heart rate 62 /min 62 /min [facility] Diastolic blood 56 mm[Hg] 56 mm[Hg] [facility] Systolic blood 97 mm[Hg] 97 mm[Hg] [facility] Body weight 75.819866 kg 75.523419 kg [facility] Measured Medical [place] Body height 175.763033 cm 175.158068 cm [facility] Body mass index 24.65 kg/m2 24.65 kg/m2 [facility] (BMI) [Ratio] Medical Center Body temperature 36.530859 Brenda 36.168576 Brenda [facility] Respiratory rate 20 /min 20 /min [facility] Heart rate 53 /min 53 /min [facility] Diastolic blood 59 mm[Hg] 59 mm[Hg] [facility] pressure Medical Center Systolic blood 107 mm[Hg] 107 mm[Hg] [facility] Body temperature 36.857873 Brenda 36.681474 Brenda [facility] Respiratory rate 20 /min 20 /min [facility] Heart rate 65 /min 65 /min [facility] Diastolic blood 63 mm[Hg] 63 mm[Hg] [facility] Systolic blood 99 mm[Hg] 99 mm[Hg] [facility] Body weight 75.539041 kg 75.117254 kg [facility] Measured [facility] Center Body height 175.406991 cm 175.963517 cm [facility] Body mass index 24.65 kg/m2 24.65 kg/m2 [facility] (BMI) [Ratio] Medical Center Body temperature 36.445490 Brenda 36.166911 Brenda [facility] Respiratory rate 16 /min 16 /min [facility] Heart rate 60 /min 60 /min [facility] Diastolic blood 72 mm[Hg] 72 mm[Hg] [facility] Systolic blood 95 mm[Hg] 95 mm[Hg] [facility] Oxygen 96 % 96 % [facility] saturation in Medical Arterial blood Center by Pulse oximetry Oxygen 97 % 97 % [facility] saturation in Medical Arterial blood Center by Pulse oximetry Body weight 75.426147 kg 75.959856 kg [facility] Measured [facility] Body height 170.358938 cm 170.727936 cm [facility] Oxygen 99 % 99 % [facility] saturation in Medical Arterial blood Center by Pulse oximetry Body mass index 25.8 kg/m2 25.8 kg/m2 [facility] (BMI) [Ratio] Medical Center Diastolic blood 77 mm[Hg] 77 mm[Hg] [facility] Systolic blood 120 mm[Hg] 120 mm[Hg] [facility] Hospital Respiratory rate 22 /min 22 /min [facility] Heart rate 80 /min 80 /min [facility] Body temperature 35.85229 Brenda 35.39505 Brenda [facility] Body temperature 96.7 [degF] 96.7 [degF] [facility] Body mass index 27.0 kg/m2 27.0 kg/m2 [facility] (BMI) [Ratio] Hospital Body weight 198.42 [lb_av] 198.42 [lb_av] [facility] Systolic blood 115 mmHg 115 mmHg [facility] Respiratory rate 18 bpm 18 bpm [facility] Heart rate 82 bpm 82 bpm [facility] Diastolic blood 64 mmHg 64 mmHg [facility] Diastolic blood 66 mmHg 66 mmHg [facility] Systolic blood 106 mmHg 106 mmHg [facility] Respiratory rate 16 bpm 16 bpm [facility] Heart rate 61 bpm 61 bpm [facility] Body temperature 96.9 [facility].9 [facility] Body [facility] 174 lbs 174 lbs [facility] Diastolic blood 72 mmHg 72 mmHg [facility] Systolic blood 102 mmHg 102 mmHg [facility] Respiratory rate 18 bpm 18 bpm [facility] Heart rate 72 bpm 72 bpm [facility] Diastolic blood 65 mmHg 65 mmHg [facility] Systolic blood 101 mmHg 101 mmHg [facility] Respiratory rate 18 bpm 18 bpm [facility] Heart rate 65 bpm 65 bpm [facility] Body temperature 97.4 Fahrenheit 97.4 [facility] Body temperature 36.010255 Brenda 36.933220 Brenda [facility] Respiratory rate 17 /min 17 /min [facility] Oxygen 97 % 97 % [facility] saturation in Medical Arterial blood Center by Pulse oximetry Heart rate 115 /min 115 /min [facility] Diastolic blood 109 mm[Hg] 109 mm[Hg] [facility] Systolic blood 153 mm[Hg] 153 mm[Hg] [facility] Diastolic blood 88 mm[Hg] 88 mm[Hg] [facility] Systolic blood 150 mm[Hg] 150 mm[Hg] Health system Respiratory rate 20 /min 20 /min [facility] Heart rate 53 /min 53 /min [facility] Body temperature 36.00999 Brenda 36.13793 Brenda [facility] Body temperature 98.5 [degF] 98.5 [degF] [facility] Body mass index 23.0 kg/m2 23.0 kg/m2 [facility] (BMI) [Ratio] Hospital Body weight 154.32 [lb_av] 154.32 [lb_av] [facility] Diastolic blood 53 mm[Hg] 53 mm[Hg] [facility] [place] Systolic blood 143 mm[Hg] 143 mm[Hg] [facility] ns pressure Hospital Respiratory rate 20 /min 20 /min [facility] Heart rate 51 /min 51 /min [facility] Body temperature 36.62658 Brenda 36.81520 Brenda [facility] Body temperature 98.3 [degF] 98.3 [degF] [facility] Body mass index 23.0 kg/m2 23.0 kg/m2 [facility] (BMI) [Ratio] Hospital Body weight 157.32 [lb_av] 157.32 [lb_av] [facility] Diastolic blood 84 mm[Hg] 84 mm[Hg] [facility] pressure Hospital Systolic blood 124 mm[Hg] 124 mm[Hg] [facility] ns pressure Hospital Respiratory rate 18 /min 18 /min [facility] Heart rate 51 /min 51 /min [facility] Body temperature 36.80436 Brenda 36.47647 Brenda [facility] Body temperature 97.6 [degF] 97.6 [degF] [facility] Body mass index 23.0 kg/m2 23.0 kg/m2 [facility] (BMI) [Ratio] Hospital Body weight 158.34 [lb_av] 158.34 [lb_av] [facility] Diastolic blood 75 mm[Hg] 75 mm[Hg] [facility] pressure Hospital Systolic blood 115 mm[Hg] 115 mm[Hg] [facility] ns pressure Hospital Respiratory rate 18 /min 18 /min [facility] Heart rate 56 /min 56 /min [facility] Body temperature 36.27102 Brenda 36.57890 Brenda [facility] Body temperature 98.0 [degF] 98.0 [degF] [facility] Body mass index 25.0 kg/m2 25.0 kg/m2 [facility] (BMI) [Ratio] Hospital Body weight 174.36 [lb_av] 174.36 [lb_av] [facility] ID Date Data Source [id number] 02/20/2020 10:07:23 PM [facility] Name Value Range Interpretation Code Description Data Source(s) Body weight Measured 174 lb 174 lb [facility] ID Date Data Source [id number] 02/14/2020 10:37:07 PM [facility] Name Value Range Interpretation Code Description Data Source(s) Body weight Measured 174 lb 174 lb [facility] ID Date Data Source [id number] 10/25/2019 10:29:42 PM EST [facility] Name Value Range Interpretation Code Description Data Source(s) Body weight Measured 174 lb 174 lb [facility] Patient Treatment Plan of Care Planned Activity Planned Date Details Description Data Source (s) No data available for this N [facility] Azithromycin 250 MG Oral Rg [facility] Thiamine 100 MG Oral Tablet [facility] Folic Acid 1 MG Oral Tablet [facility] 24 HR Divalproex Sodium 500 [facility] Medical MG Extended Release Oral Fouzia ter Tablet [Depakote] 24 HR Divalproex Sodium 500 [facility] MG Extended Release Oral Fouzia ter Tablet [Depakote] Folic Acid 1 MG Oral Tablet [facility] Thiamine 100 MG Oral Tablet [facility]
--- NOTE | 2020-07-05 23:32 | PN ---
Teaching Attending Note Name of Resident: Aide Qureshi ATTENDING PHYSICIAN STATEMENT I saw and evaluated the patient. I reviewed the resident's note and discussed the case with the resident. I agree with the resident's findings and plan as documented. SUBJECTIVE: 50y/o M with a PMH of schizophrenia, anemia, asthma, polysubstance abuse (alcohol, cocaine and marijuana) who presents to the ED BIBA from [facility] for bradycardia. OBJECTIVE: VS: Afeb HR 59 BP 111/78 Gen: Thin male Cardiac: Lungs: Ext: Abd: soft non tender Labs: No leukocytosis H/H wnl BMP wnl CT- Interstitial lung disease ASSESSMENT AND PLAN: Sinus Bradycardia Interstitial Lung Disease Utox Tele monitoring Trop x 3 with EKG Atropine at bedside Hold off abx for now Screen for COVID and TB HIV LDH CRP Obtain medical records from [place] Supp care: DVT Px: HSQ 5K TID Diet Regular
--- NOTE | 2020-07-05 23:53 | HP ---
CHIEF COMPLAINT: low heart rate PCP: none HISTORY OF PRESENT ILLNESS: 50 y.o. M PMH asthma, schizophrenia, polysubstance abuse (EtOH, cocaine, MJ, nicotine, street pills when he can get them/ xanax), interstitial lung disease? presenting to ED from [facility] for bradycardia (to low 40s, sinus) and chest pain. Patient says he has a chronic hx of bradycardia and has followed up recently at [facility] with a clinical trial educator. He also reports intermittent chest pain, 4/10 intensity which is present, at times, at rest. Pt states he had a binge drinking episode last night 07/04/20 with vodka and beer, unknown quantity. He also used marijuana and cocaine at this time, as well as took 2 xanax pills from a friend. Patient is also reporting a chronic cough productive of off white sputum. He states this cough has been present for months; he has seen a obstetrics/gynecology nurse at [facility] and was told he has a lung condition, but does not know the name of this condition. ROS: +: chest pain, cough, SOB -: Denies hemoptysis/ myalgias/ night sweats/ chills/ fevers/ palpitations/ diarrhea/ urinary changes/ weight changes/ headaches ER course was notable for: (1) 500mg PO depakote (pt home med for schizophrenia) (2) (3) Recent Travel: denies PAST MEDICAL HISTORY: as per hpi PAST SURGICAL HISTORY: denies Social History: homeless, lives on streets Smokin pack year smoking hx (cigarettes). Smokes and snorts cocaine ~3 days per week. Smoke marijuana regularly Alcohol: Daily use, 1 pint vodka and 10 24oz. beers Drugs: Xanax occasionally. Allergies banana Allergy (Intermediate, Verified 07/05/20 18:08) Vomiting cantaloupe Allergy (Intermediate, Verified 07/05/20 18:08) Vomiting watermelon Allergy (Intermediate, Verified 07/05/20 18:08) Vomiting peanut butter Allergy (Intermediate, Uncoded 07/05/20 18:08) Vomiting HOME MEDICATIONS: Home Medications Medication Instructions Recorded Aripiprazole [Abilify Maintena] 400 mg IM MONTHLY 07/05/20 Divalproex [Depakote -] 500 mg PO BID 07/05/20 PHYSICAL EXAMINATION Vital Signs - 24 hr 07/05/20 07/05/20 17:58 22:40 Temperature 97.4 F L Pulse Rate 59 L Pulse Rate [ 54 L Left Radial] Respiratory 18 20 Rate Blood Pressure 111/78 Blood Pressure 102/81 [Right Arm] O2 Sat by Pulse 100 97 Oximetry (%) GENERAL: Awake, alert, and fully oriented, in no acute distress. HEENT: NCAT. EOMI. PERRLA. Sclera anicteric. Conjunctiva erythematous. LUNGS: Decreased breath sounds throughout. No incr work of breathing. HEART: Regular rate and rhythm, normal S1 and S2 without murmur, rub or gallop. ABDOMEN: Soft, nontender, not distended, normoactive bowel sounds, no guarding. EXTREMITIES: 2+ pulses, warm, well-perfused. No calf tenderness. No peripheral edema. NEUROLOGICAL: nonfocal exam PSYCHIATRIC: anxious mood, affect appropriate to mood SKIN: Warm, dry, normal turgor, no rashes or lesions noted Laboratory Results - last 24 hr 07/05/20 07/05/20 07/05/20 18:56 18:56 18:56 WBC 5.6 RBC 5.07 Hgb 11.9 Hct 37.7 MCV 74.3 L MCH 23.4 L MCHC 31.5 L RDW 15.8 Plt Count 253 MPV 8.1 Absolute Neuts (auto) 2.9 Neutrophils % 51.6 Lymphocytes % 34.0 Monocytes % 8.4 Eosinophils % 5.4 H Basophils % 0.6 Nucleated RBC % 0 PT with INR 12.00 INR 1.02 Sodium 140 Potassium 4.4 Chloride 106 Carbon Dioxide 32 Anion Gap 3 L BUN 19.0 H Creatinine 1.3 Est GFR (CKD-EPI)AfAm 74.26 Est GFR (CKD-EPI)NonAf 64.07 Random Glucose 118 H Calcium 8.8 Phosphorus 2.7 Magnesium 2.2 Total Bilirubin 0.6 AST 23 ALT 18 Alkaline Phosphatase 96 Creatine Kinase 224 Creatine Kinase Index 1.8 CK-MB (CK-2) 4.2 H Troponin I < 0.02 B-Natriuretic Peptide Total Protein 7.4 Albumin 3.0 L TSH 2.53 Valproic Acid 07/05/20 07/05/20 18:56 18:56 WBC RBC Hgb Hct MCV MCH MCHC RDW Plt Count MPV Absolute Neuts (auto) Neutrophils % Lymphocytes % Monocytes % Eosinophils % Basophils % Nucleated RBC % PT with INR INR Sodium Potassium Chloride Carbon Dioxide Anion Gap BUN Creatinine Est GFR (CKD-EPI)AfAm Est GFR (CKD-EPI)NonAf Random Glucose Calcium Phosphorus Magnesium Total Bilirubin AST ALT Alkaline Phosphatase Creatine Kinase Creatine Kinase Index CK-MB (CK-2) Troponin I B-Natriuretic Peptide 47.2 Total Protein Albumin TSH Valproic Acid < 3.0 L Imaging: * CT chest: Extensive bilateral upper and lower lung field chronic interstitial lung disease is noted with a lower lobe predominance. There is associated mild upper and lower lobe traction bronchiectasis. A superimposed infiltrate is unlikely although difficult to exclude on the basis of CT only given the lack of previous exams available for direct comparison. Correlate clinically and consider close follow-up CT. There is dilatation of the main pulmonary artery with a 4 cm diameter suggestive of pulmonary hypertension. Several nonspecific mildly prominent mediastinal lymph nodes are noted which could be hyperplastic in nature. Correlation with 3 month follow-up CT is suggested in this regard. ASSESSMENT/PLAN: 50 y.o. M PMH asthma, schizophrenia, polysubstance abuse (EtOH, cocaine, MJ, nicotine, street pills when he can get them/ xanax), interstitial lung disease? presenting to ED from [facility] for bradycardia (to low 40s, sinus) and chest pain. #Sinus bradycardia -EKG showing sinus ocby rate 52-- improving now to 70s -atropine @ bedside -[facility] -monitor on tele #Chest pain r/o ACS -trops neg x 1, f/u repeat -f/u repeat ekg -telemetry monitoring -Cardio consulted- Dr. Greenfield #Interstitial lung disease #Cough #r/o COVID-19 -CT chest findings as above -f/u infammatory markers: D-dimer, crp, LDH, ferritin -isolation precautions: contact/ airborne/ droplet -f/u covid 19 pcr -f/u quantiferon, HIV -Pulm consulted: Dr. Katz -ID consulted: Dr. Davis #Polysubstance abuse- EtOH, cocaine, MJ, benzos -CIWA 4 on my exam -continue CIWA checks -f/u U-tox -0.5 mg PO ativan q4h prn for EtOH withdrawal symptoms -once medically cleared consider rehab at [facility] #Microcytic anemia -no prior labs for comparison -H&H stable -f/u iron studies #Elevated creatinine -cr 1.3, no prior for comparison -f/u AM BMP #FEN -no standing fluids -trend & replete lytes prn -regular diet #PPX -heparin sq Family Medical History Family History: Denies Visit type - Emergency Visit Emergency Visit: Yes ED Registration Date: 07/05/20 Care time: The patient presented to the Emergency Department on the above date and was hospitalized for further evaluation of their emergent condition. - New Patient This patient is new to me today: Yes Date on this admission: 07/08/20 - Critical Care Critical Care patient: No ATTENDING PHYSICIAN STATEMENT I saw and evaluated the patient. I reviewed the resident's note and discussed the case with the resident. I agree with the resident's findings and plan as documented. SUBJECTIVE: OBJECTIVE: ASSESSMENT AND PLAN:
[2020-07-06 01:47] VITALS: BMI 25.7
[2020-07-06] MEDS ORDERED: LORazepam 0.5 MG TABLET PO PRN (03:41)
[2020-07-06 07:02] LABS: URINE APPEARANCE CLEAR; URINE BILIRUBIN NEGATIVE (NEGATIVE); URINE COLOR YELLOW; URINE GLUCOSE (UA) NEGATIVE (NEGATIVE); URINE KETONE NEGATIVE (NEGATIVE); URINE LEUK ESTERASE NEGATIVE (NEGATIVE); URINE NITRITE NEGATIVE (NEGATIVE); URINE PROTEIN NEGATIVE (NEGATIVE)
[2020-07-06 07:05] LABS: BASO % 0.6 % (0-2.0); EOS % 5.9 % (0-4.5); HEMATOCRIT 37.7 % (35.4-49); HEMOGLOBIN 11.7 GM/dL (11.7-16.9); LYMPH % 36.9 % (8-40); MCHC 31.1 g/dl (32.0-35.9); MEAN CELL VOLUME 73.8 fl (80-96); MONO % 11.9 % (3.8-10.2); NEUT % 44.7 % (42.8-82.8); PLATELET COUNT 261 K/MM3 (134-434); RBC 5.11 M/mm3 (4.00-5.60); WHITE BLOOD COUNT 4.4 K/mm3 (4.0-10.0)
[2020-07-06 07:09] LABS: OPIATES, URI NEGATIVE ng/ml (CUTOFF=300); PHENCYCLIDINE,URINE NEGATIVE ng/ml (CUTOFF=25); URINE BARBITURATES NEGATIVE ng/ml (CUTOFF=200); URINE BENZODIAZEPINES NEGATIVE ng/ml (CUTOFF=200)
[2020-07-06 07:22] LABS: METHADONE, UR NEGATIVE ng/ml (CUTOFF=300); URINE AMPHETAMINES NEGATIVE ng/ml (CUTOFF=500)
[2020-07-06 07:25] LABS: COCAINE, UR POSITIVE ng/ml (CUTOFF=300)
[2020-07-06 07:36] LABS: ALBUMIN 2.5 g/dl (3.4-5.0); ALK PHOS 82 U/L (45-117); ANION GAP 4 MMOL/L (8-16); BILIRUBIN,TOTAL 0.4 mg/dL (0.2-1); BLOOD UREA NITROGEN 18.7 mg/dL (7-18); CALCIUM 8.2 mg/dL (8.5-10.1); CHLORIDE 106 mmol/L (98-107); CO2 31 mmol/L (21-32); CREATININE 1.3 mg/dL (0.55-1.3); GLUCOSE,RANDOM 92 mg/dL (74-106); MAGNESIUM 2.2 mg/dL (1.8-2.4); PHOSPHOROUS 3.7 mg/dL (2.5-4.9); POTASSIUM 4.2 mmol/L (3.5-5.1); SGOT/AST 20 U/L (15-37); SGPT/ALT 15 U/L (13-61); SODIUM 141 mmol/L (136-145); TOT PROT 6.4 g/dl (6.4-8.2)
[2020-07-06 07:39] LABS: LDH 189 U/L (87-246)
--- NOTE | 2020-07-06 09:15 | PN ---
Physical Exam: SUBJECTIVE: Patient seen and examined OBJECTIVE: Vital Signs Period Temp Pulse Resp BP Sys/Zarate Pulse Ox Last 24 Hr 97.4 F-99.4 F 44-62 17-24 79-116/50-81 97-100 GENERAL: The patient is awake, alert, and fully oriented, in no acute distress. HEAD: Normal with no signs of trauma. NECK: Trachea midline, full range of motion, supple. LUNGS: poor effort, inspiratory crackles, no accessory muscle use. HEART: Regular rate and rhythm, S1, S2 without murmur, rub or gallop. ABDOMEN: Soft, nontender, nondistended, normoactive bowel sounds, no guarding, no rebound, no hepatosplenomegaly, no masses. EXTREMITIES: 2+ pulses, warm, well-perfused, no edema. NEUROLOGICAL: Cranial nerves II through XII grossly intact. Normal speech, gait not observed. PSYCH: hearing voices calling his name, occasionally seeing objects. SKIN: Warm, dry, normal turgor, no rashes or lesions noted Laboratory Results - last 24 hr 07/05/20 07/05/20 07/05/20 18:56 18:56 18:56 WBC 5.6 RBC 5.07 Hgb 11.9 Hct 37.7 MCV 74.3 L MCH 23.4 L MCHC 31.5 L RDW 15.8 Plt Count 253 MPV 8.1 Absolute Neuts (auto) 2.9 Neutrophils % 51.6 Lymphocytes % 34.0 Monocytes % 8.4 Eosinophils % 5.4 H Basophils % 0.6 Nucleated RBC % 0 PT with INR 12.00 INR 1.02 D-Dimer Sodium 140 Potassium 4.4 Chloride 106 Carbon Dioxide 32 Anion Gap 3 L BUN 19.0 H Creatinine 1.3 Est GFR (CKD-EPI)AfAm 74.26 Est GFR (CKD-EPI)NonAf 64.07 Random Glucose 118 H Calcium 8.8 Phosphorus 2.7 Magnesium 2.2 Iron TIBC Iron Saturation Unsaturated IBC Ferritin Total Bilirubin 0.6 AST 23 ALT 18 Alkaline Phosphatase 96 LD Total Creatine Kinase 224 Creatine Kinase Index 1.8 CK-MB (CK-2) 4.2 H Troponin I < 0.02 B-Natriuretic Peptide Total Protein 7.4 Albumin 3.0 L TSH 2.53 Urine Color Urine Appearance Urine pH Ur Specific Wilder Urine Protein Urine Glucose (UA) Urine Ketones Urine Blood Urine Nitrite Urine Bilirubin Urine Urobilinogen Ur Leukocyte Esterase Opiates Screen Methadone Screen Barbiturate Screen Valproic Acid Phencyclidine Screen Ur Amphetamines Screen MDMA (Ecstasy) Screen Benzodiazepines Screen Cocaine Screen U Marijuana (THC) Screen HIV Ag/Ab Combo Qual 07/05/20 07/05/20 07/06/20 18:56 18:56 05:35 WBC 4.4 RBC 5.11 Hgb 11.7 Hct 37.7 MCV 73.8 L MCH 23.0 L MCHC 31.1 L RDW 16.0 H Plt Count 261 MPV 8.0 Absolute Neuts (auto) 2.0 Neutrophils % 44.7 Lymphocytes % 36.9 Monocytes % 11.9 H Eosinophils % 5.9 H Basophils % 0.6 Nucleated RBC % 0 PT with INR INR D-Dimer Sodium Potassium Chloride Carbon Dioxide Anion Gap BUN Creatinine Est GFR (CKD-EPI)AfAm Est GFR (CKD-EPI)NonAf Random Glucose Calcium Phosphorus Magnesium Iron TIBC Iron Saturation Unsaturated IBC Ferritin Total Bilirubin AST ALT Alkaline Phosphatase LD Total Creatine Kinase Creatine Kinase Index CK-MB (CK-2) Troponin I B-Natriuretic Peptide 47.2 Total Protein Albumin TSH Urine Color Urine Appearance Urine pH Ur Specific Wilder Urine Protein Urine Glucose (UA) Urine Ketones Urine Blood Urine Nitrite Urine Bilirubin Urine Urobilinogen Ur Leukocyte Esterase Opiates Screen Methadone Screen Barbiturate Screen Valproic Acid < 3.0 L Phencyclidine Screen Ur Amphetamines Screen MDMA (Ecstasy) Screen Benzodiazepines Screen Cocaine Screen U Marijuana (THC) Screen HIV Ag/Ab Combo Qual 07/06/20 07/06/20 07/06/20 05:35 05:35 05:35 WBC RBC Hgb Hct MCV MCH MCHC RDW Plt Count MPV Absolute Neuts (auto) Neutrophils % Lymphocytes % Monocytes % Eosinophils % Basophils % Nucleated RBC % PT with INR INR D-Dimer 427 Sodium 141 Potassium 4.2 Chloride 106 Carbon Dioxide 31 Anion Gap 4 L BUN 18.7 H Creatinine 1.3 Est GFR (CKD-EPI)AfAm 74.26 Est GFR (CKD-EPI)NonAf 64.07 Random Glucose 92 Calcium 8.2 L Phosphorus 3.7 Magnesium 2.2 Iron TIBC Iron Saturation Unsaturated IBC Ferritin Total Bilirubin 0.4 AST 20 ALT 15 Alkaline Phosphatase 82 LD Total 189 Creatine Kinase Creatine Kinase Index CK-MB (CK-2) Troponin I < 0.02 B-Natriuretic Peptide Total Protein 6.4 Albumin 2.5 L TSH Urine Color Urine Appearance Urine pH Ur Specific Wilder Urine Protein Urine Glucose (UA) Urine Ketones Urine Blood Urine Nitrite Urine Bilirubin Urine Urobilinogen Ur Leukocyte Esterase Opiates Screen Methadone Screen Barbiturate Screen Valproic Acid Phencyclidine Screen Ur Amphetamines Screen MDMA (Ecstasy) Screen Benzodiazepines Screen Cocaine Screen U Marijuana (THC) Screen HIV Ag/Ab Combo Qual Negative 07/06/20 07/06/20 07/06/20 05:35 06:00 06:00 WBC RBC Hgb Hct MCV MCH MCHC RDW Plt Count MPV Absolute Neuts (auto) Neutrophils % Lymphocytes % Monocytes % Eosinophils % Basophils % Nucleated RBC % PT with INR INR D-Dimer Sodium Potassium Chloride Carbon Dioxide Anion Gap BUN Creatinine Est GFR (CKD-EPI)AfAm Est GFR (CKD-EPI)NonAf Random Glucose Calcium Phosphorus Magnesium Iron 56 TIBC 254 Iron Saturation 22 Unsaturated IBC 198 L Ferritin 45.6 Total Bilirubin AST ALT Alkaline Phosphatase LD Total Creatine Kinase Creatine Kinase Index CK-MB (CK-2) Troponin I B-Natriuretic Peptide Total Protein Albumin TSH Urine Color Yellow Urine Appearance Clear Urine pH 6.0 Ur Specific Wilder 1.020 Urine Protein Negative Urine Glucose (UA) Negative Urine Ketones Negative Urine Blood Negative Urine Nitrite Negative Urine Bilirubin Negative Urine Urobilinogen 1.0 Ur Leukocyte Esterase Negative Opiates Screen Negative Methadone Screen Negative Barbiturate Screen Negative Valproic Acid Phencyclidine Screen Negative Ur Amphetamines Screen Negative MDMA (Ecstasy) Screen Negative Benzodiazepines Screen Negative Cocaine Screen Positive A* U Marijuana (THC) Screen Positive A* HIV Ag/Ab Combo Qual Active Medications Generic Name Dose Route Start Last Admin Trade Name Freq PRN Reason Stop Dose Admin Divalproex Sodium 500 mg 07/06/20 10:00 Depakote - PO BID MIKAELA Folic Acid 1 mg 07/06/20 10:00 Folic Acid - PO DAILY MIKAELA Heparin Sodium (Porcine) 5,000 unit 07/06/20 10:00 Heparin - SQ Q8H-IV MIKAELA Lorazepam 0.5 mg 07/06/20 03:41 Ativan - PO Q4H PRN WITHDRAWAL(CONT SUBST) Multivitamins/Minerals/Vitamin C 1 tab 07/06/20 10:00 Tab-A-Vit - PO DAILY MIKAELA Thiamine HCl 100 mg 07/06/20 10:00 Vitamin B1 - PO DAILY MIKAELA ASSESSMENT/PLAN: 50 y.o. M PMH asthma, schizophrenia, polysubstance abuse (EtOH, cocaine, MJ, nicotine, street pills when he can get them/ xanax), interstitial lung disease? presenting to ED from [facility] for bradycardia (to low 40s, sinus) and chest pain # Sinus bradycardia, resolved -likely 2/2 susbtance abuse (last use on 07/04/20) -h/o bradycardia -troponin -vex2, EKG showing sinus coby, T-inversion in anterior leads, denies CP -repeat EKG ordered -HR now in 70s, BP 90s/60s -CIWA 5-6 (auditory and visual hallucination are chronic) -MV, thiamine, B12 -cardiology consult #Chronic Cough 2/2 ILD -CT findings noted -denies fever, chills -COVID19 PCR pending -no leukocytosis, sat 97% on RA -monitor off Abx -counseled about smoking cessation -Bronchodilators -pulmonary consult Schizophrenia active smoker DVT prophylaxis Visit type - Emergency Visit Emergency Visit: Yes ED Registration Date: 07/05/20 Care time: The patient presented to the Emergency Department on the above date and was hospitalized for further evaluation of their emergent condition. - New Patient This patient is new to me today: Yes Date on this admission: 07/07/20 - Critical Care Critical Care patient: No - Discharge Referral Referred to [facility] Med P.C.: No
[2020-07-06] MEDS ORDERED: PT OWN MED DRAWER 7, Y5N ONE ×3 (09:22→21:16)
[2020-07-06] MEDS: FOLIC ACID 1 MG TABLET (FP) PO SCH (09:26)
[2020-07-06] MEDS: MULTIVITAMINS (DAILY MVI) TABLET (FP) PO SCH (09:26)
[2020-07-06] MEDS: THIAMINE HCL 100 MG TABLET (FP) PO SCH (09:27)
[2020-07-06] MEDS: DIVALPROEX SODIUM 500 MG TABLET E.C. PO SCH ×2 (09:27→21:28)
[2020-07-06] MEDS: HEPARIN NA (PORCINE) 5,000 UNITS/ML 1ML VIAL SQ SCH ×2 (09:27→17:39)
--- NOTE | 2020-07-06 11:26 | CON.ID ---
Consult Consult Specialty:: infectious disease Referred by:: hospitalist - History of Present Illness Chief Complaint: r/p covid History of Present Illness: very sleepy- poor historian 50 yo man cigarette smoker, asthma, schizophrenia, polysubstancew abuse- sent from [facility] for bradycardai- no fevers chronic cough with white sputum no sob apparently history of pulmonary disease, history of cardiac condition? chest pain resolved - History Source History Provided By: Patient, Medical Record Limitations to Obtaining History: Poor Historian - Past Medical History Pulmonary: Yes: Asthma, Bronchitis Additional Medical History: polysubstance abuse - Alcohol/Substance Use Hx Alcohol Use: Yes History of Substance Use: reports: Cocaine, Marijuana - Smoking History Smoking history: Current every day smoker Have you smoked in the past 12 months: Yes Aproximately how many cigarettes per day: 20 - Social History Usual Living Arrangement: Other (homeless) ADL: Independent Home Medications - Allergies Allergies/Adverse Reactions: Allergies Allergy/AdvReac Type Severity Reaction Status Date / Time banana Allergy Intermediate Vomiting Verified 07/05/20 18:08 cantaloupe Allergy Intermediate Vomiting Verified 07/05/20 18:08 watermelon Allergy Intermediate Vomiting Verified 07/05/20 18:08 peanut butter Allergy Intermediate Vomiting Uncoded 07/05/20 18:08 - Home Medications Home Medications: Ambulatory Orders Aripiprazole [Abilify Maintena] 400 mg IM MONTHLY 07/05/20 Divalproex [Depakote -] 500 mg PO BID 07/05/20 Family Medical History Family History: Unable to Obtain Review of Systems - Review of Systems Constitutional: denies: Chills, Fever Eyes: reports: No Symptoms HENT: reports: No Symptoms Neck: reports: No Symptoms Cardiovascular: reports: No Symptoms Respiratory: reports: Cough Gastrointestinal: reports: No Symptoms Genitourinary: reports: No Symptoms Physical Exam Vital Signs: Vital Signs Temperature 98.4 F 07/06/20 10:32 Pulse Rate 60 07/06/20 08:00 Respiratory Rate 18 07/06/20 08:00 Blood Pressure 97/69 07/06/20 08:00 O2 Sat by Pulse Oximetry (%) 100 07/06/20 05:18 Constitutional: Yes: No Distress Eyes: Yes: Conjunctiva Clear HENT: Yes: Atraumatic, Normocephalic Neck: Yes: Supple Cardiovascular: Yes: Regular Rate and Rhythm Respiratory: Yes: Regular, CTA Bilaterally Gastrointestinal: Yes: Normal Bowel Sounds, Soft ...Rectal Exam: Yes: Deferred Extremities: Yes: WNL Psychiatric: Yes: Alert Labs: CBC, BMP 07/06/20 05:35 07/06/20 05:35 HIV negative Imaging - Results Cat Scan: Report Reviewed Assessment/Plan suspect these are all chronic issues hiv negative not hypoxic chest ct c/w bronchiectaiss /ILD f/u covid pcr f/u with his doctors at [facility]
--- NOTE | 2020-07-06 12:01 | CON.CARD ---
Consult Consult Specialty:: Cardiology Referred by:: Hospitalist Service Reason for Consultation:: Cardiac evaluation - History of Present Illness Chief Complaint: Abnormal ECG. Generalized weakness History of Present Illness: Patient is 50 year old male with history of bronchial asthma, bronchitis, schizophrenia, polysubstance abuse including ETOH, Cocaine, Marijuana, prescription narcotics, in addition interstitial lung disease presented from [facility] with slow HR and chest pain. He also complains of weakness and states he is tired. COVID testing was done at [facility] and is pending. ECG reveals sinus rhythm 70 bpm, T abnormality in anterior leads. He reports intermittent chest pain, currently better. He denies palpitations. He denies fever, but complains of chills. He reports productive cough white sputum. He denies headache or dizziness. - History Source History Provided By: Patient, Medical Record Limitations to Obtaining History: Clinical Condition - Past Medical History Pulmonary: Yes: Asthma, Bronchitis Psych: Yes: Schizophrenia - Alcohol/Substance Use Hx Alcohol Use: Yes History of Substance Use: reports: Cocaine, Marijuana, Prescription - Smoking History Smoking history: Current every day smoker Have you smoked in the past 12 months: Yes Aproximately how many cigarettes per day: 20 Home Medications - Allergies Allergies/Adverse Reactions: Allergies Allergy/AdvReac Type Severity Reaction Status Date / Time banana Allergy Intermediate Vomiting Verified 07/05/20 18:08 cantaloupe Allergy Intermediate Vomiting Verified 07/05/20 18:08 watermelon Allergy Intermediate Vomiting Verified 07/05/20 18:08 peanut butter Allergy Intermediate Vomiting Uncoded 07/05/20 18:08 - Home Medications Home Medications: Ambulatory Orders Aripiprazole [Abilify Maintena] 400 mg IM MONTHLY 07/05/20 Divalproex [Depakote -] 500 mg PO BID 07/05/20 Review of Systems - Review of Systems Constitutional: reports: Chills. denies: Fever Cardiovascular: reports: Shortness of Breath. denies: Chest Pain, Palpitations Respiratory: reports: Cough, SOB. denies: Hemoptysis, Orthopnea, PND Gastrointestinal: denies: Abdominal Pain, Constipation, Diarrhea, Melena, Nausea, Rectal Bleeding, Vomiting Neurological: denies: Dizziness, Headache, Seizure, Syncope Vital Signs: Vital Signs Temperature 98.4 F 07/06/20 10:32 Pulse Rate 60 07/06/20 08:00 Respiratory Rate 18 07/06/20 08:00 Blood Pressure 97/69 07/06/20 08:00 O2 Sat by Pulse Oximetry (%) 100 07/06/20 05:18 Neck: Yes: Supple Respiratory: Yes: Diminished Gastrointestinal: Yes: Normal Bowel Sounds, Soft. No: Tenderness Cardiovascular: Yes: Regular Rate and Rhythm JVD: No PMI: Non-Displaced Heart Sounds: Yes: S1, S2 Edema: No - Other Data Labs, Other Data: CBC, BMP 07/06/20 05:35 07/06/20 05:35 INR, PTT INR 1.02 (0.83-1.09) 07/05/20 18:56 Troponin, BNP 07/05/20 07/05/20 07/06/20 18:56 18:56 05:35 Troponin I < 0.02 < 0.02 B-Natriuretic Peptide 47.2 Sinus rhythm T abnormality anterior leads Imaging - Results Chest X-ray: Report Reviewed (Interstitial and alveolar changes) Cat Scan: Report Reviewed (Chest CT interstitial lung disease, dilated pulmonary artery) EKG: Report Reviewed Problem List - Problems (1) Abnormal EKG Code(s): R94.31 - ABNORMAL ELECTROCARDIOGRAM [ECG] [EKG] (2) Bradycardia Code(s): R00.1 - BRADYCARDIA, UNSPECIFIED (3) Alcohol dependence Code(s): F10.20 - ALCOHOL DEPENDENCE, UNCOMPLICATED Qualifiers: Substance use status: in withdrawal Complication of substance-induced condition: uncomplicated Qualified Code(s): F10.230 - Alcohol dependence with withdrawal, uncomplicated (4) Cocaine dependence Code(s): F14.20 - COCAINE DEPENDENCE, UNCOMPLICATED Qualifiers: Substance use status: uncomplicated Qualified Code(s): F14.20 - Cocaine dependence, uncomplicated (5) Marijuana dependence Code(s): F12.20 - CANNABIS DEPENDENCE, UNCOMPLICATED (6) Nicotine dependence Code(s): F17.200 - NICOTINE DEPENDENCE, UNSPECIFIED, UNCOMPLICATED Qualifiers: Nicotine product type: cigarettes Substance use status: uncomplicated Qualified Code(s): F17.210 - Nicotine dependence, cigarettes, uncomplicated (7) Asthma Code(s): J45.909 - UNSPECIFIED ASTHMA, UNCOMPLICATED Qualifiers: Asthma severity: mild Asthma persistence: intermittent Asthma complication type: uncomplicated Qualified Code(s): J45.20 - Mild intermittent asthma, uncomplicated (8) Schizophrenia Code(s): F20.9 - SCHIZOPHRENIA, UNSPECIFIED Qualifiers: Schizophrenia type: unspecified Qualified Code(s): F20.9 - Schizophrenia, unspecified (9) Chest pain Code(s): R07.9 - CHEST PAIN, UNSPECIFIED Assessment/Plan 1. Interstitial lung disease with underlying bronchial asthma and bronchitis 2. Polysubstance abuse 3. Episode of bradycardia 4. Abnormal ECG ? etiology ? CAD ? myopathic 5. Low blood pressure PLAN: 1. Monitor withdrawl from polysubstance abuse. Continue detox 2. Monitor BP 3. Echocardiography to assess LV/RV and valvular function 4. Troponins are negative 2 sets 5. Currently isolated. COVID testing pending 6. Continue telemetry monitoring Further plans are to follow Yoni Greenfield MD
--- NOTE | 2020-07-06 12:25 | CON.PULM ---
Consult Consult Specialty:: PULMONARY Referred by:: Dr Richey Reason for Consultation:: interstitial lung disease - History of Present Illness Chief Complaint: bradycardia History of Present Illness: 50yo male with h/o schizophrenia, asthma, polysubstance abuse who was sent from [facility] for bradycardia. He reports intermittent chest pain, states his shortness of breath has resolved but has a chronic cough. No fevers, chills or sweats. Pt is a poor historian. He is a smoker, 1 PPD. When he uses his substances he typically snorts them. CT chest showing diffuse interstitial changes. He does not know if what he snorts is cut with anything. ) - History Source History Provided By: Patient, Medical Record Limitations to Obtaining History: Poor Historian - Past Medical History Pulmonary: Yes: Asthma, Bronchitis Psych: Yes: Schizophrenia - Alcohol/Substance Use Hx Alcohol Use: Yes History of Substance Use: reports: Cocaine, Marijuana, Prescription - Smoking History Smoking history: Current every day smoker Have you smoked in the past 12 months: Yes Aproximately how many cigarettes per day: 20 Home Medications - Allergies Allergies/Adverse Reactions: Allergies Allergy/AdvReac Type Severity Reaction Status Date / Time banana Allergy Intermediate Vomiting Verified 07/05/20 18:08 cantaloupe Allergy Intermediate Vomiting Verified 07/05/20 18:08 watermelon Allergy Intermediate Vomiting Verified 07/05/20 18:08 peanut butter Allergy Intermediate Vomiting Uncoded 07/05/20 18:08 - Home Medications Home Medications: Ambulatory Orders Aripiprazole [Abilify Maintena] 400 mg IM MONTHLY 07/05/20 Divalproex [Depakote -] 500 mg PO BID 07/05/20 Review of Systems Unable to obtain ROS, reason: poor historian Physical Exam Vital Sings: Vital Signs Temperature 98.4 F 07/06/20 10:32 Pulse Rate 60 07/06/20 08:00 Respiratory Rate 18 07/06/20 08:00 Blood Pressure 97/69 07/06/20 08:00 O2 Sat by Pulse Oximetry (%) 100 07/06/20 05:18 Constitutional: Yes: Calm Eyes: Yes: Conjunctiva Clear, EOM Intact HENT: Yes: Atraumatic, Normocephalic Neck: Yes: Supple, Trachea Midline Cardiovascular: Yes: Regular Rate and Rhythm Respiratory: Yes: Diminished (at bases) ...Clubbing: No Gastrointestinal: Yes: Normal Bowel Sounds, Soft. No: Tenderness Edema: No Neurological: Yes: Alert Labs: CBC, BMP 07/06/20 05:35 07/06/20 05:35 Imaging - Results Chest X-ray: Report Reviewed, Image Reviewed Cat Scan: Report Reviewed, Image Reviewed (diffuse interstitial changes) Assessment/Plan Interstitial Lung Disease likely from inhalational exposures Polysubstance Abuse Asthma Smoker Schizophrenia - inhaled bronchodilators - advised to stop inhaling substances - outpt f/u of chest imaging - smoking cessation discussed - DVT prophylaxis
[2020-07-07] MEDS: HEPARIN NA (PORCINE) 5,000 UNITS/ML 1ML VIAL SQ SCH ×3 (05:46→18:07)
--- NOTE | 2020-07-07 09:15 | PN ---
Progress Note, Physician Chief Complaint: Not in distress History of Present Illness: Patient was seen and examined. Awake and alert. Chart was reviewed Denies chest pain, SOB or palpitations - Current Medication List Current Medications: Active Medications Divalproex Sodium (Depakote -) 500 mg PO BID [facility] Last Admin: 07/06/20 21:28 Dose: 500 mg Documented by: Folic Acid (Folic Acid -) 1 mg PO DAILY [facility] Last Admin: 07/06/20 09:26 Dose: 1 mg Documented by: Heparin Sodium (Porcine) (Heparin -) 5,000 unit SQ Q8H-IV [facility] Last Admin: 07/07/20 05:46 Dose: Not Given Documented by: Lorazepam (Ativan -) 0.5 mg PO Q4H PRN PRN Reason: WITHDRAWAL(CONT SUBST) Multivitamins/Minerals/Vitamin C (Tab-A-Vit -) 1 tab PO DAILY [facility] Last Admin: 07/06/20 09:26 Dose: 1 tab Documented by: Thiamine HCl (Vitamin B1 -) 100 mg PO DAILY [facility] Last Admin: 07/06/20 09:27 Dose: 100 mg Documented by: - Objective Vital Signs: Vital Signs Temperature 98.1 F 07/06/20 21:00 Pulse Rate 56 L 07/07/20 08:00 Respiratory Rate 29 H 07/07/20 08:00 Blood Pressure 110/72 07/07/20 08:00 O2 Sat by Pulse Oximetry (%) 98 07/07/20 08:49 Neck: Yes: Supple Cardiovascular: Yes: Bradycardia, S1, S2 Respiratory: Yes: CTA Bilaterally Gastrointestinal: Yes: Normal Bowel Sounds, Soft. No: Tenderness Edema: No Additional Findings/Remarks: - Review of Systems Constitutional: reports: Chills. denies: Fever Cardiovascular: reports: Shortness of Breath. denies: Chest Pain, Palpitations Respiratory: reports: Cough, SOB. denies: Hemoptysis, Orthopnea, PND Gastrointestinal: denies: Abdominal Pain, Constipation, Diarrhea, Melena, Nausea, Rectal Bleeding, Vomiting Neurological: denies: Dizziness, Headache, Seizure, Syncope Labs: CBC, BMP 07/06/20 05:35 07/06/20 05:35 INR, PTT INR 1.02 (0.83-1.09) 07/05/20 18:56 Problem List - Problems (1) Abnormal EKG Code(s): R94.31 - ABNORMAL ELECTROCARDIOGRAM [ECG] [EKG] (2) Bradycardia Code(s): R00.1 - BRADYCARDIA, UNSPECIFIED (3) Alcohol dependence Code(s): F10.20 - ALCOHOL DEPENDENCE, UNCOMPLICATED Qualifiers: Substance use status: in withdrawal Complication of substance-induced condition: uncomplicated Qualified Code(s): F10.230 - Alcohol dependence with withdrawal, uncomplicated (4) Cocaine dependence Code(s): F14.20 - COCAINE DEPENDENCE, UNCOMPLICATED Qualifiers: Substance use status: uncomplicated Qualified Code(s): F14.20 - Cocaine dependence, uncomplicated (5) Marijuana dependence Code(s): F12.20 - CANNABIS DEPENDENCE, UNCOMPLICATED (6) Nicotine dependence Code(s): F17.200 - NICOTINE DEPENDENCE, UNSPECIFIED, UNCOMPLICATED Qualifiers: Nicotine product type: cigarettes Substance use status: uncomplicated Qualified Code(s): F17.210 - Nicotine dependence, cigarettes, uncomplicated (7) Asthma Code(s): J45.909 - UNSPECIFIED ASTHMA, UNCOMPLICATED Qualifiers: Asthma severity: mild Asthma persistence: intermittent Asthma complication type: uncomplicated Qualified Code(s): J45.20 - Mild intermittent asthma, uncomplicated (8) Schizophrenia Code(s): F20.9 - SCHIZOPHRENIA, UNSPECIFIED Qualifiers: Schizophrenia type: unspecified Qualified Code(s): F20.9 - Schizophrenia, unspecified (9) Chest pain Code(s): R07.9 - CHEST PAIN, UNSPECIFIED Assessment/Plan 1. Interstitial lung disease with underlying bronchial asthma and bronchitis 2. Polysubstance abuse 3. Episode of bradycardia 4. Abnormal ECG ? etiology ? CAD 5. Low blood pressure PLAN: 1. Monitor withdrawl from polysubstance abuse. Continue detox 2. Echocardiography to assess LV/RV and valvular function 3. Continue telemetry monitoring, but once above is done, he may return back to detox Further plans are to follow Yoni Greenfield MD
[2020-07-07] MEDS ORDERED: PT OWN MED DRAWER 7, Y5N ONE ×2 (09:36→20:52)
--- NOTE | 2020-07-07 09:39 | PN ---
Teaching Attending Note Name of Resident: Janie Maldonado ATTENDING PHYSICIAN STATEMENT I saw and evaluated the patient. I reviewed the resident's note and discussed the case with the resident. I agree with the resident's findings and plan as documented. SUBJECTIVE: pt seen and examined OBJECTIVE: Last Vital Signs Temp Pulse Resp BP Pulse Ox 98.1 F 56 L 29 H 110/72 98 07/06/20 21:00 07/07/20 08:00 07/07/20 08:00 07/07/20 08:00 07/07/20 08:49 GENERAL: The patient is awake, alert, and fully oriented, in no acute distress. LUNGS: poor effort, inspiratory crackles, no accessory muscle use. HEART: Regular rate and rhythm, S1, S2 without murmur, rub or gallop. ABDOMEN: Soft, nontender, nondistended, normoactive bowel sounds, no guarding, no rebound, no hepatosplenomegaly, no masses. EXTREMITIES: 2+ pulses, warm, well-perfused, no edema. NEUROLOGICAL: Cranial nerves II through XII grossly intact. Normal speech, gait not observed. PSYCH: hearing voices calling his name, occasionally seeing objects. CBCD WBC 4.4 K/mm3 (4.0-10.0) 07/06/20 05:35 RBC 5.11 M/mm3 (4.00-5.60) 07/06/20 05:35 Hgb 11.7 GM/dL (11.7-16.9) 07/06/20 05:35 Hct 37.7 % (35.4-49) 07/06/20 05:35 MCV 73.8 fl (80-96) L 07/06/20 05:35 MCHC 31.1 g/dl (32.0-35.9) L 07/06/20 05:35 RDW 16.0 % (11.9-15.9) H 07/06/20 05:35 Plt Count 261 K/MM3 (134-434) 07/06/20 05:35 MPV 8.0 fl (7.5-11.1) 07/06/20 05:35 CMP Sodium 141 mmol/L (136-145) 07/06/20 05:35 Potassium 4.2 mmol/L (3.5-5.1) 07/06/20 05:35 Chloride 106 mmol/L (98-107) 07/06/20 05:35 Carbon Dioxide 31 mmol/L (21-32) 07/06/20 05:35 Anion Gap 4 MMOL/L (8-16) L 07/06/20 05:35 BUN 18.7 mg/dL (7-18) H 07/06/20 05:35 Creatinine 1.3 mg/dL (0.55-1.3) 07/06/20 05:35 Random Glucose 92 mg/dL (74-106) 07/06/20 05:35 Calcium 8.2 mg/dL (8.5-10.1) L 07/06/20 05:35 Total Bilirubin 0.4 mg/dL (0.2-1) 07/06/20 05:35 AST 20 U/L (15-37) 07/06/20 05:35 ALT 15 U/L (13-61) 07/06/20 05:35 Alkaline Phosphatase 82 U/L (45-117) 07/06/20 05:35 Total Protein 6.4 g/dl (6.4-8.2) 07/06/20 05:35 Albumin 2.5 g/dl (3.4-5.0) L 07/06/20 05:35 CARDIAC ENZYMES Creatine Kinase 224 U/L (26-308) 07/05/20 18:56 Troponin I < 0.02 ng/ml (0.00-0.05) 07/06/20 05:35 Active Medications Divalproex Sodium (Depakote -) 500 mg PO BID [facility] Last Admin: 07/06/20 21:28 Dose: 500 mg Documented by: Folic Acid (Folic Acid -) 1 mg PO DAILY [facility] Last Admin: 07/06/20 09:26 Dose: 1 mg Documented by: Heparin Sodium (Porcine) (Heparin -) 5,000 unit SQ Q8H-IV [facility] Last Admin: 07/07/20 05:46 Dose: Not Given Documented by: Lorazepam (Ativan -) 0.5 mg PO Q4H PRN PRN Reason: WITHDRAWAL(CONT SUBST) Multivitamins/Minerals/Vitamin C (Tab-A-Vit -) 1 tab PO DAILY [facility] Last Admin: 07/06/20 09:26 Dose: 1 tab Documented by: Thiamine HCl (Vitamin B1 -) 100 mg PO DAILY [facility] Last Admin: 07/06/20 09:27 Dose: 100 mg Documented by: ASSESSMENT AND PLAN: 50 y.o. M PMH asthma, schizophrenia, polysubstance abuse (EtOH, cocaine, MJ, nicotine, street pills when he can get them/ xanax), interstitial lung disease? presenting to ED from [facility] for bradycardia (to low 40s, sinus) and chest pain # Sinus bradycardia, resolved -likely 2/2 susbtance abuse (last use on 07/04/20) -h/o bradycardia -troponin -vex2, EKG showing sinus coby, T-inversion in anterior leads, denies CP -HR now in 70s, BP 90s/60s -MV, thiamine, B12 -cardiology consult appreciated -Awaiting ECHO COPD/ ILD Schizophrenia active smoker polysubstance abuse DVT prophylaxis
[2020-07-07] MEDS: MULTIVITAMINS (DAILY MVI) TABLET (FP) PO SCH (09:42)
[2020-07-07] MEDS: FOLIC ACID 1 MG TABLET (FP) PO SCH (09:42)
[2020-07-07] MEDS: THIAMINE HCL 100 MG TABLET (FP) PO SCH (09:42)
[2020-07-07] MEDS: DIVALPROEX SODIUM 500 MG TABLET E.C. PO SCH ×2 (09:43→22:13)
--- NOTE | 2020-07-07 10:41 | PN ---
Physical Exam: SUBJECTIVE: Patient seen and examined. Reports feeling well and has no complaints. Denies chest pain, shortness of breath, dizziness. HR 50-60s ov ernight on tele. OBJECTIVE: Vital Signs Temperature 98.1 F 07/06/20 21:00 Pulse Rate 56 L 07/07/20 08:00 Respiratory Rate 29 H 07/07/20 08:00 Blood Pressure 110/72 07/07/20 08:00 O2 Sat by Pulse Oximetry (%) 98 07/07/20 08:49 GENERAL: The patient is awake, alert, and fully oriented, in no acute distress. NECK: Trachea midline, full range of motion, supple. LUNGS: decreased breath sounds bilateral bases HEART: Regular rate and rhythm, S1, S2 ABDOMEN: Soft, nontender, nondistended, normoactive bowel sounds EXTREMITIES: 2+ pulses, warm, well-perfused, no edema. NEUROLOGICAL: Cranial nerves II through XII grossly intact. Normal speech PSYCH: Normal mood, normal affect. SKIN: Warm, dry, normal turgor. Active Medications Generic Name Dose Route Start Last Admin Trade Name Freq PRN Reason Stop Dose Admin Divalproex Sodium 500 mg 07/06/20 10:00 07/07/20 09:43 Depakote - PO 500 mg BID MIKAELA Administration Folic Acid 1 mg 07/06/20 10:00 07/07/20 09:42 Folic Acid - PO 1 mg DAILY MIKAELA Administration Heparin Sodium (Porcine) 5,000 unit 07/06/20 10:00 07/07/20 09:42 Heparin - SQ 5,000 unit Q8H-IV MIKAELA Administration Lorazepam 0.5 mg 07/06/20 03:41 Ativan - PO Q4H PRN WITHDRAWAL(CONT SUBST) Multivitamins/Minerals/Vitamin C 1 tab 07/06/20 10:00 07/07/20 09:42 Tab-A-Vit - PO 1 tab DAILY MIKAELA Administration Thiamine HCl 100 mg 07/06/20 10:00 07/07/20 09:42 Vitamin B1 - PO 100 mg DAILY MIKAELA Administration ASSESSMENT/PLAN: Patient is a 50 y.o. M PMH asthma, schizophrenia, polysubstance abuse (EtOH, cocaine, MJ, nicotine, street pills when he can get them/ xanax), interstitial lung disease? presenting to ED from [facility] for bradycardia (to low 40s, sinus) and chest pain. #Sinus bradycardia -improved, likely 2/2 substance abuse -continue tele monitoring -troponin neg x2, EKG sinus bradycardia with T wave inversions on anterior leads -cardiology (Dr. Greenfield) consulted. Recommendations appreciated. -awaiting Echocardiography to assess LV/RV and valvular function -may return to [facility] once echo is done #Interstitial lung disease, COPD -CT chest - extensive bilateral upper and lower lung field chronic interstitial lung disease with a lower lobe predominance. Associated mild upper and lower lobe traction bronchiectasis -COVID negative -HIv negative -Pulm consulted (Dr. Kohler). Recs appreciated. -ID consulted: Dr. Davis. Recs appreciated. -inhaled bronchodilators -advised to stop inhaling substances -outpt f/u of chest imaging #Polysubstance abuse- EtOH, cocaine, MJ, benzos -CIWA 0 -continue neurochecks, seizure and fall risk precautions -0.5 mg PO ativan q4h prn for EtOH withdrawal symptoms -anticipate dc tomorrow back to [facility] for rehab #FEN -no standing fluids -trend & replete lytes prn -regular diet #PPX -heparin sq #Dispo -full code -anticipate dc tomorrow am to [facility] rehab once echo completed. Visit type - Emergency Visit Emergency Visit: Yes ED Registration Date: 07/05/20 Care time: The patient presented to the Emergency Department on the above date and was hospitalized for further evaluation of their emergent condition. - New Patient This patient is new to me today: Yes Date on this admission: 07/07/20 - Critical Care Critical Care patient: No ATTENDING PHYSICIAN STATEMENT I saw and evaluated the patient. I reviewed the resident's note and discussed the case with the resident. I agree with the resident's findings and plan as documented. SUBJECTIVE: OBJECTIVE: ASSESSMENT AND PLAN:
--- NOTE | 2020-07-07 21:33 | EKG ---
Test Reason : Blood Pressure : / mmHG Vent. Rate : 070 BPM Atrial Rate : 070 BPM P-R Int : 148 ms QRS Dur : 084 ms QT Int : 394 ms P-R-T Axes : 054 037 004 degrees QTc Int : 425 ms NORMAL SINUS RHYTHM T WAVE ABNORMALITY, CONSIDER ANTERIOR ISCHEMIA ABNORMAL ECG WHEN COMPARED WITH ECG OF 06-JUL-2020 00:38, NO SIGNIFICANT CHANGE WAS FOUND Confirmed by FRANSISCA LUCIANO, DIEGO ([id number]) on 07/07/2020 9:32:49 PM Referred By: Brandon BALDWIN Confirmed By:DIEGO GONGORA MD
--- NOTE | 2020-07-07 21:33 | EKG ---
Test Reason : Blood Pressure : / mmHG Vent. Rate : 053 BPM Atrial Rate : 053 BPM P-R Int : 148 ms QRS Dur : 094 ms QT Int : 468 ms P-R-T Axes : 052 029 015 degrees QTc Int : 439 ms SINUS BRADYCARDIA POSSIBLE LEFT ATRIAL ENLARGEMENT T WAVE ABNORMALITY, CONSIDER ANTERIOR ISCHEMIA ABNORMAL ECG WHEN COMPARED WITH ECG OF 05-JUL-2020 18:14, NO SIGNIFICANT CHANGE WAS FOUND Confirmed by DIEGO GONGORA MD ([id number]) on 07/07/2020 9:32:41 PM Referred By: Confirmed By:DIEGO GONGORA MD
--- NOTE | 2020-07-07 21:34 | EKG ---
Test Reason : Blood Pressure : / mmHG Vent. Rate : 053 BPM Atrial Rate : 053 BPM P-R Int : 158 ms QRS Dur : 088 ms QT Int : 436 ms P-R-T Axes : 049 037 020 degrees QTc Int : 409 ms SINUS BRADYCARDIA NONSPECIFIC T WAVE ABNORMALITY WHEN COMPARED WITH ECG OF 05-JUL-2020 15:28, T WAVE INVERSION APPEARS LESS PROMINENT ?LEAD PLACEMENT Confirmed by DIEGO GONGORA MD ([id number]) on 07/07/2020 9:34:10 PM Referred By: Confirmed By:DIEGO GONGORA MD
[2020-07-08] MEDS: HEPARIN NA (PORCINE) 5,000 UNITS/ML 1ML VIAL SQ SCH ×2 (01:00→09:01)
[2020-07-08 08:29] VITALS: TEMP 98.3
[2020-07-08] MEDS ORDERED: PT OWN MED DRAWER 7, Y5N ONE (08:42)
[2020-07-08] MEDS: THIAMINE HCL 100 MG TABLET (FP) PO SCH (09:01)
[2020-07-08] MEDS: FOLIC ACID 1 MG TABLET (FP) PO SCH (09:01)
[2020-07-08] MEDS: DIVALPROEX SODIUM 500 MG TABLET E.C. PO SCH (09:01)
[2020-07-08] MEDS: MULTIVITAMINS (DAILY MVI) TABLET (FP) PO SCH (09:02)
--- NOTE | 2020-07-08 10:19 | PN ---
Progress Note, Physician History of Present Illness: Resting comfortably, no complaints. Denies chest pain, dyspnea, palpitations. - Current Medication List Current Medications: Active Medications Divalproex Sodium (Depakote -) 500 mg PO BID [facility] Last Admin: 07/08/20 09:01 Dose: 500 mg Documented by: Folic Acid (Folic Acid -) 1 mg PO DAILY [facility] Last Admin: 07/08/20 09:01 Dose: 1 mg Documented by: Heparin Sodium (Porcine) (Heparin -) 5,000 unit SQ Q8H-IV [facility] Last Admin: 07/08/20 09:01 Dose: 5,000 unit Documented by: Lorazepam (Ativan -) 0.5 mg PO Q4H PRN PRN Reason: WITHDRAWAL(CONT SUBST) Multivitamins/Minerals/Vitamin C (Tab-A-Vit -) 1 tab PO DAILY [facility] Last Admin: 07/08/20 09:02 Dose: 1 tab Documented by: Thiamine HCl (Vitamin B1 -) 100 mg PO DAILY [facility] Last Admin: 07/08/20 09:01 Dose: 100 mg Documented by: - Objective Vital Signs: Vital Signs Temperature 98.3 F 07/08/20 08:29 Pulse Rate 73 07/08/20 10:02 Respiratory Rate 24 H 07/08/20 10:02 Blood Pressure 94/68 07/08/20 10:02 O2 Sat by Pulse Oximetry (%) 94 L 07/08/20 10:02 Constitutional: Yes: No Distress, Calm, Thin Neck: Yes: Supple Cardiovascular: Yes: Regular Rate and Rhythm Respiratory: Yes: Regular, CTA Bilaterally, On Nasal O2 Gastrointestinal: Yes: Soft, Hypoactive Bowel Sounds Edema: No Labs: CBC, BMP 07/06/20 05:35 07/06/20 05:35 INR, PTT INR 1.02 (0.83-1.09) 07/05/20 18:56 - ....Imaging EKG: Report Reviewed (Tele: NSR) Assessment/Plan Problem List - Problems (1) Abnormal EKG Code(s): R94.31 - ABNORMAL ELECTROCARDIOGRAM [ECG] [EKG] (2) Bradycardia Code(s): R00.1 - BRADYCARDIA, UNSPECIFIED (3) Alcohol dependence Code(s): F10.20 - ALCOHOL DEPENDENCE, UNCOMPLICATED Qualifiers: Substance use status: in withdrawal Complication of substance-induced condition: uncomplicated Qualified Code(s): F10.230 - Alcohol dependence with withdrawal, uncomplicated (4) Cocaine dependence Code(s): F14.20 - COCAINE DEPENDENCE, UNCOMPLICATED Qualifiers: Substance use status: uncomplicated Qualified Code(s): F14.20 - Cocaine dependence, uncomplicated (5) Marijuana dependence Code(s): F12.20 - CANNABIS DEPENDENCE, UNCOMPLICATED (6) Nicotine dependence Code(s): F17.200 - NICOTINE DEPENDENCE, UNSPECIFIED, UNCOMPLICATED Qualifiers: Nicotine product type: cigarettes Substance use status: uncomplicated Qualified Code(s): F17.210 - Nicotine dependence, cigarettes, uncomplicated (7) Asthma Code(s): J45.909 - UNSPECIFIED ASTHMA, UNCOMPLICATED Qualifiers: Asthma severity: mild Asthma persistence: intermittent Asthma complication type: uncomplicated Qualified Code(s): J45.20 - Mild intermittent asthma, uncomplicated (8) Schizophrenia Code(s): F20.9 - SCHIZOPHRENIA, UNSPECIFIED Qualifiers: Schizophrenia type: unspecified Qualified Code(s): F20.9 - Schizophrenia, unspecified (9) Chest pain Code(s): R07.9 - CHEST PAIN, UNSPECIFIED Assessment/Plan 1. Interstitial lung disease with underlying bronchial asthma and bronchitis likely from inhalational exposures 2. Polysubstance abuse 3. Episode of bradycardia since resolved 4. Abnormal ECG ? etiology ? CAD 5. Schizophrenia PLAN: 1. Monitor withdrawal from polysubstance abuse. Continue detox 2. Echocardiography to assess LV/RV and valvular function 3. Continue telemetry monitoring, but once above is done, he may return back to detox 4. DVT prophylaxis, inhaled bronchodilators, advised to stop inhaling substances and smoking cessation
[2020-07-08 12:05] VITALS: BP 103/83; PULSE 70
--- NOTE | 2020-07-08 12:23 | PN ---
Progress Note (short form) - Note Progress Note: Resting in NAD. Denies CP or SOB. No acute events overnight. Intake & Output 07/05/20 07/06/20 07/07/20 07/08/20 23:59 23:59 23:59 23:59 Intake Total 120 800 850 0 Output Total 200 1200 1550 1250 Balance -80 -400 -700 -1250 Weight 174 lb 2.643 oz 174 lb Last Vital Signs Temp Pulse Resp BP Pulse Ox 98.3 F 70 22 H 103/83 95 07/08/20 08:29 07/08/20 12:04 07/08/20 12:04 07/08/20 12:04 07/08/20 12:04 Home Medication List Medication Instructions Recorded Confirmed Type Aripiprazole [Abilify Maintena] 400 mg IM MONTHLY 07/05/20 07/05/20 History Divalproex [Depakote -] 500 mg PO BID 07/05/20 07/05/20 History Active Medications Generic Name Dose Route Start Last Admin Trade Name Wichoq PRN Reason Stop Dose Admin Divalproex Sodium 500 mg 07/06/20 10:00 07/08/20 09:01 Depakote - PO 500 mg BID MIKAELA Administration Folic Acid 1 mg 07/06/20 10:00 07/08/20 09:01 Folic Acid - PO 1 mg DAILY MIKAELA Administration Heparin Sodium (Porcine) 5,000 unit 07/06/20 10:00 07/08/20 09:01 Heparin - SQ 5,000 unit Q8H-IV MIKAELA Administration Lorazepam 0.5 mg 07/06/20 03:41 Ativan - PO Q4H PRN WITHDRAWAL(CONT SUBST) Multivitamins/Minerals/Vitamin C 1 tab 07/06/20 10:00 07/08/20 09:02 Tab-A-Vit - PO 1 tab DAILY MIKAELA Administration Thiamine HCl 100 mg 07/06/20 10:00 07/08/20 09:01 Vitamin B1 - PO 100 mg DAILY MIKAELA Administration Constitutional: Yes: NAD Eyes: Yes: Conjunctiva Clear, EOM Intact HENT: Yes: Atraumatic, Normocephalic Neck: Yes: Supple, Trachea Midline Cardiovascular: Yes: Regular Rate and Rhythm Respiratory: Yes: Diminished (at bases) ...Clubbing: No Gastrointestinal: Yes: Normal Bowel Sounds, Soft. No: Tenderness Edema: No Neurological: Yes: Alert Labs: Imaging - Results Chest X-ray: Report Reviewed, Image Reviewed Cat Scan: Report Reviewed, Image Reviewed (diffuse interstitial changes) Assessment/Plan Interstitial Lung Disease likely from inhalational exposures (Polysubstance : illicit) Polysubstance Abuse Asthma Smoker Schizophrenia - inhaled bronchodilators - Counseled on avoidance of inhaling substances / tobacco avoidance - outpt f/u of chest imaging - smoking cessation discussed - DVT prophylaxis - There is no Pulmonary contraindication for DC planning Dr Amaya
--- NOTE | 2020-07-08 13:04 | PN ---
Teaching Attending Note Name of Resident: Zen Wilkinson ATTENDING PHYSICIAN STATEMENT I saw and evaluated the patient. I reviewed the resident's note and discussed the case with the resident. I agree with the resident's findings and plan as documented. SUBJECTIVE: pt seen and examined OBJECTIVE: Last Vital Signs Temp Pulse Resp BP Pulse Ox 98.3 F 70 22 H 103/83 95 07/08/20 08:29 07/08/20 12:04 07/08/20 12:04 07/08/20 12:04 07/08/20 12:04 GENERAL: The patient is awake, alert, and fully oriented, in no acute distress. LUNGS: poor effort, inspiratory crackles, no accessory muscle use. HEART: Regular rate and rhythm, S1, S2 without murmur, rub or gallop. ABDOMEN: Soft, nontender, nondistended, normoactive bowel sounds, no guarding, no rebound, no hepatosplenomegaly, no masses. EXTREMITIES: 2+ pulses, warm, well-perfused, no edema. NEUROLOGICAL: Cranial nerves II through XII grossly intact. Normal speech, gait not observed. PSYCH: hearing voices calling his name, occasionally seeing objects. CBCD WBC 4.4 K/mm3 (4.0-10.0) 07/06/20 05:35 RBC 5.11 M/mm3 (4.00-5.60) 07/06/20 05:35 Hgb 11.7 GM/dL (11.7-16.9) 07/06/20 05:35 Hct 37.7 % (35.4-49) 07/06/20 05:35 MCV 73.8 fl (80-96) L 07/06/20 05:35 MCHC 31.1 g/dl (32.0-35.9) L 07/06/20 05:35 RDW 16.0 % (11.9-15.9) H 07/06/20 05:35 Plt Count 261 K/MM3 (134-434) 07/06/20 05:35 MPV 8.0 fl (7.5-11.1) 07/06/20 05:35 CMP Sodium 141 mmol/L (136-145) 07/06/20 05:35 Potassium 4.2 mmol/L (3.5-5.1) 07/06/20 05:35 Chloride 106 mmol/L (98-107) 07/06/20 05:35 Carbon Dioxide 31 mmol/L (21-32) 07/06/20 05:35 Anion Gap 4 MMOL/L (8-16) L 07/06/20 05:35 BUN 18.7 mg/dL (7-18) H 07/06/20 05:35 Creatinine 1.3 mg/dL (0.55-1.3) 07/06/20 05:35 Calcium 8.2 mg/dL (8.5-10.1) L 07/06/20 05:35 Total Bilirubin 0.4 mg/dL (0.2-1) 07/06/20 05:35 AST 20 U/L (15-37) 07/06/20 05:35 ALT 15 U/L (13-61) 07/06/20 05:35 Alkaline Phosphatase 82 U/L (45-117) 07/06/20 05:35 Total Protein 6.4 g/dl (6.4-8.2) 07/06/20 05:35 Albumin 2.5 g/dl (3.4-5.0) L 07/06/20 05:35 Active Medications Divalproex Sodium (Depakote -) 500 mg PO BID [facility] Last Admin: 07/08/20 09:01 Dose: 500 mg Documented by: Folic Acid (Folic Acid -) 1 mg PO DAILY [facility] Last Admin: 07/08/20 09:01 Dose: 1 mg Documented by: Heparin Sodium (Porcine) (Heparin -) 5,000 unit SQ Q8H-IV [facility] Last Admin: 07/08/20 09:01 Dose: 5,000 unit Documented by: Lorazepam (Ativan -) 0.5 mg PO Q4H PRN PRN Reason: WITHDRAWAL(CONT SUBST) Multivitamins/Minerals/Vitamin C (Tab-A-Vit -) 1 tab PO DAILY [facility] Last Admin: 07/08/20 09:02 Dose: 1 tab Documented by: Thiamine HCl (Vitamin B1 -) 100 mg PO DAILY [facility] Last Admin: 07/08/20 09:01 Dose: 100 mg Documented by: ASSESSMENT AND PLAN: 50 y.o. M PMH asthma, schizophrenia, polysubstance abuse (EtOH, cocaine, MJ, nicotine, street pills when he can get them/ xanax), interstitial lung disease? presenting to ED from [facility] for bradycardia (to low 40s, sinus) and chest pain # Sinus bradycardia, resolved -likely 2/2 susbtance abuse (last use on 07/04/20) -h/o bradycardia -troponin -vex2, EKG showing sinus coby, T-inversion in anterior leads, denies CP -HR now in 70s, BP 90s/60s -MV, thiamine, B12 -cardiology consult appreciated -ECHO showed LVEF 60% COPD/ ILD Schizophrenia active smoker polysubstance abuse DVT prophylaxis
--- NOTE | 2020-07-08 14:11 | DS ---
Physical Exam: SUBJECTIVE: Patient seen and examined at bedside. No acute events overnight. OBJECTIVE: Vital Signs Period Temp Pulse Resp BP Sys/Zarate Pulse Ox Last 24 Hr 97.9 F-98.3 F 58-81 18-29 94-169/68-130 94-98 PHYSICAL EXAM GENERAL: AAOx3 HEENT: NCAT, PERRLA, EOMI, sclera anicteric, conjunctiva clear NECK: Normal ROM, supple, no lymphadenopathy, JVD, or masses LUNGS: CTABL no wheezes/ rhonchi/ rales. No distress, speaks in full sentences. No increased work of breathing. HEART: RRR, normal S1 S2, no M/R/G, peripheral pulses 2+ and equal b/l ABDOMEN: Soft, tenderness upon palpation in ULQ, + BS. No guarding or rebound. No hepatomegaly or splenomegaly. MSK: ROM WNL EXTREMITIES: Normal inspection. No peripheral edema. No clubbing or cyanosis. NEUROLOGICAL: CN II-XII intact. Normal speech SKIN: no rashes or lesions noted LABS CBC, BMP 07/06/20 05:35 07/06/20 05:35 HOSPITAL COURSE: 50 y/o M with PMH pf asthma, schizophrenia, polysubstance abuse (EtOH, cocaine, MJ, nicotine, street pills when he can get them/ xanax), interstitial lung disease? presented from [facility] for bradycardia (to low 40s, sinus) and chest pain. Patient's bradycardia resolved throughout his stay without any intervention. Cardio workup was unremarkable and and patient was discharged with outpatient cardio follow up recommended. Patient had interstitial lung disease that was found on CT exam. Patient was followed up by pulmology who recommended outpatient follow up and cessation of inhalation of drugs. Patient was discharged to [facility] rehab. Date of Admission:07/05/20 07/05/2085-FRD-Mpffn are no prior studies for comparison. The study is quite abnormal. There are diffuse interstitial and alveolar changes seen bilaterally with the appearance of chronic lung disease with possibly superimposed infiltrates. There is a prominent mediastinum, sharp angles and intact bones and soft tissues. For more complete evaluation, further imaging with 07/05/20-CT w/o contrast-IMPRESSION: Extensive bilateral upper and lower lung field chronic interstitial lung disease is noted with a lower lobe predominance. There is associated mild upper and lower lobe traction bronchiectasis. A superimposed infiltrate is unlikely although difficult to exclude on the basis of CT only given the lack of previous exams available for direct comparison. Correlate clinically and consider close follow-up CT. There is dilatation of the main pulmonary artery with a 4 cm diameter suggestive of pulmonary hypertension. Several nonspecific mildly prominent mediastinal lymph nodes are noted which could be hyperplastic in nature. Correlation with 3 month follow-up CT is suggested in this regard. 07/08/20-echo- LV is normal in size. LV systolic function is normal. no regional wall motion abnormalities. EF=60-65%. Mild mitral regurgitation. mild tricuspid regurgitation. trace pulmonic valvular regurgitation. no pericardial effusion. Date of Discharge: 07/08/20 Minutes to complete discharge: 36 Discharge Summary Problems reviewed: Yes Reason For Visit: SUSPECTED 2019 COVID INFECTION, BRADYCARDIA Current Active Problems Abnormal EKG (Acute) Bradycardia (Acute) Chest pain (Acute) Condition: Stable - Instructions Diet, Activity, Other Instructions: Your visit: You were admitted to the hospital for a low heart rate. We did imaging of your heart and found no abnormalities. The low heart rate was probably due to the drugs you were using. Your heart rate improved throughout your stay. Additional Imaging: -During your stay we did a CT scan which showed interstitial lung disease. This could be from inhaling drugs. Please stop inhaling drugs to prevent this from worsening. Medications changes: -Continue to take all other home medications as prescribed. Follow up: - Please follow-up with your java consultant, Dr. Matamoros in 1 week. -Please follow-up with your insulation worker furnace installer, Dr. Amaya, in 1 week. - Visit with your Primary Care Provider in 2 weeks. If you do not have a primary care provider you may make an appointment with Dr. Qureshi at the [facility] clinic located at [address] [place] [address] ([phone]). Additional Instructions: -Please stop using drugs! They increase your risk of having a low heart rate again. -You are being discharged to [facility]. -Please return to the Emergency Department if you experience worsening pain, fevers, chills, shortness of breath, or chest pain, or if you experience any worsening, new or concerning symptoms. Referrals: Awais Matamoros MD [Staff Physician] - 1 Week Josr Amaya MD [Staff Physician] - 1 Week Disposition: I.P. ALCOHOL/SUBS ABUSE REHAB - Home Medications Comprehensive Discharge Medication List: Ambulatory Orders Aripiprazole [Abilify Maintena] 400 mg IM MONTHLY 07/05/20 Divalproex [Depakote -] 500 mg PO BID 07/05/20 Folic Acid - 1 mg PO DAILY #30 tablet 07/08/20 Multivitamins [Multivit ([facility] Formul[facility])] 1 tab PO DAILY #30 tab 07/08/20 Thiamine HCl [Vitamin B1 -] 100 mg PO DAILY #30 tablet 07/08/20 This patient is new to me today: Yes Date on this admission: 07/08/20 Emergency Visit: No Critical Care patient: No - Discharge Referral Referred to [facility] Med [facility] No ATTENDING PHYSICIAN STATEMENT I saw and evaluated the patient. I reviewed the resident's note and discussed the case with the resident. I agree with the resident's findings and plan as documented. SUBJECTIVE: OBJECTIVE: ASSESSMENT AND PLAN:
--- NOTE | 2020-07-08 14:46 | PN ---
Physical Exam: SUBJECTIVE: Patient seen and examined at bedside. No acute events overnight. OBJECTIVE: Vital Signs Period Temp Pulse Resp BP Sys/Zarate Pulse Ox Last 24 Hr 97.9 F-98.3 F 58-81 18-29 94-169/68-130 94-98 GENERAL: AAOx3 HEENT: NCAT, PERRLA, EOMI, sclera anicteric, conjunctiva clear NECK: Normal ROM, supple, no lymphadenopathy, JVD, or masses LUNGS: CTABL no wheezes/ rhonchi/ rales. No distress, speaks in full sentences. No increased work of breathing. HEART: RRR, normal S1 S2, no M/R/G, peripheral pulses 2+ and equal b/l ABDOMEN: Soft, tenderness upon palpation in ULQ, + BS. No guarding or rebound. No hepatomegaly or splenomegaly. MSK: ROM WNL EXTREMITIES: Normal inspection. No peripheral edema. No clubbing or cyanosis. NEUROLOGICAL: CN II-XII intact. Normal speech SKIN: no rashes or lesions noted Active Medications Generic Name Dose Route Start Last Admin Trade Name Freq PRN Reason Stop Dose Admin Divalproex Sodium 500 mg 07/06/20 10:00 07/08/20 09:01 Depakote - PO 500 mg BID MIKAELA Administration Folic Acid 1 mg 07/06/20 10:00 07/08/20 09:01 Folic Acid - PO 1 mg DAILY MIKAELA Administration Heparin Sodium (Porcine) 5,000 unit 07/06/20 10:00 07/08/20 09:01 Heparin - SQ 5,000 unit Q8H-IV MIKAELA Administration Lorazepam 0.5 mg 07/06/20 03:41 Ativan - PO Q4H PRN WITHDRAWAL(CONT SUBST) Multivitamins/Minerals/Vitamin C 1 tab 07/06/20 10:00 07/08/20 09:02 Tab-A-Vit - PO 1 tab DAILY MIKAELA Administration Thiamine HCl 100 mg 07/06/20 10:00 07/08/20 09:01 Vitamin B1 - PO 100 mg DAILY MIKAELA Administration ASSESSMENT/PLAN: 50 y/o M with PMH of asthma, schizophrenia, polysubstance abuse (EtOH, cocaine, MJ, nicotine, street pills when he can get them/ xanax), interstitial lung disease presenting to ED from [facility] for bradycardia (to low 40s, sinus) and chest pain. #Sinus bradycardia -improved, likely 2/2 substance abuse -continue tele monitoring -troponin neg x2, EKG sinus bradycardia with T wave inversions on anterior leads -cardiology (Dr. Greenfield) consult: patient can be d/c once echo is completed and f/u outpatient. -Echo to assess LV/RV and valvular function pending -d/c to [facility] once echo is done #Interstitial lung disease, COPD -CT chest - extensive bilateral upper and lower lung field chronic interstitial lung disease with a lower lobe predominance. Associated mild upper and lower lobe traction bronchiectasis -COVID negative -HIV negative -Pulm consult: f/u reccs -ID consulted: f/u reccs -inhaled bronchodilators -advised to stop inhaling substances -outpt f/u of chest imaging #Polysubstance abuse -CIWA 0 today -c/w neurochecks, seizure and fall risk precautions -0.5 mg PO ativan q4h prn for EtOH withdrawal symptoms -anticipate dc today back to [facility] for rehab #FEN -no standing fluids -monitor lytes; replete PRN -regular diet #Ppx -DVT: heparin SQ #Dispo- d/c to [facility] ATTENDING PHYSICIAN STATEMENT I saw and evaluated the patient. I reviewed the resident's note and discussed the case with the resident. I agree with the resident's findings and plan as documented. SUBJECTIVE: OBJECTIVE: ASSESSMENT AND PLAN:
--- NOTE | 2020-07-08 15:14 | ECHO ---
Name: JUAN HUITRON Exam:Adult Echocardiogram Study Date: 07/08/2020 02:16 PM Age: 50 yrs Reason For Study: Reason not indicated Height: 69 in Weight: 174 lb BSA: 1.9 m2 HR: 66 MMode/2D Measurements & Calculations IVSd: 0.78 cm Ao root diam: 3.8 cm LVIDd: 4.2 cm LA dimension: 2.8 cm LVIDs: 2.7 cm ACS: 1.8 cm LVPWd: 0.95 cm EDV(Teich): 77.7 ml LVOT diam: 2.0 cm ESV(Teich): 26.3 ml LAV (MOD-bp): 31.0 ml TAPSE: 2.0 cm RV S Eric: 12.0 cm/sec Doppler Measurements & Calculations MV E max eric: 58.2 cm/sec Ao V2 max: 111.3 cm/sec MV A max eric: 71.6 cm/sec Ao max P.0 mmHg MV E/A: 0.81 Ao V2 mean: 81.5 cm/sec MV dec time: 0.25 sec Ao mean P.0 mmHg Ao V2 VTI: 21.5 cm ELBA(I,D): 2.4 cm2 ELBA(V,D): 2.5 cm2 LV V1 max P.3 mmHg SV(LVOT): 52.3 ml LV V1 mean P.1 mmHg LV V1 max: 90.3 cm/sec LV V1 mean: 67.7 cm/sec LV V1 VTI: 17.2 cm PA V2 max: 85.5 cm/sec PI end-d eric: 139.8 cm/sec PA max P.9 mmHg Med Peak E' Eric: 11.4 cm/sec Med E/e': 5.1 Lat Peak E' Eric: 12.5 cm/sec Lat E/e': 4.7 Tech Comments TDS in Apical window. Sub optimal 2 chamber image. Procedure A complete two-dimensional transthoracic echocardiogram was performed (2D, M-mode, Doppler and color flow Doppler). Left Ventricle The left ventricle is normal in size. Left ventricular systolic function is normal. Ejection Fraction = 60- 65%. No regional wall motion abnormalities noted. Right Ventricle The right ventricle is normal size. The right ventricular systolic function is normal. Atria The left atrial size is normal. Right atrial size is normal. Mitral Valve The mitral valve is normal in structure and function. There is mild mitral regurgitation. Tricuspid Valve The tricuspid valve is normal in structure and function. There is mild tricuspid regurgitation. Aortic Valve The aortic valve is normal in structure and function. No aortic regurgitation is present. Pulmonic Valve The pulmonic valve is not well seen, but is grossly normal. Trace pulmonic valvular regurgitation. Great Vessels The aortic root is normal size. Pericardium/Pleura There is no pericardial effusion. Interpretation Summary The left ventricle is normal in size. Left ventricular systolic function is normal. No regional wall motion abnormalities noted. Ejection Fraction = 60-65%. There is mild mitral regurgitation. There is mild tricuspid regurgitation. Trace pulmonic valvular regurgitation. There is no pericardial effusion. Yoni Greenfield MD 07/08/2020 03:13 PM
== END 2020-07-08 17:53 | disposition other institution (70) | DRG 201 ==
LOC: JER 17:56 → JERBED 21:34 → JICU 07-06 01:16
PROVIDERS: ADMIT Internal Medicine; ATTEND Student in an Organized Health Care Education/Training Program
PROC: HZ2ZZZZ Detoxification Services for Substance Abuse Treatment (ICD-10-PCS; principal; 2020-07-05)
DX: R00.1 Bradycardia, unspecified (principal); R07.9 Chest pain, unspecified; F17.210 Nicotine dependence, cigarettes, uncomplicated; J45.20 Mild intermittent asthma, uncomplicated; F12.20 Cannabis dependence, uncomplicated; F10.230 Alcohol dependence with withdrawal, uncomplicated; J40 Bronchitis, not specified as acute or chronic; F20.89 Other schizophrenia; J84.9 Interstitial pulmonary disease, unspecified; F14.20 Cocaine dependence, uncomplicated
CPT/HCPCS: 36415; 71046-TC-FY; 71250-TC; 80053; 80164; 80307; 81003; 82550; 82553; 82728; 83540; 83550; 83615; 83735; 83880; 84100; 84443; 84484; 85025; 85379; 85610; 86480; 87389; 93005; 93010; 93306-TC; 99285-25; J1644

== ENCOUNTER 2020-07-08 17:46 | Inpatient (IN) | payer OTHER ==
[2020-07-08] MEDS ORDERED: MAGNESIUM CITRATE 300 ML BOTTLE PO PRN (20:01)
[2020-07-08] MEDS ORDERED: guaiFENesin 200 MG/10 ML 10 ML UNIT-DOSE CUPS PO PRN (20:01)
[2020-07-08] MEDS ORDERED: MAGNESIUM HYDROX 2400MG/30ML ORAL SUSPENSION 30 ML CUP PO PRN (20:01)
[2020-07-08] MEDS ORDERED: ACETAMINOPHEN 325 MG TABLET (FP) PO PRN (20:01)
[2020-07-08] MEDS ORDERED: NICOTINE POLACRILEX 2 MG GUM BC PRN (20:01)
[2020-07-08] MEDS ORDERED: LOPERAMIDE HCL 2 MG CAPSULE PO PRN (20:01)
[2020-07-08] MEDS ORDERED: MAG HYDROX/AL HYDROX/SIMETH 30 ML UNIT-DOSE CUP PO PRN (20:01)
[2020-07-08] MEDS ORDERED: P-EPHED 60MG/TRIPROLIDI 2.5MG TABLET PO PRN (20:01)
[2020-07-08] MEDS ORDERED: IBUPROFEN 400 MG TABLET (FP) PO PRN (20:01)
--- NOTE | 2020-07-08 20:01 | BHS.RME ---
Substance Use & Tx History - Substance Use History Alcohol Substance amount: 1 pint of vodka, 10-24 oz beers Frequency of use: Daily Substance route: Oral Date of Last Use: 07/04/20 Cocaine- Powder Substance amount: 3 grams Frequency of use: Daily Substance route: Inhalation (ex: sniffing or snorting) Date of Last Use: 07/04/20 Cannabis Substance amount: 12 blounts Frequency of use: Daily Date of Last Use: 07/04/20 - Last Treatment Date of last treatment: 07/05/2020 Treatment type: Medical (was here for detox but was transferred to [facility] for bradycardia.) Where was last treatment: ER Physical/Psych/Mental Status - Behavior Eye Contact: Normal - Cooperativeness Cooperativeness: Cooperative - Thinking Thought Processes: Tight, Logical, Goal Directed Thought content: Future oriented - Physical Health Problems Is patient presently having any pain?: No Does patient presently have any injuries (include location): No Does patient currently have a fever: No Is patient : No CIWA Nausea/Vomitin-No Nausea/No Vomiting Muscle Tremors: None Anxiety: 2 Agitation: 0-Normal Activity Paroxysmal Sweats: No Perspiration Orientation: 0-Oriented Tacttile Disturbances: 0-None Auditory Disturbances: 0-None Visual Disturbances: 0-None Headache: 0-None Present CIWA-Ar Total Score: 2
[2020-07-08] MEDS ORDERED: ALBUTEROL SO4 HFA INHALER IH PRN (20:03)
--- NOTE | 2020-07-08 20:10 | HP ---
CIWA Score Nausea/Vomitin-No Nausea/No Vomiting Muscle Tremors: None Anxiety: 2 Agitation: 0-Normal Activity Paroxysmal Sweats: No Perspiration Orientation: 0-Oriented Tacttile Disturbances: 0-None Auditory Disturbances: 0-None Visual Disturbances: 0-None Headache: 0-None Present CIWA-Ar Total Score: 2 - Admission Criteria OASAS Guidelines: Admission for Medically Managed Detox: Requires at least one of the followin. CIWA greater than 12 2. Seizures within the past 24 hours 3. Delirium tremens within the past 24 hours 4. Hallucinations within the past 24 hours 5. Acute intervention needed for co occurring medical disorder 6. Acute intervention needed for co occurring psychiatric disorder 7. Severe withdrawal that cannot be handled at a lower level of care (continued vomiting, continued diarrhea, abnormal vital signs) requiring intravenous medication and/or fluids 8. Admitting History and Physical - Admission Chief Complaint: I want to go to rehab. History of Present Illness: Patient is a 50y/o male who presented to [facility] for alcohol detox on 07/05/2020. but was transferred to [facility] for evaluation of bradycardia. Was seen and evaluated by Pulmonary, Cardiology and ID while in [facility] and cleared for admission to rehab today. Started drinking since age 16, currently drinking 1 pint of Vodka and 10-24 oz beers daily. Last drink was last .History of asthma, Bronchitis nicotine dependence History Source: Patient Limitations to Obtaining History: No Limitations - Past Medical History Pulmonary: Yes: Asthma, Bronchitis Psych: Yes: Schizophrenia - Smoking History Smoking history: Current every day smoker Have you smoked in the past 12 months: Yes Aproximately how many cigarettes per day: 20 - Alcohol/Substance Use Hx Alcohol Use: Yes History of Substance Use: reports: Cocaine, Marijuana - Social History Usual Living Arrangement: Yes: Alone Do you think of yourself as: Straight/Heterosexual ADL: Independent History of Recent Travel: No Admission ROS S - HPI Allergies/Adverse Reactions: Allergies Allergy/AdvReac Type Severity Reaction Status Date / Time banana Allergy Intermediate Vomiting Verified 07/05/20 18:08 cantaloupe Allergy Intermediate Vomiting Verified 07/05/20 18:08 watermelon Allergy Intermediate Vomiting Verified 07/05/20 18:08 peanut butter Allergy Intermediate Vomiting Uncoded 07/05/20 18:08 Exam Limitations: No Limitations - Ebola screening Have you traveled outside of the country in the last 21 days: No Have you had contact with anyone from an Ebola affected area: No Have you been sick,other than usual withdrawal symptoms: No - Review of Systems Constitutional: No Symptoms Reported EENT: reports: No Symptoms Reported Respiratory: reports: No Symptoms reported Cardiac: reports: No Symptoms Reported GI: reports: No Symptoms Reported : reports: No Symptoms Reported Musculoskeletal: reports: No Symptoms Reported Integumentary: reports: No Symptoms Reported Neuro: reports: No Symptoms reported Endocrine: reports: No Symptoms Reported Hematology: reports: No Symptoms Reported Psychiatric: reports: Judgement Intact, Orientated x3 Other Systems: Reviewed and Negative Patient History - Patient Medical History Hx Anemia: Yes Hx Asthma: Yes Hx Chronic Obstructive Pulmonary Disease (COPD): No Hx Cancer: No Hx Cardiac Disorders: No Hx Congestive Heart Failure: No Hx Hypertension: No Hx Hypercholesterolemia: No Hx Pacemaker: No HX Cerebrovascular Accident: No Hx Seizures: No Hx Dementia: No Hx Diabetes: No Hx Gastrointestinal Disorders: No Hx Liver Disease: No Hx Genitourinary Disorders: No Hx Sexually Transmitted Disorders: No Hx Renal Disease (ESRD): No Hx Thyroid Disease: No Hx Human Immunodeficiency Virus (HIV): No Hx Hepatitis C: No Hx Depression: No Hx Suicide Attempt: No Hx Schizophrenia: Yes - Patient Surgical History Past Surgical History: No Hx Neurologic Surgery: No Hx Cataract Extraction: No Hx Cardiac Surgery: No Hx Lung Surgery: No Hx Breast Surgery: No Hx Breast Biopsy: No Hx Abdominal Surgery: No Hx Appendectomy: No Hx Cholecystectomy: No Hx Genitourinary Surgery: No Hx Section: No Hx Orthopedic Surgery: No Anesthesia Reaction: No - Smoking Cessation Smoking history: Current every day smoker Have you smoked in the past 12 months: Yes Aproximately how many cigarettes per day: 20 Hx Chewing Tobacco Use: No Initiated information on smoking cessation: Yes 'Breaking Loose' booklet given: 07/08/20 - Substance & Tx. History Hx Alcohol Use: Yes - Substances abused Alcohol Substance route: Oral Frequency: Daily Amount used: 1 pint vodka, 10-24 oz beers Age of first use: 16 Date of last use: 07/04/20 Cocaine Substance route: Inhalation Frequency: Daily Amount used: 3 grams Age of first use: 16 Date of last use: 07/04/20 Marijuana/Hashish Substance route: Smoking Frequency: Daily Amount used: 12 blunts Age of first use: 14 Date of last use: 07/04/20 Admission Physical Exam BHS - Physical General Appearance: Yes: Within Normal Limits (left redness, sp fall from blackout a couple of weeks ago.) HEENTM: Yes: Within Normal Limits, Hearing grossly Normal Respiratory: Yes: Within Normal Limits, Normal Breath Sounds, No Respiratory Distress Neck: Yes: Within Normal Limits Breast: Yes: Breast Exam Deferred Cardiology: Yes: Within Normal Limits Abdominal: Yes: Within Normal Limits, Normal Bowel Sounds Genitourinary: Yes: Within Normal Limits Back: Yes: Within Normal Limits, Muscle Spasm Musculoskeletal: Yes: Within Normal Limits, full range of Motion Extremities: Yes: Within Normal Limits, Normal Capillary Refill Neurological: Yes: Within Normal Limits, Fully Oriented, Normal Response Integumentary: Yes: Within Normal Limits, Normal Color, Dry (right elbow with abrasion from falling a couple of days ago.) Lymphatic: Yes: Within Normal Limits - Diagnostic (1) Alcohol dependence Current Visit: No Status: Acute Qualifiers: Substance use status: in withdrawal Complication of substance-induced condition: uncomplicated Qualified Code(s): F10.230 - Alcohol dependence with withdrawal, uncomplicated (2) Cocaine dependence Current Visit: No Status: Chronic Qualifiers: Substance use status: uncomplicated Qualified Code(s): F14.20 - Cocaine dependence, uncomplicated (3) Marijuana dependence Current Visit: No Status: Acute (4) Nicotine dependence Current Visit: No Status: Acute Qualifiers: Nicotine product type: cigarettes Substance use status: uncomplicated Qualified Code(s): F17.210 - Nicotine dependence, cigarettes, uncomplicated (5) Asthma Current Visit: No Status: Chronic Qualifiers: Asthma severity: mild Asthma persistence: intermittent Asthma complication type: uncomplicated Qualified Code(s): J45.20 - Mild intermittent asthma, uncomplicated Breathalyzer - Breathalyzer Breathalyzer: 0 Urine Drug Screen - Test Device Lot number: [id number] Expiration date: 01/09/22 - Control Is test valid?: Yes - Results Drug screen NEGATIVE: No Urine drug screen results: THC-Marijuana, LEONARD-Cocaine Inpatient Rehab Admission - Rehab Decision to Admit Inpatient rehab admission?: Yes - Initial Determination Are CD services needed?: Yes Free of communicable disease: Yes Not in need of hospitalization: No - Rehab Admission Criteria Previous failed treatment: Yes Poor recovery environment: Yes Comorbidities: Yes Lacks judgement: Yes Patient is meeting Inpatient Rehab admission criteria:: Yes
[2020-07-08 20:35] VITALS: BMI 28.0
--- OUTSIDE RECORDS SUMMARY | 2020-07-08 21:29 | XMS ---
:1970 [facility] Providers Name Role Phone MD Vida Unavailable Unavailable MD KADI Unavailable Unavailable ED STAFF PHYSICIAN Unavailable Unavailable MD Rachna Unavailable Unavailable Thomas, C Unavailable Unavailable Pennock C Unavailable Unavailable Pennock, C Unavailable Unavailable Thomas, C Unavailable Unavailable [...] is protected by Article 27-F of the [facility] Public Health law. If you continue you may haveaccess to information: Regarding HIV / AIDS; Provided by facilities licensed or operated by the [facility] Office of Mental Health; or Provided by the [facility] Office for People With Developmental Disabilities. If such information is present, then the following [facility] mandated warning applies: This [...] law may result in a fine or long-term sentence or both. A general authorization for the release of medical or other information is NOT sufficient authorization for further disclosure. Advance Directives Directive Description Prosecuting Attorney Director Of Speech Pathology Status Observation Data S ource(s) Description Advance No completed [facility] directive [facility] Advance No completed [facility] directive Hospital Advance No completed [facility] Hospital Allergies and Adverse Reactions Type Description Substance Reaction Status Data Source(s ) Drug allergy haloperidol haloperidol NOT LISTED [facility] Food allergy Fruit, Fresh Fruit, Fresh VOMITING [facility] Encounters Encounter Providers Location Date Indications Data Source(s ) Emergency Attender: Harsh 06/02/2020 POST FALL, ARM PAIN W shalini Ruiz 07:27:00 AM [facility] EDT - 06/02/2020 08:51:00 AM EDT POST FALL, ARM PAIN [facility] Patient discharged. Emergency Attender: ED STAFF H 05/22/2020 08:49:00 AM [facility] PHYSICIANAttender: CAIO ED EDT - 05/22/2020 Medical Center STAFF PHYSICIANAttender: STAFF 05:46:00 PM EDT ED STAFF PHYSICIANAdmitter: ED STAFF PHYSICIAN Patient discharged. Inpatient Attender: ROMIE HARVEY 02/14/2020 [facility]24[facility] PM EDT - 02/20/2020 [facility] 10:07:00 PM EDT Patient discharged. Outpatient JINNY 02/14/2020 04:11:00 PM EDT - [address] [place] [address] 10:36:00 PM EDT Patient discharged. Inpatient Attender: NAN H-HAL6 02/09/2020 04:21:00 [facility] WILLA DUONGHAttender: PM EDT - 02/14/20 20 [facility] Center STAFF ED STAFF 04:51:00 PM EDT PHYSICIANAdmitter: NAN DUONGHReferrer: NAN DIXON Patient discharged. Emergency Attender: Dilshad 12/15/2019 04:01:00 FLU LIKE SYMPTOMS-WI [place] Battiato AM EDT - 12/15/2019 Hospi [facility] 11:10:00 AM EDT FLU LIKE SYMPTOMS-WI Patient discharged. Unlisted evaluation 11/23/2019 10:00:00 [facility]SM[facility] (The and management PM EST Guidance C enter of service [place]) Unlisted evaluation 11/09/2019 02:00:00 [facility] (The and management PM EST Guidance C enter of [facility]) Inpatient Attender: ROMIE PRADHAN1D 10/17/2019 05:03:00 [facility] ANDREWANYANAdmi EST - 10/25/2019 Hospital tter: Kacey 10:29:00 PM EST [place] Patient discharged. Attender: 10/17/2019 [facility] [id number] 05:03:[facility] 10/17/2019 [facility] 02:13:00 PM EST - Hospita l 10/17/2019 05:16:00 PM EST Patient discharged. Attender: 10/17/2019 [facility] [id number] 02:13:00 PM [facility]_6766 Unlisted 10/11/2019 [facility] (Ment al evaluation and 08:00:00 PM EST Healt h management - 10/20/2019 Association of service 04:00:00 PM EST [facility] er) Emergency H 07/22/2019 [facility] 11:50:00 PM EDT Medical C enter - 07/23/2019 01:40:00 AM EDT Patient discharged. Emergency Attender: Sean Mendosa 06/05/2019 05:06:00 MED EVAL [place] MDConsultant: Sean AM EDT - 06/05/2019 [facility] Ericka Mendosa MD 06:56:00 AM EDT MED EVAL WALK Patient [...] (Ment al evaluation and 07:10:00 PM EDT [facility] management service 05/12/2019 of [facility]) 06:30:00 PM EDT Unlisted 04/26/2019 [facility]SM[facility] (Ment al evaluation and 04:50:00 PM EDT [facility] management service 05/02/2019 of [facility]) 02:30:00 PM EDT Unlisted 04/04/2019 [facility] (Ment al evaluation and 12:45:00 PM EDT [facility] management service 04/05/2019 of [facility]) 02:50:00 PM EDT Emergency Attender: 04/03/2019 COUGHING UP Melinda Briscoe 11:21:00 PM EDT - BLOOD W/I [facility] 04/04/2019 06:07:00 AM EDT COUGHING UP BLOOD W/I Unlisted evaluation 03/27/2019 01:00:00 [facility] (The and management PM EDT Guidance C jacquelyn of [facility]) Attender: 08/10/2005 09:00:00 [facility] [id number] PM EST Hospi sherly [id number] NETSMART_[id number] Attender: 08/10/2005 11:00:00 [facility] [id number] AM EST Hospi sherly [id number] [id number] Outpatient Attender: RYAN STEARNS 08/10/2005 10:00:00 [facility] JAMATAdmitter: AM EST Hospit al RYAN WALLIS Attender: 08/10/2005 10:00:00 [facility] [id number] AM EST Hospi sherly [id number] [id number] Attender: 08/10/2005 10:00:00 [facility] [id number] AM EST Hospi sherly [id number] [id number] Medications Medication Brand Start Product Dose Route Administrative Pharmacy [facility] Indications Reaction Description Data Name [...] [place] [Abilify] hamber r) ed Syring e 2 [...] 00 AM Center of Syringe Dual-C EDT [facility] [Abilify] hamber r) ed Syring e 400 MG Intram uscula r Powder for Suspen nura, Extend ed Releas e Prednisone Predni 12/14/ TABLET 40 mg ORAL complet [place] 20 MG Oral sone 2019 [facility] [place] Tablet 09:58: Hospital 00 AM EDT 200 ACTUAT [place] 12/14/ AEROSOL, 2 ORAL complet [place] Albuterol rol 2019 SPRAY ed [place] 0.09 Sulfat 09:58: Hospital MG/ACTUAT e Hfa 00 AM Metered 90MCG/ EDT Dose Inh* Inhaler [ProAir] Albuterol Sulfate Hfa 90MCG/Inh* 200 ACTUAT [place] 12/14/ AEROSOL, 2 ORAL active [place] Albuterol 2019 SPRAY [place] 0.09 Sulfat 09:58: Hospital MG/ACTUAT e Hfa 00 AM Metered 90MCG/ EDT Dose Inh* Inhaler [ProAir] Albuterol Sulfate Hfa 90MCG/Inh* Azithromyci Azithr 12/14/ TABLET 250 ORAL complet [place] n 250 MG omycin 2020 mg ed [place] Oral Tablet 09:58: Hospit al [Zithromax] 00 AM EDT Azithromyci Azithr 12/14/ TABLET 250 ORAL active [place] n 250 MG omycin 2020 mg [place] Oral Tablet 09:58: Hospit al [Zithromax] 00 AM EDT Prednisone Predni 12/14/ TABLET 40 mg ORAL active [place] 20 MG Oral sone 2020 [place] Tablet 09:58: Hospital 00 AM EDT aripiprazol [...] active [place] 20 MG Oral dine 2019 [place] Tablet 06:10: Hospital [Pepcid] 00 AM EDT Famotidine Famoti 06/05/ TABLET 20 mg ORAL active [place] 20 MG Oral dine 2019 [place] Tablet 06:10: Hospital [Pepcid] 00 AM EDT Famotidine Famoti 06/05/ TABLET 20 mg ORAL complet [place] 20 MG Oral dine 2019 ed [place] Tablet 06:10: Hospital [Pepcid] 00 AM EDT Ondansetron Ondans 06/05/ TABLET 4 mg ORAL active [place] 4 MG etron 2019 [place] Disintegrat Hcl 12:09: Hospit al ing Oral 00 AM Tablet EDT Ondansetron Hcl Ondansetron Ondans 06/05/ TABLET 4 mg ORAL complet [place] 4 MG etron 2019 ed [place] Disintegrat Hcl 12:09: Hospit al ing Oral 00 AM Tablet EDT Ondansetron Hcl Ondansetron Ondans 06/05/ TABLET 4 mg ORAL complet [place] 4 MG etron 2018 ed [place] Disintegrat Hcl 12:09: Hospit al ing Oral 00 AM Tablet EDT Ondansetron Hcl Ondansetron Ondans 06/05/ TABLET 4 mg ORAL complet [place] 4 MG etron 2019 ed [place] Disintegrat Hcl 12:09: Hospit al ing Oral [...] ORAL complet [place] sone 2018 {Caps ed [place] 05:10: ule} Hospital 00 AM EDT Prednisone Predni 07/02/ TABLET 2 ORAL active W shalini 10 MG Oral sone 2018 {Caps [place] Tablet 05:10: ule} Hospital 00 AM EDT Amoxicillin Amoxic 07/02/ TABLET 1 ORAL active [place] 875 MG / illin/ 2018 {Caps [place] Clavulanate Clavun 05:10: ule} Hosp ital 125 MG Oral ate 00 AM Tablet 875-12 EDT [Augmentin] 5 Amoxicillin Tablet /Clavunate * 875-125 Tablet* Albuterol 07/02/ AEROSOL, 2 RESPIR complet [place] 2019 SPRAY ATORY ed [place] 05:10: (INHAL Hospital 00 AM ATION) EDT Prednisone Predni 07/02/ TABLET 2 ORAL complet [place] sone 2018 {Caps ed [place] 05:10: ule} Hospital 00 AM EDT Amoxicillin Amoxic 07/02/ TABLET 1 ORAL complet [place] 875 MG / illin/ 2018 {Caps ed [place] Clavulanate Clavun 05:10: ule} Hosp ital 125 MG Oral ate 00 AM Tablet 875-12 EDT [Augmentin] 5 Amoxicillin Tablet /Clavunate * 875-125 Tablet* Albuterol 07/02/ AEROSOL, 2 RESPIR active [place] 2019 SPRAY ATORY [place] 05:10: (INHAL Hospital 00 AM ATION) EDT Albuterol 07/02/ AEROSOL, 2 RESPIR active [place] 2019 SPRAY ATORY [place] 05:10: (INHAL Hospital 00 AM ATION) EDT Prednisone Predni 07/02/ TABLET 2 ORAL complet [place] sone 2018 {Caps ed [place] 05:10: ule} Hospital 00 AM EDT Amoxicillin Amoxic 07/02/ TABLET 1 ORAL complet [place] 875 MG / illin/ 2018 {Caps ed [place] Clavulanate Clavun 05:10: ule} Hosp ital 125 MG Oral ate 00 AM Tablet 875-12 EDT [Augmentin] 5 Amoxicillin Tablet /Clavunate * 875-125 Tablet* Amoxicillin Amoxic 07/02/ TABLET 1 ORAL complet [place] 875 MG / illin/ 2018 {Caps ed [place] Clavulanate Clavun 05:10: ule} Hosp ital 125 MG Oral ate 00 AM Tablet 875-12 EDT [Augmentin] 5 Amoxicillin Tablet /Clavunate * 875-125 Tablet* Albuterol 07/02/ AEROSOL, 2 RESPIR complet [place] 2019 SPRAY ATORY ed [place] 05:10: (INHAL Hospital 00 AM ATION) EDT Albuterol 07/02/ AEROSOL, 2 RESPIR complet [place] 2019 SPRAY ATORY ed [place] 05:10: (INHAL Hospital 00 AM ATION) EDT Amoxicillin Amoxic 07/02/ TABLET 1 ORAL complet [place] 875 MG / illin2018 {Caps ed [place] Clavulanate Clavun 05:10: ule} Hosp ital 125 MG Oral ate 00 AM Tablet 875-12 EDT [Augmentin] 5 Amoxicillin Tablet /Clavunate * 875-125 Tablet* Prednisone Predni 07/02/ TABLET 2 ORAL complet [place] 10 MG Oral sone 2018 {Caps ed [place] Tablet 05:10: ule} Hospital 00 AM EDT Prednisone Predni TABLET 2 ORAL complet Wh ite sone {[facility] ed [place] ule} Hospital 24 HR Divalp TABLET active [place] Divalproex roex 24 HR [place] Sodium 500 Sodium [facility] Hos pital MG Extended D Release RELEASE Oral Tablet Amoxicillin Amoxic TABLET 1 ORAL complet W shalini 875 MG / illin/ {Caps ed [place] Clavulanate Clavun ule} Hospit al 125 MG Oral ate Tablet 875-12 [Augmentin] 5 Amoxicillin Tablet /Clavunate * 875-125 Tablet* Albuterol [place] AEROSOL, 2 RESPIR complet [place] rol SPRAY ATORY ed [place] (INHAL Hospital ATION) Thiamine thiami 1 complet [...] 2 ML Aripip active [place] aripiprazol razole [place] e 200 MG/ML Hospital Prefilled Syringe [Abilify] Aripiprazol e complet No data [facility] ed available Health - for this [facility] Azithromyci AZITHr 1 complet Rg nt n 250 MG omycin ed Seth Oral Tablet 250 mg Medica l AZITHromyci Tablet Center n 250 mg , Tablet, Ordere Ordered By: d By: Paulie Heard MDDirection MDDire s: 1 tablet ctions oral daily : 1 tablet oral daily Thiamine thiami 1 complet [facility] 100 MG Oral ne ed [place] Tablet [facility] thiamine trate Center mononitrate (vit (vit B1) B1) 100 mg 100 mg Tablet, Tablet Ordered By: Nate d By: Zaheer Sullivan s: 1 tablet Ouseph oral daily [...] name Policy type Policy ID Covered Covered libertarian's Policy P solitario / Coverage libertarian ID relationship to [facility] ormation type roberts LUCIA [id number] SP [id number] HEALTH NON CAP BETTER [id number] PT [id number] HEALTH/FIDELI S LUCIA CARE W [id number] 01 [id number] MS W [id number] SELF PAY [id number] Self [id number] MEDICAID INP [id number] Self [id number] U REHAB [id number] 01 [id number] LUCIA CARE [id number] 01 [id number] [place] S[place]F PA[place] 0 Self 0 MEDICAID INP [id number] Self [id number] U REHAB [facility] LUCIA [id number] Self [id number] CARE MEDICAID OP [id number] Self [id number] BETTER [id number] PT [id number] HEALTH/FIDELI S MEDICAID [id number] PT [id number] EMERGENCY [id number] PT [id number] MCAID Medicaid [id number] S [id number] Regular Clinic Visit Problems, Conditions, and Diagnoses Code Display Name Description Problem Type Effective Data Sour ce(s) Dates Complaint 11/09/2019 [facility] (The 05:00:00 AM [facility]ance [facility] ) [id number] Schizoaffective Schizoaffective Complaint 10/12/2019 [facility] disorder, bipolar disorder, bipolar 02:40:00 PM (Mental Health type type EST Association [facility]) [id number] Schizoaffective Schizoaffective Complaint 01/11/2019 [facility] (The schizophrenia schizophrenia 01:00:00 PM [facility] e [place] EDT [facility] ) [id number] Chronic paranoid Chronic paranoid Complaint 02/14/2000 [facility] schizophrenia 12:00:00 PM Hospita l (disorder) EDT [id number] Cocaine dependence Cocaine dependence Complaint 0 [facility] (disorder) 12:00:00 PM Hospital EDT 38022544 Chronic paranoid Chronic paranoid Complaint 02/14/2000 [facility] schizophrenia schizophrenia 12:00:00 PM Hospita l (disorder) EDT 79929767 Cocaine dependence Cocaine dependence Complaint 0 [facility] (disorder) 12:00:00 PM Hospital EDT Y99.9 Unspecified Y99.9 Diagnosis 06/02/2020 [place] external cause 07:45:00 AM Hospital status EDT Y92.[address] Y92.9 Diagnosis 06/02/2020 [place] or not applicable 07:45:00 AM Hospit al EDT Y93.9 Activity, Y93.9 Diagnosis 06/02/2020 [place] unspecified 07:45:00 AM Hospital EDT W19.XXXA Unspecified fall, W19.XXXA Diagnosis 06/02/2020 [place] initial encounter 07:45:00 AM Hospit al EDT F17.200 Nicotine F17.200 Diagnosis 06/02/2020 [place] dependence, 07:45:00 AM Hospital unspecified, EDT uncomplicated J45.909 Unspecified J45.909 Diagnosis 06/02/2020 [place] asthma, 07:45:00 AM Hospital uncomplicated EDT S40.811A Abrasion of right S40.811A Diagnosis 06/02/2020 [place] upper arm, initial 07:45:00 AM Hospi sherly encounter EDT R55 Syncope and R55 Diagnosis 06/02/2020 [place] collapse 07:45:00 AM Hospital EDT F17.210 Nicotine [...] Hospital EDT R10.9 Unspecified R10.9 Diagnosis 06/05/2019 [place] abdominal pain 05:31:00 AM Hospital EDT R00.1 Bradycardia, R00.1 Diagnosis 06/04/2019 [place] unspecified 11:04:00 PM Hospital EDT J43.9 Emphysema, J43.9 Diagnosis 06/04/2019 [place] unspecified 11:04:00 PM Hospital EDT J84.89 Other specified J84.89 Diagnosis 06/04/2019 [place] ins interstitial 11:04:00 PM Hospital pulmonary diseases EDT R11.2 Nausea with R11.2 Diagnosis 06/04/2019 [place] vomiting, 11:04:00 PM Hospital unspecified EDT R10.84 Generalized R10.84 Diagnosis 06/04/2019 [place] abdominal pain 11:04:00 PM Hospital EDT X58.XXXA Exposure to other X58.XXXA Diagnosis 05/29/2019 [place] specified factors, 03:04:00 AM Hospi [facility] initial encounter EDT S69.92XA Unspecified injury S69.92XA Diagnosis 05/29/2019 [place] of left wrist, 03:04:00 AM Hospital hand and EDT finger(s), initial encounter J40 Bronchitis, not J40 Diagnosis 04/03/2019 [place] ins specified as acute 11:59:00 PM Hospi sherly or chronic EDT D64.9 Anemia, Anemia, Diagnosis 12/06/2018 [place] (Moun t unspecified unspecified 06:36:32 PM [facility]) 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 08/24/2005 [facility] SCHIZOPHRENIA SCHIZO-UNSPEC 12:00:00 AM Hospita UNSPECIFIED STATE EST Surgeries/Procedures Procedure Description Date Indications Data Source(s) XR elbow right 06/02/2020 [place] 12:00:00 AM Hospital EDT Electrocardiographic procedure 06/02/2020 [place] (procedure) 12:00:00 AM Hospital EDT Computed tomography of chest 12/15/2019 [place] without contrast 12:00:00 AM Hospital EDT Electrocardiographic procedure 12/15/2019 [place] (procedure) 12:00:00 AM Hospital EDT Plain chest X-ray (procedure) 12/15/2019 [place] 12:00:00 AM Hospital EDT Computed tomography of abdomen 06/05/2019 [place] and pelvis without contrast 12:00:00 AM Hospital EDT Computed tomography of abdomen 06/05/2019 [place] and pelvis without contrast 12:00:00 AM Hospital EDT Electrocardiographic procedure 06/04/2019 [place] (procedure) 12:00:00 AM Hospital EDT Electrocardiographic procedure 06/04/2019 [place] (procedure) 12:00:00 AM Hospital EDT Emergency dept visit 05/29/2019 [place] 12:00:00 AM Hospital EDT Emergency dept visit 05/29/2019 [place] 12:00:00 AM Hospital EDT Results ID Date Data Source [id number] 07/05/2020 04:00:00 PM EDT [facility] Name Value Range Interpretation Description Data Sup porting Code Source(s) Document(s ) SARS [facility] coronavirus 2 RNA This lab was ordered by [facility] Carlos Jimenez and reported by [facility]. ID Date Data Source [id number] 06/02/2020 07:55:[address] [facility] [place]rer:TAM MORAN Name Value Range Interpretation Description Data Sup porting Code Source(s) Document(s ) Glucose 79 mg/dL [place] [Mass/volume] [facility] in Capillary blood by Glucometer ID Date Data Source Microbiology.[id number] 05/22/2020 01:53:00 PM EDT [facility] 400 Name Value Range Interpretation Code Description Data Liya rce(s) Supporting Document(s ) UNK <item><content [facility] styleCode="Bold"> Medical Cent er Culture Report </content>
<t able><tbody><tr>< td>Specimen Number:</td><td>[id number]</td></tr ><tr><td>Sample Collection Date/Time: </td><td> 0 1:53 PM</td></tr><tr>< td>Specimen Source:</td><td>B LOOD</td></tr><tr ><td>Blood Culture:</td><td> Collection Plate Date: 05/22/2020 13:57 </td></tr><tr><td >Culture Status:</td><td>P reliminary </td></tr><tr><td >Culture Report:</td><td>C ulture in progress </td></tr></tbody ></table></item> UNK <item><content [facility] styleCode="Bold"> Medical Cent er Culture Status </content>
<t able><tbody><tr>< td>Specimen Number:</td><td>[id number]</td></tr ><tr><td>Sample Collection Date/Time: </td><td> 0 1:53 PM</td></tr><tr>< td>Specimen Source:</td><td>B LOOD</td></tr><tr ><td>Blood Culture:</td><td> Collection Plate Date: 05/22/2020 13:57 </td></tr><tr><td >Culture Report:</td><td>C ulture in progress </td></tr><tr><td >Culture Status:</td><td>P reliminary </td></tr></tbody ></table></item> ID Date Data Source [facility].[id number] 05/22/2020 01:53:00 PM EDT [facility] -0400 Name Value Range Interpretation Description Data Sup porting Code Source(s) Document(s ) Valproate 50-120 Below low normal <content [facility] [Mass/volume] styleCode="Bold [facility] in Serum or ">Valproic Acid Medical Plasma </content>< Center 10.0 UG/ML L<content styleCode="Ital ics"> (50-120 UG/ML)</content > ID Date Data Source MROUTINECCDA.[id number] 05/22/2020 01:36:00 PM EDT [facility] -0400 Name Value Range Interpretation Description Data Sup porting Code Source(s) Document(s ) Lactate 0.7-2.0 Below low normal <content [facility] [Mass/volum styleCode="Bold Medical e] in Serum ">Lactic Acid Center or Plasma </content>0.6 MMOLL L<content styleCode="Ital ics"> (0.7-2.0 MMOLL)</content > ID Date Data Source Microbiology.[id number] 05/22/2020 01:30:00 PM EDT [facility] 400 Name Value Range Interpretation Code Description Data Liya rce(s) Supporting Document(s ) UNK <item><content [facility] styleCode="Bold"> Medical [facility] Culture Status </content>
<t able><tbody><tr>< td>Specimen Number:</td><td>[id number]</td></tr ><tr><td>Sample Collection Date/Time: </td><td> 0 1:30 PM</td></tr><tr>< td>Specimen Source:</td><td>B LOOD</td></tr><tr ><td>Culture Report:</td><td>C ulture in progress </td></tr><tr><td >Culture Status:</td><td>P reliminary </td></tr><tr><td >Blood Culture:</td><td> Collection Plate Date: 05/22/2020 13:45 </td></tr></tbody ></table></item> UNK <item><content [facility] styleCode="Bold"> Medical [facility] er Culture Report </content>
<t able><tbody><tr>< td>Specimen Number:</td><td>[id number]</td></tr ><tr><td>Sample Collection Date/Time: </td><td> 0 1:30 PM</td></tr><tr>< td>Specimen Source:</td><td>B LOOD</td></tr><tr ><td>Blood Culture:</td><td> Collection Plate Date: 05/22/2020 13:45 </td></tr><tr><td >Culture Status:</td><td>P reliminary </td></tr><tr><td >Culture Report:</td><td>C ulture in progress </td></tr></tbody ></table></item> ID Date Data Source Liver 05/22/2020 01:30:00 PM EDT [facility] Profile.[id number] Name Value Range Interpretation Description Data Sup [...] s"> (3.5-5.0 G/DL)</content> ID Date Data Source HematologySpeci.[id number] 05/22/2020 01:30:00 PM EDT [facility] 0-0400 Name Value Range Interpretation Description Data Sup porting Code Source(s) Document(s ) C reactive < 3.0 Above high normal <content [facility] hs protein styleCode="Bold Medical [Mass/volume ">C-Reactive Center ] in Serum Protein or Plasma </content>3.18 MG/L H<content styleCode="Ital ics"> (< 3.0 MG/L)</content> ID Date Data Source HematologyRou.[id number] 05/22/2020 01:30:00 PM EDT [facility] 0400 Name Value Range Interpretation [...] ics"> (< 1 %)</content> UNK 0-0.1 <content styleCode="Bold Seth ">Immature Medical Granulocyte Center Count </content>0.03 KCUMM<content styleCode="Ital ics"> (0-0.1 KCUMM)</content > UNK 0 <content [facility] styleCode="Bold Seth ">Nucleated Red Medical Blood Cell Center </content>0.0 /100<content styleCode="Ital ics"> (0 /100)</content> UNK 0.0 <content styleCode="Bold Seth ">Nucleated Red Medical Blood Cell Center Count </content>0.00 KCUMM<content styleCode="Ital ics"> (0.0 KCUMM)</content > ID Date Data Source GFR(Creatinine).[id number] 05/22/2020 01:30:00 PM EDT [facility] 0-0400 Name Value Range Interpretation Code Description Data Liya rce(s) Supporting Document(s ) UNK > 60 <content [facility] styleCode="Bold"> Medical Cent er EGFR </content>76 GFR<content styleCode="Italic s"> (> 60 GFR)</content> ID Date Data Source Coagulation 05/22/2020 01:30:00 PM [facility] Rout.[id number] EDT Name Value Range Interpretation Description Data Sup porting Code Source(s) Document(s ) UNK < 500 <content styleCode="Bold" Seth >D-Dimer Medical </content>400 Center ngFEU<content styleCode="Itali cs"> (< 500 ngFEU)</content> INR in 0.80-1.2 <content [facility] Platelet poor 0 styleCode="Bold" [facility] plasma by >INR Medical Coagulation </content>1.01 Center assay #<content styleCode="Itali cs"> (0.80-1.20 #)</content> UNK 9.0-13.0 <content [facility] styleCode="Bold" [facility] >Protime Medical </content>11.2 Center SEC<content styleCode="Itali cs"> (9.0-13.0 SEC)</content> aPTT in 25.1-36. <content [facility] Platelet poor 5 styleCode="Bold" [facility] plasma by >Partial Medical Coagulation Thromboplastin Center assay Time </content>28.9 SEC<content styleCode="Itali cs"> (25.1-36.5 SEC)</content> ID Date Data Source AMANDA.[id number] 05/22/2020 01:30:00 PM EDT [facility] -0400 Name Value Range Interpretation Description [...] (2.3-3.5 G/DL)</content > ID Date Data Source CardiacMarkers.[id number] 05/22/2020 01:30:00 PM EDT [facility] -0400 Name Value Range Interpretation Description Data Sup porting Code Source(s) Document(s ) Troponin < 0.034 <content [facility] I.cardiac styleCode="Bold Seth [Mass/volume ">Troponin I Medical ] in Serum </content>< Center or Plasma 0.012 NG/ML<content styleCode="Ital ics"> (< 0.034 NG/ML)</content > ID Date Data Source [facility].[id number] 05/22/2020 01:30:00 PM EDT [facility] Name Value Range Interpretation Description Data Sup porting Code Source(s) Document(s ) Potassium 3.5-5.3 <content [facility] [Moles/volume] in styleCode="Bold"> [facility] Serum or Plasma Potassium Medical </content>4.6 Center MEQ/L<content styleCode="Italic s"> (3.5-5.3 MEQ/L)</content> Sodium 137-145 <content [facility] [Moles/volume] in styleCode="Bold"> [facility] Serum or Plasma Sodium Medical </content>141 Center MEQ/L<content styleCode="Italic s"> (137-145 MEQ/L)</content> Chloride 98-107 Above high <content [facility] [Moles/volume] in normal styleCode="Bold"> [facility] Serum or Plasma Chloride [...] IU/L)</content> Alkaline 38-126 <content [facility] phosphatase styleCode="Bold"> [facility] [Enzymatic Alkaline Medical activity/volume] Phosphatase (ALP) Cente r in Serum or Plasma </content>90 IU/L<content styleCode="Italic s"> (38-126 IU/L)</content> Bilirubin.total 0.2-1.3 <content [facility] [Mass/volume] in styleCode="Bold"> [facility] Serum or Plasma Bilirubin Total Medical </content>0.4 Center MG/DL<content styleCode="Italic s"> (0.2-1.3 MG/DL)</content> ID Date Data Source [id number] 05/22/2020 12:00:00 AM EDT [facility] Name Value Range Interpretation Code Description Data Liya rce(s) Supporting Document(s ) 2019-nCoV [facility] RNA XXX ZANA+probe- Imp This lab was ordered by [facility] and reported by [employer]. ID Date Data Source HematologyRou.[id number] 02/14/2020 05:30:00 AM EDT [facility] 0400 Name Value Range Interpretation [...] (0.0 KCUMM)</content > ID Date Data Source GFR(Creatinine).[id number] 02/14/2020 05:30:00 AM EDT [facility] 0-0400 Name Value Range Interpretation Code Description Data Liya rce(s) Supporting Document(s ) UNK > 60 <content [facility] styleCode="Bold"> Medical Cent er EGFR </content>83 GFR<content styleCode="Italic s"> (> 60 GFR)</content> ID Date Data Source [id number] 02/14/2020 05:30:00 AM EDT [facility] Name Value Range Interpretation Description Data [...] t> Potassium 3.5-5.3 <content [facility] [Moles/volume] styleCode="Brian Johnsons in Serum or d">Potassium Medical Plasma </content>4.5 Center MEQ/L<content styleCode="Cynthia lics"> (3.5-5.3 MEQ/L)</conten t> UNK 9-20 <content Saint styleCode="Brian Seth d">BUN Medical </content>18 Center MG/DL<content styleCode="Cynthia lics"> (9-20 MG/DL)</conten t> Glucose 74-106 <content [facility] [Mass/volume] styleCode="Brian Jonhsons in Serum or d">Glucose Medical Plasma </content>88 Center MG/DL<content styleCode="Cynthia lics"> (74-106 MG/DL)</conten t> UNK > 60 <content [facility] styleCode="Brian Johnsons d">EGFR Medical </content>83 Center GFR<content styleCode="Cynthia lics"> (> 60 GFR)</content> Calcium 8.4-10.2 <content [facility] [Mass/volume] styleCode="Brian Johnsons in Serum or d">Calcium Medical Plasma </content>9.2 Center MG/DL<content styleCode="Cynthia lics"> (8.4-10.2 MG/DL)</conten t> ID Date Data Source Liver 02/13/2020 06:30:00 AM EDT [facility] Profile.[id number] Name Value Range Interpretation Description Data Sup [...] s"> (0.2-1.3 MG/DL)</content> ID Date Data Source HematologyRou.[id number] 02/13/2020 06:30:00 AM EDT [facility] 0400 Name Value Range Interpretation Description [...] low normal <content [facility] [Volume 0 styleCode="Bold [facility] Fraction] of ">Hematocrit Medical Blood by </content>38.8 [...] ics"> (0 /100)</content> ID Date Data Source GFR(Creatinine).[id number] 02/13/2020 06:30:00 AM EDT [facility] 0-0400 Name Value Range Interpretation Code Description Data Liya rce(s) Supporting Document(s ) UNK > 60 <content [facility] styleCode="Bold"> Medical Cent er EGFR </content>83 GFR<content styleCode="Italic s"> (> 60 GFR)</content> ID Date Data Source CHMROUTINECCDA.[id number] 02/13/2020 06:30:00 AM EDT [facility] -0400 Name Value Range Interpretation Description Data Sup porting Code Source(s) Document(s ) UNK >= 1.0 <content [facility] styleCode="Bold Medical ">AG Ratio Center </content>1.0 <content styleCode="Ital ics"> (>= 1.0 )</content> Protein 6.3-8.2 <content [facility] [Mass/volum styleCode="Bold Medical e] in Serum ">Total Protein Center or Plasma </content>6.5 G/DL<content styleCode="Ital ics"> (6.3-8.2 G/DL)</content> UNK 2.3-3.5 <content [facility] styleCode="Bold Medical ">Globulin Center </content>3.3 G/DL<content styleCode="Ital ics"> (2.3-3.5 G/DL)</content> ID Date Data Source [id number] 02/13/2020 06:30:00 AM EDT [facility] Name Value Range Interpretation Description [...] s"> (3.5-5.0 G/DL)</content> ID Date Data Source [id number] 02/12/2020 10:35:00 AM EDT [facility] Name Value Range Interpretation Code Description Data Liya rce(s) Supporting Document(s ) COV2 [facility] reported by [facility] [place]. ID Date Data Source [id number] 02/12/2020 10:35:00 AM EDT [facility] Name Value Range Interpretation Description Data Sup porting Code Source(s) Document(s ) UNK Not Detected <content [facility] styleCode="Bold Medical ">SARS-COV-2 Center RNA </content>Not Detected <content styleCode="Ital ics"> (Not Detected )</content> ID Date Data Source Liver 02/11/2020 05:20:00 AM EDT [facility] Profile.[id number] Name Value Range Interpretation Description Data Sup [...] s"> (3.5-5.0 G/DL)</content> ID Date Data Source HematologyRou.[id number] 02/11/2020 05:20:00 AM EDT [facility] 0400 Name Value Range Interpretation [...] low normal <content [facility] [Volume 0 styleCode="Bold [facility] Fraction] of ">Hematocrit Medical Blood by </content>40.3 [...] ics"> (0 /100)</content> ID Date Data Source GFR(Creatinine).[id number] 02/11/2020 05:20:00 AM EDT [facility] 0-0400 Name Value Range Interpretation Code Description Data Liya rce(s) Supporting Document(s ) UNK > 60 <content [facility] styleCode="Bold"> Medical Cent er EGFR </content>76 GFR<content styleCode="Italic s"> (> 60 GFR)</content> ID Date Data Source CHMROUTINECCDA.[id number] 02/11/2020 05:20:00 AM EDT [facility] -0400 Name Value Range Interpretation Description [...] (1.6-2.3 MG/DL)</conten t> ID Date Data Source [facility].[id number] 02/11/2020 05:20:00 AM EDT [facility] Name Value Range Interpretation Description Data Sup porting Code Source(s) Document(s ) Potassium 3.5-5.3 <content [facility] [Moles/volume] in styleCode="Bold"> [facility] Serum or Plasma Potassium Medical </content>4.1 Center MEQ/L<content styleCode="Italic s"> (3.5-5.3 MEQ/L)</content> Sodium 137-145 <content [facility] [Moles/volume] in styleCode="Bold"> [facility] Serum or Plasma Sodium Medical </content>138 Center [...] Data Source Liver 02/09/2020 09:46:00 PM EDT [facility] Profile.[id number] Name Value Range Interpretation Description Data Sup [...] s"> (38-126 IU/L)</content> ID Date Data Source HematologyRou.[id number] 02/09/2020 09:46:00 PM EDT [facility] 0400 Name Value Range Interpretation [...] ics"> (8.0-11.0 FL)</content> ID Date Data Source GFR(Creatinine).[id number] 02/09/2020 09:46:00 PM EDT [facility] 0-0400 Name Value Range Interpretation Code Description Data Liya rce(s) Supporting Document(s ) UNK > 60 <content [facility] styleCode="Bold"> Medical Cent er EGFR </content>116 GFR<content styleCode="Italic s"> (> 60 GFR)</content> ID Date Data Source CHMROUTINECCDA.[id number] 02/09/2020 09:46:00 PM EDT [facility] -0400 Name Value Range Interpretation Description [...] (6.3-8.2 G/DL)</content > ID Date Data Source [facility].[id number] 02/09/2020 09:46:00 PM EDT [facility] Name Value Range Interpretation Description Data Sup porting Code Source(s) Document(s ) Sodium 137-145 Below low <content [facility] [Moles/volume] in normal styleCode="Bold"> [facility] Serum or Plasma Sodium Medical </content>136 Center MEQ/L L<content styleCode="Italic s"> (137-145 MEQ/L)</content> Potassium <content [facility] [Moles/volume] in styleCode="Bold"> [facility] Serum or Plasma Potassium Medical </content>Test Center not performed. MEQ/L (Reference Range: not available)
Creatinine 0.5-1.3 <content [facility] [Mass/volume] in styleCode="Bold"> [facility] Serum or Plasma Creatinine Medical </content>0.9 Center MG/DL<content styleCode="Italic s"> (0.5-1.3 MG/DL)</content> Chloride 98-107 <content [facility] [Moles/volume] in styleCode="Bold"> [facility] Serum or Plasma Chloride [...] s"> (0.2-1.3 MG/DL)</content> ID Date Data Source Urinalysis.[id number] 02/09/2020 05:25:00 PM EDT [facility] 0 Name Value Range Interpretation Description Data Sup porting Code Source(s) Document(s ) Color of Urine YELLOW <content Saint styleCode="[facility] d">Color, Medical Urine Center </content>YELL OW <content styleCode="Cynthia lics"> (YELLOW )</content> UNK CLEAR <content Saint styleCode="[facility] d">Urine Medical Clarity Center </content>YUSRA R <content styleCode="Cynthia lics"> (CLEAR )</content> Glucose NEGATIVE <content [facility] [Mass/volume] styleCode="Brian Johnsons in Urine by d">Urine Medical Test strip Glucose Center </content>NEGA TIVE MG/DL<content styleCode="Cynthia lics"> (NEGATIVE MG/DL)</conten t> UNK NEGATIVE <content Saint styleCode="[facility] d">Urine Medical Bilirubin Center </content>NEGA TIVE <content styleCode="Cynthia lics"> (NEGATIVE )</content> Specific 1.015-1.02 <content [facility] gravity of 5 styleCode="Brian Ann Urine by Test d">Urine Medical strip Specific Center [place] </content>1.02 5 <content styleCode="Cynthia lics"> (1.015-1.025 )</content> Ketones NEGATIVE <content [facility] [Mass/volume] styleCode="Brian Seth in Urine by d">Urine Medical Test strip Ketone Center </content>NEGA TIVE MG/DL<content styleCode="Cynthia lics"> (NEGATIVE MG/DL)</conten t> Hemoglobin NEGATIVE <content [facility] [Presence] in styleCode="Brian Ann Urine by Test d">Urine Blood Medical strip </content>NEGA Center TIVE <content styleCode="Cynthia lics"> (NEGATIVE )</content> pH of Urine by 4.5-8.0 <content [facility] Test strip styleCode="Brian Seth d">Urine pH Medical </content>6.0 Center <content styleCode="Cynthia [...] Nitrite NEGATIVE <content [facility] [Presence] in styleCode="Brian Johnsons Urine by Test d">Urine Medical strip Nitrite Center </content>NEGA TIVE <content styleCode="Cynthia lics"> (NEGATIVE )</content> ID Date Data Source MROUTINECCDA.[id number] 02/09/2020 05:25:00 PM EDT [facility] -0400 Name Value Range Interpretation Description Data Sup porting Code Source(s) Document(s ) Cannabinoids <content [facility] [Presence] in styleCode="Brian Johnsons Urine by Screen d">Cannabinoid Medical method >50 ng/mL s Center </content>NEGA TIVE NG/ML (Reference Range: not available)<br/ > ID Date Data Source Liver 02/09/2020 05:22:00 PM EDT [facility] Profile.[id number] Name Value Range Interpretation Description Data Sup [...] s"> (3.5-5.0 G/DL)</content> ID Date Data Source [id number] 02/09/2020 05:22:00 PM EDT [facility] Name Value Range Interpretation Description Data Sup porting Code Source(s) Document(s ) Triglyceride < 150 <content [facility] [Mass/volume] in styleCode="Brian Seth Serum or Plasma d">Triglycerid [facility] es Center </content>91 MG/DL<content styleCode="Cynthia lics"> (< 150 MG/DL)</conten t> UNK > 60 <content Saint styleCode="[facility] d">HDL- Medical Cholesterol Center </content>70 MG/DL<content styleCode="Cynthia lics"> (> 60 MG/DL)</conten t> Cholesterol -<200 <content [facility] [Mass/volume] in styleCode="[facility] Serum or Plasma d">Cholesterol Medical </content>153 Center MG/DL<content styleCode="Cynthia lics"> (-<200 MG/DL)</conten t> UNK < 100 <content Saint styleCode="[facility] d">LDL-Cholest [facility] </content>65 MG/DL<content styleCode="Cynthia lics"> (< 100 MG/DL)</conten t> ID Date Data Source HematologyRou.[id number] 02/09/2020 05:22:00 PM EDT [facility] 0400 Name Value Range Interpretation Description [...] (0.0 KCUMM)</content > ID Date Data Source GFR(Creatinine).[id number] 02/09/2020 05:22:00 PM EDT [facility] 0-0400 Name Value Range Interpretation Code Description Data Liya rce(s) Supporting Document(s ) UNK > 60 <content [facility] styleCode="Bold"> Medical Cent er EGFR </content>103 GFR<content styleCode="Italic s"> (> 60 GFR)</content> ID Date Data Source CHMROUTINECCDA.[id number] 02/09/2020 05:22:00 PM EDT [facility] -0400 Name Value Range Interpretation Code Description Data Liya rce(s) Supporting Document(s ) UNK 4.2-5.8 Above high normal <content [facility] styleCode="Bold" Medical Cente r >Hemoglobin A1C </content>5.9 % H<content styleCode="Itali cs"> (4.2-5.8 %)</content> ID Date Data Source [facility].[id number] 02/09/2020 05:22:00 PM EDT [facility] Name Value Range Interpretation Description Data Sup porting Code Source(s) Document(s ) Sodium 137-145 <content [facility] [Moles/volume] in styleCode="Bold"> [facility] Serum or Plasma Sodium Medical </content>140 Center MEQ/L<content styleCode="Italic s"> (137-145 MEQ/L)</content> Chloride 98-107 <content [facility] [Moles/volume] in styleCode="Bold"> [facility] Serum or Plasma Chloride Medical </content>101 Center [...] s"> (0.2-1.3 MG/DL)</content> ID Date Data Source [id number] 12/15/2019 08:42:[address] [facility] CUT-OFF >= 25 NG/ML.THE FINDINGS OF [...] rce(s) Supporting Document(s ) PCP (UR) NEGATIVE [facility] ID Date Data Source [id number] 12/15/2019 08:42:[address] [facility] CUT-OFF >= 50 NG/ML. Name Value Range Interpretation Code Description Data Liya rce(s) Supporting Document(s ) THC (UR) NEGATIVE [facility] ID Date Data Source [id number] 12/15/2019 08:42:[address] [facility] CUT-OFF >= 300 NG/ML. Name Value Range Interpretation Description Data Sup porting Code Source(s) Document(s ) OPIATES (UR) NEGATIVE [facility] ID Date Data Source [id number] 12/15/2019 08:42:[address] [facility] CUT-OFF >= 300 NG/ML. Name Value Range Interpretation Description Data Sup porting Code Source(s) Document(s ) COCAINE (UR) POSITIVE [facility] ID Date Data Source [id number] 12/15/2019 08:42:[address] [facility] CUT-OFF >= 200 NG/ML. Name Value Range Interpretation Description Data Sup porting Code Source(s) Document(s ) BENZODIAZEPINES NEGATIVE [place] (UR) [facility] ID Date Data Source [id number] 12/15/2019 08:42:[address] [facility] CUT-OFF >= 200 NG/ML. Name Value Range Interpretation Description Data Sup porting Code Source(s) Document(s ) BARBITURATES NEGATIVE [place] (UR) Hospital ID Date Data Source [id number] 12/15/2019 08:42:[address] [facility] CUT-OFF >= 1000 NG/ML. Name Value Range Interpretation Description Data Sup porting Code Source(s) Document(s ) AMPHETAMINES NEGATIVE [place] (UR) Hospital ID Date Data Source [id number] 12/15/2019 08:42:[address] [facility] Name Value Range Interpretation Description Data Sup porting Code Source(s) Document(s ) Erythrocytes 0-3 [place] [#/area] in /[HPF] Hospital Urine sediment by Automated count ID Date Data Source [id number] 12/15/2019 08:42:[address] [facility] Name Value Range Interpretation Description Data Sup porting Code Source(s) Document(s ) Leukocytes 0-3 [place] [#/area] in /[HPF] Hospital Urine sediment by Automated count ID Date Data Source [id number] 12/15/2019 08:42:00 AM EDT [facility] Value Range Interpretation Description Data Sup porting Code Source(s) Document(s ) Leukocyte NEGATIVE [place] esterase Hospital [Presence] in Urine by Test strip ID Date Data Source [id number] 12/15/2019 08:42:[address] [facility] Name Value Range Interpretation Description Data Sup porting Code Source(s) Document(s ) URINE NEGATIVE [place] NITRITES [facility] ID Date Data Source [id number] 12/15/2019 08:42:00 AM EDT [facility] Value Range Interpretation Description Data Sup porting Code Source(s) Document(s ) Erythrocytes NEGATIVE [place] [#/volume] in Hospital Urine by Test strip ID Date Data Source [id number] 12/15/2019 08:42:[address] [facility] Name Value Range Interpretation Code Description Data Liya rce(s) Supporting Document(s ) Bilirubin. NEGATIVE [place] total Hospital [Presence] in Urine by Test strip ID Date Data Source [id number] 12/15/2019 08:42:00 AM EDT [facility] Value Range Interpretation Description Data Sup porting Code Source(s) Document(s ) Urobilinogen 1.0 [place] [Units/volume] mg/dL Hospital in Urine by Test strip ID Date Data Source [id number] 12/15/2019 08:42:00 AM EDT [facility] Value Range Interpretation Code Description Data Liya rce(s) Supporting Document(s ) Ketones TRACE [place] [Mass/volume Hospital ] in Urine by Test strip ID Date Data Source [id number] 12/15/2019 08:42:[address] [facility] Name Value Range Interpretation Description Data Sup porting Code Source(s) Document(s ) Glucose NEGATIVE [place] [Mass/volume Hospital ] in Urine by Test strip ID Date Data Source [id number] 12/15/2019 08:42:00 AM EDT [facility] Value Range Interpretation Code Description Data Liya rce(s) Supporting Document(s ) Protein TRACE [place] [Presence] Hospital in Urine by Test strip ID Date Data Source [id number] 12/15/2019 08:42:[address] [facility] Name Value Range Interpretation Code Description Data Liya rce(s) Supporting Document(s ) pH of Urine 6.0 [place] by Test Hospital strip ID Date Data Source [id number] 12/15/2019 08:42:00 AM EDT [facility] Value Range Interpretation Code Description Data Supporting Source(s) Document(s ) Specific 1.021 [place] gravity of Hospital Urine by Test strip ID Date Data Source [id number] 12/15/2019 08:42:[address] [facility] Name Value Range Interpretation Description Data Sup porting Code Source(s) Document(s ) Clarity in Urine CLEAR [place] by [facility] automated ID Date Data Source [id number] [facility] Value Range Interpretation Code Description Data Liya rce(s) Supporting Document(s ) Color of YELLOW [place] Urine Hospital ID Date Data Source [id number] 12/15/2019 05:18:00 AM [facility] REFERENCE RANGES: NONE DETECTED <20 MG/DL NONE TO MILD EUPHORIA 20-49 MG/DL MILD EUPHORIA 50-99 MG/DL MODERATE EUPHORIA 100-149 MG/DL INTOXICATION 150-300 MG/DL Name Value Range Interpretation Description Data Sup porting Code Source(s) Document(s ) Ethanol < 20 [place] [Mass/volume mg/dL Hospital ] in Serum or Plasma ID Date Data Source [id number] 12/15/2019 05:18:00 AM [facility] Name Value Range Interpretation Description Data Sup porting Code Source(s) Document(s ) Natriuretic 14.1 [place] peptide B pg/mL Hospital [Mass/volume] in Serum or Plasma ID Date Data Source [id number] 12/15/2019 05:18:00 AM [facility] TEST PERFORMED BY [facility] [employer] Associates[facility] ULTRA SENSITIVE CENTAUR CHEMILUMINESCENCE METHOD. Name Value Range Interpretation Description Data Sup porting Code Source(s) Document(s ) Troponin 0.02 [place] I.cardiac ng/mL Hospital [Mass/volume ] in Serum or Plasma ID Date Data Source [id number] 12/15/2019 05:18:00 AM [facility] Name Value Range Interpretation Description Data Sup porting Code Source(s) Document(s ) Aspartate 24 U/L White aminotransferase [facility] [Enzymatic Hospital activity/volume] in Serum or Plasma ID Date Data Source [id number] 12/15/2019 05:18:00 AM [facility] Name Value Range Interpretation Description Data Sup porting Code Source(s) Document(s ) Alanine 16 U/L White aminotransferase [facility] [Enzymatic Hospital activity/volume] in Serum or Plasma ID Date Data Source [id number] 12/15/2019 05:18:00 AM [facility] Name Value Range Interpretation Description Data Sup porting Code Source(s) Document(s ) Alkaline 78 U/L [place] phosphatase [facility] [Enzymatic activity/volume ] in Serum or Plasma ID Date Data Source [id number] 12/15/2019 05:18:00 AM [facility] Name Value Range Interpretation Description Data Sup porting Code Source(s) Document(s ) Bilirubin.t 0.5 mg/dL [facility] [Mass/volum e] in Serum or Plasma ID Date Data Source [id number] 12/15/2019 05:18:00 AM [facility] Value Range Interpretation Code Description Data Liya rce(s) Supporting Document(s ) [facility] in Serum or Plasma ID Date Data Source [id number] 12/15/2019 05:18:00 AM [facility] Value Range Interpretation Description Data Sup porting Code Source(s) Document(s ) Albumin 4.0 g/dL [place] [Mass/volume Hospital ] in Serum or Plasma ID Date Data Source [id number] 12/15/2019 [facility] Name Value Range Interpretation Description Data Sup porting Code Source(s) Document(s ) Protein 6.7 g/dL [place] [Mass/volume Hospital ] in Serum or Plasma ID Date Data Source [id number] 12/15/2019 05:18:00 AM [facility] Name Value Range Interpretation Description Data Sup porting Code Source(s) Document(s ) Calcium 9.1 mg/dL [place] [Mass/volume Hospital ] in Serum or Plasma ID Date Data Source [id number] 12/15/2019 05:18:00 AM EDT [facility] Name Value Range Interpretation Code Description Data Liya rce(s) Supporting Document(s ) Urea 17.5 [place] nitrogen/Cre Hospital atinine [Mass Ratio] in Serum or Plasma ID Date Data Source [id number] 12/15/2019 05:18:[address] [facility] Name Value Range Interpretation Description Data Sup porting Code Source(s) Document(s ) Creatinine 1.2 mg/dL [place] [Mass/volume] Hospital in Serum or Plasma ID Date Data Source [id number] 12/15/2019 05:18:[address] [facility] Name Value Range Interpretation Description Data Sup porting Code Source(s) Document(s ) Urea 21 mg/dL [place] nitrogen Hospital [Mass/volume ] in Serum or Plasma ID Date Data Source [id number] 12/15/2019 05:18:[address] [facility] Name Value Range Interpretation Code Description Data Liya rce(s) Supporting Document(s ) Anion gap in 12 [place] Serum or Hospital Plasma ID Date Data Source [id number] 12/15/2019 05:18:[address] [facility] Name Value Range Interpretation Description Data Sup porting Code Source(s) Document(s ) Carbon 30 mmol/L [place] dioxide, Hospital total [Moles/volu me] in Serum or Plasma ID Date Data Source [id number] 12/15/2019 05:18:[address] [facility] Name Value Range Interpretation Description Data Sup porting Code Source(s) Document(s ) Chloride 105 [place] [Moles/volum mmol/L Hospital e] in Serum or Plasma ID Date Data Source [id number] 12/15/2019 05:18:00 AM [facility] Name Value Range Interpretation Description Data Sup porting Code Source(s) Document(s ) Potassium 4.0 [place] [Moles/volume mmol/L Hospital ] in Serum or Plasma ID Date Data Source [id number] 12/15/2019 05:18:00 AM [facility] Name Value Range Interpretation Description Data Sup porting Code Source(s) Document(s ) Sodium 143 mmol/L [place] [Moles/volu Hospital wa] in Serum or Plasma ID Date Data Source [id number] 12/15/2019 05:18:00 AM [facility] Name Value Range Interpretation Description Data Sup porting Code Source(s) Document(s ) Glucose 84 mg/dL [place] [Mass/volume Hospital ] in Serum or Plasma ID Date Data Source [id number] 12/15/2019 05:18:00 AM [facility] THERAPEUTIC RANGES:UNFRACTIONATED HEPARI N THERAPY: 60-90 SECONDSARGATROBAN THERAPY: 49-99 SECONDS Name Value Range Interpretation Description Data Sup porting Code Source(s) Document(s ) aPTT in 27.4 s [place] Platelet poor [facility] plasma by Coagulation assay ID Date Data Source [id number] 12/15/2019 05:18:00 AM [facility] THERAPEUTIC RANGE FOR STANDARD ORALANTIC OAGULANT THERAPY: 2.0-3.0THERAPEUTIC RANGE FOR HIGH DOSE ORALANTICOAGULANT THERAPY (MECHANICAL HEARTVALVE REPLACEMENT): 2.5-3.5 Name Value Range Interpretation Description Data Sup porting Code Source(s) Document(s ) INR in Platelet 1.1 [place] poor plasma by Hospital Coagulation assay ID Date Data Source [id number] 12/15/2019 05:18:00 AM [facility] Name Value Range Interpretation Description Data Sup porting Code Source(s) Document(s ) PT panel - 12.1 s [place] Platelet poor Hospital plasma by Coagulation assay ID Date Data Source [id number] 12/15/2019 05:18:00 AM EDT [facility] Value Range Interpretation Description Data Sup porting Code Source(s) Document(s ) Differential AUTOMATED [place] cell count Hospital method - Blood ID Date Data Source [id number] 12/[facility] Interpret[facility] Description Data Sup porting Code Source(s) Document(s ) Immature 0.01 [place] granulocytes 10*3/uL Hospital [#/volume] in Blood by Automated count ID Date Data Source [id number] 12/15/2019 05:18:00 AM EDT [facility] Value Range Interpretation Description Data Sup porting Code Source(s) Document(s ) Basophils 0.04 [place] [#/volume] in 10*3/uL Hospital Blood by Automated count ID Date Data Source [id number] 12/15/2019 05:18:[address] [facility] Name Value Range Interpretation Description Data Sup porting Code Source(s) Document(s ) Eosinophils 0.18 [place] [#/volume] in 10*3/uL Hospital Blood by Automated count ID Date Data Source [id number] 12/[facility] Value Range Interpretation Description Data Sup porting Code Source(s) Document(s ) Monocytes 0.38 [place] [#/volume] in 10*3/uL Hospital Blood by Automated count ID Date Data Source [id number] 12/15/2019 05:18:[address] [facility] Name Value Range Interpretation Description Data Sup porting Code Source(s) Document(s ) Lymphocytes 1.96 [place] [#/volume] in 10*3/uL Hospital Blood by Automated count ID Date Data Source [id number] 12/15/2019 05:18:00 AM EDT [facility] Value Range Interpretation Description Data Sup porting Code Source(s) Document(s ) Neutrophils 2.81 [place] [#/volume] in 10*3/uL Hospital Blood by Automated count ID Date Data Source [id number] 12/15/2019 05:18:00 AM EDT [facility] Value Range Interpretation Description Data Sup porting Code Source(s) Document(s ) Nucleated 0.0 % [place] erythrocytes/10 Hospital 0 leukocytes [Ratio] in Blood by Automated count ID Date Data Source [id number] 12/15/2019 05:18:00 AM EDT [facility] Value Range Interpretation Description Data Sup porting Code Source(s) Document(s ) Immature 0.2 % [place] granulocytes/10 Hospital 0 leukocytes in Blood by Automated count ID Date Data Source [id number] 12/15/2019 05:18:00 AM EDT [facility] Value Range Interpretation Description Data Sup porting Code Source(s) Document(s ) Basophils/100 0.7 % [place] leukocytes in Hospital Blood by Automated count ID Date Data Source [id number] 12/15/2019 05:18:00 AM EDT [facility] Value Range Interpretation Description Data Sup porting Code Source(s) Document(s ) Eosinophils/100 3.3 % [place] leukocytes in Hospital Blood by Automated count ID Date Data Source [id number] 12/15/2019 05:18:00 AM EDT [facility] Value Range Interpretation Description Data Sup porting Code Source(s) Document(s ) Monocytes/100 7.1 % [place] leukocytes in Hospital Blood by Automated count ID Date Data Source [id number] 12/15/2019 05:18:00 AM EDT [facility] Value Range Interpretation Description Data Sup porting Code Source(s) Document(s ) Lymphocytes/10 36.4 % [place] 0 leukocytes Hospital in Blood by Automated count ID Date Data Source [id number] 12/15/2019 05:18:00 AM EDT [facility] Value Range Interpretation Description Data Sup porting Code Source(s) Document(s ) Neutrophils/10 52.3 % [place] 0 leukocytes Hospital in Blood by Automated count ID Date Data Source [id number] 12/15/2019 05:18:00 AM EDT [facility] Value Range Interpretation Description Data Sup porting Code Source(s) Document(s ) Platelet mean 10.0 fL [place] volume Hospital [Entitic volume] in Blood by Automated count ID Date Data Source [id number] 12/15/2019 05:18:00 AM EDT [facility] Value Range Interpretation Description Data Sup porting Code Source(s) Document(s ) Platelets 277 [place] [#/volume] in 10*3/uL Hospital Blood by Automated count ID Date Data Source [id number] 12/15/2019 05:18:00 AM EDT [facility] Value Range Interpretation Description Data Sup porting Code Source(s) Document(s ) Erythrocyte 16.5 % [place] distribution Hospital width [Ratio] by Automated count ID Date Data Source [id number] 12/15/2019 05:18:00 AM EDT [facility] Value Range Interpretation Description Data Sup porting Code Source(s) Document(s ) Erythrocyte mean 31.5 [place] corpuscular g/dL Hospital hemoglobin concentration [Mass/volume] by Automated count ID Date Data Source [id number] 12/15/2019 05:18:00 AM EDT [facility] Value Range Interpretation Description Data Sup porting Code Source(s) Document(s ) Erythrocyte 21.9 pg [facility] corpuscular hemoglobin [Entitic mass] by Automated count ID Date Data Source [id number] 12/15/2019 05:18:00 AM EDT [facility] Value Range Interpretation Description Data Sup porting Code Source(s) Document(s ) Erythrocyte 69.5 fL [place] mean Hospital corpuscular volume [Entitic volume] by Automated count ID Date Data Source [id number] 12/15/2019 05:18:00 AM [facility] Value Range Interpretation Description Data Sup porting Code Source(s) Document(s ) Hematocrit 34.9 % [place] [Volume Hospital Fraction] of Blood by Automated count ID Date Data Source [id number] 12/15/2019 05:18:00 AM EDT [facility] Value Range Interpretation Description Data Sup porting Code Source(s) Document(s ) Hemoglobin 11.0 g/dL [place] [Mass/volume] Hospital in Blood ID Date Data Source [id number] 12/15/2019 05:18:00 AM EDT [facility] Value Range Interpretation Description Data Sup porting Code Source(s) Document(s ) Erythrocytes 5.02 [place] [#/volume] in 10*6/uL Hospital Blood by Automated count ID Date Data Source [id number] 12/15/2019 [facility] Interpretation Description Data Sup porting Code Source(s) Document(s ) Leukocytes 5.4 [place] [#/volume] in 10*3/uL Hospital Blood by Automated count ID Date Data Source [id number] 06/05/2019 05:30:[address] [facility] CUT-OFF >= 25 NG/ML.THE FINDINGS OF [...] rce(s) Supporting Document(s ) PCP (UR) NEGATIVE [facility] ID Date Data Source [id number] 06/05/2019 05:30:[address] [facility] CUT-OFF >= 50 NG/ML. Name Value Range Interpretation Code Description Data Liya rce(s) Supporting Document(s ) THC (UR) POSITIVE [facility] ID Date Data Source [id number] 06/05/2019 05:30:[address] [facility] CUT-OFF >= 300 NG/ML. Name Value Range Interpretation Description Data Sup porting Code Source(s) Document(s ) OPIATES (UR) NEGATIVE [facility] ID Date Data Source [id number] 06/05/2019 05:30:[address] [facility] CUT-OFF >= 300 NG/ML. Name Value Range Interpretation Description Data Sup porting Code Source(s) Document(s ) COCAINE (UR) POSITIVE [facility] ID Date Data Source [id number] 06/05/2019 05:30:[address] [facility] CUT-OFF >= 200 NG/ML. Name Value Range Interpretation Description Data Sup porting Code Source(s) Document(s ) BENZODIAZEPINES NEGATIVE [place] (UR) [facility] ID Date Data Source [id number] 06/05/2019 05:30:[address] [facility] CUT-OFF >= 200 NG/ML. Name Value Range Interpretation Description Data Sup porting Code Source(s) Document(s ) BARBITURATES NEGATIVE [place] (UR) Hospital ID Date Data Source [id number] 06/05/2019 05:30:00 AM [facility] CUT-OFF >= 1000 NG/ML. Name Value Range Interpretation Description Data Sup porting Code Source(s) Document(s ) AMPHETAMINES NEGATIVE [place] (UR) Hospital ID Date Data Source [id number] 06/05/2019 05:30:00 AM [facility] Name Value Range Interpretation Description Data Sup porting Code Source(s) Document(s ) Mucus PRESENT [place] [Presence] in Hospital Urine sediment by Light microscopy ID Date Data Source [id number] 06/05/2019 05:30:00 AM [facility] Name Value Range Interpretation Description Data Sup porting Code Source(s) Document(s ) Erythrocytes 0-3 [place] [#/area] in /[HPF] Hospital Urine sediment by Microscopy high power field ID Date Data Source [id number] 06/05/2019 05:30:00 AM [facility] Name Value Range Interpretation Description Data Sup porting Code Source(s) Document(s ) Leukocytes 0-3 [place] [#/area] in /[HPF] Hospital Urine sediment by Microscopy high power field ID Date Data Source [id number] 06/05/2019 05:30:00 AM [facility] Name Value Range Interpretation Code Description Data Supporting Source(s) Document(s ) Leukocyte TRACE [place] esterase Hospital [Presence] in Urine by Test strip ID Date Data Source [id number] 06/05/2019 05:30:00 AM [facility] Name Value Range Interpretation Description Data Sup porting Code Source(s) Document(s ) URINE NEGATIVE [place] NITRITES Hospital ID Date Data Source [id number] 06/05/2019 05:30:[address] [facility] Name Value Range Interpretation Description Data Sup porting Code Source(s) Document(s ) Erythrocytes NEGATIVE [place] [#/volume] in Hospital Urine by Test strip ID Date Data Source [id number] 06/05/2019 05:30:[address] [facility] Name Value Range Interpretation Code Description Data Liya rce(s) Supporting Document(s ) Bilirubin. NEGATIVE [place] total Hospital [Presence] in Urine by Test strip ID Date Data Source [id number] 06/05/2019 [facility] Interpretation Description Data Sup porting Code Source(s) Document(s ) Urobilinogen 1.0 [place] [Units/volume] mg/dL Hospital in Urine by Test strip ID Date Data Source [id number] 06/05/2019 05:30:[address] [facility] Name Value Range Interpretation Description Data Sup porting Code Source(s) Document(s ) Ketones NEGATIVE [place] [Mass/volume Hospital ] in Urine by Test strip ID Date Data Source [id number] 06/05/2019 05:30:[address] [facility] Name Value Range Interpretation Description Data Sup porting Code Source(s) Document(s ) Glucose NEGATIVE [place] [Mass/volume Hospital ] in Urine by Test strip ID Date Data Source [id number] 06/05/2019 [facility] Value Range Interpretation Code Description Data Liya rce(s) Supporting Document(s ) Protein 1+ [place] [Presence] Hospital in Urine by Test strip ID Date Data Source [id number] 06/05/2019 05:30:00 AM [facility] Name Value Range Interpretation Code Description Data Liya rce(s) Supporting Document(s ) pH of Urine 7.5 [place] by Test Hospital strip ID Date Data Source [id number] 06/05/2019 05:30:00 AM [facility] Name Value Range Interpretation Code Description Data Supporting Source(s) Document(s ) Specific 1.031 [place] gravity of Hospital Urine by Test strip ID Date Data Source [id number] 06/05/2019 05:30:00 AM [facility] Name Value Range Interpretation Description Data Sup porting Code Source(s) Document(s ) Clarity in Urine CLEAR [place] by Refractometry [facility] automated ID Date Data Source [id number] 06/05/2019 05:30:00 AM [facility] Value Range Interpretation Code Description Data Liya rce(s) Supporting Document(s ) Color of YELLOW [place] Urine Hospital ID Date Data Source [id number] 06/05/2019 05:26:00 AM [facility] REFERENCE RANGES: NONE DETECTED <20 MG/DL NONE TO MILD EUPHORIA 20-49 MG/DL MILD EUPHORIA 50-99 MG/DL MODERATE EUPHORIA 100-149 MG/DL INTOXICATION 150-300 MG/DL Name Value Range Interpretation Description Data Sup porting Code Source(s) Document(s ) Ethanol < 20 [place] [Mass/volume mg/dL Hospital ] in Serum or Plasma ID Date Data Source [id number] 06/05/2019 05:26:00 AM [facility] Name Value Range Interpretation Description Data Sup porting Code Source(s) Document(s ) Lactate 0.8 [place] [Moles/volum mmol/L Hospital e] in Serum or Plasma ID Date Data Source [id number] 06/05/2019 05:26:00 AM [facility] Name Value Range Interpretation Code Description Data Liya rce(s) Supporting Document(s ) Lipase 31 U/L [place] [Enzymatic Hospital activity/vo lume] in Serum or Plasma ID Date Data Source [id number] 06/05/2019 [facility] Name Value Range Interpretation Description Data Sup porting Code Source(s) Document(s ) Aspartate 22 U/L [place] aminotransferase [place] [Enzymatic Hospital activity/volume] in Serum or Plasma ID Date Data Source [id number] 06/05/2019 05:26:00 AM [facility] Value Range Interpretation Description Data Sup porting Code Source(s) Document(s ) Alanine 13 U/L [place] aminotransferase [place] [Enzymatic Hospital activity/volume] in Serum or Plasma ID Date Data Source [id number] 06/05/2019 05:26:00 AM [facility] Value Range Interpretation Description Data Sup porting Code Source(s) Document(s ) Alkaline 83 U/L [place] phosphatase Hospital [Enzymatic activity/volume ] in Serum or Plasma ID Date Data Source [id number] 06/05/2019 05:26:00 AM [facility] Value Range Interpretation Description Data Sup porting Code Source(s) Document(s ) Bilirubin.t 0.5 mg/dL [facility] [Mass/volum e] in Serum or Plasma ID Date Data Source [id number] 06/05/2019 05:26:00 AM [facility] Value Range Interpretation Code Description Data Liya rce(s) Supporting Document(s ) Albumin/Glob 1.3 [place] ulin [Mass Hospital Ratio] in Serum or Plasma ID Date Data Source [id number] 06/05/2019 05:26:00 AM EDT [place] [facility] Name Value Range Interpretation Description Data Sup porting Code Source(s) Document(s ) Albumin 4.1 g/dL [place] [Mass/volume Hospital ] in Serum or Plasma ID Date Data Source [id number] 06/05/2019 05:26:00 AM EDT [place] [facility] Name Value Range Interpretation Description Data Sup porting Code Source(s) Document(s ) Protein 7.2 g/dL [place] [Mass/volume Hospital ] in Serum or Plasma ID Date Data Source [id number] 06/05/2019 05:26:00 AM EDT [place] [facility] Name Value Range Interpretation Description Data Sup porting Code Source(s) Document(s ) Calcium 9.2 mg/dL [place] [Mass/volume Hospital ] in Serum or Plasma ID Date Data Source [id number] 06/05/2019 05:26:[address] [facility] Name Value Range Interpretation Code Description Data Liya rce(s) Supporting Document(s ) Urea 12.5 [place] nitrogen/Cre Hospital atinine [Mass Ratio] in Serum or Plasma ID Date Data Source [id number] 06/05/2019 05:26:[address] [facility] Name Value Range Interpretation Description Data Sup porting Code Source(s) Document(s ) Creatinine 1.2 mg/dL [place] [Mass/volume] Hospital in Serum or Plasma ID Date Data Source [id number] 06/05/2019 05:26:00 AM EDT [place] [facility] Name Value Range Interpretation Description Data Sup porting Code Source(s) Document(s ) Urea 15 mg/dL [place] nitrogen Hospital [Mass/volume ] in Serum or Plasma ID Date Data Source [id number] 06/05/2019 05:26:[address] [facility] Name Value Range Interpretation Code Description Data Liya rce(s) Supporting Document(s ) Anion gap in 10 [place] Serum or Hospital Plasma ID Date Data Source [id number] 06/05/2019 05:26:[address] [facility] Name Value Range Interpretation Description Data Sup porting Code Source(s) Document(s ) Carbon 31 mmol/L [place] dioxide, Hospital total [Moles/volu me] in Serum or Plasma ID Date Data Source [id number] 06/05/2019 05:26:[address] [facility] Name Value Range Interpretation Description Data Sup porting Code Source(s) Document(s ) Chloride 103 [place] [Moles/volum mmol/L Hospital e] in Serum or Plasma ID Date Data Source [id number] 06/05/2019 05:26:[address] [facility] Name Value Range Interpretation Description Data Sup porting Code Source(s) Document(s ) Potassium 4.4 [place] [Moles/volume mmol/L Hospital ] in Serum or Plasma ID Date Data Source [id number] 06/05/2019 05:26:[address] [facility] Name Value Range Interpretation Description Data Sup porting Code Source(s) Document(s ) Sodium 140 mmol/L [place] [Moles/volu Hospital me] in Serum or Plasma ID Date Data Source [id number] 06/05/2019 05:26:00 AM EDT [place] [facility] Name Value Range Interpretation Description Data Sup porting Code Source(s) Document(s ) Glucose 106 mg/dL [place] [Mass/volume Hospital ] in Serum or Plasma ID Date Data Source [id number] 06/05/2019 05:26:[address] [facility] Name Value Range Interpretation Code Description Data Supporting Source(s) Document(s ) NUCLEATED RBCS 0.0 % [place] (AUTO Hospital DIFF%)DIS ID Date Data Source [id number] 06/05/2019 05:26:[address] [facility] Name Value Range Interpretation Description Data Sup porting Code Source(s) Document(s ) Differential AUTOMATED [place] cell count [facility] method - Blood ID Date Data Source [id number] 06/05/2019 05:26:[address] [facility] Name Value Range Interpretation Description Data Sup porting Code Source(s) Document(s ) Immature 0.01 [place] granulocytes 10*3/uL Hospital [#/volume] in Blood by Automated count ID Date Data Source [id number] 06/05/2019 05:26:00 AM EDT [facility] Value Range Interpretation Description Data Sup porting Code Source(s) Document(s ) Basophils 0.01 [place] [#/volume] in 10*3/uL Hospital Blood by Automated count ID Date Data Source [id number] 06/05/2019 05:26:[address] [facility] Name Value Range Interpretation Description Data Sup porting Code Source(s) Document(s ) Eosinophils 0.09 [place] [#/volume] in 10*3/uL Hospital Blood by Automated count ID Date Data Source [id number] 06/05/2019 05:26:[address] [facility] Name Value Range Interpretation Description Data Sup porting Code Source(s) Document(s ) Monocytes 0.39 [place] [#/volume] in 10*3/uL Hospital Blood by Automated count ID Date Data Source [id number] 06/05/2019 05:26:[address] [facility] Name Value Range Interpretation Description Data Sup porting Code Source(s) Document(s ) Lymphocytes 1.52 [place] [#/volume] in 10*3/uL Hospital Blood by Automated count ID Date Data Source [id number] 06/05/2019 05:26:00 AM EDT [facility] Value Range Interpretation Description Data Sup porting Code Source(s) Document(s ) Neutrophils 3.40 [place] [#/volume] in 10*3/uL [facility] Blood by Automated count ID Date Data Source [id number] 06/05/2019 05:26:00 AM EDT [facility] Value Range Interpretation Description Data Sup porting Code Source(s) Document(s ) Nucleated 0.0 % [place] erythrocytes/10 Hospital 0 leukocytes [Ratio] in Blood by Automated count ID Date Data Source [id number] 06/05/2019 05:26:00 AM EDT [facility] Value Range Interpretation Description Data Sup porting Code Source(s) Document(s ) Immature 0.2 % [place] granulocytes/10 Hospital 0 leukocytes in Blood by Automated count ID Date Data Source [id number] 06/05/2019 05:26:00 AM EDT [facility] Value Range Interpretation Description Data Sup porting Code Source(s) Document(s ) Basophils/100 0.2 % [place] leukocytes in [facility] Blood by Automated count ID Date Data Source [id number] 06/05/2019 05:26:00 AM EDT [facility] Value Range Interpretation Description Data Sup porting Code Source(s) Document(s ) Eosinophils/100 1.7 % [place] leukocytes in Hospital Blood by Automated count ID Date Data Source [id number] 06/05/2019 05:26:00 AM EDT [facility] Value Range Interpretation Description Data Sup porting Code Source(s) Document(s ) Monocytes/100 7.2 % [place] leukocytes in Hospital Blood by Automated count ID Date Data Source [id number] 06/05/2019 05:26:[address] [facility] Name Value Range Interpretation Description Data Sup porting Code Source(s) Document(s ) Lymphocytes/10 28.0 % [place] 0 leukocytes Hospital in Blood by Automated count ID Date Data Source [id number] 06/05/2019 05:26:[address] [facility] Name Value Range Interpretation Description Data Sup porting Code Source(s) Document(s ) Neutrophils/10 62.7 % [place] 0 leukocytes Hospital in Blood by Automated count ID Date Data Source [id number] 06/05/2019 05:26:[address] [facility] Name Value Range Interpretation Description Data Sup porting Code Source(s) Document(s ) Platelet mean 9.1 fL [facility] Hospital [Entitic volume] in Blood by Automated count ID Date Data Source [id number] 06/05/2019 05:26:[address] [facility] Name Value Range Interpretation Description Data Sup porting Code Source(s) Document(s ) Platelets 294 [place] [#/volume] in 10*3/uL Hospital Blood by Automated count ID Date Data Source [id number] 06/05/2019 05:26:00 AM T [facility] Value Range Interpretation Description Data Sup porting Code Source(s) Document(s ) Erythrocyte 18.4 % [place] distribution Hospital width [Ratio] by Automated count ID Date Data Source [id number] 06/05/2019 05:26:00 AM T [facility] Value Range Interpretation Description Data Sup porting Code Source(s) Document(s ) Erythrocyte mean 31.0 [place] corpuscular g/dL Hospital hemoglobin concentration [Mass/volume] by Automated count ID Date Data Source [id number] 06/05/2019 05:26:[address] [facility] Name Value Range Interpretation Description Data Sup porting Code Source(s) Document(s ) Erythrocyte 22.3 pg [facility] corpuscular hemoglobin [Entitic mass] by Automated count ID Date Data Source [id number] 06/05/2019 05:26:00 AM EDT [facility] Value Range Interpretation Description Data Sup porting Code Source(s) Document(s ) Erythrocyte 72.0 fL [facility] corpuscular volume [Entitic volume] by Automated count ID Date Data Source [id number] 06/05/2019 05:26:00 AM [facility] Value Range Interpretation Description Data Sup porting Code Source(s) Document(s ) Hematocrit 40.6 % [place] [Volume Hospital Fraction] of Blood by Automated count ID Date Data Source [id number] 06/05/2019 05:26:00 AM [facility] Value Range Interpretation Description Data Sup porting Code Source(s) Document(s ) Hemoglobin 12.6 g/dL [place] [Mass/volume] Hospital in Blood ID Date Data Source [id number] 06/05/2019 05:26:00 AM [facility] Value Range Interpretation Description Data Sup porting Code Source(s) Document(s ) Erythrocytes 5.64 [place] [#/volume] in 10*6/uL Hospital Blood by Automated count ID Date Data Source [id number] 06/05[facility] Range Interpretation Description Data Sup porting Code Source(s) Document(s ) Leukocytes 5.4 [place] [#/volume] in 10*3/uL Hospital Blood by Automated count ID Date Data Source [id number] 06/04/2019 11:45:[address] [facility] Name Value Range Interpretation Code Description Data Liya rce(s) Supporting Document(s ) URINE 0-5 [place] HYALINE Hospital CASTS ID Date Data Source [id number] 06/04/2019 11:45:[address] [facility] Name Value Range Interpretation Description Data Sup porting Code Source(s) Document(s ) URINE OCCASIONAL [place] EPITHELIAL [facility] CELLS ID Date Data Source [id number] 06/04/2019 11:45:00 PM EDT [facility] Value Range Interpretation Description Data Sup porting Code Source(s) Document(s ) Erythrocytes 0-3 [place] [#/area] in /[HPF] Hospital Urine sediment by Automated count ID Date Data Source [id number] 06/04/2019 11:45:00 PM EDT [facility] Value Range Interpretation Description Data Sup porting Code Source(s) Document(s ) Leukocytes 0-3 [place] [#/area] in /[HPF] Hospital Urine sediment by Automated count ID Date Data Source [id number] 06/04/2019 11:45:00 PM EDT [facility] Value Range Interpretation Code Description Data Liya rce(s) Supporting Document(s ) URINE 0-5 [facility] CASTS ID Date Data Source [id number] 06/04/2019 11:45:[address] [facility] Name Value Range Interpretation Description Data Sup porting Code Source(s) Document(s ) URINE OCCASIONAL [place] EPITHELIAL Hospital CELLS ID Date Data Source [id number] 06/04/2019 11:45:[address] [facility] Name Value Range Interpretation Description Data Sup porting Code Source(s) Document(s ) Erythrocytes 0-3 [place] [#/area] in /[HPF] Hospital Urine sediment by Automated count ID Date Data Source [id number] 06/04/2019 11:45:[address] [facility] Name Value Range Interpretation Description Data Sup porting Code Source(s) Document(s ) Leukocytes 0-3 [place] [#/area] in /[HPF] Hospital Urine sediment by Automated count ID Date Data Source [id number] 06/04/2019 11:45:[address] [facility] Name Value Range Interpretation Description Data Sup porting Code Source(s) Document(s ) Leukocyte NEGATIVE [place] esterase Hospital [Presence] in Urine by Test strip ID Date Data Source [id number] 06/04/2019 11:45:[address] [facility] Name Value Range Interpretation Description Data Sup porting Code Source(s) Document(s ) URINE NEGATIVE [place] NITRITES Hospital ID Date Data Source [id number] 06/04/2019 11:45:[address] [facility] Name Value Range Interpretation Description Data Sup porting Code Source(s) Document(s ) Erythrocytes NEGATIVE [place] [#/volume] in Hospital Urine by Test strip ID Date Data Source [id number] 06/04/2019 11:45:[address] [facility] Name Value Range Interpretation Code Description Data Liya rce(s) Supporting Document(s ) Bilirubin. NEGATIVE [place] total Hospital [Presence] in Urine by Test strip ID Date Data Source [id number] 06/04/2019 [facility] Interpretation Description Data Sup porting Code Source(s) Document(s ) Urobilinogen 1.0 [place] [Units/volume] mg/dL Hospital in Urine by Test strip ID Date Data Source [id number] 06/04/2019 11:45:00 PM EDT [place] [facility] Name Value Range Interpretation Description Data Sup porting Code Source(s) Document(s ) Ketones NEGATIVE [place] [Mass/volume Hospital ] in Urine by Test strip ID Date Data Source [id number] 06/04/2019 11:45:[address] [facility] Name Value Range Interpretation Description Data Sup porting Code Source(s) Document(s ) Glucose NEGATIVE [place] [Mass/volume Hospital ] in Urine by Test strip ID Date Data Source [id number] 06/04/2019 11:45:[address] [facility] Name Value Range Interpretation Code Description Data Liya rce(s) Supporting Document(s ) Protein 1+ [place] [Presence] Hospital in Urine by Test strip ID Date Data Source [id number] 06/04/2019 11:45:[address] [facility] Name Value Range Interpretation Code Description Data Liya rce(s) Supporting Document(s ) pH of Urine 7.0 [place] by Test Hospital strip ID Date Data Source [id number] 06/04/2019 11:45:[address] [facility] Name Value Range Interpretation Code Description Data Supporting Source(s) Document(s ) Specific 1.031 [place] gravity of Hospital Urine by Test strip ID Date Data Source [id number] 06/04/2019 11:45:00 PM EDT [place] [facility] Name Value Range Interpretation Description Data Sup porting Code Source(s) Document(s ) Clarity in Urine CLEAR [place] by Refractometry Hospital automated ID Date Data Source [id number] 06/04/2019 11:45:[address] [facility] Name Value Range Interpretation Code Description Data Liya rce(s) Supporting Document(s ) Color of YELLOW [place] Urine Hospital ID Date Data Source [id number] 06/04/2019 11:16:00 PM EDT [place] [facility] Name Value Range Interpretation Description Data Sup porting Code Source(s) Document(s ) Lactate 0.9 [place] [Moles/volum mmol/L Hospital e] in Serum or Plasma ID Date Data Source [id number] 06/04/2019 11:16:00 PM EDT [place] [facility] Name Value Range Interpretation Code Description Data Liya rce(s) Supporting Document(s ) Lipase 47 U/L [place] [Enzymatic Hospital activity/vo lume] in Serum or Plasma ID Date Data Source [id number] 06/04/2019 11:16:[address] [facility] Name Value Range Interpretation Description Data Sup porting Code Source(s) Document(s ) Aspartate 23 U/L [facility] aminotransferase [place] [Enzymatic Hospital activity/volume] in Serum or Plasma ID Date Data Source [id number] 06/04/2019 11:16:00 PM EDT [place] [facility] Name Value Range Interpretation Description Data Sup porting Code Source(s) Document(s ) Alanine 13 U/L [place] amin[facility] [place] [Enzymatic Hospital activity/volume] in Serum or Plasma ID Date Data Source [id number] 06/04/2019 11:16:00 PM EDT [place] [facility] Name Value Range Interpretation Description Data Sup porting Code Source(s) Document(s ) Alkaline 84 U/L [place] phosphatase Hospital [Enzymatic activity/volume ] in Serum or Plasma ID Date Data Source [id number] 06/04/2019 11:16:[address] [facility] Name Value Range Interpretation Description Data Sup porting Code Source(s) Document(s ) Bilirubin.t 0.4 mg/dL [facility] [Mass/volum e] in Serum or Plasma ID Date Data Source [id number] 06/04/2019 11:16:00 PM EDT [place] [facility] Name Value Range Interpretation Code Description Data Liya rce(s) Supporting Document(s ) Albumin/Glob 1.5 [place] ulin [Mass Hospital Ratio] in Serum or Plasma ID Date Data Source [id number] 06/04/2019 11:16:00 PM EDT [place] [facility] Name Value Range Interpretation Description Data Sup porting Code Source(s) Document(s ) Albumin 4.4 g/dL [place] [Mass/volume Hospital ] in Serum or Plasma ID Date Data Source [id number] 06/04/2019 11:16:00 PM EDT [place] [facility] Name Value Range Interpretation Description Data Sup porting Code Source(s) Document(s ) Protein 7.4 g/dL [place] [Mass/volume Hospital ] in Serum or Plasma ID Date Data Source [id number] 06/04/2019 11:16:00 PM EDT [place] [facility] Name Value Range Interpretation Description Data Sup porting Code Source(s) Document(s ) Calcium 9.5 mg/dL [place] [Mass/volume Hospital ] in Serum or Plasma ID Date Data Source [id number] 06/04/2019 11:16:00 PM EDT [place] [facility] Name Value Range Interpretation Code Description Data Liya rce(s) Supporting Document(s ) Urea 15.0 [place] nitrogen/Cre Hospital atinine [Mass Ratio] in Serum or Plasma ID Date Data Source [id number] 06/04/2019 11:16:00 PM EDT [place] [facility] Name Value Range Interpretation Description Data Sup porting Code Source(s) Document(s ) Creatinine 1.2 mg/dL [place] [Mass/volume] Hospital in Serum or Plasma ID Date Data Source [id number] 06/04/2019 11:16:[address] [facility] Name Value Range Interpretation Description Data Sup porting Code Source(s) Document(s ) Urea 18 mg/dL [facility] [Mass/volume ] in Serum or Plasma ID Date Data Source [id number] 06/04/2019 11:16:[address] [facility] Name Value Range Interpretation Code Description Data Liya rce(s) Supporting Document(s ) Anion gap in 12 [place] Serum or [facility] Plasma ID Date Data Source [id number] 06/04/2019 11:16:[address] [facility] Name Value Range Interpretation Description Data Sup porting Code Source(s) Document(s ) Carbon 34 mmol/L [place] dioxide, Hospital total [Moles/volu me] in Serum or Plasma ID Date Data Source [id number] 06/04/2019 11:16:[address] [facility] Name Value Range Interpretation Description Data Sup porting Code Source(s) Document(s ) Chloride 102 [place] [Moles/volum mmol/L Hospital e] in Serum or Plasma ID Date Data Source [id number] 06/04/2019 11:16:[address] [facility] Name Value Range Interpretation Description Data Sup porting Code Source(s) Document(s ) Potassium 4.6 [place] [Moles/volume mmol/L Hospital ] in Serum or Plasma ID Date Data Source [id number] 06/04/2019 11:16:[address] [facility] Name Value Range Interpretation Description Data Sup porting Code Source(s) Document(s ) Sodium 143 mmol/L [place] [Moles/volu Hospital me] in Serum or Plasma ID Date Data Source [id number] 06/04/2019 11:16:[address] [facility] Name Value Range Interpretation Description Data Sup porting Code Source(s) Document(s ) Glucose 108 mg/dL [place] [Mass/volume Hospital ] in Serum or Plasma ID Date Data Source [id number] 06/04/2019 [facility] Interpretation Code Description Data Supporting Source(s) Document(s ) NUCLEATED RBCS 0.0 % [place] (AUTO Hospital DIFF%)DIS ID Date Data Source [id number] 06/04/2019 [facility]:16[facility] Range Interpretation Description Data Sup porting Code Source(s) Document(s ) Differential AUTOMATED [place] cell count Hospital method - Blood ID Date Data Source [id number] 06/04/2019 11:16[facility] Range Interpretation Description Data Sup porting Code Source(s) Document(s ) Immature 0.02 [place] granulocytes 10*3/uL Hospital [#/volume] in Blood by Automated count ID Date Data Source [id number] 06/04/2019 11:16[facility] Interpretation Description Data Sup porting Code Source(s) Document(s ) Basophils 0.04 [place] [#/volume] in 10*3/uL Hospital Blood by Automated count ID Date Data Source [id number] 06/04/2019 [facility] Value Range Interpretation Description Data Sup porting Code Source(s) Document(s ) Eosinophils 0.13 [place] [#/volume] in 10*3/uL Hospital Blood by Automated count ID Date Data Source [id number] 06/04/2019 [facility] Value Range Interpretation Description Data Sup porting Code Source(s) Document(s ) Monocytes 0.41 [place] [#/volume] in 10*3/uL Hospital Blood by Automated count ID Date Data Source [id number] 06/04/2019 11:16:[address] [facility] Name Value Range Interpretation Description Data Sup porting Code Source(s) Document(s ) Lymphocytes 1.52 [place] [#/volume] in 10*3/uL Hospital Blood by Automated count ID Date Data Source [id number] 06/04/2019 11:16:[address] [facility] Name Value Range Interpretation Description Data Sup porting Code Source(s) Document(s ) Neutrophils 3.47 [place] [#/volume] in 10*3/uL Hospital Blood by Automated count ID Date Data Source [id number] 06/04/2019 11:16:00 PM EDT [facility] Value Range Interpretation Description Data Sup porting Code Source(s) Document(s ) Nucleated 0.0 % [place] erythrocytes/10 Hospital 0 leukocytes [Ratio] in Blood by Automated count ID Date Data Source [id number] 06/04/2019 11:16:00 PM EDT [facility] Value Range Interpretation Description Data Sup porting Code Source(s) Document(s ) Immature 0.4 % [place] granulocytes/10 Hospital 0 leukocytes in Blood by Automated count ID Date Data Source [id number] 06/04/2019 11:16:00 PM EDT [facility] Value Range Interpretation Description Data Sup porting Code Source(s) Document(s ) Basophils/100 0.7 % [place] leukocytes in Hospital Blood by Automated count ID Date Data Source [id number] 06/04/2019 11:16:00 PM EDT [facility] Value Range Interpretation Description Data Sup porting Code Source(s) Document(s ) Eosinophils/100 2.3 % [place] leukocytes in Hospital Blood by Automated count ID Date Data Source [id number] 06/04/2019 11:16:[address] [facility] Name Value Range Interpretation Description Data Sup porting Code Source(s) Document(s ) Monocytes/100 7.3 % [place] leukocytes in Hospital Blood by Automated count ID Date Data Source [id number] 06/04/2019 11:16:[address] [facility] Name Value Range Interpretation Description Data Sup porting Code Source(s) Document(s ) Lymphocytes/10 27.2 % [place] 0 leukocytes Hospital in Blood by Automated count ID Date Data Source [id number] 06/04/2019 11:16:[address] [facility] Name Value Range Interpretation Description Data Sup porting Code Source(s) Document(s ) Neutrophils/10 62.1 % [place] 0 leukocytes Hospital in Blood by Automated count ID Date Data Source [id number] 06/04/2019 11:16:[address] [facility] Name Value Range Interpretation Description Data Sup porting Code Source(s) Document(s ) Platelet mean 9.4 fL [place] volume Hospital [Entitic volume] in Blood by Automated count ID Date Data Source [id number] 06/04/2019 11:16:[address] [facility] Name Value Range Interpretation Description Data Sup porting Code Source(s) Document(s ) Platelets 315 [place] [#/volume] in 10*3/uL Hospital Blood by Automated count ID Date Data Source [id number] 06/04/2019 11:16:00 PM EDT [facility] Value Range Interpretation Description Data Sup porting Code Source(s) Document(s ) Erythrocyte 18.8 % [place] distribution Hospital width [Ratio] by Automated count ID Date Data Source [id number] 06/04/2019 11:16:00 PM [facility] Value Range Interpretation Description Data Sup porting Code Source(s) Document(s ) Erythrocyte mean 31.3 [place] corpuscular g/dL Hospital hemoglobin concentration [Mass/volume] by Automated count ID Date Data Source [id number] 06/04/2019 11:16:00 PM [facility] Value Range Interpretation Description Data Sup porting Code Source(s) Document(s ) Erythrocyte 22.4 pg [facility] corpuscular hemoglobin [Entitic mass] by Automated count ID Date Data Source [id number] 06/04/2019 11:16:00 PM [facility] Value Range Interpretation Description Data Sup porting Code Source(s) Document(s ) Erythrocyte 71.3 fL [facility] corpuscular volume [Entitic volume] by Automated count ID Date Data Source [id number] 06/04/2019 11:16:00 PM [facility] Value Range Interpretation Description Data Sup porting Code Source(s) Document(s ) Hematocrit 41.8 % [place] [Volume Hospital Fraction] of Blood by Automated count ID Date Data Source [id number] 06/04/2019 11:16:00 PM [facility] Value Range Interpretation Description Data Sup porting Code Source(s) Document(s ) Hemoglobin 13.1 g/dL [place] [Mass/volume] Hospital in Blood ID Date Data Source [id number] 06/04/2019 11:16:00 PM [facility] Value Range Interpretation Description Data Sup porting Code Source(s) Document(s ) Erythrocytes 5.86 [place] [#/volume] in 10*6/uL Hospital Blood by Automated count ID Date Data Source [id number] 06/04/2019 11:16:00 PM EDT [place] [facility] Name Value Range Interpretation Description Data Sup porting Code Source(s) Document(s ) Leukocytes 5.6 [place] [#/volume] in 10*3/uL Hospital Blood by Automated [...] ever completed Unknown if ever [facility] [place] [facility] smoked [facility] Smoking Unknown if ever completed Unknown if ever [facility] [place] [facility] smoked [facility] Smoking Unknown if ever completed Unknown if ever [facility] [place] smoked smoked [facility] Smoking Unknown if ever completed Unknown if ever [facility] [place] smoked smoked [facility] Smoking Unknown if ever completed Unknown if ever [facility] [place] smoked smoked [facility] Smoking Unknown if ever completed Unknown if ever [facility] [place] smoked smoked [facility] Vital Signs ID Date Data Source [id number] Name Value Range Interpretation Code Description Data Source(s) Diastolic blood 78 mm[Hg] 78 mm[Hg] [facility] [place] [facility] Systolic blood 114 mm[Hg] 114 mm[Hg] [facility] 18 /min 18 /[facility] /min 56 /min [facility] Body temperature 36.79320 Brenda 36.65122 Brenda [facility] Body temperature 97.9 [degF] 97.9 [degF] [facility] Body mass index 25.0 kg/m2 25.0 kg/m2 [facility] (BMI) [Ratio] Hospital Body weight 175.38 [lb_av] 175.38 [lb_av] [facility] Body temperature 36.586399 Brenda 36.966431 [facility]da [facility] Respiratory rate 18 /min 18 /min [facility] Oxygen 98 % 98 % [facility] saturation in Medical Arterial blood Center by Pulse oximetry Heart rate 75 /min 75 /min [facility] Diastolic blood 80 mm[Hg] 80 mm[Hg] [facility] pressure Medical Center Systolic blood 146 mm[Hg] 146 mm[Hg] [facility] Body temperature 36.675506 Brenda 36.975741 Brenda [facility] Respiratory rate 18 /min 18 /min [facility] Oxygen 98 % 98 % [facility] saturation in Medical Arterial blood Center by Pulse oximetry Heart rate 74 /min 74 /min [facility] Diastolic blood 75 mm[Hg] 75 mm[Hg] [facility] pressure Medical Center Systolic blood 140 mm[Hg] 140 mm[Hg] [facility] Body weight 85.401575 kg 85.515698 kg [facility] Body temperature 36.224624 Brenda 36.259750 Brenda [facility] Respiratory rate 18 /min 18 /min [facility] Oxygen 98 % 98 % [facility] saturation in Medical Arterial blood Center by Pulse oximetry Heart rate 54 /min 54 /min [facility] Body height 175.657298 cm 175.765436 cm [facility] Diastolic blood 67 mm[Hg] 67 mm[Hg] [facility] pressure Medical Center Systolic blood 130 mm[Hg] 130 mm[Hg] [facility] pressure Medical Center Body mass index 27.6 kg/m2 27.6 kg/m2 [facility] (BMI) [Ratio] Medical Center Diastolic blood 66 mmHg 66 mmHg [facility] Systolic blood 101 mmHg 101 mmHg [facility] Respiratory rate 18 bpm 18 bpm [facility] Heart rate 67 bpm 67 bpm [facility] Body temperature 97.0 Fahrenheit 97.0 Fahrenh t [facility] Diastolic blood 66 mmHg 66 mmHg [facility] Systolic blood 96 mmHg 96 mmHg [facility] Respiratory rate 18 bpm 18 bpm [facility] Heart rate 75 bpm 75 bpm [facility] Body temperature 97.2 Fahrenheit 97.2 Fahrenh t [facility] Body temperature 97.0 Fahrenheit 97.0 Fahrenh t [facility] Diastolic blood 62 mmHg 62 mmHg [facility] Systolic blood 88 mmHg 88 mmHg [facility] Respiratory rate 18 bpm 18 bpm [facility] Heart rate 63 bpm 63 bpm [facility] Body temperature 96.5 Fahrenheit 96.5 Fahrenh t [facility] Diastolic blood 65 mmHg 65 mmHg [facility] Systolic blood 100 mmHg 100 mmHg [facility] Respiratory rate 18 bpm 18 bpm [facility] Heart rate 63 bpm 63 bpm [facility] Body temperature 96.3 Fahrenheit 96.3 Fahrenhei t [facility] Body temperature 97.2 Fahrenheit 97.2 Fahrenh t [facility] Body temperature 36.339042 Brenda 36.529964 Brenda [facility] Respiratory rate 20 /min 20 /min [facility] Heart rate 55 /min 55 /min [facility] Diastolic blood 59 mm[Hg] 59 mm[Hg] [facility] Systolic blood 120 mm[Hg] 120 mm[Hg] [facility] Body temperature 36.915288 Brenda 36.847391 Brenda [facility] Respiratory rate 18 /min 18 /min [facility] Heart rate 57 /min 57 /min [facility] Diastolic blood 66 mm[Hg] 66 mm[Hg] [facility] Systolic blood 103 mm[Hg] 103 mm[Hg] [facility] Body temperature 36.703219 Brenda 36.603281 Brenda [facility] Respiratory rate 20 /min 20 /min [facility] Heart rate 55 /min 55 /min [facility] Diastolic blood 61 mm[Hg] 61 mm[Hg] [facility] [place] Systolic blood 108 mm[Hg] 108 mm[Hg] [facility] Oxygen 98 % 98 % [place] saturation in Medical Arterial blood Center by Pulse oximetry Body temperature 36.690918 Brenda 36.075586 Brenda [facility] Respiratory rate 20 /min 20 /min [facility] Heart rate 58 /min 58 /min [facility] Diastolic blood 61 mm[Hg] 61 mm[Hg] [facility] Systolic blood 92 mm[Hg] 92 mm[Hg] [facility] Body temperature 36.656322 Brenda 36.195864 Brenda [facility] Respiratory rate 18 /min 18 /min [facility] Heart rate 64 /min 64 /min [facility] Diastolic blood 68 mm[Hg] 68 mm[Hg] [facility] Systolic blood 111 mm[Hg] 111 mm[Hg] [facility] Oxygen 99 % 99 % [facility] saturation in Medical Arterial blood Center by Pulse oximetry Oxygen 98 % 98 % [facility] saturation in Medical Arterial blood Center by Pulse oximetry Body temperature 36.410193 Brenda 36.735110 Brenda [facility] Respiratory rate 20 /min 20 /min [facility] Heart rate 52 /min 52 /min [facility] Diastolic blood 62 mm[Hg] 62 mm[Hg] [facility] Systolic blood 100 mm[Hg] 100 mm[Hg] [facility] Oxygen 99 % 99 % [facility] saturation in Medical Arterial blood Center by Pulse oximetry Body temperature 36.585443 Brenda 36.676145 Brenda [facility] Respiratory rate 20 /min 20 /min [facility] Heart rate 62 /min 62 /min [facility] Diastolic blood 56 mm[Hg] 56 mm[Hg] [facility] Systolic blood 97 mm[Hg] 97 mm[Hg] [facility] Body weight 75.625304 kg 75.708442 kg [facility] Body height 175.218355 cm 175.341485 cm [facility] Body mass index 24.65 kg/m2 24.65 kg/m2 [facility] (BMI) [Ratio] Medical Center Body temperature 36.790187 Brenda 36.086192 Brenda [facility] Respiratory rate 20 /min 20 /min [facility] Heart rate 53 /min 53 /min [facility] Diastolic blood 59 mm[Hg] 59 mm[Hg] [facility] pressure Medical Center Systolic blood 107 mm[Hg] 107 mm[Hg] [facility] Body temperature 36.218726 Brenda 36.249658 Brenda [facility] Respiratory rate 20 /min 20 /min [facility] Heart rate 65 /min 65 /min [facility] Diastolic blood 63 mm[Hg] 63 mm[Hg] [facility] Systolic blood 99 mm[Hg] 99 mm[Hg] [facility] Body weight 75.725696 kg 75.075213 kg [facility] Measured Medical Center Body height 175.321173 cm 175.292388 cm [facility] Body mass index 24.65 kg/m2 24.65 kg/m2 [facility] (BMI) [Ratio] Medical Center Body temperature 36.924816 Brenda 36.630403 Brenda [facility] Respiratory rate 16 /min 16 /min [facility] Heart rate 60 /min 60 /min [facility] Diastolic blood 72 mm[Hg] 72 mm[Hg] [facility] Systolic blood 95 mm[Hg] 95 mm[Hg] [facility] Oxygen 96 % 96 % [facility] saturation in Medical Arterial blood Center by Pulse oximetry Oxygen 97 % 97 % [facility] saturation in Medical Arterial blood Center by Pulse oximetry Body weight 75.704965 kg 75.389730 kg [facility] Measured Medical Center Body height 170.550211 cm 170.085274 cm [facility] Oxygen 99 % 99 % [facility] saturation in Medical Arterial blood Center by Pulse oximetry Body mass index 25.8 kg/m2 25.8 kg/m2 [facility] (BMI) [Ratio] Medical Center Diastolic blood 77 mm[Hg] 77 mm[Hg] [facility] Systolic blood 120 mm[Hg] 120 mm[Hg] [facility] Respiratory rate 22 /min 22 /min [facility] Heart rate 80 /min 80 /min [facility] Body temperature 35.80722 Brenda 35.00332 Brenda [facility] Body temperature 96.7 [degF] 96.7 [degF] [facility] Body mass index 27.0 kg/m2 27.0 kg/m2 [facility] ins (BMI) [Ratio] Hospital Body weight 198.42 [lb_av] 198.42 [lb_av] [facility] Systolic blood 115 mmHg 115 mmHg [facility] Respiratory rate 18 bpm 18 bpm [facility] Heart rate 82 bpm 82 bpm [facility] Diastolic blood 64 mmHg 64 mmHg [facility] Diastolic blood 66 mmHg 66 mmHg [facility] Systolic blood 106 mmHg 106 mmHg [facility] Respiratory rate 16 bpm 16 bpm [facility] Heart rate 61 bpm 61 bpm [facility] Body temperature 96.9 [facility] 174 lbs 174 lbs [facility] Diastolic blood 72 mmHg 72 mmHg [facility] Systolic blood 102 mmHg 102 mmHg [facility] Respiratory rate 18 bpm 18 bpm [facility] Heart rate 72 bpm 72 bpm [facility] Diastolic blood 65 mmHg 65 mmHg [facility] Systolic blood 101 mmHg 101 mmHg [facility] Respiratory rate 18 bpm 18 bpm [facility] Heart rate 65 bpm 65 bpm [facility] Body temperature 97.4 [facility] temperature 36.469261 Brenda 36.515788 [facility]da [facility] Respiratory rate 17 /min 17 /min [facility] Oxygen 97 % 97 % [facility] saturation in Medical Arterial blood Center by Pulse oximetry Heart rate 115 /min 115 /min [facility] Diastolic blood 109 mm[Hg] 109 mm[Hg] [facility] Systolic blood 153 mm[Hg] 153 mm[Hg] [facility] Center Diastolic blood 88 mm[Hg] 88 mm[Hg] [facility] Systolic blood 150 mm[Hg] 150 mm[Hg] [facility] Respiratory rate 20 /min 20 /min [facility] Heart rate 53 /min 53 /min [facility] Body temperature 36.36055 Brenda 36.93911 Brenda [facility] Body temperature 98.5 [degF] 98.5 [degF] [facility] Body mass index 23.0 kg/m2 23.0 kg/m2 [place] [facility] (BMI) [Ratio] Hospital Body weight 154.32 [lb_av] 154.32 [lb_av] [facility] Diastolic blood 53 mm[Hg] 53 mm[Hg] [facility] pressure Hospital Systolic blood 143 mm[Hg] 143 mm[Hg] [facility] pressure Hospital Respiratory rate 20 /min 20 /min [facility] Heart rate 51 /min 51 /min [facility] Body temperature 36.07898 Brenda 36.47180 Brenda [facility] Body temperature 98.3 [degF] 98.3 [degF] [facility] Body mass index 23.0 kg/m2 23.0 kg/m2 [place] [facility] (BMI) [Ratio] Hospital Body weight 157.32 [lb_av] 157.32 [lb_av] [facility] Diastolic blood 84 mm[Hg] 84 mm[Hg] [facility] pressure Hospital Systolic blood 124 mm[Hg] 124 mm[Hg] [facility] pressure Hospital Respiratory rate 18 /min 18 /min [facility] Heart rate 51 /min 51 /min [facility] Body temperature 36.66675 Brenda 36.82480 Brenda [facility] Body temperature 97.6 [degF] 97.6 [degF] [facility] Body mass index 23.0 kg/m2 23.0 kg/m2 [facility] ins (BMI) [Ratio] Hospital Body weight 158.34 [lb_av] 158.34 [lb_av] [facility] Diastolic blood 75 mm[Hg] 75 mm[Hg] [facility] Systolic blood 115 mm[Hg] 115 mm[Hg] [facility] pressure Hospital Respiratory rate 18 /min 18 /min [facility] Heart rate 56 /min 56 /min [facility] Body temperature 36.76068 Brenda 36.56949 Brenda [facility] Body temperature 98.0 [degF] 98.0 [degF] [facility] Body mass index 25.0 kg/m2 25.0 kg/m2 [facility] ins (BMI) [Ratio] Hospital Body weight 174.36 [lb_av] 174.36 [lb_av] [facility] ID Date Data Source [id number] 02/20/2020 10:07:23 PM EDT [facility] Name Value Range Interpretation Code Description Data Source(s) Body weight Measured 174 lb 174 lb [facility] ID Date Data Source [id number] 02/14/2020 10:37:07 PM EDT [facility] Name Value Range Interpretation Code Description Data Source(s) Body weight Measured 174 lb 174 lb [facility] ID Date Data Source [id number] 10/25/2019 10:29:42 PM EST [facility] Name Value Range Interpretation Code Description Data Source(s) Body weight Measured 174 lb 174 lb [facility] Patient Treatment Plan of Care Planned Activity Planned Date Details Description Data Source (s) No data available for this N [facility] Azithromycin 250 MG Oral Rg [facility] Thiamine 100 MG Oral Tablet [facility] Folic Acid 1 MG Oral Tablet [facility] 24 HR Divalproex Sodium 500 [facility] Medical MG Extended Release Oral Fouzia ter Tablet [Depakote] 24 HR Divalproex Sodium 500 [facility] Medical MG Extended Release Oral Fouzia ter Tablet [Depakote] Folic Acid 1 MG Oral Tablet [facility] Thiamine 100 MG Oral Tablet [facility]
[2020-07-08] MEDS: THIAMINE HCL 100 MG TABLET (FP) PO SCH (22:29)
[2020-07-08] MEDS: hydrOXYzine PAMOATE 25 MG CAPSULE (FP) PO SCH (22:29)
[2020-07-08] MEDS: MELATONIN 5 MG TABLETS PO SCH (22:30)
[2020-07-09] MEDS: hydrOXYzine PAMOATE 25 MG CAPSULE (FP) PO SCH ×5 (07:09→21:50)
[2020-07-09] MEDS: PRENATAL VITAMINS W/ FOLIC ACID TABLET (FP) PO SCH (10:10)
[2020-07-09] MEDS: NICOTINE 7 MG/24 HOURS TOPICAL PATCH TD SCH (10:10)
[2020-07-09 10:23] LABS: HEMATOCRIT 39.4 % (35.4-49); HEMOGLOBIN 12.2 GM/dL (11.7-16.9); MCH 22.9 pg (25.7-33.7); MCHC 30.8 g/dl (32.0-35.9); MEAN CELL VOLUME 74.4 fl (80-96); MEAN PLT VOLUME 7.7 fl (7.5-11.1); PLATELET COUNT 273 K/MM3 (134-434); RDW 16.1 % (11.9-15.9); WHITE BLOOD COUNT 5.7 K/mm3 (4.0-10.0)
[2020-07-09 10:24] LABS: ALBUMIN 3.1 g/dl (3.4-5.0); BILIRUBIN,TOTAL 0.2 mg/dL (0.2-1); BLOOD UREA NITROGEN 26.1 mg/dL (7-18); CALCIUM 9.7 mg/dL (8.5-10.1); CREATININE 1.4 mg/dL (0.55-1.3); POTASSIUM 4.6 mmol/L (3.5-5.1); TOT PROT 7.5 g/dl (6.4-8.2)
[2020-07-09 12:11] LABS: SICKLE CELL SCREEN NEGATIVE (NEGATIVE)
[2020-07-09 14:48] LABS: URINE APPEARANCE CLEAR; URINE BILIRUBIN NEGATIVE (NEGATIVE); URINE COLOR YELLOW; URINE GLUCOSE (UA) NEGATIVE (NEGATIVE); URINE KETONE NEGATIVE (NEGATIVE); URINE LEUK ESTERASE NEGATIVE (NEGATIVE); URINE NITRITE NEGATIVE (NEGATIVE); URINE PROTEIN NEGATIVE (NEGATIVE)
[2020-07-09] MEDS: MELATONIN 5 MG TABLETS PO SCH (21:50)
[2020-07-09] MEDS: THIAMINE HCL 100 MG TABLET (FP) PO SCH (21:50)
[2020-07-10] MEDS: hydrOXYzine PAMOATE 25 MG CAPSULE (FP) PO SCH ×3 (06:14→13:35)
[2020-07-10] MEDS: PRENATAL VITAMINS W/ FOLIC ACID TABLET (FP) PO SCH (10:12)
[2020-07-10] MEDS: NICOTINE 7 MG/24 HOURS TOPICAL PATCH TD SCH (10:13)
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
[2020-07-10] MEDS: DIVALPROEX SODIUM 500 MG TABLET E.C. PO SCH ×2 (13:57→21:25)
[2020-07-10] MEDS: MELATONIN 5 MG TABLETS PO SCH (21:26)
[2020-07-10] MEDS: THIAMINE HCL 100 MG TABLET (FP) PO SCH (21:26)
[2020-07-11 07:03] VITALS: BP 109/81; PULSE 77; TEMP 97.6
[2020-07-11] MEDS: DIVALPROEX SODIUM 500 MG TABLET E.C. PO SCH (10:12)
[2020-07-11] MEDS: PRENATAL VITAMINS W/ FOLIC ACID TABLET (FP) PO SCH (10:12)
[2020-07-11] MEDS: NICOTINE 7 MG/24 HOURS TOPICAL PATCH TD SCH (10:12)
--- NOTE | 2020-07-11 17:55 | DS ---
[facility] Rehab Discharge Summary - [facility] Rehab Discharge Summary Admission Date: 07/08/20 Discharge Date: 07/11/20 - History Additional Comments: called by nursing for pt stating he wanted to leave. Pt declined to offer specific reason , states h is going back to his long-term. Pt denies c/o , states he is feeling fine , declined further medical care from this sba underwriter. Ambulating freely on the unit . Vital signs stable , afebrile. pt was educated about the risks of leaving AMA , including relapse , seizure and , and pt indicated he wanted to proceed with d/c . Vital Signs - 24 hr 07/10/20 07/11/20 07/11/20 20:35 06:05 15:03 Temperature 98.1 F 97.6 F Pulse Rate 77 Respiratory 18 Rate Blood Pressure 109/81 O2 Sat by Pulse 96 96 96 Oximetry (%) - Discharge Physical Exam Vital Signs: Vital Signs Temperature 97.6 F 07/11/20 06:05 Pulse Rate 77 07/11/20 06:05 Respiratory Rate 18 07/11/20 06:05 Blood Pressure 109/81 07/11/20 06:05 O2 Sat by Pulse Oximetry (%) 96 07/11/20 15:03 - Medication Discharge Medications: Ambulatory Orders Aripiprazole [Abilify Maintena] 400 mg IM MONTHLY 07/05/20 Divalproex [Depakote -] 500 mg PO BID 07/05/20 Folic Acid - 1 mg PO DAILY #30 tablet 07/08/20 Multivitamins [Multivit ([facility] Formulary)] 1 tab PO DAILY #30 tab 07/08/20 Thiamine HCl [Vitamin B1 -] 100 mg PO DAILY #30 tablet 07/08/20 - Discharge Instructions Diet, activity, other medical instructions: Diet: Activity: Other medical instructions:
== END 2020-07-11 18:00 | disposition left against medical advice (07) | DRG 770 ==
LOC: YASAS 17:46 → Y3W 21:16
PROVIDERS: ADMIT Allergy & Immunology; ATTEND Allergy & Immunology
PROC: HZ42ZZZ Group Counseling for Substance Abuse Treatment, Cognitive-Behavioral (ICD-10-PCS; principal; 2020-07-08)
DX: F10.20 Alcohol dependence, uncomplicated (principal); F14.20 Cocaine dependence, uncomplicated; F12.20 Cannabis dependence, uncomplicated; F17.210 Nicotine dependence, cigarettes, uncomplicated; F20.0 Paranoid schizophrenia; F19.282 Other psychoactive substance dependence with psychoactive substance-induced sleep disorder; F19.280 Other psychoactive substance dependence with psychoactive substance-induced anxiety disorder; D64.9 Anemia, unspecified; J45.20 Mild intermittent asthma, uncomplicated; Z62.810 Personal history of physical and sexual abuse in childhood; Z59.0 Homelessness; Z91.018 Allergy to other foods
CPT/HCPCS: 36415; 80053; 81003; 85027; 85660; 86780